=== PATIENT | male | born 1945 | race Caucasian/White ===

== ENCOUNTER 2021-10-26 18:34 | Emergency (ER) | payer OTHER, MEDICARE ==
[~2021-10-26] VITALS: Ht 180.3 cm; Wt 97.5 kg
[2021-10-26] MEDS ORDERED: ULTRAM50 MG PO (21:04)
== END 2021-10-26 21:36 | disposition home or self-care (01) ==
LOC: ED 18:34
DX: S39.012A Strain of muscle, fascia and tendon of lower back, initial encounter (principal); S09.90XA Unspecified injury of head, initial encounter; T14.8XXA Other injury of unspecified body region, initial encounter; Z88.8 Allergy status to other drugs, medicaments and biological substances; W18.09XA Striking against other object with subsequent fall, initial encounter
CPT/HCPCS: 70450; 72125; 72131; 73110; 99284-25; A9270

== ENCOUNTER → 2023-01-30 | Emergency (ER) | payer MEDICARE ==
[~2023-01-30] VITALS: Ht 180.3 cm; Wt 105.0 kg
[~2023-01-30] MED LIST: AMLODIPINE BESY10 MG PO; CYCLOBENZAPRINE10 MG PO; DIAZEPAM5 MG PO; DULOXETINE HCL30 MG PO; ELIQUIS5 MG PO; FARXIGA10 MG PO; FLOVENT DISKUS50 MCG INH; HUMALOG100 UNIT/2 SUB-Q; LEVOTHYROXINE112 MCG PO; LOSARTAN POTASS50 MG PO; METFORMIN HCL500 MG PO; METOPROLOL SUC100 MG PO; OMEPRAZOLE20 MG PO; PRAVASTATIN SOD40 MG PO; TAMSULOSIN HCL0.4 MG PO; TORSEMIDE10 MG PO; TOUJEO SOL300 UNIT/1 SUB-Q; TRAZODONE HCL50 MG PO; ULTRAM50 MG PO; VENTOLIN HFA18 GM INH
--- OUTSIDE RECORDS SUMMARY | ~2023-01-30 | XMS | Continuity of Care Document ---
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 | Role | Phone | + [...] - | | | | | | [place] | | | + + + + [...] - | | | | | | [place] | | | + + + + + + | (no date) | MEPERIDINE | [facility] | (no reaction) | (no severity) [...] + | (no date) | ATORVASTATIN | [facility] | (no reaction) | (no severity) | | | | [facility] | | | + + + + + + | (no date) | LISINOPRIL | [facility] | (no reaction) | (no severity) | | | | [facility] | | | + + + + + + | (no date) | ROSUVASTATIN | [facility] | (no reaction) | (no severity) [...] + | 2013-03-26 00:00 | Influenza | [facility] | + + + + | 2014-03-08 00:00 | Influenza | [facility] | + + + + | 2015-04-07 00:00 | Influenza | [facility] | + + + + | 2016-03-16 00:00 | Influenza | [facility] | + + + + [...] + | 2016-06-11 00:00 | Pneumococcal | [facility] | + + + + Medications + + + + | date | description | facility | + + + + | 2021-07-07 00:00 | Susan Sherwood 100 | [facility] | | | units/mL | | + + + + | 2021-05-08 00:00 | Eliquis 5 mg | [facility] | + + + + | 2021-07-07 00:00 | Flomax 0.4 mg | [facility] | + + + + | 2021-07-07 00:00 | Patti Delgado 300 | [facility] | | | units/mL | | + + + + | 2021-07-07 00:00 | fluticasone nasal 50 | [facility] | | | mcg/inh | | + + + + | 2021-07-07 00:00 | furosemide 20 mg | [facility] | + + + + | 2021-07-07 00:00 | amoxicillin 500 mg | [facility] | + + + + | 2021-07-07 00:00 | DULoxetine 30 mg | [facility] | + + + + | 2015-06-08 00:00 | Valium 5 mg | [facility] | + + + + | 2021-07-07 00:00 | trazodone 50 mg | [facility] | + + + + | 2020-12-06 00:00 | Farxiga 10 mg | [facility] | + + + + | 2021-07-07 00:00 | levothyroxine 112 mcg | [facility] | | | (0.112 mg) | | + + + + | 2021-07-07 00:00 | Metoprolol Succinate ER | [facility] | | | 100 mg | | + + + + | 2021-07-07 00:00 | acetaminophen-hydrocodone | [facility] | | | 325 mg-5 mg | | + + + + | 2021-07-07 00:00 | aspirin 81 mg | [facility] | + + + + | 2021-07-07 00:00 | omeprazole 20 mg | [facility] | + + + + | 2015-06-08 00:00 | diazepam 5 MG Oral Tablet | [facility] | | | [Valium] | | + + + + | 2017-01-08 00:00 | Levothyroxine Sodium 50 | [facility] | | | MCG OR TABS | | + + + + | 2017-04-09 00:00 | Levothyroxine Sodium 75 | [facility] | | | MCG OR TABS | | + + + + | 2017-09-03 00:00 | Levothyroxine Sodium 100 | [facility] | | | MCG OR TABS | | + + + + | 2018-02-18 00:00 | Levothyroxine Sodium 100 | [facility] | | | MCG OR TABS | | + + + + | 2021-05-08 00:00 | apixaban 5 MG Oral Tablet | [place] [facility] | | | [Eliquis] | | + + + + | 2016-12-04 00:00 | Kionex 15 GM/60ML OR SUSP | [facility] | | | | | + + + + | 2020-12-06 00:00 | dapagliflozin 10 MG Oral | [facility] | | | Tablet [Farxiga] | | + + + + | 2019-02-26 00:00 | 1.5 ML insulin glargine | [facility] | | | 300 UNT/ML Pen Injector | | | | [Toujeo] | | + + + + | 2021-07-07 00:00 | 1.5 ML insulin glargine | [facility] | | | 300 UNT/ML Pen Injector | | | | [Toujeo] | | + + + + | 2017-01-22 00:00 | 3 ML insulin lispro 100 | [facility] | | | UNT/ML Pen Injector | | | | [Humalog] | | + + + + | 2018-02-04 00:00 | 3 ML insulin lispro 100 | [facility] | | | UNT/ML Pen Injector | | | | [Humalog] | | + + + + | 2018-08-12 00:00 | 3 ML insulin lispro 100 | [facility] | | | UNT/ML Pen Injector | | | | [Humalog] | | + + + + | 2019-02-26 00:00 | 3 ML insulin lispro 100 | [facility] | | | UNT/ML Pen Injector | | | | [Humalog] | | + + + + | 2021-07-07 00:00 | 3 ML insulin lispro 100 | [facility] | | | UNT/ML Pen Injector | | | | [Humalog] | | + + + + | 2018-02-07 00:00 | 3 ML insulin aspart, human | [facility] | | | 100 UNT/ML Pen Injector | | | | [NovoLog] | | + + + + | 2021-07-07 00:00 | fluticasone propionate | [facility] | | | 0.05 MG/ACTUAT Metered Dose | | | | Nasal [place] | | + + + + | 2017-01-22 00:00 | HumaLOG KwikPen 100 | [facility] | | | UNIT/ML SC SOPN | | + + + + | 2018-02-04 00:00 | HumaLOG KwikPen 100 | [facility] | | | UNIT/ML SC SOPN | | + + + + | 2018-08-12 00:00 | HumaLOG KwikPen 100 | [facility] | | | UNIT/ML SC SOPN | | + + + + | 2019-02-26 00:00 | HumaLOG KwikPen 100UNIT/ML | [facility] | | | Subcutaneous Solution | | | | Pen-injector | | + + + + | 2018-02-07 00:00 | NovoLOG FlexPen 100 | [facility] | | | UNIT/ML SC SOPN | | + + + + | 2019-02-26 00:00 | Lantus SoloStar 100UNIT/ML | [facility] | | | Subcutaneous Solution | | | | Pen-injector | | + + + + | 2019-02-26 00:00 | Toujeo SoloStar 300UNIT/ML | [facility] | | | Subcutaneous Solution | | | | Pen-injector | | + + + + | 2016-10-29 00:00 | amlodipine 5 MG Oral | [facility] | | | Tablet | | + + + + | 2017-04-10 00:00 | amlodipine 5 MG Oral | [facility] | | | Tablet | | + + + + | 2017-09-30 00:00 | amlodipine 5 MG Oral | [facility] | | | Tablet | | + + + + | 2018-10-09 00:00 | amlodipine 5 MG Oral | [facility] | | | Tablet | | + + + + | 2021-03-21 00:00 | amlodipine 5 MG Oral | [facility] | | | Tablet | | + + + + | 2019-02-26 00:00 | diazepam 10 MG Oral Tablet | [facility] | | | | | + + + + | 2021-07-07 00:00 | omeprazole 20 MG Delayed | [place] [facility] | | | Release Oral Capsule | | + + + + | 2021-07-07 00:00 | ondansetron 4 MG Oral | [place] [facility] | | | Tablet | | + + + + | 2018-02-18 00:00 | FreeStyle Dao Sensor | [facility] | | | System MISC | | + + + + | 2018-07-08 00:00 | FreeStyle Dao Sensor | [facility] | | | System MISC | | + + + + | 2018-02-20 00:00 | FreeStyle Dao [place] | [facility] | | | [place] | | + + + + | 2018-07-08 00:00 | FreeStyle Dao [place] | [facility] | | | [place] | | + + + + | 2019-02-26 00:00 | traZODone HCl 100MG Oral | [facility] | | | Tablet | | + + + + | 2019-02-26 00:00 | Warfarin Sodium 7.5MG Oral | [facility] | | | Tablet | | + + + + | 2019-02-26 00:00 | amLODIPine Besylate 2.5MG | [facility] | | | Oral Tablet | | + + + + | 2016-10-29 00:00 | amLODIPine Besylate 5 MG | [facility] | | | OR TABS | | + + + + | 2017-04-10 00:00 | amLODIPine Besylate 5 MG | [facility] | | | OR TABS | | + + + + | 2017-09-30 00:00 | amLODIPine Besylate 5 MG | [facility] | | | OR TABS | | + + + + | 2018-10-09 00:00 | amLODIPine Besylate 5 MG | [facility] | | | OR TABS | | + + + + | 2017-05-21 00:00 | Levothyroxine Sodium 88 | [facility] | | | MCG OR TABS | | + + + + | 2019-02-26 00:00 | Pravastatin Sodium 10MG | [facility] | | | Oral Tablet | | + + + + | 2017-11-04 00:00 | Pravastatin Sodium 40 MG | [facility] | | | OR TABS | | + + + + | 2019-02-26 00:00 | amlodipine 2.5 MG Oral | [facility] | | | Tablet | | + + + + | 2021-07-07 00:00 | amoxicillin 500 MG Oral | [facility] | | | Capsule | | + + + + | 2021-07-07 00:00 | aspirin 81 MG Delayed | [facility] | | | Release Oral Tablet | | + + + + | 2021-07-07 00:00 | furosemide 20 MG Oral | [facility] | | | Tablet | | + + + + | 2017-09-03 00:00 | glucagon (rDNA) 1 MG | [facility] | | | Injection | | + + + + | 2019-04-07 00:00 | glucagon (rDNA) 1 MG | [facility] | | | Injection | | + + + + | 2019-02-26 00:00 | 24 HR isosorbide | [facility] | | | mononitrate 30 MG Extended | | | | Release Oral Tablet | | + + + + | 2019-02-26 00:00 | Losartan Potassium 100MG | [facility] | | | Oral Tablet | | + + + + | 2017-01-22 00:00 | BD Pen Needle Short U/F | [facility] | | | 31G X 8 MM MISC | | + + + + | 2019-11-05 00:00 | BD Pen Needle Short U/F | [facility] | | | 31G X 8 MM Miscellaneous | | + + + + | 2019-02-26 00:00 | Isosorbide Mononitrate ER | [facility] | | | 30MG Oral Tablet Extended | | | | Release 24 Hour | | + + + + | 2021-07-07 00:00 | ProAir HFA CFC free 90 | [facility] | | | mcg/inh | | + + + + | 2019-02-26 00:00 | duloxetine 30 MG Delayed | [facility] | | | Release Oral Capsule | | + + + + | 2021-07-07 00:00 | duloxetine 30 MG Delayed | [facility] | | | Release Oral Capsule | [...] | pregabalin 100 MG Oral | [facility] | | | Capsule [Lyrica] | | + + + + | 2019-02-26 00:00 | diazePAM 10MG Oral Tablet | [facility] | | | | | + + + + | 2018-01-07 00:00 | metFORMIN HCl ER 500 MG | [facility] | | | TB24 | | + + + + | 2018-02-18 00:00 | metFORMIN HCl ER 500 MG | [facility] | | | TB24 | | + + + + | 2018-05-26 00:00 | metFORMIN HCl ER 500 MG | [facility] | | | TB24 | | + + + + | 2021-07-07 00:00 | losartan 25 mg | [facility] | + + + + | 2021-07-07 00:00 | ondansetron 4 mg | [facility] | + + + + | 2021-07-07 00:00 | pravastatin 40 mg | [facility] | + + + + | 2021-01-09 00:00 | metFORMIN 1000 mg | [facility] | + + + + | 2021-07-07 00:00 | cyclobenzaprine 10 mg | [facility] | + + + + | 2017-09-17 00:00 | Metoprolol Succinate ER | [facility] | | | 100 MG OR TB24 | | + + + + | 2019-02-26 00:00 | Metoprolol Succinate ER | [facility] | | | 100MG Oral Tablet Extended | | | | Release 24 Hour | | + + + + | 2021-07-07 00:00 | [id number] 200 ACTUAT | [facility] | | | albuterol 0.09 MG/ACTUAT | | | | Metered Dose Inhaler | | | | [ProAir] | | + + + + | 2021-03-21 00:00 | amLODIPine 5 mg | [facility] | + + + + | 2016-12-04 00:00 | sodium polystyrene | [facility] | | | sulfonate 250 MG/ML Oral | | | | Suspension [Kionex] | | + + + + | 2019-02-26 00:00 | 3 ML insulin glargine 100 | [facility] | | | UNT/ML Pen Injector | | | | [Lantus] | | + + + + | 2019-02-26 00:00 | warfarin sodium 7.5 MG | [facility] | | | Oral Tablet | | + + + + | 2019-02-26 00:00 | trazodone hydrochloride | [facility] | | | 100 MG Oral Tablet | | + + + + | 2021-07-07 00:00 | acetaminophen 325 MG / | [facility] | | | hydrocodone bitartrate [...] 2018-05-26 00:00 | 24 HR metformin | [facility] | | | hydrochloride 500 MG | | | | Extended Release Oral | | | | Tablet | | + + + + | 2021-01-09 00:00 | metformin hydrochloride | [facility] | | | 1000 MG Oral Tablet | | + + + + | 2021-07-07 00:00 | tamsulosin hydrochloride | [facility] | | | 0.4 MG Oral Capsule | | | | [Flomax] | | + + + + | 2017-09-17 00:00 | 24 HR metoprolol succinate | [facility] | | | 100 MG Extended Release | | | | Oral Tablet | | + + + + | 2019-02-26 00:00 | 24 HR metoprolol succinate | [facility] | | | 100 MG Extended Release | | | | Oral Tablet | | + + + + | 2021-07-07 00:00 | 24 HR metoprolol succinate | [facility] | | | 100 MG Extended Release | | | | Oral Tablet | | + + + + | 2019-02-26 00:00 | DULoxetine HCl 30MG Oral | [facility] | | | Capsule Delayed Release | | | | Particles | | + + + + | 2017-09-03 00:00 | levothyroxine sodium 0.1 | [facility] | | | MG Oral Tablet | | + + + + | 2018-02-18 00:00 | levothyroxine sodium 0.1 | [facility] | | | MG Oral Tablet | | + + + + | 2019-02-26 00:00 | pravastatin sodium 10 MG | [facility] | | | Oral Tablet | | + + + + | 2017-11-04 00:00 | pravastatin sodium 40 MG | [facility] | | | Oral Tablet | | + + + + | 2021-07-07 00:00 | pravastatin sodium 40 MG | [facility] | | | Oral Tablet | | + + + + | 2017-11-12 00:00 | Lyrica 100 MG OR CAPS | [facility] | | | | | + + + + | 2017-01-08 00:00 | levothyroxine sodium 0.05 | [facility] | | | MG Oral Tablet | | + + + + | 2017-04-09 00:00 | levothyroxine sodium 0.075 | [facility] | | | MG Oral Tablet | | + + + + | 2021-07-07 00:00 | levothyroxine sodium 0.112 | [facility] | | | MG Oral Tablet | [...] | 2017-10-15 00:00 | hydrochlorothiazide 12.5 | [facility] | | | MG / losartan potassium 100 | | | | MG Oral Tablet | | + + + + | 2018-09-16 00:00 | hydrochlorothiazide 12.5 | [facility] | | | MG / losartan potassium 100 | | | | MG Oral Tablet | | + + + + | 2019-02-26 00:00 | losartan potassium 100 MG | [facility] | | | Oral Tablet | | + + + + | 2021-07-07 00:00 | losartan potassium 25 MG | [facility] | | | Oral Tablet | | + + + + | 2016-10-16 00:00 | Losartan Potassium-HCTZ | [facility] | | | 100-12.5 MG OR TABS | | + + + + | 2017-10-15 00:00 | Losartan Potassium-HCTZ | [facility] | | | 100-12.5 MG OR TABS | | + + + + | 2018-09-16 00:00 | Losartan Potassium-HCTZ | [facility] | | | 100-12.5 MG OR TABS | | + + + + | 2019-02-26 00:00 | levothyroxine Oral Tablet | [facility] | | | | | + + + + | 2019-02-26 00:00 | ASPIRIN 81mg Oral Tablet | [facility] | | | | | + + + + | 2019-02-26 00:00 | MultiVitamin Oral Tablet | [facility] | | | | | + + + + | 2019-02-26 00:00 | Omeprazole Oral Tablet | [facility] | | | | | + + + + | 2019-02-26 00:00 | Cyclobenzaprine Oral | [facility] | | | Tablet | | + + + + Problems + + + + | date | description | facility | + + + + | (no date) | Acute diastolic | [facility] - | | | (congestive) heart failure | [place] | + + + + | 2015-04-07 00:00 | Diabetic renal disease | [place] [facility] | + + + + | 2015-04-07 00:00 | Insomnia | [facility] | + + + + | 2015-04-07 00:00 | Hyperglycemia due to type | [place] [facility] | | | 2 diabetes mellitus | | + + + + | 2015-04-07 00:00 | Chronic kidney disease | [facility] | | | stage 3 | | + + + + | 2015-04-07 00:00 | Essential hypertension | [facility] | + + + + | 2015-04-07 00:00 | 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[facility] | | | 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 | | | | diabetes mellitus | | + + + + | 2015-04-07 00:00 | 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 | | + + + + | 2015-04-07 00:00 | Type 2 diabetes mellitus | [facility] [place] [facility] | | | with proliferative diabetic | | | | retinopathy with macular | | | | edema | | + + + + | 2015-04-07 00:00 | Type 2 diabetes mellitus | [facility] [place] [facility] | | | with hyperglycemia | | + + + + | 2015-04-07 00:00 | Mixed hyperlipidemia | [facility] | + + + + | 2015-04-07 00:00 | Insomnia, unspecified | [facility] | + + + + | 2015-04-07 00:00 | Essential (primary) | [facility] | | | hypertension | | + + + + | 2015-04-07 00:00 | Chronic kidney disease, | [facility] | | | stage 3 (moderate) | | + + + + | 2015-04-27 00:00 | History of pulmonary | [facility] | | | embolus | | + + + + | 2015-04-27 00:00 | History of | [facility] | | | thrombophlebitis | | + + + + | 2015-04-27 00:00 | Personal history of | [facility] | | | pulmonary embolism | | + + + + | 2015-04-27 00:00 | Personal history of | [facility] | | | thrombophlebitis | | + + + + | 2015-05-17 00:00 | Spasm | [facility] | + + + + | 2015-05-17 00:00 | 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 | | | | artery without angina | | | | pectoris | | + + + + | 2015-05-17 00:00 | Cramp and spasm | [facility] | + + + + | 2015-06-01 00:00 | Chest pain | [facility] | + + + + | 2015-06-01 00:00 | Tachycardia | [facility] | + + + + | 2015-06-01 00:00 | Tachycardia, unspecified | [facility] | + + + + | 2015-06-01 00:00 | Other chest pain | [facility] | + + + + | 2015-08-01 00:00 | Polyneuropathy due to type | [facility] | | | 2 diabetes mellitus | | + + + + | 2015-08-01 00:00 | Type 2 diabetes mellitus | [facility] | | | with diabetic | | | | polyneuropathy | | + + + + | 2015-10-04 00:00 | DM II UNCONTROLLED | [facility] | | | | | + + + + | 2015-10-04 00:00 | Atrial Fibrillation | [facility] | | | | | + + + + | 2015-10-04 00:00 | Coronary Artery Disease | [facility] | | | | | + + + + | 2015-10-04 00:00 | HTN BENIGN | [facility] | | | | | + + + + | 2015-10-04 00:00 | Diabetes mellitus type 2 | [facility] | | | (disorder) | | + + + + | 2015-10-04 00:00 | Atrial fibrillation | [facility] | | | (disorder) | | + + + + | 2015-10-04 00:00 | Right and left (qualifier | [facility] | | | value) | | + + + + | 2015-10-04 00:00 | Coronary arteriosclerosis | [facility] | | | (disorder) | | + + + + | 2015-10-04 00:00 | Carpal tunnel syndrome | [facility] | | | (disorder) | | + + + + | 2015-10-04 00:00 | Essential hypertension | [facility] | | | (disorder) | | + + + + | 2015-10-04 00:00 | Diabetes Mellitus Type 2 | [facility] | | | | | + + + + | 2015-10-04 00:00 | Carpal Tunnel Syndrome | [facility] | | | Bilateral | | + + + + | 2015-10-04 00:00 | Essential Hypertension | [facility] 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 | | | (disorder) | | + + + + | 2017-01-08 00:00 | HYPOTHYROIDISM | [facility] | | | | | + + + + | 2017-01-08 00:00 | Primary Hypothyroidism | [facility] | | | | | + + + + | 2017-02-06 00:00 | Obstructive sleep apnea | [facility] | | | syndrome | | + + + + | 2017-02-06 00:00 | Obstructive sleep apnea | [facility] | | | (adult) (pediatric) | | + + + + | 2017-09-24 00:00 | Cramp in lower leg | [facility] | | | associated with rest | | + + + + | 2017-09-24 00:00 | Sleep related leg cramps | [facility] | + + + + | 2017-12-18 00:00 | Diabetic renal disease | [facility] | + + + + | 2017-12-18 00:00 | Meralgia paresthetica | [facility] | + + + + | 2017-12-18 00:00 | Type 2 diabetes mellitus | [facility] | | | with other diabetic kidney | | | | complication | | + + + + | 2017-12-18 00:00 | Meralgia paresthetica, | [facility] | | | bilateral lower [...] 00:00 | Diabetes Mellitus Type 1 | [facility] | | | | | + + + + | 2018-07-08 00:00 | Diabetes mellitus type 1 | [facility] | | | (disorder) | | + + + + | 2018-10-21 00:00 | Hypothyroidism | [facility] | + + + + | 2018-10-21 00:00 | Other specified | [facility] | | | hypothyroidism | | + + + + | 2019-01-13 00:00 | History of polyp of colon | [facility] | + + + + | 2019-01-13 00:00 | Personal history of | [facility] | | | colonic polyps | | + + + + | 2019-07-16 00:00 | Diabetic renal disease | [facility] | + + + + | 2019-07-16 00:00 | 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 | | | | diabetes mellitus | | + + + + | 2019-07-16 00:00 | Type 2 diabetes mellitus | [facility] | | | with diabetic chronic | | | | kidney disease | | + + + + | 2019-07-16 00:00 | Type 2 diabetes mellitus | [facility] | | | with mild nonproliferative | | | | diabetic retinopathy with | | | | macular edema, bilateral | | + + + + | 2019-07-16 08:44:05 | Other specified | [facility] - | | | hypothyroidism | [facility] | + + + + | 2019-07-16 08:44:05 | 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 chronic | [facility] | | | kidney disease | | + + + + | 2019-07-16 08:44:05 | Type 2 diabetes mellitus | [facility] - | | | with mild nonproliferative | [place] | | | diabetic retinopathy with | | | | macular edema, bilateral | | + + + + | 2019-07-16 08:44:05 | Type 2 diabetes mellitus | [facility] - | | | with hyperglycemia | [place] | + + + + | 2019-07-16 08:44:05 | Essential (primary) | [facility] - | | | hypertension | [place] | + + + + | 2019-07-20 09:05:58 | Radial styloid | [facility] - | | | tenosynovitis (de quervain) | [place] | | | | | + + + + | 2019-07-27 09:16:16 | Encounter for other | [facility] - | | | specified special | [place] | | | examinations | | + + + + | 2019-08-10 08:44:42 | Other pulmonary embolism | [facility] - | | | without acute cor pulmonale | [place] | | | | | + + + + | 2019-08-10 08:44:42 | Unspecified atrial | [facility] - | | | fibrillation | [place] | + + + + | 2019-08-10 08:44:42 | Acute embolism and | [facility] [facility] - | | | thrombosis of unspecified | [place] | | | vein | | + + + + | 2019-08-10 08:44:42 | Encounter for therapeutic | [facility] - | | | drug level monitoring | [place] | + + + + | 2019-08-10 08:44:42 | [facility] (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 of | [facility] - | | | 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 | [place] | + + + + | 2019-08-15 09:06 | Wrist Pain | [facility] - | | | | [place] | + + + + | 2019-08-15 11:12:57 | Wrist Pain | [facility] - | | | | [place] | + + + + | 2019-08-15 11:12:57 | Hyperkalemia | [facility] - | | | | [place] | + + + + | 2019-08-15 11:12:57 | Cellulitis of right upper | [facility] - | | | limb | [place] | + + + + | 2019-08-15 11:12:57 | Acute kidney failure, | [facility] - | | | unspecified | [place] | + + + + | 2019-08-24 08:28:31 | Other pulmonary embolism | [facility] - | | | without acute cor pulmonale | [place] | | | | | + + + + | 2019-08-24 08:28:31 | Unspecified atrial | [facility] - | | | fibrillation | [place] | + + + + | 2019-08-24 08:28:31 | Acute embolism and | [facility] - | | | thrombosis of unspecified | [place] | | | vein | | + + + + | 2019-08-24 08:28:31 | Encounter for therapeutic | [facility] - | | | drug level monitoring | [place] | + + + + | 2019-08-24 08:28:31 | [facility] (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 of | [facility] - | | | 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 | [place] | + + + + | 2019-09-21 08:12:15 | Other pulmonary embolism | [facility] - | | | without acute cor pulmonale | [place] | | | | | + + + + | 2019-09-21 08:12:15 | Unspecified atrial | [facility] - | | | fibrillation | [place] | + + + + | 2019-09-21 08:12:15 | Acute embolism and | [facility] - | | | thrombosis of unspecified | [place] | | | vein | | + + + + | 2019-09-21 08:12:15 | Encounter for therapeutic | [facility] - | | | drug level monitoring | [place] | + + + + | 2019-09-21 08:12:15 | 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 | [place] | + + + + | 2019-11-09 08:18:40 | Other pulmonary embolism | [facility] - | | | without acute cor pulmonale | [place] | | | | | + + + + | 2019-11-09 08:18:40 | Unspecified atrial | [facility] - | | | fibrillation | [place] | + + + + | 2019-11-09 08:18:40 | Acute embolism and | [facility] - | | | thrombosis of unspecified | [place] | | | vein | | + + + + | 2019-11-09 08:18:40 | Encounter for therapeutic | [facility] - | | | drug level monitoring | [place] | + + + + | 2019-11-09 08:18:40 | 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 | [place] | + + + + | 2019-12-11 00:00 | Diastolic heart failure | [facility] | + + + + | 2019-12-11 00:00 | Unspecified diastolic | [facility] | | | (congestive) heart failure | | + + + + | 2019-12-11 14:25:01 | Type 2 diabetes mellitus | [facility] - | | | with hyperglycemia | [place] | + + + + | 2019-12-11 14:25:01 | Essential (primary) | [facility] - | | | hypertension | [place] | + + + + | 2019-12-11 14:25:01 | Unspecified diastolic | [facility] - | | | (congestive) heart failure | [place] | + + + + | 2019-12-11 14:25:01 | Chronic kidney disease, | [facility] - | | | stage 3 (moderate) | [place] | + + + + | 2019-12-12 00:00 | Acute diastolic heart | [facility] | | | failure | | + + + + | 2019-12-12 00:00 | Acute diastolic | [facility] | | | (congestive) heart failure | | + + + + | 2019-12-21 07:35:52 | Other proteinuria | [facility] - | | | | [place] | + + + + | 2019-12-21 07:41:32 | Other pulmonary embolism | [facility] - | | | without acute cor pulmonale | [place] | | | | | + + + + | 2019-12-21 07:41:32 | Unspecified atrial | [facility] - | | | fibrillation | [place] | + + + + | 2019-12-21 07:41:32 | Acute embolism and | [facility] - | | | thrombosis of unspecified | [place] | | | vein | | + + + + | 2019-12-21 07:41:32 | Encounter for therapeutic | [facility] - | | | drug level monitoring | [place] | + + + + | 2019-12-21 07:41:32 | [facility] (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 of | [facility] - | | | 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 | [place] | + + + + | 2019-12-22 10:05:25 | Acute diastolic | [facility] - | | | (congestive) heart failure | [place] | + + + + | 2020-02-01 10:56:27 | Chronic kidney disease, | [facility] - | | | stage 3 (moderate) | [place] | + + + + | 2020-03-29 08:49:05 | Other pulmonary embolism | [facility] - | | | without acute cor pulmonale | [place] | | | | | + + + + | 2020-03-29 08:49:05 | Paroxysmal atrial | [facility] - | | | fibrillation | [place] | + + + + | 2020-03-29 08:49:05 | Acute embolism and | [facility] - | | | thrombosis of unspecified | [place] | | | deep veins of right lower | | | | extremity | | + + + + | 2020-03-29 08:49:05 | Encounter for therapeutic | [facility] - | | | drug level monitoring | [place] | + + + + | 2020-03-29 08:49:05 | 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[facility] - | | | 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 | [place] | + + + + | 2020-04-04 00:00 | Long-term current use of | [facility] [place] [facility] | | | insulin | | + + + + | 2020-04-04 00:00 | 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[facility] | | | 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 | | + + + + | 2020-04-04 14:07:44 | 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 | [place] | + + + + | 2020-04-04 14:07:44 | 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 | [place] | | | polyneuropathy | | + + + + | 2020-04-04 14:07:44 | Mixed hyperlipidemia | [facility] - | | | | [place] | + + + + | 2020-04-07 09:22:04 | Isolated proteinuria | [facility] - | | | | [place] | + + + + | 2020-04-07 09:22:04 | Other proteinuria | [facility] - | | | | [place] | + + + + | 2020-04-07 11:05:25 | Other proteinuria | [facility] - | | | | [place] | + + + + | 2020-05-10 09:12:55 | Other pulmonary embolism | [facility] - | | | without acute cor pulmonale | [place] | | | | | + + + + | 2020-05-10 09:12:55 | Paroxysmal atrial | [facility] - | | | fibrillation | [place] | + + + + | 2020-05-10 09:12:55 | Acute embolism and | [facility] - | | | thrombosis of unspecified | [place] | | | deep veins of right lower | | | | extremity | | + + + + | 2020-05-10 09:12:55 | Encounter for therapeutic | [facility] - | | | drug level monitoring | [place] | + + + + | 2020-05-10 09:12:55 | 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 | [place] | + + + + | 2020-05-24 09:03:04 | Other pulmonary embolism | [facility] - | | | without acute cor pulmonale | [place] | | | | | + + + + | 2020-05-24 09:03:04 | Paroxysmal atrial | [facility] - | | | fibrillation | [place] | + + + + | 2020-05-24 09:03:04 | Acute embolism and | [facility] - | | | thrombosis of unspecified | [place] | | | deep veins of right lower | | | | extremity | | + + + + | 2020-05-24 09:03:04 | Encounter for therapeutic | [facility] - | | | drug level monitoring | [place] | + + + + | 2020-05-24 09:03:04 | [facility] (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 of | [facility] - | | | 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 | [place] | + + + + | 2020-06-07 10:22:25 | Other pulmonary embolism | [facility] - | | | without acute cor pulmonale | [place] | | | | | + + + + | 2020-06-07 10:22:25 | Paroxysmal atrial | [facility] - | | | fibrillation | [place] | + + + + | 2020-06-07 10:22:25 | Acute embolism and | [facility] - | | | thrombosis of unspecified | [place] | | | deep veins of right lower | | | | extremity | | + + + + | 2020-06-07 10:22:25 | Encounter for therapeutic | [facility] - | | | drug level monitoring | [place] | + + + + | 2020-06-07 10:22:25 | [facility] (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 of | [facility] - | | | 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 | [place] | + + + + | 2020-06-28 10:23:54 | Other pulmonary embolism | [facility] - | | | without acute cor pulmonale | [place] | | | | | + + + + | 2020-06-28 10:23:54 | Paroxysmal atrial | [facility] - | | | fibrillation | [place] | + + + + | 2020-06-28 10:23:54 | Acute embolism and | [facility] - | | | thrombosis of unspecified | [place] | | | deep veins of right lower | | | | extremity | | + + + + | 2020-06-28 10:23:54 | Encounter for therapeutic | [facility] - | | | drug level monitoring | [place] | + + + + | 2020-06-28 10:23:54 | 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 | [place] | + + + + | 2020-08-02 09:52:07 | Other pulmonary embolism | [facility] - | | | without acute cor pulmonale | [place] | | | | | + + + + | 2020-08-02 09:52:07 | Paroxysmal atrial | [facility] - | | | fibrillation | [place] | + + + + | 2020-08-02 09:52:07 | Acute embolism and | [facility] - | | | thrombosis of unspecified | [place] | | | deep veins of right lower | | | | extremity | | + + + + | 2020-08-02 09:52:07 | Encounter for therapeutic | [facility] - | | | drug level monitoring | [place] | + + + + | 2020-08-02 09:52:07 | [facility] (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 of | [facility] - | | | 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 | [place] | + + + + | 2020-08-11 11:33:25 | 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 | [place] | + + + + | 2020-08-11 11:33:25 | 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 | [place] | | | polyneuropathy | | + + + + | 2020-08-11 11:33:25 | Type 2 diabetes mellitus | [facility] - | | | with hyperglycemia | [place] | + + + + | 2020-08-15 00:00 | Sciatica | [facility] | + + + + | 2020-08-15 00:00 | Lumbago with sciatica, | [facility] | | | right side | | + + + + | 2020-09-13 09:49:40 | Other pulmonary embolism | [facility] - | | | without acute cor pulmonale | [place] | | | | | + + + + | 2020-09-13 09:49:40 | Paroxysmal atrial | [facility] - | | | fibrillation | [place] | + + + + | 2020-09-13 09:49:40 | Acute embolism and | [facility] - | | | thrombosis of unspecified | [place] | | | deep veins of right lower | | | | extremity | | + + + + | 2020-09-13 09:49:40 | Encounter for therapeutic | [facility] - | | | drug level monitoring | [place] | + + + + | 2020-09-13 09:49:40 | [facility] (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 of | [facility] - | | | 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 | [place] | + + + + | 2020-09-15 13:26:36 | Other specified | [facility] - | | | hypothyroidism | [place] | + + + + | 2020-09-15 13:26:36 | Type 2 diabetes mellitus | [facility] - | | | with other diabetic kidney | [place] | | | complication | | + + + + | 2020-09-30 07:55:06 | Other pulmonary embolism | [facility] - | | | without acute cor pulmonale | [place] | | | | | + + + + | 2020-09-30 07:55:06 | Paroxysmal atrial | [facility] - | | | fibrillation | [place] | + + + + | 2020-09-30 07:55:06 | Acute embolism and | [facility] - | | | thrombosis of unspecified | [place] | | | vein | | + + + + | 2020-10-01 10:11:38 | Encounter for screening | [facility] - | | | for other viral diseases | [place] | + + + + | 2020-10-03 14:16:53 | 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 | [place] | + + + + | 2020-10-11 14:05:31 | Other pulmonary embolism | [facility] - | | | without acute cor pulmonale | [place] | | | | | + + + + | 2020-10-11 14:05:31 | Unspecified atrial | [facility] - | | | fibrillation | [place] | + + + + | 2020-10-11 14:05:31 | Acute embolism and | [facility] - | | | thrombosis of unspecified | [place] | | | deep veins of unspecified | | | | distal lower extremity | | + + + + | 2020-10-11 14:05:31 | Encounter for therapeutic | [facility] - | | | drug level monitoring | [place] | + + + + | 2020-10-11 14:05:31 | [facility] (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 of | [facility] - | | | 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 | [place] | + + + + | 2020-11-08 08:53:51 | Other pulmonary embolism | [facility] - | | | without acute cor pulmonale | [place] | | | | | + + + + | 2020-11-08 08:53:51 | Unspecified atrial | [facility] - | | | fibrillation | [place] | + + + + | 2020-11-08 08:53:51 | Acute embolism and | [facility] - | | | thrombosis of unspecified | [place] | | | deep veins of unspecified | | | | proximal lower extremity | | + + + + | 2020-11-08 08:53:51 | Encounter for therapeutic | [facility] - | | | drug level monitoring | [place] | + + + + | 2020-11-08 08:53:51 | 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 | [place] | + + + + | 2020-11-30 11:40:54 | Type 2 diabetes mellitus | [facility] - | | | with diabetic chronic | [place] | | | kidney disease | | + + + + | 2020-11-30 11:40:54 | Mixed hyperlipidemia | [facility] - | | | | [place] | + + + + | 2020-12-12 08:43:18 | Other pulmonary embolism | [facility] - | | | without acute cor pulmonale | [place] | | | | | + + + + | 2020-12-12 08:43:18 | Paroxysmal atrial | [facility] - | | | fibrillation | [place] | + + + + | 2020-12-12 08:43:18 | Acute embolism and | [facility] - | | | thrombosis of unspecified | [place] | | | deep veins of right lower | | | | extremity | | + + + + | 2020-12-12 08:43:18 | Encounter for therapeutic | [facility] - | | | drug level monitoring | [place] | + + + + | 2020-12-12 08:43:18 | 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 | [place] | + + + + | 2021-01-09 08:49:42 | Other pulmonary embolism | [facility] - | | | without acute cor pulmonale | [place] | | | | | + + + + | 2021-01-09 08:49:42 | Paroxysmal atrial | [facility] - | | | fibrillation | [place] | + + + + | 2021-01-09 08:49:42 | Acute embolism and | [facility] - | | | thrombosis of unspecified | [place] | | | deep veins of right lower | | | | extremity | | + + + + | 2021-01-09 08:49:42 | Encounter for therapeutic | [facility] - | | | drug level monitoring | [place] | + + + + | 2021-01-09 08:49:42 | 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 | [place] | + + + + | 2021-01-26 09:11:42 | FYI | [facility] | | | | Care | + + + + | 2021-02-20 09:15:49 | Other pulmonary embolism | [facility] - | | | without acute cor pulmonale | [place] | | | | | + + + + | 2021-02-20 09:15:49 | Paroxysmal atrial | [facility] - | | | fibrillation | [place] | + + + + | 2021-02-20 09:15:49 | Acute embolism and | [facility] - | | | thrombosis of unspecified | [place] | | | deep veins of right lower | | | | extremity | | + + + + | 2021-02-20 09:15:49 | Encounter for therapeutic | [facility] - | | | drug level monitoring | [place] | + + + + | 2021-02-20 09:15:49 | [facility] (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 of | [facility] - | | | 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 | [place] | + + + + | 2021-03-20 09:01:08 | Other pulmonary embolism | [facility] - | | | without acute cor pulmonale | [place] | | | | | + + + + | 2021-03-20 09:01:08 | Paroxysmal atrial | [facility] - | | | fibrillation | [place] | + + + + | 2021-03-20 09:01:08 | Acute embolism and | [facility] - | | | thrombosis of unspecified | [place] | | | deep veins of right lower | | | | extremity | | + + + + | 2021-03-20 09:01:08 | Encounter for therapeutic | [facility] - | | | drug level monitoring | [place] | + + + + | 2021-03-20 09:01:08 | [facility] (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 of | [facility] - | | | 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 | [place] | + + + + | 2021-05-01 09:14:56 | Other pulmonary embolism | [facility] - | | | without acute cor pulmonale | [place] | | | | | + + + + | 2021-05-01 09:14:56 | Paroxysmal atrial | [facility] - | | | fibrillation | [place] | + + + + | 2021-05-01 09:14:56 | Acute embolism and | [facility] - | | | thrombosis of unspecified | [place] | | | deep veins of right lower | | | | extremity | | + + + + | 2021-05-01 09:14:56 | Encounter for therapeutic | [facility] - | | | drug level monitoring | [place] | + + + + | 2021-05-01 09:14:56 | 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 | [place] | + + + + | 2021-05-02 10:02:34 | Type 2 diabetes mellitus | [facility] | | | with diabetic chronic | Care | | | kidney disease | | + + + + | 2021-05-02 10:02:34 | Hypertensive chronic kidney | [facility] | | | disease with stage 1 | Care | | | through stage 4 chronic | | | | kidney disease, or | | | | unspecified chronic kidney | | | | disease | | + + + + | 2021-05-02 10:02:34 | Chronic kidney disease, | [facility] | | | stage 3 unspecified | Care | + + + + | 2021-05-02 10:02:34 | Chronic kidney disease, | [facility] | | | stage 3b | Care | + + + + | 2021-05-02 10:02:34 | 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 | Care | + + + + | 2021-05-02 10:25:30 | Type 2 diabetes mellitus | [facility] | | | with diabetic chronic | Care | | | kidney disease | | + + + + | 2021-05-02 10:25:30 | Hypertensive chronic kidney | [facility] | | | disease with stage 1 | Care | | | through stage 4 chronic | | | | kidney disease, or | | | | unspecified chronic kidney | | | | disease | | + + + + | 2021-05-02 10:25:30 | Chronic kidney disease, | [facility] | | | stage 3 unspecified | Care | + + + + | 2021-05-02 10:25:30 | Chronic kidney disease, | [facility] | | | stage 3b | Care | + + + + | 2021-05-02 10:25:30 | 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 | Care | + + + + | 2021-05-02 10:42:35 | Type 2 diabetes mellitus | [facility] | | | with diabetic chronic | Care | | | kidney disease | | + + + + | 2021-05-02 10:42:35 | Hypertensive chronic kidney | [facility] | | | disease with stage 1 | Care | | | through stage 4 chronic | | | | kidney disease, or | | | | unspecified chronic kidney | | | | disease | | + + + + | 2021-05-02 10:42:35 | Chronic kidney disease, | [facility] | | | stage 3 unspecified | Care | + + + + | 2021-05-02 10:42:35 | Chronic kidney disease, | [facility] | | | stage 3b | Care | + + + + | 2021-05-02 10:42:35 | 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 | | | | + + + + + + + + + | Result panel 2 | + + + + +-------+--------+ + + | CREATININE | 2019-07-16 | [facility] | 1.3 | mg/dl | (missing) | | (MG/DL) IN | :44:12 | | | | | | SER/PLAS | | | | | | + + +-------+--------+ + + | CREATININE | 2019-07-16 | [facility] | 1.3 | mg/dl | (missing) | | (MG/DL) IN | :44:12 | | | | | | SER/PLAS | | | | | | + + +-------+--------+ + + | CHLORIDE | 2019-07-16 | [facility] | 103 | mmol/l | (missing) | | (MMOL/L) IN | :44:12 | | | | | | SER/PLAS | | | | | | + + +-------+--------+ + + | CHLORIDE | 2019-07-16 | [facility] | 103 | mmol/l | (missing) | | (MMOL/L) IN | :44:12 | | | | | | SER/PLAS [...] | [facility] | 154 | mg/dl | | | [facility] BLD | 08:44:12 | | | | | | GLUCOSE | | | | | | + + +-------+--------+ + + Social History + + + + | date | description | facility | + + + + | 2020-08-25 00:00 | [facility] | | | | + + + + | 2021-07-07 00:00 | Unknown if ever smoked | [facility] | + + + + [...]
--- OUTSIDE RECORDS SUMMARY | ~2023-01-30 | XMS | Continuity of Care Document ---
Demographics + + + | Address | [address] | | | [place] [address] | + + + | Preferred Language | Unknown | + + + | Marital Status | | + + + | Mandaeism Affiliation | Unknown | + + + | Race | White | + + + | Ethnic Group | Not or | + + + Author + + + | Author | [facility] | + + + | Organization | [facility] | + + + | Address | [address] | | | [place] [address] | + + + | Phone | | + + + Care Team Providers + + + + | Care Computer Discovery Teacher Name | Role | Phone | + [...] - | | | | | | [facility] | | | + + + + [...] - | | | | | | [facility] | | | + + + + + + | (no date) | MEPERIDINE | [facility] | (no reaction) | (no severity) [...] + | (no date) | ATORVASTATIN | [facility] | (no reaction) | (no severity) | | | | [facility] | | | + + + + + + | (no date) | LISINOPRIL | [facility] | (no reaction) | (no severity) | | | | [facility] | | | + + + + + + | (no date) | ROSUVASTATIN | [facility] | (no reaction) | (no severity) [...] + | 2013-03-26 00:00 | Influenza | [facility] | + + + + | 2014-03-08 00:00 | Influenza | [facility] | + + + + | 2015-04-07 00:00 | Influenza | [facility] | + + + + | 2016-03-16 00:00 | Influenza | [facility] | + + + + [...] 2021-07-07 00:00 | Susan Sherwood 100 | [facility] | | | units/mL | | + + + + | 2021-05-08 00:00 | Eliquis 5 mg | [facility] | + + + + | 2021-07-07 00:00 | Flomax 0.4 mg | [facility] | + + + + | 2021-07-07 00:00 | Patti Delgado 300 | [facility] | | | units/mL | | + + + + | 2021-07-07 00:00 | fluticasone nasal 50 | [facility] | | | mcg/inh | | + + + + | 2021-07-07 00:00 | furosemide 20 mg | [facility] | + + + + | 2021-07-07 00:00 | amoxicillin 500 mg | [facility] | + + + + | 2021-07-07 00:00 | DULoxetine 30 mg | [facility] | + + + + | 2015-06-08 00:00 | Valium 5 mg | [facility] | + + + + | 2021-07-07 00:00 | trazodone 50 mg | [facility] | + + + + | 2020-12-06 00:00 | Farxiga 10 mg | [facility] | + + + + | 2021-07-07 00:00 | levothyroxine 112 mcg | [facility] | | | (0.112 mg) | | + + + + | 2021-07-07 00:00 | Metoprolol Succinate ER | [facility] | | | 100 mg | | + + + + | 2021-07-07 00:00 | acetaminophen-hydrocodone | [facility] | | | 325 mg-5 mg | | + + + + | 2021-07-07 00:00 | aspirin 81 mg | [facility] | + + + + | 2021-07-07 00:00 | omeprazole 20 mg | [facility] | + + + + | 2015-06-08 00:00 | diazepam 5 MG Oral Tablet | [facility] | | | [Valium] | | + + + + | 2017-01-08 00:00 | Levothyroxine Sodium 50 | [facility] | | | MCG OR TABS | | + + + + | 2017-04-09 00:00 | Levothyroxine Sodium 75 | [facility] | | | MCG OR TABS | | + + + + | 2017-09-03 00:00 | Levothyroxine Sodium 100 | [facility] | | | MCG OR TABS | | + + + + | 2018-02-18 00:00 | Levothyroxine Sodium 100 | [facility] | | | MCG OR TABS | | + + + + | 2021-05-08 00:00 | apixaban 5 MG Oral Tablet | [facility] | | | [Eliquis] | | + + + + | 2016-12-04 00:00 | Kionex 15 GM/60ML OR SUSP | [facility] | | | | | + + + + | 2020-12-06 00:00 | dapagliflozin 10 MG Oral | [facility] | | | Tablet [Farxiga] | | + + + + | 2019-02-26 00:00 | 1.5 ML insulin glargine | [facility] | | | 300 UNT/ML Pen Injector | | | | [Toujeo] | | + + + + | 2021-07-07 00:00 | 1.5 ML insulin glargine | [facility] | | | 300 UNT/ML Pen Injector | | | | [Toujeo] | | + + + + | 2017-01-22 00:00 | 3 ML insulin lispro 100 | [facility] | | | UNT/ML Pen Injector | | | | [Humalog] | | + + + + | 2018-02-04 00:00 | 3 ML insulin lispro 100 | [facility] | | | UNT/ML Pen Injector | | | | [Humalog] | | + + + + | 2018-08-12 00:00 | 3 ML insulin lispro 100 | [facility] | | | UNT/ML Pen Injector | | | | [Humalog] | | + + + + | 2019-02-26 00:00 | 3 ML insulin lispro 100 | [facility] | | | UNT/ML Pen Injector | | | | [Humalog] | | + + + + | 2021-07-07 00:00 | 3 ML insulin lispro 100 | [facility] | | | UNT/ML Pen Injector | | | | [Humalog] | | + + + + | 2018-02-07 00:00 | 3 ML insulin aspart, human | [facility] | | | 100 UNT/ML Pen Injector | | | | [NovoLog] | | + + + + | 2021-07-07 00:00 | fluticasone propionate | [facility] | | | 0.05 MG/ACTUAT Metered Dose | | | | Nasal Theodore | | + + + + | 2017-01-22 00:00 | HumaLOG KwikPen 100 | [facility] | | | UNIT/ML SC SOPN | | + + + + | 2018-02-04 00:00 | HumaLOG KwikPen 100 | [facility] | | | UNIT/ML SC SOPN | | + + + + | 2018-08-12 00:00 | HumaLOG KwikPen 100 | [facility] | | | UNIT/ML SC SOPN | | + + + + | 2019-02-26 00:00 | HumaLOG KwikPen 100UNIT/ML | [facility] | | | Subcutaneous Solution | | | | Pen-injector | | + + + + | 2018-02-07 00:00 | NovoLOG FlexPen 100 | [facility] | | | UNIT/ML SC SOPN | | + + + + | 2019-02-26 00:00 | Lantus SoloStar 100UNIT/ML | [facility] | | | Subcutaneous Solution | | | | Pen-injector | | + + + + | 2019-02-26 00:00 | Toujeo SoloStar 300UNIT/ML | [facility] | | | Subcutaneous Solution | | | | Pen-injector | | + + + + | 2016-10-29 00:00 | amlodipine 5 MG Oral | [facility] | | | Tablet | | + + + + | 2017-04-10 00:00 | amlodipine 5 MG Oral | [facility] | | | Tablet | | + + + + | 2017-09-30 00:00 | amlodipine 5 MG Oral | [facility] | | | Tablet | | + + + + | 2018-10-09 00:00 | amlodipine 5 MG Oral | [facility] | | | Tablet | | + + + + | 2021-03-21 00:00 | amlodipine 5 MG Oral | [facility] | | | Tablet | | + + + + | 2019-02-26 00:00 | diazepam 10 MG Oral Tablet | [facility] | | | | | + + + + | 2021-07-07 00:00 | omeprazole 20 MG Delayed | [facility] | | | Release Oral Capsule | | + + + + | 2021-07-07 00:00 | ondansetron 4 MG Oral | [facility] | | | Tablet | | + + + + | 2018-02-18 00:00 | FreeStyle Dao Sensor | [facility] | | | System MISC | | + + + + | 2018-07-08 00:00 | FreeStyle Dao Sensor | [facility] | | | System MISC | | + + + + | 2018-02-20 00:00 | FreeStyle Dao Stewart | [facility] | | | [place] | | + + + + | 2018-07-08 00:00 | FreeStyle Dao Stewart | [facility] | | | [place] | | + + + + | 2019-02-26 00:00 | traZODone HCl 100MG Oral | [facility] | | | Tablet | | + + + + | 2019-02-26 00:00 | Warfarin Sodium 7.5MG Oral | [facility] | | | Tablet | | + + + + | 2019-02-26 00:00 | amLODIPine Besylate 2.5MG | [facility] | | | Oral Tablet | | + + + + | 2016-10-29 00:00 | amLODIPine Besylate 5 MG | [facility] | | | OR TABS [...] 2017-05-21 00:00 | Levothyroxine Sodium 88 | [facility] | | | MCG OR TABS | | + + + + | 2019-02-26 00:00 | Pravastatin Sodium 10MG | [facility] | | | Oral Tablet | | + + + + | 2017-11-04 00:00 | Pravastatin Sodium 40 MG | [facility] | | | OR TABS | | + + + + | 2019-02-26 00:00 | amlodipine 2.5 MG Oral | [facility] | | | Tablet | | + + + + | 2021-07-07 00:00 | amoxicillin 500 MG Oral | [facility] | | | Capsule | | + + + + | 2021-07-07 00:00 | aspirin 81 MG Delayed | [facility] | | | Release Oral Tablet | | + + + + | 2021-07-07 00:00 | furosemide 20 MG Oral | [facility] | | | Tablet | [...] | ProAir HFA CFC free 90 | [facility] | | | mcg/inh | | + + + + | 2019-02-26 00:00 | duloxetine 30 MG Delayed | [facility] | | | Release Oral Capsule | | + + + + | 2021-07-07 00:00 | duloxetine 30 MG Delayed | [facility] | | | Release Oral [...] | metFORMIN HCl ER 500 MG | [facility] | | | TB24 | | + + + + | 2018-05-26 00:00 | metFORMIN HCl ER 500 MG | [facility] | | | TB24 | | + + + + | 2021-07-07 00:00 | losartan 25 mg | [facility] | + + + + | 2021-07-07 00:00 | ondansetron 4 mg | [facility] | + + + + | 2021-07-07 00:00 | pravastatin 40 mg | [facility] | + + + + | 2021-01-09 00:00 | metFORMIN 1000 mg | [facility] | + + + + | 2021-07-07 00:00 | cyclobenzaprine 10 mg | [facility] | + + + + | 2017-09-17 00:00 | Metoprolol Succinate ER | [facility] | | | 100 MG OR TB24 | | + + + + | 2019-02-26 00:00 | Metoprolol Succinate ER | [facility] | | | 100MG Oral Tablet Extended | | | | Release 24 Hour | | + + + + | 2021-07-07 00:00 | [id number] 200 ACTUAT | [facility] | | | albuterol 0.09 MG/ACTUAT | | | | Metered Dose Inhaler | | | | [ProAir] | | + + + + | 2021-03-21 00:00 | amLODIPine 5 mg | [facility] | + + + + | 2016-12-04 00:00 | sodium polystyrene | [facility] | | | sulfonate 250 MG/ML Oral | | | | Suspension [Kionex] | | + + + + | 2019-02-26 00:00 | 3 ML insulin glargine 100 | [facility] | | | UNT/ML Pen Injector | | | | [Lantus] | | + + + + | 2019-02-26 00:00 | warfarin sodium 7.5 MG | [facility] | | | Oral Tablet | | + + + + | 2019-02-26 00:00 | trazodone hydrochloride | [facility] | | | 100 MG Oral Tablet | | + + + + | 2021-07-07 00:00 | acetaminophen 325 MG / | [facility] | | | hydrocodone bitartrate [...] | 2021-01-09 00:00 | metformin hydrochloride | [facility] | | | 1000 MG Oral Tablet | | + + + + | 2021-07-07 00:00 | tamsulosin hydrochloride | [facility] | | | 0.4 MG Oral Capsule | | | | [Flomax] | | + + + + | 2017-09-17 00:00 | 24 HR metoprolol succinate | [facility] | | | 100 MG Extended Release | | | | Oral Tablet | | + + + + | 2019-02-26 00:00 | 24 HR metoprolol succinate | [facility] | | | 100 MG Extended Release | | | | Oral Tablet | | + + + + | 2021-07-07 00:00 | 24 HR metoprolol succinate | [facility] | | | 100 MG Extended Release | | | | Oral Tablet | | + + + + | 2019-02-26 00:00 | DULoxetine HCl 30MG Oral | [facility] | | | Capsule Delayed Release | | | | Particles | | + + + + | 2017-09-03 00:00 | levothyroxine sodium 0.1 | [facility] | | | MG Oral Tablet | | + + + + | 2018-02-18 00:00 | levothyroxine sodium 0.1 | [facility] | | | MG Oral Tablet | | + + + + | 2019-02-26 00:00 | pravastatin sodium 10 MG | [facility] | | | Oral Tablet | | + + + + | 2017-11-04 00:00 | pravastatin sodium 40 MG | [facility] | | | Oral Tablet | | + + + + | 2021-07-07 00:00 | pravastatin sodium 40 MG | [facility] | | | Oral Tablet | | + + + + | 2017-11-12 00:00 | Lyrica 100 MG OR CAPS | [facility] | | | | | + + + + | 2017-01-08 00:00 | levothyroxine sodium 0.05 | [facility] | | | MG Oral Tablet | | + + + + | 2017-04-09 00:00 | levothyroxine sodium 0.075 | [facility] | | | MG Oral Tablet | | + + + + | 2021-07-07 00:00 | levothyroxine sodium 0.112 | [facility] | | | MG Oral [...] | 2017-10-15 00:00 | hydrochlorothiazide 12.5 | [facility] | | | MG / losartan potassium 100 | | | | MG Oral Tablet | | + + + + | 2018-09-16 00:00 | hydrochlorothiazide 12.5 | [facility] | | | MG / losartan potassium 100 | | | | MG Oral Tablet | | + + + + | 2019-02-26 00:00 | losartan potassium 100 MG | [facility] | | | Oral Tablet | | + + + + | 2021-07-07 00:00 | losartan potassium 25 MG | [facility] | | | Oral Tablet [...] 00:00 | ASPIRIN 81mg Oral Tablet | [facility] | | | | | + + + + | 2019-02-26 00:00 | MultiVitamin Oral Tablet | [facility] | | | | | + + + + | 2019-02-26 00:00 | [facility]ep[facility]ole Oral Tablet | [facility] | | | | | + + + + | 2019-02-26 00:00 | Cyclobenzaprine Oral | [facility] | | | Tablet | | + + + + Problems + + + + | date | description | facility | + + + + | (no date) | Acute diastolic | [facility] - | | | (congestive) heart failure | [place] | + + + + | 2015-04-07 00:00 | Diabetic renal disease | [facility] | + + + + | 2015-04-07 00:00 | Insomnia | [facility] | + + + + | 2015-04-07 00:00 | Hyperglycemia due to type | [facility] | | | 2 diabetes mellitus | | + + + + | 2015-04-07 00:00 | Chronic kidney disease | [facility] | | | stage 3 | | + + + + | 2015-04-07 00:00 | Essential hypertension | 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 | | | with proliferative diabetic | | | | retinopathy with macular | | | | edema | | + + + + | 2015-04-07 00:00 | Type 2 diabetes mellitus | [facility] | | | with hyperglycemia | | + + + + | 2015-04-07 00:00 | Mixed hyperlipidemia | [facility] | + + + + | 2015-04-07 00:00 | Insomnia, unspecified | [facility] | + + + + | 2015-04-07 00:00 | Essential (primary) | [facility] | | | hypertension | | + + + + | 2015-04-07 00:00 | Chronic kidney disease, | [facility] | | | stage 3 (moderate) | | + + + + | 2015-04-27 00:00 | History of pulmonary | [facility] | | | embolus | | + + + + | 2015-04-27 00:00 | History of | [facility] | | | thrombophlebitis | | + + + + | 2015-04-27 00:00 | Personal history of | [facility] | | | pulmonary embolism | | + + + + | 2015-04-27 00:00 | Personal history of | [facility] | | | thrombophlebitis | | + + + + | 2015-05-17 00:00 | Spasm | [facility] | + + + + | 2015-05-17 00:00 | 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 | | | | artery without angina | | | | pectoris | | + + + + | 2015-05-17 00:00 | Cramp and spasm | [facility] | + + + + | 2015-06-01 00:00 | Chest pain | [facility] | + + + + | 2015-06-01 00:00 | Tachycardia | [facility] | + + + + | 2015-06-01 00:00 | Tachycardia, unspecified | [facility] | + + + + | 2015-06-01 00:00 | Other chest pain | [facility] | + + + + | 2015-08-01 00:00 | Polyneuropathy due to type | [facility] | | | 2 diabetes mellitus | | + + + + | 2015-08-01 00:00 | Type 2 diabetes mellitus | [facility] | | | with diabetic [...] 00:00 | Diabetes mellitus type 2 | [facility] | | | (disorder) | | + + + + | 2015-10-04 00:00 | Atrial fibrillation | [facility] | | | (disorder) | | + + + + | 2015-10-04 00:00 | Right and left (qualifier | [facility] | | | value) | | + + + + | 2015-10-04 00:00 | Coronary arteriosclerosis | [facility] | | | (disorder) | | + + + + | 2015-10-04 00:00 | Carpal tunnel syndrome | [facility] | | | (disorder) | | + + + + | 2015-10-04 00:00 | Essential hypertension | [facility] | | | (disorder) | | + + + + | 2015-10-04 00:00 | Diabetes Mellitus Type 2 | [facility] | | | | | + + + + | 2015-10-04 00:00 | Carpal Tunnel Syndrome | [facility] | | | Bilateral | | + + + + | 2015-10-04 00:00 | Essential Hypertension | [facility] | | | | | + + + + | 2016-03-20 00:00 | Hypothyroidism | [facility] | + + + + | 2016-03-20 00:00 | Hypothyroidism, | [facility] | | | unspecified | | + + + + | 2016-06-11 00:00 | Long-term current use of | [facility] | | | anticoagulant | [...] + + + | 2016-06-11 00:00 | 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[facility] | | | 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 | | + + + + | 2016-10-17 00:00 | Pityriasis rosea | [facility] | + + + + | 2016-10-26 00:00 | Eruption of skin | [facility] | + + + + | 2016-10-26 00:00 | Rash and other nonspecific | [facility] | | | skin eruption | | + + + + | 2016-12-04 00:00 | Hyperkalemia | [facility] | + + + + | 2016-12-12 00:00 | Chronic atrial | [facility] | | | fibrillation | | + + + + | 2017-01-08 00:00 | Acquired hypothyroidism | [facility] | | | (disorder) | | + + + + | 2017-01-08 00:00 | HYPOTHYROIDISM | [facility] | | | | | + + + + | 2017-01-08 00:00 | Primary Hypothy[facility] | | | | | + + + + | 2017-02-06 00:00 | Obstructive sleep apnea | [facility] | | | syndrome | | + + + + | 2017-02-06 00:00 | Obstructive sleep apnea | [facility] | | | (adult) (pediatric) | | + + + + | 2017-09-24 00:00 | Cramp in lower leg | [facility] | | | associated with rest | | + + + + | 2017-09-24 00:00 | Sleep related leg cramps | [facility] | + + + + | 2017-12-18 00:00 | Diabetic renal disease | [facility] | + + + + | 2017-12-18 00:00 | Meralgia paresthetica | [facility] | + + + + | 2017-12-18 00:00 | Type 2 diabetes mellitus | [facility] | | | with other diabetic kidney | | | | complication | | + + + + | 2017-12-18 00:00 | Meralgia paresthetica, | [facility] | | | bilateral lower [...] + | 2018-10-21 00:00 | Hypothyroidism | [facility] | + + + + | 2018-10-21 00:00 | Other specified | [facility] | | | hypothyroidism | | + + + + | 2019-01-13 00:00 | History of polyp of colon | [facility] | + + + + | 2019-01-13 00:00 | Personal history of | [facility] | | | colonic polyps | | + + + + | 2019-07-16 00:00 | Diabetic renal disease | 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 | | | | diabetes mellitus | | + + + + | 2019-07-16 00:00 | Type 2 diabetes mellitus | [facility] | | | with diabetic chronic | | | | kidney disease | | + + + + | 2019-07-16 00:00 | Type 2 diabetes mellitus | [facility] | | | with mild nonproliferative | | | | diabetic retinopathy with | | | | macular edema, bilateral | | + + + + | 2019-07-16 08:44:05 | Other specified | [facility] - | | | hypothyroidism | [facility] | + + + + | 2019-07-16 08:44:05 | Type 2 diabetes mellitus | [facility] - | | | with diabetic chronic | [facility] | | | kidney disease | | + + + + | 2019-07-16 08:44:05 | Type 2 diabetes mellitus | [facility] - | | | with mild nonproliferative | [facility] | | | diabetic retinopathy with | | | | macular edema, bilateral | | + + + + | 2019-07-16 08:44:05 | Type 2 diabetes mellitus | [facility] - | | | with hyperglycemia | [facility] | + + + + | 2019-07-16 08:44:05 | Essential (primary) | [facility] - | | | hypertension | [facility] | + + + + | 2019-07-20 09:05:58 | Radial styloid | [facility] - | | | tenosynovitis (de quervain) | [facility] | | | | | + + + + | 2019-07-27 09:16:16 | Encounter for other | [facility] - | | | specified special | [facility] | | | examinations | | + + + + | 2019-08-10 08:44:42 | Other pulmonary embolism | [facility] - | | | without acute cor pulmonale | [facility] | | | | | + + + + | 2019-08-10 08:44:42 | Unspecified atrial | [facility] - | | | fibrillation | [facility] | + + + + | 2019-08-10 08:44:42 | Acute embolism and | [facility] - | | | thrombosis of unspecified | [facility] | | | vein | | + + + + | 2019-08-10 08:44:42 | Encounter for therapeutic | [facility] - | | | drug level monitoring | [facility] | + + + + | 2019-08-10 08:44:42 | prison (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 of | [employer] [facility] - | | | 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 | [facility] | + + + + | 2019-08-15 09:06 | Wrist Pain | [employer] [facility] - | | | | [facility] | + + + + | 2019-08-15 11:12:57 | Wrist Pain | [employer] [facility] - | | | | [facility] | + + + + | 2019-08-15 11:12:57 | Hyperkalemia | [facility] - | | | | [facility] | + + + + | 2019-08-15 11:12:57 | Cellulitis of right upper | [facility] - | | | limb | [facility] | + + + + | 2019-08-15 11:12:57 | Acute kidney failure, | [facility] - | | | unspecified | [facility] | + + + + | 2019-08-24 08:28:31 | Other pulmonary embolism | [facility] - | | | without acute cor pulmonale | [facility] | | | | | + + + + | 2019-08-24 08:28:31 | Unspecified atrial | [facility] - | | | fibrillation | [facility] | + + + + | 2019-08-24 08:28:31 | Acute embolism and | [facility] - | | | thrombosis of unspecified | [facility] | | | vein | | + + + + | 2019-08-24 08:28:31 | Encounter for therapeutic | [facility] - | | | drug level monitoring | [facility] | + + + + | 2019-08-24 08:28:31 | prison (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 of | [facility] - | | | 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 | [facility] | + + + + | 2019-09-21 08:12:15 | Other pulmonary embolism | [facility] - | | | without acute cor pulmonale | [facility] | | | | | + + + + | 2019-09-21 08:12:15 | Unspecified atrial | [facility] - | | | fibrillation | [facility] | + + + + | 2019-09-21 08:12:15 | Acute embolism and | [facility] - | | | thrombosis of unspecified | [facility] | | | vein | | + + + + | 2019-09-21 08:12:15 | Encounter for therapeutic | [facility] - | | | drug level monitoring | [facility] | + + + + | 2019-09-21 08:12:15 | 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 | [facility] | + + + + | 2019-11-09 08:18:40 | Other pulmonary embolism | [facility] - | | | without acute cor pulmonale | [facility] | | | | | + + + + | 2019-11-09 08:18:40 | Unspecified atrial | [facility] - | | | fibrillation | [facility] | + + + + | 2019-11-09 08:18:40 | Acute embolism and | [facility] - | | | thrombosis of unspecified | [facility] | | | vein | | + + + + | 2019-11-09 08:18:40 | Encounter for therapeutic | [facility] - | | | drug level monitoring | [facility] | + + + + | 2019-11-09 08:18:40 | 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[facility] - | | | 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 | [facility] | + + + + | 2019-12-11 00:00 | Diastolic heart failure | [facility] | + + + + | 2019-12-11 00:00 | Unspecified diastolic | [facility] | | | (congestive) heart failure | | + + + + | 2019-12-11 14:25:01 | Type 2 diabetes mellitus | [facility] [facility] | with [facility]cemia | [facility] | + + + + | 2019-12-11 14:25:01 | Essential (primary) | [facility] - | | | hypertension | [facility] | + + + + | 2019-12-11 14:25:01 | Unspecified diastolic | [facility] - | | | (congestive) heart failure | [facility] | + + + + | 2019-12-11 14:25:01 | Chronic kidney disease, | [facility] - | | | stage 3 (moderate) | [facility] | + + + + | 2019-12-12 00:00 | Acute diastolic heart | [facility] | | | failure | | + + + + | 2019-12-12 00:00 | Acute diastolic | [facility] | | | (congestive) heart failure | | + + + + | 2019-12-21 07:35:52 | Other proteinuria | [facility] - | | | | [place] | + + + + | 2019-12-21 07:41:32 | Other pulmonary embolism | [facility] - | | | without acute cor pulmonale | [facility] | | | | | + + + + | 2019-12-21 07:41:32 | Unspecified atrial | [facility] - | | | fibrillation | [place] | + + + + | 2019-12-21 07:41:32 | Acute embolism and | [facility] - | | | thrombosis of unspecified | [facility] | | | vein | | + + + + | 2019-12-21 07:41:32 | Encounter for therapeutic | [facility] - | | | drug level monitoring | [place] | + + + + | 2019-12-21 07:41:32 | prison (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 of | [facility] - | | | 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 | [place] | + + + + | 2019-12-22 10:05:25 | Acute diastolic | [facility] - | | | (congestive) heart failure | [place] | + + + + | 2020-02-01 10:56:27 | Chronic kidney disease, | [facility] - | | | stage 3 (moderate) | [facility] | + + + + | 2020-03-29 08:49:05 | Other pulmonary embolism | [facility] - | | | without acute cor pulmonale | [facility] | | | | | + + + + | 2020-03-29 08:49:05 | Paroxysmal atrial | [facility] - | | | fibrillation | [facility] | + + + + | 2020-03-29 08:49:05 | Acute embolism and | [facility] - | | | thrombosis of unspecified | [facility] | | | deep veins of right lower | | | | extremity | | + + + + | 2020-03-29 08:49:05 | Encounter for therapeutic | [facility] - | | | drug level monitoring | [facility] | + + + + | 2020-03-29 08:49:05 | 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[facility] - | | | 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 | [facility] | + + + + | 2020-04-04 00:00 | Long-term current use of | [facility] | | | insulin | | + + + + | 2020-04-04 00:00 | 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[facility] | | | insulin | | + + + + | 2020-04-04 14:07:44 | 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 | [facility] | + + + + | 2020-04-04 14:07:44 | Type 2 diabetes mellitus | [facility] - | | | with diabetic | [facility] | | | polyneuropathy | | + + + + | 2020-04-04 14:07:44 | Mixed hyperlipidemia | [employer] - | | | | [facility] | + + + + | 2020-04-07 09:22:04 | Isolated proteinuria | [employer] - | | | | [facility] | + + + + | 2020-04-07 09:22:04 | Other proteinuria | [employer] - | | | | [facility] | + + + + | 2020-04-07 11:05:25 | Other proteinuria | [employer] - | | | | [facility] | + + + + | 2020-05-10 09:12:55 | Other pulmonary embolism | [facility] - | | | without acute cor pulmonale | [facility] | | | | | + + + + | 2020-05-10 09:12:55 | Paroxysmal atrial | [facility] - | | | fibrillation | [facility] | + + + + | 2020-05-10 09:12:55 | Acute embolism and | [facility] - | | | thrombosis of unspecified | [facility] | | | deep veins of right lower | | | | extremity | | + + + + | 2020-05-10 09:12:55 | Encounter for therapeutic | [facility] - | | | drug level monitoring | [place] | + + + + | 2020-05-10 09:12:55 | 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[facility] - | | | 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 | [facility] | + + + + | 2020-05-24 09:03:04 | Other pulmonary embolism | [facility] - | | | without acute cor pulmonale | [place] | | | | | + + + + | 2020-05-24 09:03:04 | Paroxysmal atrial | [facility] - | | | fibrillation | [facility] | + + + + | 2020-05-24 09:03:04 | Acute embolism and | [facility] - | | | thrombosis of unspecified | [place] | | | deep veins of right lower | | | | extremity | | + + + + | 2020-05-24 09:03:04 | Encounter for therapeutic | [facility] - | | | drug level monitoring | [place] | + + + + | 2020-05-24 09:03:04 | prison (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 of | [facility] - | | | 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 | [place] | + + + + | 2020-06-07 10:22:25 | Other pulmonary embolism | [facility] - | | | without acute cor pulmonale | [facility] | | | | | + + + + | 2020-06-07 10:22:25 | Paroxysmal atrial | [facility] - | | | fibrillation | [place] | + + + + | 2020-06-07 10:22:25 | Acute embolism and | [facility] - | | | thrombosis of unspecified | [facility] | | | deep veins of right lower | | | | extremity | | + + + + | 2020-06-07 10:22:25 | Encounter for therapeutic | [facility] - | | | drug level monitoring | [facility] | + + + + | 2020-06-07 10:22:25 | prison (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 of | [employer] - | | | 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 | [place] | + + + + | 2020-06-28 10:23:54 | Other pulmonary embolism | [facility] - | | | without acute cor pulmonale | [facility] | | | | | + + + + | 2020-06-28 10:23:54 | Paroxysmal atrial | [employer] - | | | fibrillation | [facility] | + + + + | 2020-06-28 10:23:54 | Acute embolism and | [facility] - | | | thrombosis of unspecified | [facility] | | | deep veins of right lower | | | | extremity | | + + + + | 2020-06-28 10:23:54 | Encounter for therapeutic | [facility] - | | | drug level monitoring | [facility] | + + + + | 2020-06-28 10:23:54 | 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 | [place] | + + + + | 2020-08-02 09:52:07 | Other pulmonary embolism | [facility] - | | | without acute cor pulmonale | [facility] | | | | | + + + + | 2020-08-02 09:52:07 | Paroxysmal atrial | [facility] - | | | fibrillation | [place] | + + + + | 2020-08-02 09:52:07 | Acute embolism and | [facility] - | | | thrombosis of unspecified | [facility] | | | deep veins of right lower | | | | extremity | | + + + + | 2020-08-02 09:52:07 | Encounter for therapeutic | [facility] - | | | drug level monitoring | [place] | + + + + | 2020-08-02 09:52:07 | prison (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 of | [facility] - | | | 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 | [place] | + + + + | 2020-08-11 11:33:25 | 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 | [facility] | + + + + | 2020-08-11 11:33:25 | Type 2 diabetes mellitus | [facility] - | | | with diabetic | [facility] | | | polyneuropathy | | + + + + | 2020-08-11 11:33:25 | Type 2 diabetes mellitus | [facility] - | | | with hyperglycemia | [facility] | + + + + | 2020-08-15 00:00 | Sciatica | [facility] | + + + + | 2020-08-15 00:00 | Lumbago with sciatica, | [facility] | | | right side | | + + + + | 2020-09-13 09:49:40 | Other pulmonary embolism | [facility] - | | | without acute cor pulmonale | [facility] | | | | | + + + + | 2020-09-13 09:49:40 | Paroxysmal atrial | [facility] - | | | fibrillation | [facility] | + + + + | 2020-09-13 09:49:40 | Acute embolism and | [facility] - | | | thrombosis of unspecified | [facility] | | | deep veins of right lower | | | | extremity | | + + + + | 2020-09-13 09:49:40 | Encounter for therapeutic | [facility] - | | | drug level monitoring | [place] | + + + + | 2020-09-13 09:49:40 | prison (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 of | [facility] - | | | 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 | [facility] | + + + + | 2020-09-15 13:26:36 | Other specified | [facility] - | | | hypothyroidism | [facility] | + + + + | 2020-09-15 13:26:36 | Type 2 diabetes mellitus | [facility] - | | | with other diabetic kidney | [facility] | | | complication | | + + + + | 2020-09-30 07:55:06 | Other pulmonary embolism | [facility] - | | | without acute cor pulmonale | [facility] | | | | | + + + + | 2020-09-30 07:55:06 | Paroxysmal atrial | [facility] - | | | fibrillation | [place] | + + + + | 2020-09-30 07:55:06 | Acute embolism and | [facility] - | | | thrombosis of unspecified | [facility] | | | vein | | + + + + | 2020-10-01 10:11:38 | Encounter for screening | [facility] - | | | for other viral diseases | [facility] | + + + + | 2020-10-03 14:16:53 | 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 | [place] | + + + + | 2020-10-11 14:05:31 | Other pulmonary embolism | [facility] - | | | without acute cor pulmonale | [facility] | | | | | + + + + | 2020-10-11 14:05:31 | Unspecified atrial | [facility] - | | | fibrillation | [facility] | + + + + | 2020-10-11 14:05:31 | Acute embolism and | [facility] - | | | thrombosis of unspecified | [facility] | | | deep veins of unspecified | | | | distal lower extremity | | + + + + | 2020-10-11 14:05:31 | Encounter for therapeutic | [facility] - | | | drug level monitoring | [facility] | + + + + | 2020-10-11 14:05:31 | prison (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 of | [facility] - | | | 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 | [facility] | + + + + | 2020-11-08 08:53:51 | Other pulmonary embolism | [facility] - | | | without acute cor pulmonale | [facility] | | | | | + + + + | 2020-11-08 08:53:51 | Unspecified atrial | [facility] - | | | fibrillation | [facility] | + + + + | 2020-11-08 08:53:51 | Acute embolism and | [facility] - | | | thrombosis of unspecified | [place] | | | deep veins of unspecified | | | | proximal lower extremity | | + + + + | 2020-11-08 08:53:51 | Encounter for therapeutic | [facility] - | | | drug level monitoring | [place] | + + + + | 2020-11-08 08:53:51 | 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[facility] - | | | 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 | [place] | + + + + | 2020-11-30 11:40:54 | Type 2 diabetes mellitus | [facility] - | | | with diabetic chronic | [facility] | | | kidney disease | | + + + + | 2020-11-30 11:40:54 | Mixed hyperlipidemia | [facility] - | | | | [facility] | + + + + | 2020-12-12 08:43:18 | Other pulmonary embolism | [facility] - | | | without acute cor pulmonale | [facility] | | | | | + + + + | 2020-12-12 08:43:18 | Paroxysmal atrial | [facility] - | | | fibrillation | [facility] | + + + + | 2020-12-12 08:43:18 | Acute embolism and | [facility] - | | | thrombosis of unspecified | [facility] | | | deep veins of right lower | | | | extremity | | + + + + | 2020-12-12 08:43:18 | Encounter for therapeutic | [facility] - | | | drug level monitoring | [facility] | + + + + | 2020-12-12 08:43:18 | 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[facility] - | | | 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 | [facility] | + + + + | 2021-01-09 08:49:42 | Other pulmonary embolism | [facility] - | | | without acute cor pulmonale | [facility] | | | | | + + + + | 2021-01-09 08:49:42 | Paroxysmal atrial | [facility] - | | | fibrillation | [facility] | + + + + | 2021-01-09 08:49:42 | Acute embolism and | [facility] - | | | thrombosis of unspecified | [facility] | | | deep veins of right lower | | | | extremity | | + + + + | 2021-01-09 08:49:42 | Encounter for therapeutic | [facility] - | | | drug level monitoring | [place] | + + + + | 2021-01-09 08:49:42 | 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[facility] - | | | 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 | [place] | + + + + | 2021-01-26 09:11:42 | FYI | [facility] | | | | Care | + + + + | 2021-02-20 09:15:49 | Other pulmonary embolism | [facility] - | | | without acute cor pulmonale | [place] | | | | | + + + + | 2021-02-20 09:15:49 | Paroxysmal atrial | [facility] - | | | fibrillation | [place] | + + + + | 2021-02-20 09:15:49 | Acute embolism and | [facility] - | | | thrombosis of unspecified | [facility] | | | deep veins of right lower | | | | extremity | | + + + + | 2021-02-20 09:15:49 | Encounter for therapeutic | [facility] - | | | drug level monitoring | [facility] | + + + + | 2021-02-20 09:15:49 | prison (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 of | [facility] - | | | 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 | [place] | + + + + | 2021-03-20 09:01:08 | Other pulmonary embolism | [facility] - | | | without acute cor pulmonale | [facility] | | | | | + + + + | 2021-03-20 09:01:08 | Paroxysmal atrial | [facility] - | | | fibrillation | [place] | + + + + | 2021-03-20 09:01:08 | Acute embolism and | [facility] - | | | thrombosis of unspecified | [facility] | | | deep veins of right lower | | | | extremity | | + + + + | 2021-03-20 09:01:08 | Encounter for therapeutic | [facility] - | | | drug level monitoring | [facility] | + + + + | 2021-03-20 09:01:08 | prison (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 of | [facility] - | | | 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 | [facility] | + + + + | 2021-05-01 09:14:56 | Other pulmonary embolism | [facility] - | | | without acute cor pulmonale | [facility] | | | | | + + + + | 2021-05-01 09:14:56 | Paroxysmal atrial | [facility] - | | | fibrillation | [facility] | + + + + | 2021-05-01 09:14:56 | Acute embolism and | [facility] - | | | thrombosis of unspecified | [facility] | | | deep veins of right lower | | | | extremity | | + + + + | 2021-05-01 09:14:56 | Encounter for therapeutic | [facility] - | | | drug level monitoring | [facility] | + + + + | 2021-05-01 09:14:56 | 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[facility] - | | | 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 | [place] | + + + + | 2021-05-02 10:02:34 | Type 2 diabetes mellitus | [facility] | | | with diabetic chronic | Care | | | kidney disease | | + + + + | 2021-05-02 10:02:34 | Hypertensive chronic kidney | [facility] | | | disease with stage 1 | [facility] | | | through stage 4 chronic | | | | kidney disease, or | | | | unspecified chronic kidney | | | | disease | | + + + + | 2021-05-02 10:02:34 | Chronic kidney disease, | [facility] | | | stage 3 unspecified | [facility] | + + + + | 2021-05-02 10:02:34 | Chronic kidney disease, | [facility] | | | stage 3b | Care | + + + + | 2021-05-02 10:02:34 | 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[facility] | | | 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 | [facility] | + + + + | 2021-05-02 10:25:30 | Type 2 diabetes mellitus | [facility] | | | with diabetic chronic | Care | | | kidney disease | | + + + + | 2021-05-02 10:25:30 | Hypertensive chronic kidney | [facility] | | | disease with stage 1 | Care | | | through stage 4 chronic | | | | kidney disease, or | | | | unspecified chronic kidney | | | | disease | | + + + + | 2021-05-02 10:25:30 | Chronic kidney disease, | [facility] | | | stage 3 unspecified | [facility] | + + + + | 2021-05-02 10:25:30 | Chronic kidney disease, | [facility] | | | stage 3b | Care | + + + + | 2021-05-02 10:25:30 | 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[facility] | | | 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 | Care | + + + + | 2021-05-02 10:42:35 | Type 2 diabetes mellitus | [facility] | | | with diabetic chronic | Care | | | kidney disease | | + + + + | 2021-05-02 10:42:35 | Hypertensive chronic kidney | [facility] | | | disease with stage 1 | Care | | | through stage 4 chronic | | | | kidney disease, or | | | | unspecified chronic kidney | | | | disease | | + + + + | 2021-05-02 10:42:35 | Chronic kidney disease, | [facility] | | | stage 3 unspecified | Care | + + + + | 2021-05-02 10:42:35 | Chronic kidney disease, | [facility] | | | stage 3b | Care | + + + + | 2021-05-02 10:42:35 | 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[facility] | | | insulin | Care | + + + + | 2021-05-15 02:02:54 | Chronic kidney disease, | [facility] | | | stage 3b | Care | + + + + | 2021-05-16 18:03:48 | Hypertensive chronic kidney | [facility] | | | disease with stage 1 | Care | | | through stage 4 chronic | | | | kidney disease, or | | | | unspecified chronic kidney | | | | disease | | + + + + | 2021-05-16 18:03:48 | Chronic kidney disease, | [facility] | | | stage 3 [...] 00:00 | Unknown if ever smoked | [facility] | + + + + [...]
[2023-01-30 08:59] LABS: BASOPHILS 1.2 % (0-2); EOSINOPHILS 5.1 % (0-6); HEMOGLOBIN 12.1 g/dL (12.0-18.0); LYMPHOCYTES 24.6 % (24-44); MCH 26.7 (27-36); MCHC 31.8 g/dl (30-36); MCV 83.8 fl (81-99); NEUTROPHILS 57.1 % (39-80); PLATELET COUNT 167 K/uL (140-440); RBC 4.54 M/ul (4.3-5.7); RDW 20.5 (10.5-15.0)
[2023-01-30 09:09] LABS: INR 1.12 (0.80-1.30); PROTIME 13.9 Sec (11.2-14.2)
[2023-01-30 09:13] LABS: ALBUMIN 3.4 g/dL (3.4-5.0); ALBUMIN/GLOBULIN RATIO 0.87 (1.1-2.4); ANION GAP 18.5 (7-21); BILIRUBIN, TOTAL 0.4 ng/dL (0.2-1.0); BUN/CREATININE RATIO 17.14 (6.0-28.6); CALCIUM 9.5 mg/dL (8.5-10.1); CREATININE, SERUM 2.45 mg/dL (0.70-1.30); POTASSIUM 3.5 mmol/L (3.5-5.1); PROTEIN, TOTAL 7.3 g/dL (6.4-8.2)
[2023-01-30 09:27] LABS: SMEAR REVIEW BLOOD SEE COMMENTS
--- NOTE | 2023-01-30 17:04 | EKG ---
[facility] [address] [facility] [place], [place] [address] Signed Sinus tachycardia Right bundle branch block Abnormal ECG No previous ECGs available Confirmed by ANISH GARVEY MD ([id number] on 01/30/2023 5:04:25 PM Electronically Signed By: ANISH GARVEY 01/30/23 1704 PATIENT NAME: ESTHER PENNY SARIAH Electrocardiogram DATE OF : 47 PHYSICIAN: ANISH GARVEY REPORT #: [id number] REPORT IS CONFIDENTIAL AND NOT TO BE RELEASED WITHOUT AUTHORIZATION
[2023-01-30 17:43] VITALS: BP 123/53
== END ==
LOC: ED 08:42
PROVIDERS: Emergency Medicine
DX: S72.342A Displaced spiral fracture of shaft of left femur, initial encounter for closed fracture (principal); W18.39XA Other fall on same level, initial encounter; I12.9 Hypertensive chronic kidney disease with stage 1 through stage 4 chronic kidney disease, or unspecified chronic kidney disease; E11.22 Type 2 diabetes mellitus with diabetic chronic kidney disease; N18.30 Chronic kidney disease, stage 3 unspecified; E11.40 Type 2 diabetes mellitus with diabetic neuropathy, unspecified; Z79.4 Long term (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 of insulin; Z79.84 Long term (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 of oral hypoglycemic drugs; Z79.01 Long term (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 of 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; Z79.899 Other long term (current) drug therapy; Z88.5 Allergy status to narcotic agent; Z96.653 Presence of artificial knee joint, bilateral
CPT/HCPCS: 36415; 71045; 73552; 80053; 85025; 85060; 85610; 93005; 93010; 94640; C9803; J1170; J2405; J3490; U0002

== ENCOUNTER 2023-02-11 11:40 | Emergency (ER) | payer MEDICARE ==
[~2023-02-11] VITALS: Ht 180.3 cm; Wt 105.0 kg
[2023-02-11 12:07] LABS: EOSINOPHILS 2.8 % (0-6); HEMOGLOBIN 10.7 g/dL (12.0-18.0); LYMPHOCYTES 9.5 % (24-44); MCH 26.8 (27-36); MCHC 31.5 g/dl (30-36); MCV 85.1 fl (81-99); MONOCYTES 7.1 % (0-12); NEUTROPHILS 79.6 % (39-80); PLATELET COUNT 246 K/uL (140-440); RDW 21.4 (10.5-15.0)
[2023-02-11 12:15] LABS: ALBUMIN/GLOBULIN RATIO 0.75 (1.1-2.4); ANION GAP 19.6 (7-21); BILIRUBIN, TOTAL 0.4 ng/dL (0.2-1.0); BUN/CREATININE RATIO 17.46 (6.0-28.6); CALCIUM 9.5 mg/dL (8.5-10.1); CREATININE, SERUM 2.29 mg/dL (0.70-1.30); POTASSIUM 4.6 mmol/L (3.5-5.1)
--- OUTSIDE RECORDS SUMMARY | 2023-02-11 12:25 | XMS | Continuity of Care Document ---
Demographics + + + | Address | [address] [address] | | | [place] [address] | + + + | Preferred Language | Unknown | + + + | Marital Status | | + + + | Latter Day Affiliation | Unknown | + + + | Race | White | + + + | Ethnic Group | Not or | + + + Author + + + | Author | [facility] | + + + | Organization | [facility] | + + + | Address | [address] | | | [place] [address] | + + + | Phone | | + + + Care Team Providers + + + + | Care Merchandise Marker Name | Role | Phone | + + + + Unavailable | Unavailable | + + + + Unavailable | Unavailable | + + + + Unavailable | Unavailable | + + + + Allergies and Intolerances + + + + + + | date | description | facility | reaction | severity | + + + + + + | (no date) | Zestril | [facility] | (no reaction) | (no severity) | | | | [facility] | | | + + + + + + | (no date) | Demerol | [facility] | (no reaction) | (no severity) | | | | [facility] | | | + + + + + + | (no date) | Lisinopril 10 | [facility] | (no reaction) | (no severity) | | | MG Oral Tablet | [facility] | | | + + + + + + | (no date) | lisinopril | [facility] | (no reaction) | (no severity) | | | | [facility] | | | | | | Medicine | | | + + + + + + | (no date) | [facility]IPRIL [facility] | (no reaction) | (no severity) | | | | [facility] | | | | | [place] | | | + + + + + + | (no date) | RAMIPRIL | [facility] | (no reaction) | (no severity) | | | | [facility] - | | | | | | [place] | | | + + + + + + | (no date) | MEPERIDINE | [facility] | (no reaction) | (no severity) | | | | [facility] | | | | | | [place] | | | + + + + + + | (no date) | MEPERIDINE | [facility] | (no reaction) | (no severity) | | | | [facility] | | | | | | [place] | | | + + + + + + | (no date) | MEPERIDINE | [facility] | (no reaction) | (no severity) | | | | [facility] | | | + + + + + + | (no date) | Demerol 50 MG | [facility] | (no reaction) | (no severity) | | | Oral Tablet | [facility] | | | + + + + + + | (no date) | ATORVASTATIN | [facility] | (no reaction) | (no severity) | | | | [facility] | | | | | | [place] | | | + + + + + + | (no date) | ATORVASTATIN | [facility] | (no reaction) | (no severity) | | | | [facility] | | | | | | [place] | | | + + + + + + | (no date) | ATORVASTATIN | [facility] | (no reaction) | (no severity) | | | | [facility] | | | + + + + + + | (no date) | LISINOPRIL | [facility] | (no reaction) | (no severity) | | | | [facility] | | | + + + + + + | (no date) | ROSUVASTATIN | [facility] | (no reaction) | (no severity) | | | | [facility] | | | + + + + + + | (no date) | meperidine | [facility] | (no reaction) | (no severity) | + + + + + + Encounters No information. Functional Status No information. Immunizations + + + + | date | description | facility | + + + + | 2017-10-31 00:00 | Tdap | [facility] | + + + + | 2015-04-07 00:00 | prevnar 13 | [facility] | + + + + | 2013-03-26 00:00 | Influenza | [facility] | + + + + | 2014-03-08 00:00 | Influenza | [facility] | + + + + | 2015-04-07 00:00 | Influenza | [facility] | + + + + | 2016-03-16 00:00 | Influenza | [facility] | + + + + | 2017-04-08 00:00 | Influenza | [facility] | + + + + | 2018-03-20 00:00 | Influenza | [facility] | + + + + | 2019-04-13 00:00 | Influenza | [facility] | + + + + | 2020-04-04 00:00 | Influenza | [facility] | + + + + | 2021-03-21 00:00 | Influenza | [facility] | + + + + | 2016-06-11 00:00 | Pneumococcal | [facility] | + + + + Medications + + + + | date | description | facility | + + + + | 2021-07-07 00:00 | Susan Sherwood 100 | [facility] | | | units/mL | | + + + + | 2021-05-08 00:00 | Eliquis 5 mg | [facility] | + + + + | 2021-07-07 00:00 | Flomax 0.4 mg | [facility] | + + + + | 2021-07-07 00:00 | Patti Delgado 300 | [facility] | | | units/mL | | + + + + | 2021-07-07 00:00 | fluticasone nasal 50 | [facility] | | | mcg/inh | | + + + + | 2021-07-07 00:00 | furosemide 20 mg | [facility] | + + + + | 2021-07-07 00:00 | amoxicillin 500 mg | [facility] | + + + + | 2021-07-07 00:00 | DULoxetine 30 mg | [facility] | + + + + | 2015-06-08 00:00 | Valium 5 mg | [facility] | + + + + | 2021-07-07 00:00 | trazodone 50 mg | [facility] | + + + + | 2020-12-06 00:00 | Farxiga 10 mg | [facility] | + + + + | 2021-07-07 00:00 | levothyroxine 112 mcg | [facility] | | | (0.112 mg) | | + + + + | 2021-07-07 00:00 | Metoprolol Succinate ER | [facility] | | | 100 mg | | + + + + | 2021-07-07 00:00 | acetaminophen-hydrocodone | [facility] | | | 325 mg-5 mg | | + + + + | 2021-07-07 00:00 | aspirin 81 mg | [facility] | + + + + | 2021-07-07 00:00 | omeprazole 20 mg | [facility] | + + + + | 2015-06-08 00:00 | diazepam 5 MG Oral Tablet | [facility] | | | [Valium] | | + + + + | 2017-01-08 00:00 | Levothyroxine Sodium 50 | [facility] | | | MCG OR TABS | | + + + + | 2017-04-09 00:00 | Levothyroxine Sodium 75 | [facility] | | | MCG OR TABS | | + + + + | 2017-09-03 00:00 | [facility]ine Sodium 100 | [facility] | | | MCG OR TABS | | + + + + | 2018-02-18 00:00 | Levothyroxine Sodium 100 | [facility] | | | MCG OR TABS | | + + + + | 2021-05-08 00:00 | apixaban 5 MG Oral Tablet | [facility] | | | [Eliquis] | | + + + + | 2016-12-04 00:00 | Kionex 15 GM/60ML OR SUSP | [facility] | | | | | + + + + | 2020-12-06 00:00 | dapagliflozin 10 MG Oral | [facility] | | | Tablet [Farxiga] | | + + + + | 2019-02-26 00:00 | 1.5 ML insulin glargine | [facility] | | | 300 UNT/ML Pen Injector | | | | [Toujeo] | | + + + + | 2021-07-07 00:00 | 1.5 ML insulin glargine | [facility] | | | 300 UNT/ML Pen Injector | | | | [Toujeo] | | + + + + | 2017-01-22 00:00 | 3 ML insulin lispro 100 | [facility] | | | UNT/ML Pen Injector | | | | [Humalog] | | + + + + | 2018-02-04 00:00 | 3 ML insulin lispro 100 | [facility] | | | UNT/ML Pen Injector | | | | [Humalog] | | + + + + | 2018-08-12 00:00 | 3 ML insulin lispro 100 | [facility] | | | UNT/ML Pen Injector | | | | [Humalog] | | + + + + | 2019-02-26 00:00 | 3 ML insulin lispro 100 | [facility] | | | UNT/ML Pen Injector | | | | [Humalog] | | + + + + | 2021-07-07 00:00 | 3 ML insulin lispro 100 | [facility] | | | UNT/ML Pen Injector | | | | [Humalog] | | + + + + | 2018-02-07 00:00 | 3 ML insulin aspart, human | [facility] | | | 100 UNT/ML Pen Injector | | | | [NovoLog] | | + + + + | 2021-07-07 00:00 | fluticasone propionate | [facility] | | | 0.05 MG/ACTUAT Metered Dose | | | | Nasal [place] | | + + + + | 2017-01-22 00:00 | HumaLOG KwikPen 100 | [facility] | | | UNIT/ML SC SOPN | | + + + + | 2018-02-04 00:00 | HumaLOG KwikPen 100 | [facility] | | | UNIT/ML SC SOPN | | + + + + | 2018-08-12 00:00 | HumaLOG KwikPen 100 | [facility] | | | UNIT/ML SC SOPN | | + + + + | 2019-02-26 00:00 | HumaLOG KwikPen 100UNIT/ML | [facility] | | | Subcutaneous Solution | | | | Pen-injector | | + + + + | 2018-02-07 00:00 | NovoLOG FlexPen 100 | [facility] | | | UNIT/ML SC SOPN | | + + + + | 2019-02-26 00:00 | Alley Olsonar 100UNIT/ML | [facility] | | | Subcutaneous Solution | | | | Pen-injector | | + + + + | 2019-02-26 00:00 | Patti Delgado 300UNIT/ML | [facility] | | | Subcutaneous Solution | | | | Pen-injector | | + + + + | 2016-10-29 00:00 | amlodipine 5 MG Oral | [facility] | | | Tablet | | + + + + | 2017-04-10 00:00 | amlodipine 5 MG Oral | [facility] | | | Tablet | | + + + + | 2017-09-30 00:00 | amlodipine 5 MG Oral | [facility] | | | Tablet | | + + + + | 2018-10-09 00:00 | amlodipine 5 MG Oral | [facility] | | | Tablet | | + + + + | 2021-03-21 00:00 | amlodipine 5 MG Oral | [facility] | | | Tablet | | + + + + | 2019-02-26 00:00 | diazepam 10 MG Oral Tablet | [facility] | | | | | + + + + | 2021-07-07 00:00 | omeprazole 20 MG Delayed | [facility] | | | Release Oral Capsule | | + + + + | 2021-07-07 00:00 | ondansetron 4 MG Oral | [facility] | | | Tablet | | + + + + | 2018-02-18 00:00 | FreeStyle Dao Sensor | [facility] | | | System MISC | | + + + + | 2018-07-08 00:00 | FreeStyle Dao Sensor | [facility] | | | System MISC | | + + + + | 2018-02-20 00:00 | FreeStyle Dao [place] | [facility] | | | [place] | | + + + + | 2018-07-08 00:00 | FreeStyle Dao [place] | [facility] | | | [place] | | + + + + | 2019-02-26 00:00 | traZODone HCl 100MG Oral | [facility] | | | Tablet | | + + + + | 2019-02-26 00:00 | Warfarin Sodium 7.5MG Oral | [facility] | | | Tablet | | + + + + | 2019-02-26 00:00 | amLODIPine Besylate 2.5MG | [facility] | | | Oral Tablet | | + + + + | 2016-10-29 00:00 | amLODIPine Besylate 5 MG | [facility] | | | OR TABS | | + + + + | 2017-04-10 00:00 | amLODIPine Besylate 5 MG | [facility] | | | OR TABS | | + + + + | 2017-09-30 00:00 | amLODIPine Besylate 5 MG | [facility] | | | OR TABS | | + + + + | 2018-10-09 00:00 | amLODIPine Besylate 5 MG | [facility] | | | OR TABS | | + + + + | 2017-05-21 00:00 | Levothyroxine Sodium 88 | [facility] | | | MCG OR TABS | | + + + + | 2019-02-26 00:00 | Pravastatin Sodium 10MG | [facility] | | | Oral Tablet | | + + + + | 2017-11-04 00:00 | Pravastatin Sodium 40 MG | [facility] | | | OR TABS | | + + + + | 2019-02-26 00:00 | amlodipine 2.5 MG Oral | [facility] | | | Tablet | | + + + + | 2021-07-07 00:00 | amoxicillin 500 MG Oral | [facility] | | | Capsule | | + + + + | 2021-07-07 00:00 | aspirin 81 MG Delayed | [facility] | | | Release Oral Tablet | | + + + + | 2021-07-07 00:00 | furosemide 20 MG Oral | [facility] | | | Tablet | | + + + + | 2017-09-03 00:00 | glucagon (rDNA) 1 MG | [facility] | | | Injection | | + + + + | 2019-04-07 00:00 | glucagon (rDNA) 1 MG | [facility] | | | Injection | | + + + + | 2019-02-26 00:00 | 24 HR isosorbide | [facility] | | | mononitrate 30 MG Extended | | | | Release Oral Tablet | | + + + + | 2019-02-26 00:00 | Losartan Potassium 100MG | [facility] | | | Oral Tablet | | + + + + | 2017-01-22 00:00 | BD Pen Needle Short U/F | [facility] | | | 31G X 8 MM MISC | | + + + + | 2019-11-05 00:00 | BD Pen Needle Short U/F | [facility] | | | 31G X 8 MM Miscellaneous | | + + + + | 2019-02-26 00:00 | Isosorbide Mononitrate ER | [facility] | | | 30MG Oral Tablet Extended | | | | Release 24 Hour | | + + + + | 2021-07-07 00:00 | ProAir HFA CFC free 90 | [facility] | | | mcg/inh | | + + + + | 2019-02-26 00:00 | duloxetine 30 MG Delayed | [facility] | | | Release Oral Capsule | | + + + + | 2021-07-07 00:00 | duloxetine 30 MG Delayed | [facility] | | | Release Oral Capsule | | + + + + | 2017-09-03 00:00 | Glucagon Emergency 1 MG IJ | [facility] | | | KIT | | + + + + | 2019-04-07 00:00 | Glucagon Emergency 1 MG IJ | [facility] | | | KIT | | + + + + | 2017-11-12 00:00 | pregabalin 100 MG Oral | [facility] | | | Capsule [Lyrica] | | + + + + | 2019-02-26 00:00 | diazePAM 10MG Oral Tablet | [facility] | | | | | + + + + | 2018-01-07 00:00 | metFORMIN HCl ER 500 MG | [facility] | | | TB24 | | + + + + | 2018-02-18 00:00 | metFORMIN HCl ER 500 MG | [facility] | | | TB24 | | + + + + | 2018-05-26 00:00 | metFORMIN HCl ER 500 MG | [facility] | | | TB24 | | + + + + | 2021-07-07 00:00 | losartan 25 mg | [facility] | + + + + | 2021-07-07 00:00 | ondansetron 4 mg | [facility] | + + + + | 2021-07-07 00:00 | pravastatin 40 mg | [facility] | + + + + | 2021-01-09 00:00 | metFORMIN 1000 mg | [facility] | + + + + | 2021-07-07 00:00 | cyclobenzaprine 10 mg | [facility] | + + + + | 2017-09-17 00:00 | Metoprolol Succinate ER | [facility] | | | 100 MG OR TB24 | | + + + + | 2019-02-26 00:00 | Metoprolol Succinate ER | [facility] | | | 100MG Oral Tablet Extended | | | | Release 24 Hour | | + + + + | 2021-07-07 00:00 | [id number] 200 ACTUAT | [facility] | | | albuterol 0.09 MG/ACTUAT | | | | Metered Dose Inhaler | | | | [ProAir] | | + + + + | 2021-03-21 00:00 | amLODIPine 5 mg | [facility] | + + + + | 2016-12-04 00:00 | sodium polystyrene | [facility] | | | sulfonate 250 MG/ML Oral | | | | Suspension [Kionex] | | + + + + | 2019-02-26 00:00 | 3 ML insulin glargine 100 | [facility] | | | UNT/ML Pen Injector | | | | [Lantus] | | + + + + | 2019-02-26 00:00 | warfarin sodium 7.5 MG | [facility] | | | Oral Tablet | | + + + + | 2019-02-26 00:00 | trazodone hydrochloride | [facility] | | | 100 MG Oral Tablet | | + + + + | 2021-07-07 00:00 | acetaminophen 325 MG / | [facility] | | | hydrocodone bitartrate 5 MG | | | | Oral Tablet | | + + + + | 2018-01-07 00:00 | 24 HR metformin | [facility] | | | hydrochloride 500 MG | | | | Extended Release Oral | | | | Tablet | | + + + + | 2018-02-18 00:00 | 24 HR metformin | [facility] | | | hydrochloride 500 MG | | | | Extended Release Oral | | | | Tablet | | + + + + | 2018-05-26 00:00 | 24 HR metformin | [facility] | | | hydrochloride 500 MG | | | | Extended Release Oral | | | | Tablet | | + + + + | 2021-01-09 00:00 | metformin hydrochloride | [facility] | | | 1000 MG Oral Tablet | | + + + + | 2021-07-07 00:00 | tamsulosin hydrochloride | [facility] | | | 0.4 MG Oral Capsule | | | | [Flomax] | | + + + + | 2017-09-17 00:00 | 24 HR metoprolol succinate | [facility] | | | 100 MG Extended Release | | | | Oral Tablet | | + + + + | 2019-02-26 00:00 | 24 HR metoprolol succinate | [facility] | | | 100 MG Extended Release | | | | Oral Tablet | | + + + + | 2021-07-07 00:00 | 24 HR metoprolol succinate | [facility] | | | 100 MG Extended Release | | | | Oral Tablet | | + + + + | 2019-02-26 00:00 | DULoxetine HCl 30MG Oral | [facility] | | | Capsule Delayed Release | | | | Particles | | + + + + | 2017-09-03 00:00 | levothyroxine sodium 0.1 | [facility] | | | MG Oral Tablet | | + + + + | 2018-02-18 00:00 | levothyroxine sodium 0.1 | [facility] | | | MG Oral Tablet | | + + + + | 2019-02-26 00:00 | pravastatin sodium 10 MG | [facility] | | | Oral Tablet | | + + + + | 2017-11-04 00:00 | pravastatin sodium 40 MG | [email or web address] | | | Oral Tablet | | + + + + | 2021-07-07 00:00 | pravastatin sodium 40 MG | [facility] | | | Oral Tablet | | + + + + | 2017-11-12 00:00 | Lyrica 100 MG OR CAPS | [facility] | | | | | + + + + | 2017-01-08 00:00 | levothyroxine sodium 0.05 | [facility] | | | MG Oral Tablet | | + + + + | 2017-04-09 00:00 | levothyroxine sodium 0.075 | [facility] | | | MG Oral Tablet | | + + + + | 2021-07-07 00:00 | levothyroxine sodium 0.112 | [facility] | | | MG Oral Tablet | | + + + + | 2017-05-21 00:00 | levothyroxine sodium 0.088 | [facility] | | | MG Oral Tablet | | + + + + | 2016-10-16 00:00 | hydrochlorothiazide 12.5 | [facility] | | | MG / losartan potassium 100 | | | | MG Oral Tablet | | + + + + | 2017-10-15 00:00 | hydrochlorothiazide 12.5 | [facility] | | | MG / losartan potassium 100 | | | | MG Oral Tablet | | + + + + | 2018-09-16 00:00 | hydrochlorothiazide 12.5 | [facility] | | | MG / losartan potassium 100 | | | | MG Oral Tablet | | + + + + | 2019-02-26 00:00 | losartan potassium 100 MG | [facility] | | | Oral Tablet | | + + + + | 2021-07-07 00:00 | losartan potassium 25 MG | [facility] | | | Oral Tablet | | + + + + | 2016-10-16 00:00 | Losartan Potassium-HCTZ | [facility] | | | 100-12.5 MG OR TABS | | + + + + | 2017-10-15 00:00 | Losartan Potassium-HCTZ | [facility] | | | 100-12.5 MG OR TABS | | + + + + | 2018-09-16 00:00 | Losartan Potassium-HCTZ | [facility] | | | 100-12.5 MG OR TABS | | + + + + | 2019-02-26 00:00 | levothyroxine Oral Tablet | [facility] | | | | | + + + + | 2019-02-26 00:00 | ASPIRIN 81mg Oral Tablet | [facility] | | | | | + + + + | 2019-02-26 00:00 | MultiVitamin Oral Tablet | [facility] | | | | | + + + + | 2019-02-26 00:00 | Omeprazole Oral Tablet | [facility] | | | | | + + + + | 2019-02-26 00:00 | Cyclobenzaprine Oral | [facility] | | | Tablet | | + + + + Problems + + + + | date | description | facility | + + + + | (no date) | Acute diastolic | [facility] | | | (congestive) heart failure | [place] | + + + + | 2015-04-07 00:00 | Diabetic renal disease | [facility] | + + + + | 2015-04-07 00:00 | Insomnia | [facility] | + + + + | 2015-04-07 00:00 | Hyperglycemia due to type | [facility] | | | 2 diabetes mellitus | | + + + + | 2015-04-07 00:00 | Chronic kidney disease | [facility] | | | stage 3 | | + + + + | 2015-04-07 00:00 | Essential hypertension | [facility] | + + + + | 2015-04-07 00:00 | 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[facility] | | | 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 | | | | diabetes mellitus | | + + + + | 2015-04-07 00:00 | 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 | | + + + + | 2015-04-07 00:00 | 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 | | | | retinopathy with macular | | | | edema | | + + + + | 2015-04-07 00:00 | Type 2 diabetes mellitus | [facility] | | | with hyperglycemia | | + + + + | 2015-04-07 00:00 | Mixed hyperlipidemia | [facility] | + + + + | 2015-04-07 00:00 | Insomnia, unspecified | [facility] | + + + + | 2015-04-07 00:00 | Essential (primary) | [facility] | | | hypertension | | + + + + | 2015-04-07 00:00 | Chronic kidney disease, | [facility] | | | stage 3 (moderate) | | + + + + | 2015-04-27 00:00 | History of pulmonary | [facility] | | | embolus | | + + + + | 2015-04-27 00:00 | History of | [facility] | | | thrombophlebitis | | + + + + | 2015-04-27 00:00 | Personal history of | [facility] | | | pulmonary embolism | | + + + + | 2015-04-27 00:00 | Personal history of | [facility] | | | thrombophlebitis | | + + + + | 2015-05-17 00:00 | Spasm | [facility] | + + + + | 2015-05-17 00:00 | 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 | | | | artery without angina | | | | pectoris | | + + + + | 2015-05-17 00:00 | Cramp and spasm | [facility] | + + + + | 2015-06-01 00:00 | Chest pain | [facility] | + + + + | 2015-06-01 00:00 | Tachycardia | [facility] | + + + + | 2015-06-01 00:00 | Tachycardia, unspecified | [facility] | + + + + | 2015-06-01 00:00 | Other chest pain | [facility] | + + + + | 2015-08-01 00:00 | Polyneuropathy due to type | [facility] | | | 2 diabetes mellitus | | + + + + | 2015-08-01 00:00 | Type 2 diabetes mellitus | [facility] | | | with diabetic | | | | polyneuropathy | | + + + + | 2015-10-04 00:00 | DM II UNCONTROLLED | [facility] | | | | | + + + + | 2015-10-04 00:00 | At[facility] Fibrillation | [facility] | | | | | + + + + | 2015-10-04 00:00 | Coronary Artery Disease | [facility] | | | | | + + + + | 2015-10-04 00:00 | HTN BENIGN | [facility] | | | | | + + + + | 2015-10-04 00:00 | Diabetes mellitus type 2 | [facility] | | | (disorder) | | + + + + | 2015-10-04 00:00 | Atrial fibrillation | [facility] | | | (disorder) | | + + + + | 2015-10-04 00:00 | Right and left (qualifier | [facility] | | | value) | | + + + + | 2015-10-04 00:00 | Coronary arteriosclerosis | [facility] | | | (disorder) | | + + + + | 2015-10-04 00:00 | Carpal tunnel syndrome | [facility] | | | (disorder) | | + + + + | 2015-10-04 00:00 | Essential hypertension | [facility] | | | (disorder) | | + + + + | 2015-10-04 00:00 | Diabetes Mellitus Type 2 [facility] | | | | | + + + + | 2015-10-04 00:00 | Carpal Tunnel Syndrome | [facility] | | | Bilateral | | + + + + | 2015-10-04 00:00 | Essential Hypertension | [facility] | | | | | + + + + | 2016-03-20 00:00 | Hypothyroidism | [facility] | + + + + | 2016-03-20 00:00 | Hypothyroidism, | [facility] | | | unspecified | | + + + + | 2016-06-11 00:00 | Long-term current use of | [facility] | | | anticoagulant | | + + + + | 2016-06-11 00:00 | 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[facility] | | | 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 | | | | diabetes mellitus | | + + + + | 2016-06-11 00:00 | Type 2 diabetes mellitus | [facility] | | | with proliferative diabetic | | | | retinopathy with macular | | | | edema, bilateral | | + + + + | 2016-06-11 00:00 | [facility] (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 of | [facility] | | | 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 | | + + + + | 2016-10-17 00:00 | Pityriasis rosea | [facility] | + + + + | 2016-10-26 00:00 | Eruption of skin | [facility] | + + + + | 2016-10-26 00:00 | Rash and other nonspecific | [facility] | | | skin eruption | | + + + + | 2016-12-04 00:00 | Hyperkalemia | [facility] | + + + + | 2016-12-12 00:00 | Chronic atrial | [facility] | | | fibrillation | | + + + + | 2017-01-08 00:00 | Acquired hypothyroidism | [facility] | | | (disorder) | | + + + + | 2017-01-08 00:00 | HYPOTHYROIDISM | [facility] POMPA | | | | | + + + + | 2017-01-08 00:00 | [facility] Hypothy[facility] | [facility] | | | | | + + + + | 2017-02-06 00:00 | Obstructive sleep apnea | [facility] | | | syndrome | | + + + + | 2017-02-06 00:00 | Obstructive sleep apnea | [facility] | | | (adult) (pediatric) | | + + + + | 2017-09-24 00:00 | Cramp in lower leg | [facility] | | | associated with rest | | + + + + | 2017-09-24 00:00 | Sleep related leg cramps | [facility] | + + + + | 2017-12-18 00:00 | Diabetic renal disease | [facility] | + + + + | 2017-12-18 00:00 | Meralgia paresthetica | [facility] | + + + + | 2017-12-18 00:00 | Type 2 diabetes mellitus | [facility] | | | with other diabetic kidney | | | | complication | | + + + + | 2017-12-18 00:00 | Meralgia paresthetica, | [facility] | | | bilateral lower limbs | | + + + + | 2017-12-19 00:00 | Lumbosacral spondylosis | [facility] | | | without myelopathy | | + + + + | 2017-12-19 00:00 | Other spondylosis, | [facility] | | | lumbosacral region | | + + + + | 2018-07-08 00:00 | Diabetes Mellitus Type 1 | [facility] | | | | | + + + + | 2018-07-08 00:00 | Diabetes mellitus type 1 | [facility] 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 | | | | diabetes mellitus | | + + + + | 2019-07-16 00:00 | Type 2 diabetes mellitus | [facility] | | | with diabetic chronic | | | | kidney disease | | + + + + | 2019-07-16 00:00 | Type 2 diabetes mellitus | [facility] | | | with mild nonproliferative | | | | diabetic retinopathy with | | | | macular edema, bilateral | | + + + + | 2019-07-16 08:44:05 | Other specified | [facility] - | | | hypothyroidism | [place] | + + + + | 2019-07-16 08:44:05 | Type 2 diabetes mellitus | [facility] - | | | with diabetic chronic | [place] | | | kidney disease | | + + + + | 2019-07-16 08:44:05 | Type 2 diabetes mellitus | [facility] - | | | with mild nonproliferative | [place] | | | diabetic retinopathy with | | | | macular edema, bilateral | | + + + + | 2019-07-16 08:44:05 | Type 2 diabetes mellitus | [facility] - | | | with hyperglycemia | [place] | + + + + | 2019-07-16 08:44:05 | Essential (primary) | [facility] - | | | hypertension | [place] | + + + + | 2019-07-20 09:05:58 | Radial styloid | [facility] - | | | tenosynovitis (de quervain) | [place] | | | | | + + + + | 2019-07-27 09:16:16 | Encounter for other | [facility] - | | | specified special | [place] | | | examinations | | + + + + | 2019-08-10 08:44:42 | Other pulmonary embolism | [facility] - | | | without acute cor pulmonale | [place] | | | | | + + + + | 2019-08-10 08:44:42 | Unspecified atrial | [facility] - | | | fibrillation | [place] | + + + + | 2019-08-10 08:44:42 | Acute embolism and | [facility] - | | | thrombosis of unspecified | [place] | | | vein | | + + + + | 2019-08-10 08:44:42 | Encounter for therapeutic | [facility] - | | | drug level monitoring | [place] | + + + + | 2019-08-10 08:44:42 | 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 | [place] | + + + + | 2019-08-15 09:06 | Wrist Pain | [facility] - | | | | [place] | + + + + | 2019-08-15 11:12:57 | Wrist Pain | [facility] - | | | | [place] | + + + + | 2019-08-15 11:12:57 | Hyperkalemia | [facility] - | | | | [place] | + + + + | 2019-08-15 11:12:57 | Cellulitis of right upper | [facility] - | | | limb | [place] | + + + + | 2019-08-15 11:12:57 | Acute kidney failure, | [facility] - | | | unspecified | [place] | + + + + | 2019-08-24 08:28:31 | Other pulmonary embolism | [facility] - | | | without acute cor pulmonale | [place] | | | | | + + + + | 2019-08-24 08:28:31 | Unspecified atrial | [facility] - | | | fibrillation | [place] | + + + + | 2019-08-24 08:28:31 | Acute embolism and | [facility] - | | | thrombosis of unspecified | [place] | | | vein | | + + + + | 2019-08-24 08:28:31 | Encounter for therapeutic | [facility] - | | | drug level monitoring | [place] | + + + + | 2019-08-24 08:28: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 | [place] | + + + + | 2019-09-21 08:12:15 | Other pulmonary embolism | [facility] - | | | without acute cor pulmonale | [place] | | | | | + + + + | 2019-09-21 08:12:15 | Unspecified atrial | [facility] - | | | fibrillation | [place] | + + + + | 2019-09-21 08:12:15 | Acute embolism and | [facility] - | | | thrombosis of unspecified | [place] | | | vein | | + + + + | 2019-09-21 08:12:15 | Encounter for therapeutic | [facility] - | | | drug level monitoring | [place] | + + + + | 2019-09-21 08:12:15 | [facility] (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 of | [facility] - | | | 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 | [place] | + + + + | 2019-11-09 08:18:40 | Other pulmonary embolism | [facility] - | | | without acute cor pulmonale | [place] | | | | | + + + + | 2019-11-09 08:18:40 | Unspecified atrial | [facility] - | | | fibrillation | [place] | + + + + | 2019-11-09 08:18:40 | Acute embolism and | [facility] - | | | thrombosis of unspecified | [place] | | | vein | | + + + + | 2019-11-09 08:18:40 | Encounter for therapeutic | [facility] - | | | drug level monitoring | [place] | + + + + | 2019-11-09 08:18:40 | 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 | [place] | + + + + | 2019-12-11 00:00 | Diastolic heart failure | [facility] | + + + + | 2019-12-11 00:00 | Unspecified diastolic | [facility] | | | (congestive) heart failure | | + + + + | 2019-12-11 14:25:01 | Type 2 diabetes mellitus | [facility] - | | | with hyperglycemia | [place] | + + + + | 2019-12-11 14:25:01 | Essential (primary) | [facility] - | | | hypertension | [place] | + + + + | 2019-12-11 14:25:01 | Unspecified diastolic | [facility] - | | | (congestive) heart failure | [place] | + + + + | 2019-12-11 14:25:01 | Chronic kidney disease, | [facility] - | | | stage 3 (moderate) | [place] | + + + + | 2019-12-12 00:00 | Acute diastolic heart | [facility] | | | failure | | + + + + | 2019-12-12 00:00 | Acute diastolic | [facility] | | | (congestive) heart failure | | + + + + | 2019-12-21 07:35:52 | Other proteinuria | [facility] - | | | | [place] | + + + + | 2019-12-21 07:41:32 | Other pulmonary embolism | [facility] - | | | without acute cor pulmonale | [place] | | | | | + + + + | 2019-12-21 07:41:32 | Unspecified atrial | [facility] - | | | fibrillation | [place] | + + + + | 2019-12-21 07:41:32 | Acute embolism and | [facility] - | | | thrombosis of unspecified | [place] | | | vein | | + + + + | 2019-12-21 07:41:32 | Encounter for therapeutic | [facility] - | | | drug level monitoring | [place] | + + + + | 2019-12-21 07:41:32 | 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 | [place] | + + + + | 2019-12-22 10:05:25 | Acute diastolic | [facility] - | | | (congestive) heart failure | [place] | + + + + | 2020-02-01 10:56:27 | Chronic kidney disease, | [facility] - | | | stage 3 (moderate) | [place] | + + + + | 2020-03-29 08:49:05 | Other pulmonary embolism | [facility] - | | | without acute cor pulmonale | [place] | | | | | + + + + | 2020-03-29 08:49:05 | Paroxysmal atrial | [facility] - | | | fibrillation | [place] | + + + + | 2020-03-29 08:49:05 | Acute embolism and | [facility] - | | | thrombosis of unspecified | [place] | | | deep veins of right lower | | | | extremity | | + + + + | 2020-03-29 08:49:05 | Encounter for therapeutic | [facility] - | | | drug level monitoring | [place] | + + + + | 2020-03-29 08:49:05 | 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 | [place] | + + + + | 2020-04-04 00:00 | Long-term current use of | [facility] | | | insulin | | + + + + | 2020-04-04 00:00 | [facility] (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 of | [facility] | | | insulin | | + + + + | 2020-04-04 14:07:44 | 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 | [place] | + + + + | 2020-04-04 14:07:44 | Type 2 diabetes mellitus | [facility] - | | | with diabetic | [place] | | | polyneuropathy | | + + + + | 2020-04-04 14:07:44 | Mixed hyperlipidemia | [facility] - | | | | [place] | + + + + | 2020-04-07 09:22:04 | Isolated proteinuria | [facility] - | | | | [place] | + + + + | 2020-04-07 09:22:04 | Other proteinuria | [facility] - | | | | [place] | + + + + | 2020-04-07 11:05:25 | Other proteinuria | [facility] - | | | | [place] | + + + + | 2020-05-10 09:12:55 | Other pulmonary embolism | [facility] - | | | without acute cor pulmonale | [place] | | | | | + + + + | 2020-05-10 09:12:55 | Paroxysmal atrial | [facility] - | | | fibrillation | [place] | + + + + | 2020-05-10 09:12:55 | Acute embolism and | [facility] - | | | thrombosis of unspecified | [place] | | | deep veins of right lower | | | | extremity | | + + + + | 2020-05-10 09:12:55 | Encounter for therapeutic | [facility] - | | | drug level monitoring | [place] | + + + + | 2020-05-10 09:12:55 | 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 | [place] | + + + + | 2020-05-24 09:03:04 | Other pulmonary embolism | [facility] - | | | without acute cor pulmonale | [place] | | | | | + + + + | 2020-05-24 09:03:04 | Paroxysmal atrial | [facility] - | | | fibrillation | [place] | + + + + | 2020-05-24 09:03:04 | Acute embolism and | [facility] - | | | thrombosis of unspecified | [place] | | | deep veins of right lower | | | | extremity | | + + + + | 2020-05-24 09:03:04 | Encounter for therapeutic | [facility] - | | | drug level monitoring | [place] | + + + + | 2020-05-24 09:03:04 | [facility] (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 of | [employer] - | | | 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 | [place] | + + + + | 2020-06-07 10:22:25 | Other pulmonary embolism | [facility] - | | | without acute cor pulmonale | [place] | | | | | + + + + | 2020-06-07 10:22:25 | Paroxysmal atrial | [employer] - | | | fibrillation | [place] | + + + + | 2020-06-07 10:22:25 | Acute embolism and | [facility] - | | | thrombosis of unspecified | [facility] | | | deep veins of right lower | | | | extremity | | + + + + | 2020-06-07 10:22:25 | Encounter for therapeutic | [facility] - | | | drug level monitoring | [place] | + + + + | 2020-06-07 10:22:25 | 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 | [place] | + + + + | 2020-06-28 10:23:54 | Other pulmonary embolism | [facility] - | | | without acute cor pulmonale | [place] | | | | | + + + + | 2020-06-28 10:23:54 | Paroxysmal atrial | [facility] - | | | fibrillation | [place] | + + + + | 2020-06-28 10:23:54 | Acute embolism and | [facility] - | | | thrombosis of unspecified | [place] | | | deep veins of right lower | | | | extremity | | + + + + | 2020-06-28 10:23:54 | Encounter for therapeutic | [facility] - | | | drug level monitoring | [place] | + + + + | 2020-06-28 10:23:54 | [facility] (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 of | [facility] - | | | 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 | [place] | + + + + | 2020-08-02 09:52:07 | Other pulmonary embolism | [facility] - | | | without acute cor pulmonale | [place] | | | | | + + + + | 2020-08-02 09:52:07 | Paroxysmal atrial | [facility] - | | | fibrillation | [place] | + + + + | 2020-08-02 09:52:07 | Acute embolism and | [facility] - | | | thrombosis of unspecified | [place] | | | deep veins of right lower | | | | extremity | | + + + + | 2020-08-02 09:52:07 | Encounter for therapeutic | [facility] - | | | drug level monitoring | [place] | + + + + | 2020-08-02 09:52:07 | [facility] (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 of | [facility] - | | | 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 | [place] | + + + + | 2020-08-11 11:33:25 | 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 | [place] | + + + + | 2020-08-11 11:33:25 | Type 2 diabetes mellitus | [facility] - | | | with diabetic | [place] | | | polyneuropathy | | + + + + | 2020-08-11 11:33:25 | Type 2 diabetes mellitus | [facility] - | | | with hyperglycemia | [place] | + + + + | 2020-08-15 00:00 | Sciatica | [facility] | + + + + | 2020-08-15 00:00 | Lumbago with sciatica, | [facility] | | | right side | | + + + + | 2020-09-13 09:49:40 | Other pulmonary embolism | [facility] - | | | without acute cor pulmonale | [place] | | | | | + + + + | 2020-09-13 09:49:40 | Paroxysmal atrial | [facility] - | | | fibrillation | [place] | + + + + | 2020-09-13 09:49:40 | Acute embolism and | [facility] - | | | thrombosis of unspecified | [place] | | | deep veins of right lower | | | | extremity | | + + + + | 2020-09-13 09:49:40 | Encounter for therapeutic | [facility] - | | | drug level monitoring | [place] | + + + + | 2020-09-13 09:49:40 | [facility] (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 of | [facility] - | | | 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 | [place] | + + + + | 2020-09-15 13:26:36 | Other specified | [facility] - | | | hypothyroidism | [place] | + + + + | 2020-09-15 13:26:36 | Type 2 diabetes mellitus | [facility] - | | | with other diabetic kidney | [place] | | | complication | | + + + + | 2020-09-30 07:55:06 | Other pulmonary embolism | [facility] - | | | without acute cor pulmonale | [place] | | | | | + + + + | 2020-09-30 07:55:06 | Paroxysmal atrial | [facility] - | | | fibrillation | [place] | + + + + | 2020-09-30 07:55:06 | Acute embolism and | [facility] - | | | thrombosis of unspecified | [place] | | | vein | | + + + + | 2020-10-01 10:11:38 | Encounter for screening | [facility] - | | | for other viral diseases | [place] | + + + + | 2020-10-03 14:16:53 | [facility] (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 of | [facility] - | | | 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 | [place] | + + + + | 2020-10-11 14:05:31 | Other pulmonary embolism | [facility] - | | | without acute cor pulmonale | [place] | | | | | + + + + | 2020-10-11 14:05:31 | Unspecified atrial | [facility] - | | | fibrillation | [place] | + + + + | 2020-10-11 14:05:31 | Acute embolism and | [facility] - | | | thrombosis of unspecified | [place] | | | deep veins of unspecified | | | | distal lower extremity | | + + + + | 2020-10-11 14:05:31 | Encounter for therapeutic | [facility] - | | | drug level monitoring | [place] | + + + + | 2020-10-11 14:05:31 | [facility] (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 of | [facility] - | | | 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 | [place] | + + + + | 2020-11-08 08:53:51 | Other pulmonary embolism | [facility] - | | | without acute cor pulmonale | [place] | | | | | + + + + | 2020-11-08 08:53:51 | Unspecified atrial | [facility] - | | | fibrillation | [place] | + + + + | 2020-11-08 08:53:51 | Acute embolism and | [facility] - | | | thrombosis of unspecified | [place] | | | deep veins of unspecified | | | | proximal lower extremity | | + + + + | 2020-11-08 08:53:51 | Encounter for therapeutic | [facility] - | | | drug level monitoring | [place] | + + + + | 2020-11-08 08:53:51 | 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 | [place] | + + + + | 2020-11-30 11:40:54 | Type 2 diabetes mellitus | [facility] - | | | with diabetic chronic | [place] | | | kidney disease | | + + + + | 2020-11-30 11:40:54 | Mixed hyperlipidemia | [facility] - | | | | [place] | + + + + | 2020-12-12 08:43:18 | Other pulmonary embolism | [facility] - | | | without acute cor pulmonale | [place] | | | | | + + + + | 2020-12-12 08:43:18 | Paroxysmal atrial | [facility] - | | | fibrillation | [place] | + + + + | 2020-12-12 08:43:18 | Acute embolism and | [facility] - | | | thrombosis of unspecified | [place] | | | deep veins of right lower | | | | extremity | | + + + + | 2020-12-12 08:43:18 | Encounter for therapeutic | [facility] - | | | drug level monitoring | [place] | + + + + | 2020-12-12 08:43:18 | 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 | [place] | + + + + | 2021-01-09 08:49:42 | Other pulmonary embolism | [facility] - | | | without acute cor pulmonale | [place] | | | | | + + + + | 2021-01-09 08:49:42 | Paroxysmal atrial | [facility] - | | | fibrillation | [place] | + + + + | 2021-01-09 08:49:42 | Acute embolism and | [facility] - | | | thrombosis of unspecified | [place] | | | deep veins of right lower | | | | extremity | | + + + + | 2021-01-09 08:49:42 | Encounter for therapeutic | [facility] - | | | drug level monitoring | [place] | + + + + | 2021-01-09 08:49:42 | [facility] (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 of | [facility] - | | | 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 | [place] | + + + + | 2021-01-26 09:11:42 | FYI | [facility] | | | | Care | + + + + | 2021-02-20 09:15:49 | Other pulmonary embolism | [facility] - | | | without acute cor pulmonale | [place] | | | | | + + + + | 2021-02-20 09:15:49 | Paroxysmal atrial | [facility] - | | | fibrillation | [place] | + + + + | 2021-02-20 09:15:49 | Acute embolism and | [facility] - | | | thrombosis of unspecified | [place] | | | deep veins of right lower | | | | extremity | | + + + + | 2021-02-20 09:15:49 | Encounter for therapeutic | [facility] - | | | drug level monitoring | [place] | + + + + | 2021-02-20 09:15:49 | [facility] (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 of | [facility] - | | | 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 | [place] | + + + + | 2021-03-20 09:01:08 | Other pulmonary embolism | [facility] - | | | without acute cor pulmonale | [place] | | | | | + + + + | 2021-03-20 09:01:08 | Paroxysmal atrial | [facility] - | | | fibrillation | [place] | + + + + | 2021-03-20 09:01:08 | Acute embolism and | [facility] - | | | thrombosis of unspecified | [place] | | | deep veins of right lower | | | | extremity | | + + + + | 2021-03-20 09:01:08 | Encounter for therapeutic | [facility] - | | | drug level monitoring | [place] | + + + + | 2021-03-20 09:01:08 | 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 | [place] | + + + + | 2021-05-01 09:14:56 | Other pulmonary embolism | [facility] - | | | without acute cor pulmonale | [place] | | | | | + + + + | 2021-05-01 09:14:56 | Paroxysmal atrial | [facility] - | | | fibrillation | [place] | + + + + | 2021-05-01 09:14:56 | Acute embolism and | [facility] - | | | thrombosis of unspecified | [facility] | | | deep veins of right lower | | | | extremity | | + + + + | 2021-05-01 09:14:56 | Encounter for therapeutic | [facility] - | | | drug level monitoring | [place] | + + + + | 2021-05-01 09:14:56 | 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 | [place] | + + + + | 2021-05-02 10:02:34 | Type 2 diabetes mellitus | [facility] | | | with diabetic chronic | Care | | | kidney disease | | + + + + | 2021-05-02 10:02:34 | Hypertensive chronic kidney | [facility] | | | disease with stage 1 | Care | | | through stage 4 chronic | | | | kidney disease, or | | | | unspecified chronic kidney | | | | disease | | + + + + | 2021-05-02 10:02:34 | Chronic kidney disease, | [facility] | | | stage 3 unspecified | Care | + + + + | 2021-05-02 10:02:34 | Chronic kidney disease, | [facility] | | | stage 3b | Care | + + + + | 2021-05-02 10:02:34 | 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 | Care | + + + + | 2021-05-02 10:25:30 | Type 2 diabetes mellitus | [facility] | | | with diabetic chronic | Care | | | kidney disease | | + + + + | 2021-05-02 10:25:30 | Hypertensive chronic kidney | [facility] | | | disease with stage 1 | Care | | | through stage 4 chronic | | | | kidney disease, or | | | | unspecified chronic kidney | | | | disease | | + + + + | 2021-05-02 10:25:30 | Chronic kidney disease, | [facility] | | | stage 3 unspecified | Care | + + + + | 2021-05-02 10:25:30 | Chronic kidney disease, | [facility] | | | stage 3b | Care | + + + + | 2021-05-02 10:25:30 | 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 | Care | + + + + | 2021-05-02 10:42:35 | Type 2 diabetes mellitus | [facility] | | | with diabetic chronic | Care | | | kidney disease | | + + + + | 2021-05-02 10:42:35 | Hypertensive chronic kidney | [facility] | | | disease with stage 1 | Care | | | through stage 4 chronic | | | | kidney disease, or | | | | unspecified chronic kidney | | | | disease | | + + + + | 2021-05-02 10:42:35 | Chronic kidney disease, | [facility] | | | stage 3 unspecified | Care | + + + + | 2021-05-02 10:42:35 | Chronic kidney disease, | [facility] | | | stage 3b | Care | + + + + | 2021-05-02 10:42:35 | [facility] (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 of | [facility] | | | insulin | Care | + + + + | 2021-05-15 02:02:54 | Chronic kidney disease, | [facility] Total | | | stage 3b | Care | + + + + | 2021-05-16 18:03:48 | Hypertensive chronic kidney | [facility] Total | | | disease with stage 1 | Care | | | through stage 4 chronic | | | | kidney disease, or | | | | unspecified chronic kidney | | | | disease | | + + + + | 2021-05-16 18:03:48 | Chronic kidney disease, | [facility] Total | | | stage 3 unspecified | Care | + + + + | 2021-10-26 18:34 | Unspecified injury of | [facility] | | | head, initial encounter | [facility] | + + + + | 2021-10-26 18:34 | Strain of muscle, fascia | [facility] | | | and tendon of lower back, | [facility] | | | initial encounter | | + + + + | 2021-10-26 18:34 | Other injury of | [facility] | | | unspecified body region, | [facility] | | | initial encounter | | + + + + | 2021-10-26 18:34 | Striking against other | [facility] | | | object with subsequent | [facility] | | | fall, initial encounter | | + + + + | 2021-10-26 18:34 | Allergy status to other | [facility] | | | drugs, medicaments and | [facility] | | | biological substances | | + + + + | 2023-01-30 08:43 | TYPE 2 DIABETES MELLITUS W | [facility] | | | DIABETIC CHRONIC KIDNEY | | + + + + | 2023-01-30 08:43 | TYPE 2 DIABETES MELLITUS | [facility] | | | WITH DIABETIC NEUROPATHY, | | + + + + | 2023-01-30 08:43 | HYPERTENSIVE CHRONIC | [facility] | | | KIDNEY DISEASE W STG | | | | 1-4/UNSP | | + + + + | 2023-01-30 08:43 | DISPLACED SPIRAL FRACTURE | [facility] | | | OF SHAFT OF LEFT FEMUR, | | | | INIT | | + + + + | 2023-01-30 08:43 | OTHER FALL ON SAME LEVEL, | [facility] | | | INITIAL ENCOUNTER | | + + + + | 2023-01-30 08:43 | SENIOR CARE (CURRENT) USE OF | [facility] | | | ANTICOAGULANTS | | + + + + | 2023-01-30 08:43 | 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 Results/Labs +--------+--------+ +---------+--------+---------+ | test | date | facility | value | unit | notes | +--------+--------+ +---------+--------+---------+ + + | Result panel 1 | + + + + + + + + + | No Results | (no date) | [facility] | No Results | (missing) | (missing) | | | | MED[facility] | | | | | | | [facility] | | | | + + + + + + + + + | Result panel 2 | + + + + +-------+--------+ + + | CREATININE | 2019-07-16 | [facility] | 1.3 | mg/dl | (missing) | | (MG/DL) IN | 08:44:12 | | | | | | SER/PLAS | | | | | | + + +-------+--------+ + + | CREATININE | 2019-07-16 | [facility] | 1.3 | mg/dl | (missing) | | (MG/DL) IN | 08:44:12 | | | | | | SER/PLAS | | | | | | + + +-------+--------+ + + | CHLORIDE | 2019-07-16 | [facility] | 103 | mmol/l | (missing) | | (MMOL/L) IN | 08:44:12 | | | | | | SER/PLAS | | | | | | + + +-------+--------+ + + | CHLORIDE | 2019-07-16 | [facility] | 103 | mmol/l | (missing) | | (MMOL/L) IN | 08:44:12 | | | | | | SER/PLAS | | | | | | + + +-------+--------+ + + | ANION GAP | 2019-07-16 | [facility] | 13.0 | mmol/l | (missing) | | IN SER/PLAS | 08:44:12 | | | | | + + +-------+--------+ + + | ANION GAP | 2019-07-16 | [facility] | 13.0 | mmol/l | (missing) | | IN SER/PLAS | 08:44:12 | | | | | + + +-------+--------+ + + | SODIUM | 2019-07-16 | [facility] | 140 | mmol/l | (missing) | | (MMOL/L) IN | 08:44:12 | | | | | | SER/PLAS | | | | | | + + +-------+--------+ + + | SODIUM | 2019-07-16 | [facility] | 140 | mmol/l | (missing) | | (MMOL/L) IN | 08:44:12 | | | | | | SER/PLAS | | | | | | + + +-------+--------+ + + | ESTIMATED | 2019-07-16 | [facility] | 154 | mg/dl | (missing) | | AVERAGE BLD | 08:44:12 | | | | | | GLUCOSE | | | | | | + + +-------+--------+ + + | ESTIMATED | 2019-07-16 | [facility] | 154 | mg/dl | (missing) | | AVERAGE BLD | 08:44:12 | | | | | | GLUCOSE | | | | | | + + +-------+--------+ + + | TSH | 2019-07-16 | [facility] | 2.08 | mciu/ml | (missing) | | (THYROTROPIN | 08:44:12 | | | | | | ) (MIU/L) IN | | | | | | | SER/PLAS | | | | | | + + +-------+--------+ + + | TSH | 2019-07-16 | [facility] | 2.08 | mciu/ml | (missing) | | (THYROTROPIN | 08:44:12 | | | | | | ) (MIU/L) IN | | | | | | | SER/PLAS | | | | | | + + +-------+--------+ + + | BLOOD UREA | 2019-07-16 | [facility] | 22 | mg/dl | (missing) | | NITROGEN | 08:44:12 | | | | | | (BUN) | | | | | | | (MG/DL) IN | | | | | | | SER/PLAS | | | | | | + + +-------+--------+ + + | BLOOD UREA | 2019-07-16 | [facility] | 22 | mg/dl | (missing) | | NITROGEN | 08:44:12 | | | | | | (BUN) | | | | | | | (MG/DL) IN | | | | | | | SER/PLAS | | | | | | + + +-------+--------+ + + | CARBON | 2019-07-16 | [facility] | 24 | mmol/l | (missing) | | DIOXIDE | 08:44:12 | | | | | | (CO2), TOTAL | | | | | | | (MMOL/L) IN | | | | | | | SER/PLAS | | | | | | + + +-------+--------+ + + | CARBON | 2019-07-16 | [facility] | 24 | mmol/l | (missing) | | DIOXIDE | 08:44:12 | | | | | | (CO2), TOTAL | | | | | | | (MMOL/L) IN | | | | | | | SER/PLAS | | | | | | + + +-------+--------+ + + | POTASSIUM | 2019-07-16 | [facility] | 4.9 | mmol/l | (missing) | | (MMOL/L) IN | 08:44:12 | | | | | | SER/PLAS | | | | | | + + +-------+--------+ + + | POTASSIUM | 2019-07-16 | [facility] | 4.9 | mmol/l | (missing) | | (MMOL/L) IN | 08:44:12 | | | | | | SER/PLAS | | | | | | + + +-------+--------+ + + | EGFR | 2019-07-16 | [facility] | 54 | | (missing) | | (GLOMERULAR | 08:44:12 | | | ml/min/1.73m | | | FILTRATION | | | | ? | | | RATE) | | | | | | | ML/MIN/1.73 | | | | | | | SQ M. | | | | | | + + +-------+--------+ + + | EGFR | 2019-07-16 | [facility] | 54 | | (missing) | | (GLOMERULAR | 08:44:12 | | | ml/min/1.73m | | | FILTRATION | | | | ? | | | RATE) | | | | | | | ML/MIN/1.73 | | | | | | | SQ M. | | | | | | + + +-------+--------+ + + | HEMOGLOBIN | 2019-07-16 | [facility] | 7.0 | % | (missing) | | A1C/HEMOGLOB | 08:44:12 | | | | | | IN TOTAL IN | | | | | | | BLOOD | | | | | | + + +-------+--------+ + + | HEMOGLOBIN | 2019-07-16 | [facility] | 7.0 | % | (missing) | | A1C/HEMOGLOB | 08:44:12 | | | | | | IN TOTAL IN | | | | | | | BLOOD | | | | | | + + +-------+--------+ + + | CALCIUM | 2019-07-16 | [facility] | 9.3 | mg/dl | (missing) | | (MG/DL) IN | 08:44:12 | | | | | | SER/PLAS | | | | | | + + +-------+--------+ + + | CALCIUM | 2019-07-16 | [facility] | 9.3 | mg/dl | (missing) | | (MG/DL) IN | 08:44:12 | | | | | | SER/PLAS | | | | | | + + +-------+--------+ + + | GLUCOSE, | 2019-07-16 | [facility] | 96 | mg/dl | (missing) | | RANDOM | 08:44:12 | | | | | | (MG/DL) IN | | | | | | | SER/PLAS | | | | | | + + +-------+--------+ + + | GLUCOSE, | 2019-07-16 | [facility] | 96 | mg/dl | (missing) | | RANDOM | 08:44:12 | | | | | | (MG/DL) IN | | | | | | | SER/PLAS | | | | | | + + +-------+--------+ + + + + | Result panel 3 | + + + + +-------+--------+ + + | INR | 2019-07-27 | [facility] | 1.1 | (missing) | (missing) | | | 09:18:50 | | | | | + + +-------+--------+ + + | INR | 2019-07-27 | [facility] | 1.1 | (missing) | (missing) | | | 09:18:50 | | | | | + + +-------+--------+ + + | PLATELET | 2019-07-27 | [facility] | 10.7 | fl | (missing) | | MEAN VOLUME | 09:18:50 | | | | | | (FL) IN | | | | | | | BLOOD BY | | | | | | | AUTOMATED | | | | | | | COUNT | | | | | | + + +-------+--------+ + + | PLATELET | 2019-07-27 | [facility] | 10.7 | fl | (missing) | | MEAN VOLUME | 09:18:50 | | | | | | (FL) IN | | | | | | | BLOOD BY | | | | | | | AUTOMATED | | | | | | | COUNT | | | | | | + + +-------+--------+ + + | HEMOGLOBIN | 2019-07-27 | [facility] | 13.1 | g/dl | (missing) | | (G/DL) IN | 09:18:50 | | | | | | BLOOD | | | | | | + + +-------+--------+ + + | HEMOGLOBIN | 2019-07-27 | [facility] | 13.1 | g/dl | (missing) | | (G/DL) IN | 09:18:50 | | | | | | BLOOD | | | | | | + + +-------+--------+ + + | ERYTHROCYTE | 2019-07-27 | [facility] | 13.6 | % | (missing) | | | 09:18:50 | | | | | | DISTRIBUTION | | | | | | | WIDTH | | | | | | | (RATIO) BY | | | | | | | AUTOMATED | | | | | | | COUNT | | | | | | + + +-------+--------+ + + | ERYTHROCYTE | 2019-07-27 | [facility] | 13.6 | % | (missing) | | | 09:18:50 | | | | | | DISTRIBUTION | | | | | | | WIDTH | | | | | | | (RATIO) BY | | | | | | | AUTOMATED | | | | | | | COUNT | | | | | | + + +-------+--------+ + + | PT | 2019-07-27 | [facility] | 13.8 | seconds | (missing) | | (PROTHROMBIN | :18:50 | | | | | | TIME) | | | | | | + + +-------+--------+ + + | PT | 2019-07-27 | [facility] | 13.8 | seconds | (missing) | | (PROTHROMBIN | :18:50 | | | | | | TIME) | | | | | | + + +-------+--------+ + + | PLATELETS | 2019-07-27 | [facility] | 195 | k/mcl | (missing) | | (10*3/UL) IN | :18:50 | | | | | | BLOOD | | | | | | | AUTOMATED | | | | | | | COUNT | | | | | | + + +-------+--------+ + + | PLATELETS | 2019-07-27 | [facility] | 195 | k/mcl | (missing) | | (10*3/UL) IN | 09:18:50 | | | | | | BLOOD | | | | | | | AUTOMATED | | | | | | | COUNT | | | | | | + + +-------+--------+ + + | ERYTHROCYTE | 2019-07-27 | [facility] | 29.8 | pg | (missing) | | MEAN | 09:18:50 | | | | | | CORPUSCULAR | | | | | | | HEMOGLOBIN | | | | | | | (PG) BY | | | | | | | AUTOMATED | | | | | | | COUNT | | | | | | + + +-------+--------+ + + | ERYTHROCYTE | 2019-07-27 | [facility] | 29.8 | pg | (missing) | | MEAN | 09:18:50 | | | | | | CORPUSCULAR | | | | | | | HEMOGLOBIN | | | | | | | (PG) BY | | | | | | | AUTOMATED | | | | | | | COUNT | | | | | | + + +-------+--------+ + + | ERYTHROCYTE | 2019-07-27 | [facility] | 32.7 | g/dl | (missing) | | MEAN | 09:18:50 | | | | | | CORPUSCULAR | | | | | | | HEMOGLOBIN | | | | | | | CONCENTRATIO | | | | | | | N (G/DL) BY | | | | | | | AUTOMATED | | | | | | + + +-------+--------+ + + | ERYTHROCYTE | 2019-07-27 | [facility] | 32.7 | g/dl | (missing) | | MEAN | 09:18:50 | | | | | | CORPUSCULAR | | | | | | | HEMOGLOBIN | | | | | | | CONCENTRATIO | | | | | | | N (G/DL) BY | | | | | | | AUTOMATED | | | | | | + + +-------+--------+ + + | | 2019-07-27 | [facility] | 4.40 | m/mcl | (missing) | | ERYTHROCYTES | 09:18:50 | | | | | | (10*6/UL) | | | | | | | IN BLOOD BY | | | | | | | AUTOMATED | | | | | | | COUNT | | | | | | + + +-------+--------+ + + | | 2019-07-27 | [facility] | 4.40 | m/mcl | (missing) | | ERYTHROCYTES | 09:18:50 | | | | | | (10*6/UL) | | | | | | | IN BLOOD BY | | | | | | | AUTOMATED | | | | | | | COUNT | | | | | | + + +-------+--------+ + + | HEMATOCRIT | 2019-07-27 | [facility] | 40.1 | % | (missing) | | (%) IN BLOOD | 09:18:50 | | | | | | BY | | | | | | | AUTOMATED | | | | | | | COUNT | | | | | | + + +-------+--------+ + + | HEMATOCRIT | 2019-07-27 | [facility] | 40.1 | % | (missing) | | (%) IN BLOOD | 09:18:50 | | | | | | BY | | | | | | | AUTOMATED | | | | | | | COUNT | | | | | | + + +-------+--------+ + + | | 2019-07-27 | [facility] | 6.6 | k/mcl | (missing) | | LEUKOCYTES(1 | :18:50 | | | | | | 0*3/UL) IN | | | | | | | BLOOD BY | | | | | | | AUTOMATED | | | | | | | COUNT | | | | | | + + +-------+--------+ + + | | 2019-07-27 | [facility] | 6.6 | k/mcl | (missing) | | LEUKOCYTES(1 | :18:50 | | | | | | 0*3/UL) IN | | | | | | | BLOOD BY | | | | | | | AUTOMATED | | | | | | | COUNT | | | | | | + + +-------+--------+ + + | ERYTHROCYTE | 2019-07-27 | [facility] | 91.1 | fl | (missing) | | MEAN | 09:18:50 | | | | | | CORPUSCULAR | | | | | | | VOLUME (FL) | | | | | | | BY AUTOMATED | | | | | | | COUNT | | | | | | + + +-------+--------+ + + | ERYTHROCYTE | 2019-07-27 | [facility] | 91.1 | fl | (missing) | | MEAN | 09:18:50 | | | | | | CORPUSCULAR | | | | | | | VOLUME (FL) | | | | | | | BY AUTOMATED | | | | | | | COUNT | | | | | | + + +-------+--------+ + + + + | Result panel 4 | + + + + +-------+ + + + | | 2019-08-15 | [facility] | (missing) | (missing) | (missing) | | (unavailable | 09:20 | | | | | | ) | | | | | | + + +-------+ + + + | | 2019-08-15 | [facility] | 1. No acute | (missing) | (missing) | | (unavailable | 09:20 | | | | | | ) | | | radiographic | | | | | | | abnormality | | | | | | | of the | | | | | | | right wrist. | | | | | | | | | | + + +-------+ + + + | | 2019-08-15 | [facility] | ALIGNMENT: | (missing) | (missing) | | (unavailable | 09:20 | | Alignment is | | | | ) | | | anatomic. | | | + + +-------+ + + + | | 2019-08-15 | [facility] | BONES: The | (missing) | (missing) | | (unavailable | 09:20 | | osseous | | | | ) | | | structures | | | | | | | are intact | | | | | | | without an | | | | | | | acute | | | | | | | displaced | | | | | | | fracture or | | | | | | | destructive | | | | | | | process. | | | + + +-------+ + + + | | 2019-08-15 | [facility] | COMPARISON: | (missing) | (missing) | | (unavailable | 09:20 | | Right hand | | | | ) | | | radiograph | | | | | | | October 04, | | | | | | | 2015. | | | + + +-------+ + + + | | 2019-08-15 | [facility] | Electronical | (missing) | (missing) | | (unavailable | 09:20 | | ly signed | | | | ) | | | by: Carlos | | | | | | | MD Adriana | | | | | | | on 08/15/2019 | | | | | | | 9:46 AM at | | | | | | | workstation | | | | | | | [phone] | | | + + +-------+ + + + | | 2019-08-15 | [facility] | FINDINGS: | (missing) | (missing) | | (unavailable | 09:20 | | | | | | ) | | | | | | + + +-------+ + + + | | 2019-08-15 | [facility] | | (missing) | (missing) | | (unavailable | 09:20 | | INDICATIONS: | | | | ) | | | pain | | | + + +-------+ + + + | | 2019-08-15 | [facility] | JOINTS: The | (missing) | (missing) | | (unavailable | 09:20 | | joints are | | | | ) | | | intact | | | | | | | without | | | | | | | significant | | | | | | | degeneration | | | | | | | . No | | | | | | | periarticula | | | | | | | r erosions | | | | | | | are seen. | | | + + +-------+ + + + | | 2019-08-15 | [facility] | PROCEDURE: | (missing) | (missing) | | (unavailable | 09:20 | | RIGHT WRIST | | | | ) | | | - THREE | | | | | | | VIEWS | | | + + +-------+ + + + | | 2019-08-15 | [facility] | | (missing) | (missing) | | (unavailable | 09:20 | | Procedure(s) | | | | ) | | | : * No | | | | | | | procedures | | | | | | | listed * | | | + + +-------+ + + + | | 2019-08-15 | [facility] | SOFT | (missing) | (missing) | | (unavailable | 09:20 | | TISSUES: | | | | ) | | | Atherosclero | | | | | | | tic | | | | | | | ossification | | | | | | | s are | | | | | | | present. | | | + + +-------+ + + + + + | Result panel 5 | + + + + +-------+--------+---------+ + | NRBC/100 | 2019-08-15 | [facility] | 0.0 | % | (missing) | | WBCS BY | 11:24:28 | | | | | | AUTOMATED | | | | | | | COUNT | | | | | | + + +-------+--------+---------+ + | NRBC/100 | 2019-08-15 | [facility] | 0.0 | % | (missing) | | WBCS BY | :28 | | | | | | AUTOMATED | | | | | | | COUNT | | | | | | + + +-------+--------+---------+ + | | 2019-08-15 | [facility] | 0.0 | k/mcl | (missing) | | NRBC(10*3/UL | :28 | | | | | | ) IN BLOOD | | | | | | | BY AUTOMATED | | | | | | | COUNT | | | | | | + + +-------+--------+---------+ + | | 2019-08-15 | [facility] | 0.0 | k/mcl | (missing) | | NRBC(10*3/UL | 24:28 | | | | | | ) IN BLOOD | | | | | | | BY AUTOMATED | | | | | | | COUNT | | | | | | + + +-------+--------+---------+ + | IMMATURE | 2019-08-15 | [facility] | 0.04 | k/mcl | (missing) | | GRANULOCYTE | 24:28 | | | | | | (ABS) | | | | | | + + +-------+--------+---------+ + | IMMATURE | 2019-08-15 | [facility] | 0.04 | k/mcl | (missing) | | GRANULOCYTE | 11:24:28 | | | | | | (ABS) | | | | | | + + +-------+--------+---------+ + | BASOPHILS | 2019-08-15 | [facility] | 0.1 | k/mcl | (missing) | | (10*3/UL) IN | 11:24:28 | | | | | | BLOOD BY | | | | | | | AUTOMATED | | | | | | | COUNT | | | | | | + + +-------+--------+---------+ + | EOSINOPHILS | 2019-08-15 | [facility] | 0.1 | k/mcl | (missing) | | (10*3/UL) | 11:24:28 | | | | | | IN BLOOD BY | | | | | | | AUTOMATED | | | | | | | COUNT | | | | | | + + +-------+--------+---------+ + | BASOPHILS | 2019-08-15 | [facility] | 0.1 | k/mcl | (missing) | | (10*3/UL) IN | 11:24:28 | | | | | | BLOOD BY | | | | | | | AUTOMATED | | | | | | | COUNT | | | | | | + + +-------+--------+---------+ + | EOSINOPHILS | 2019-08-15 | [facility] | 0.1 | k/mcl | (missing) | | (10*3/UL) | 11:24:28 | | | | | | IN BLOOD BY | | | | | | | AUTOMATED | | | | | | | COUNT | | | | | | + + +-------+--------+---------+ + | IMMATURE | 2019-08-15 | [facility] | 0.3 | % | (missing) | | GRANULOCYTE | 11:24:28 | | | | | | % (AUTO) | | | | | | + + +-------+--------+---------+ + | IMMATURE | 2019-08-15 | [facility] | 0.3 | % | (missing) | | GRANULOCYTE | 11:24:28 | | | | | | % (AUTO) | | | | | | + + +-------+--------+---------+ + | | 2019-08-15 | [facility] | 0.4 | % | (missing) | | BASOPHILS/10 | :28 | | | | | | 0 LEUKOCYTES | | | | | | | IN BLOOD BY | | | | | | | AUTOMATED | | | | | | | COUNT | | | | | | + + +-------+--------+---------+ + | | 2019-08-15 | [facility] | 0.4 | % | (missing) | | BASOPHILS/10 | : | | | | | | 0 LEUKOCYTES | | | | | | | IN BLOOD BY | | | | | | | AUTOMATED | | | | | | | COUNT | | | | | | + + +-------+--------+---------+ + | | 2019-08-15 | [facility] | 0.6 | % | (missing) | | EOSINOPHILS/ | : | | | | | | 100 | | | | | | | LEUKOCYTES | | | | | | | IN BLOOD BY | | | | | | | AUTOMATED | | | | | | | COUNT | | | | | | + + +-------+--------+---------+ + | | 2019-08-15 | [facility] | 0.6 | % | (missing) | | EOSINOPHILS/ | :28 | | | | | | 100 | | | | | | | LEUKOCYTES | | | | | | | IN BLOOD BY | | | | | | | AUTOMATED | | | | | | | COUNT | | | | | | + + +-------+--------+---------+ + | MONOCYTES | 2019-08-15 | [facility] | 1.1 | k/mcl | (missing) | | (10*3/UL) IN | 11:24:28 | | | | | | BLOOD BY | | | | | | | AUTOMATED | | | | | | | COUNT | | | | | | + + +-------+--------+---------+ + | MONOCYTES | 2019-08-15 | [facility] | 1.1 | k/mcl | (missing) | | (10*3/UL) IN | 11:24:28 | | | | | | BLOOD BY | | | | | | | AUTOMATED | | | | | | | COUNT | | | | | | + + +-------+--------+---------+ + | LYMPHOCYTES | 2019-08-15 | [facility] | 1.2 | k/mcl | (missing) | | (10*3/UL) | 11:24:28 | | | | | | IN BLOOD BY | | | | | | | AUTOMATED | | | | | | | COUNT | | | | | | + + +-------+--------+---------+ + | LYMPHOCYTES | 2019-08-15 | [facility] | 1.2 | k/mcl | (missing) | | (10*3/UL) | | | | | | | IN BLOOD BY | | | | | | | AUTOMATED | | | | | | | COUNT | | | | | | + + +-------+--------+---------+ + | PLATELET | 2019-08-15 | [facility] | 11.1 | fl | (missing) | | MEAN VOLUME | | | | | | | (FL) IN | | | | | | | BLOOD BY | | | | | | | AUTOMATED | | | | | | | COUNT | | | | | | + + +-------+--------+---------+ + | PLATELET | 2019-08-15 | [facility] | 11.1 | fl | (missing) | | MEAN VOLUME | | | | | | | (FL) IN | | | | | | | BLOOD BY | | | | | | | AUTOMATED | | | | | | | COUNT | | | | | | + + +-------+--------+---------+ + | | 2019-08-15 | [facility] | 12.2 | k/mcl | (missing) | | LEUKOCYTES(1 | | | | | | | 0*3/UL) IN | | | | | | | BLOOD BY | | | | | | | AUTOMATED | | | | | | | COUNT | | | | | | + + +-------+--------+---------+ + | | 2019-08-15 | [facility] | 12.2 | k/mcl | (missing) | | LEUKOCYTES(1 | | | | | | | 0*3/UL) IN | | | | | | | BLOOD BY | | | | | | | AUTOMATED | | | | | | | COUNT | | | | | | + + +-------+--------+---------+ + | HEMOGLOBIN | 2019-08-15 | [facility] | 13.0 | g/dl | (missing) | | (G/DL) IN | | | | | | | BLOOD | | | | | | + + +-------+--------+---------+ + | HEMOGLOBIN | 2019-08-15 | [facility] | 13.0 | g/dl | (missing) | | (G/DL) IN | | | | | | | BLOOD | | | | | | + + +-------+--------+---------+ + | ERYTHROCYTE | 2019-08-15 | [facility] | 13.6 | % | (missing) | | | | | | | | | DISTRIBUTION | | | | | | | WIDTH | | | | | | | (RATIO) BY | | | | | | | AUTOMATED | | | | | | | COUNT | | | | | | + + +-------+--------+---------+ + | ERYTHROCYTE | 2019-08-15 | [facility] | 13.6 | % | (missing) | | | : | | | | | | DISTRIBUTION | | | | | | | WIDTH | | | | | | | (RATIO) BY | | | | | | | AUTOMATED | | | | | | | COUNT | | | | | | + + +-------+--------+---------+ + | PLATELETS | 2019-08-15 | [facility] | 206 | k/mcl | (missing) | | (10*3/UL) IN | :28 | | | | | | BLOOD | | | | | | | AUTOMATED | | | | | | | COUNT | | | | | | + + +-------+--------+---------+ + | PLATELETS | 2019-08-15 | [facility] | 206 | k/mcl | (missing) | | (10*3/UL) IN | :28 | | | | | | BLOOD | | | | | | | AUTOMATED | | | | | | | COUNT | | | | | | + + +-------+--------+---------+ + | ERYTHROCYTE | 2019-08-15 | [facility] | 29.7 | pg | (missing) | | MEAN | 11:24:28 | | | | | | CORPUSCULAR | | | | | | | HEMOGLOBIN | | | | | | | (PG) BY | | | | | | | AUTOMATED | | | | | | | COUNT | | | | | | + + +-------+--------+---------+ + | ERYTHROCYTE | 2019-08-15 | [facility] | 29.7 | pg | (missing) | | MEAN | 11:24:28 | | | | | | CORPUSCULAR | | | | | | | HEMOGLOBIN | | | | | | | (PG) BY | | | | | | | AUTOMATED | | | | | | | COUNT | | | | | | + + +-------+--------+---------+ + | ERYTHROCYTE | 2019-08-15 | [facility] | 33.2 | g/dl | (missing) | | MEAN | 11:24:28 | | | | | | CORPUSCULAR | | | | | | | HEMOGLOBIN | | | | | | | CONCENTRATIO | | | | | | | N (G/DL) BY | | | | | | | AUTOMATED | | | | | | + + +-------+--------+---------+ + | ERYTHROCYTE | 2019-08-15 | [facility] | 33.2 | g/dl | (missing) | | MEAN | | | | | | | CORPUSCULAR | | | | | | | HEMOGLOBIN | | | | | | | CONCENTRATIO | | | | | | | N (G/DL) BY | | | | | | | AUTOMATED | | | | | | + + +-------+--------+---------+ + | HEMATOCRIT | 2019-08-15 | [facility] | 39.1 | % | (missing) | | (%) IN BLOOD | | | | | | | BY | | | | | | | AUTOMATED | | | | | | | COUNT | | | | | | + + +-------+--------+---------+ + | HEMATOCRIT | 2019-08-15 | [facility] | 39.1 | % | (missing) | | (%) IN BLOOD | | | | | | | BY | | | | | | | AUTOMATED | | | | | | | COUNT | | | | | | + + +-------+--------+---------+ + | | 2019-08-15 | [facility] | 4.37 | m/mcl | (missing) | | ERYTHROCYTES | | | | | | | (10*6/UL) | | | | | | | IN BLOOD BY | | | | | | | AUTOMATED | | | | | | | COUNT | | | | | | + + +-------+--------+---------+ + | | 2019-08-15 | [facility] | 4.37 | m/mcl | (missing) | | ERYTHROCYTES | 11:24:28 | | | | | | (10*6/UL) | | | | | | | IN BLOOD BY | | | | | | | AUTOMATED | | | | | | | COUNT | | | | | | + + +-------+--------+---------+ + | | 2019-08-15 | [facility] | 80.1 | % | (missing) | | NEUTROPHILS/ | 11:24:28 | | | | | | 100 | | | | | | | LEUKOCYTES | | | | | | | IN BLOOD BY | | | | | | | AUTOMATED | | | | | | | COUNT | | | | | | + + +-------+--------+---------+ + | | 2019-08-15 | [facility] | 80.1 | % | (missing) | | NEUTROPHILS/ | 11:24:28 | | | | | | 100 | | | | | | | LEUKOCYTES | | | | | | | IN BLOOD BY | | | | | | | AUTOMATED | | | | | | | COUNT | | | | | | + + +-------+--------+---------+ + | ERYTHROCYTE | 2019-08-15 | [facility] | 89.5 | fl | (missing) | | MEAN | 11:24:28 | | | | | | CORPUSCULAR | | | | | | | VOLUME (FL) | | | | | | | BY AUTOMATED | | | | | | | COUNT | | | | | | + + +-------+--------+---------+ + | ERYTHROCYTE | 2019-08-15 | [facility] | 89.5 | fl | (missing) | | MEAN | 11:24:28 | | | | | | CORPUSCULAR | | | | | | | VOLUME (FL) | | | | | | | BY AUTOMATED | | | | | | | COUNT | | | | | | + + +-------+--------+---------+ + | | 2019-08-15 | [facility] | 9.1 | % | (missing) | | MONOCYTES/10 | 11:24:28 | | | | | | 0 LEUKOCYTES | | | | | | | IN BLOOD BY | | | | | | | AUTOMATED | | | | | | | COUNT | | | | | | + + +-------+--------+---------+ + | | 2019-08-15 | [facility] | 9.1 | % | (missing) | | MONOCYTES/10 | 11:24:28 | | | | | | 0 LEUKOCYTES | | | | | | | IN BLOOD BY | | | | | | | AUTOMATED | | | | | | | COUNT | | | | | | + + +-------+--------+---------+ + | | 2019-08-15 | [facility] | 9.5 | % | (missing) | | LYMPHOCYTES/ | 11:24:28 | | | | | | 100 | | | | | | | LEUKOCYTES | | | | | | | IN BLOOD BY | | | | | | | AUTOMATED | | | | | | | COUNT | | | | | | + + +-------+--------+---------+ + | | 2019-08-15 | [facility] | 9.5 | % | (missing) | | LYMPHOCYTES/ | 11:24:28 | | | | | | 100 | | | | | | | LEUKOCYTES | | | | | | | IN BLOOD BY | | | | | | | AUTOMATED | | | | | | | COUNT | | | | | | + + +-------+--------+---------+ + | NEUTROPHILS | 2019-08-15 | [facility] | 9.8 | k/mcl | (missing) | | (10*3/UL) | 11:24:28 | | | | | | IN BLOOD BY | | | | | | | AUTOMATED | | | | | | | COUNT | | | | | | + + +-------+--------+---------+ + | NEUTROPHILS | 2019-08-15 | [facility] | 9.8 | k/mcl | (missing) | | (10*3/UL) | :28 | | | | | | IN BLOOD BY | | | | | | | AUTOMATED | | | | | | | COUNT | | | | | | + + +-------+--------+---------+ + + + | Result panel 6 | + + + + +-------+--------+ + + | CREATININE | 2019-08-15 | [facility] | 1.5 | mg/dl | (missing) | | (MG/DL) IN | :29 | | | | | | SER/PLAS | | | | | | + + +-------+--------+ + + | CREATININE | 2019-08-15 | [facility] | 1.5 | mg/dl | (missing) | | (MG/DL) IN | :29 | | | | | | SER/PLAS | | | | | | + + +-------+--------+ + + | CHLORIDE | 2019-08-15 | [facility] | 100 | mmol/l | (missing) | | (MMOL/L) IN | :24:29 | | | | | | SER/PLAS | | | | | | + + +-------+--------+ + + | CHLORIDE | 2019-08-15 | [facility] | 100 | mmol/l | (missing) | | (MMOL/L) IN | :24:29 | | | | | | SER/PLAS | | | | | | + + +-------+--------+ + + | SODIUM | 2019-08-15 | [facility] | 137 | mmol/l | (missing) | | (MMOL/L) IN | :24:29 | | | | | | SER/PLAS | | | | | | + + +-------+--------+ + + | SODIUM | 2019-08-15 | [facility] | 137 | mmol/l | (missing) | | (MMOL/L) IN | :24:29 | | | | | | SER/PLAS | | | | | | + + +-------+--------+ + + | ANION GAP | 2019-08-15 | [facility] | 14.0 | mmol/l | (missing) | | IN SER/PLAS | :29 | | | | | + + +-------+--------+ + + | ANION GAP | 2019-08-15 | [facility] | 14.0 | mmol/l | (missing) | | IN SER/PLAS | :29 | | | | | + + +-------+--------+ + + | GLUCOSE, | 2019-08-15 | [facility] | 174 | mg/dl | (missing) | | RANDOM | :29 | | | | | | (MG/DL) IN | | | | | | | SER/PLAS | | | | | | + + +-------+--------+ + + | GLUCOSE, | 2019-08-15 | [facility] | 174 | mg/dl | (missing) | | RANDOM | :24:29 | | | | | | (MG/DL) IN | | | | | | | SER/PLAS | | | | | | + + +-------+--------+ + + | CARBON | 2019-08-15 | [facility] | 23 | mmol/l | (missing) | | DIOXIDE | 11:24:29 | | | | | | (CO2), TOTAL | | | | | | | (MMOL/L) IN | | | | | | | SER/PLAS | | | | | | + + +-------+--------+ + + | CARBON | 2019-08-15 | [facility] | 23 | mmol/l | (missing) | | DIOXIDE | 11:24:29 | | | | | | (CO2), TOTAL | | | | | | | (MMOL/L) IN | | | | | | | SER/PLAS | | | | | | + + +-------+--------+ + + | BLOOD UREA | 2019-08-15 | [facility] | 29 | mg/dl | (missing) | | NITROGEN | 11:24:29 | | | | | | (BUN) | | | | | | | (MG/DL) IN | | | | | | | SER/PLAS | | | | | | + + +-------+--------+ + + | BLOOD UREA | 2019-08-15 | [facility] | 29 | mg/dl | (missing) | | NITROGEN | 11:24:29 | | | | | | (BUN) | | | | | | | (MG/DL) IN | | | | | | | SER/PLAS | | | | | | + + +-------+--------+ + + | EGFR | 2019-08-15 | [facility] | 46 | | (missing) | | (GLOMERULAR | 11::29 | | | ml/min/1.73m | | | FILTRATION | | | | ? | | | RATE) | | | | | | | ML/MIN/1.73 | | | | | | | SQ M. | | | | | | + + +-------+--------+ + + | EGFR | 2019-08-15 | [facility] | 46 | | (missing) | | (GLOMERULAR | 11:24:29 | | | ml/min/1.73m | | | FILTRATION | | | | ? | | | RATE) | | | | | | | ML/MIN/1.73 | | | | | | | SQ M. | | | | | | + + +-------+--------+ + + | POTASSIUM | 2019-08-15 | [facility] | 5.2 | mmol/l | (missing) | | (MMOL/L) IN | 11:24:29 | | | | | | SER/PLAS | | | | | | + + +-------+--------+ + + | POTASSIUM | 2019-08-15 | [facility] | 5.2 | mmol/l | (missing) | | (MMOL/L) IN | :29 | | | | | | SER/PLAS | | | | | | + + +-------+--------+ + + | | 2019-08-15 | [facility] | 50 | mm/hr | (missing) | | SEDIMENTATIO | ::29 | | | | | | N RATE, | | | | | | | ERYTHROCYTE | | | | | | + + +-------+--------+ + + | URIC ACID | 2019-08-15 | [facility] | 7.3 | mg/dl | (missing) | | (MG/DL) IN | 24:29 | | | | | | SER/PLAS | | | | | | + + +-------+--------+ + + | URIC ACID | 2019-08-15 | [facility] | 7.3 | mg/dl | (missing) | | (MG/DL) IN | 24:29 | | | | | | SER/PLAS | | | | | | + + +-------+--------+ + + | C REACTIVE | 2019-08-15 | [facility] | 7.52 | mg/dl | (missing) | | PROTEIN | 11:24:29 | | | | | | (MG/DL) IN | | | | | | | SER/PLAS | | | | | | + + +-------+--------+ + + | C REACTIVE | 2019-08-15 | [facility] | 7.52 | mg/dl | (missing) | | PROTEIN | 11:24:29 | | | | | | (MG/DL) IN | | | | | | | SER/PLAS | | | | | | + + +-------+--------+ + + | CALCIUM | 2019-08-15 | [facility] | 9.3 | mg/dl | (missing) | | (MG/DL) IN | 11:24:29 | | | | | | SER/PLAS | | | | | | + + +-------+--------+ + + | CALCIUM | 2019-08-15 | [facility] | 9.3 | mg/dl | (missing) | | (MG/DL) IN | 11:24:29 | | | | | | SER/PLAS | | | | | | + + +-------+--------+ + + + + | Result panel 7 | + + + + +-------+-------+---------+ + | POCT | 2019-08-15 | [facility] | 125 | mg/dl | (missing) | | GLUCOMETER | 13:22:08 | | | | | + + +-------+-------+---------+ + | POCT | 2019-08-15 | [facility] | 125 | mg/dl | (missing) | | GLUCOMETER | 13:22:08 | | | | | + + +-------+-------+---------+ + + + | Result panel 8 | + + + + +-------+--------+ + + | CREATININE | 2019-08-15 | [facility] | 1.4 | mg/dl | (missing) | | (MG/DL) IN | 13:55:02 | | | | | | SER/PLAS | | | | | | + + +-------+--------+ + + | CREATININE | 2019-08-15 | [facility] | 1.4 | mg/dl | (missing) | | (MG/DL) IN | 13:55:02 | | | | | | SER/PLAS | | | | | | + + +-------+--------+ + + | CHLORIDE | 2019-08-15 | [facility] | 101 | mmol/l | (missing) | | (MMOL/L) IN | 13:55:02 | | | | | | SER/PLAS | | | | | | + + +-------+--------+ + + | CHLORIDE | 2019-08-15 | [facility] | 101 | mmol/l | (missing) | | (MMOL/L) IN | 13:55:02 | | | | | | SER/PLAS | | | | | | + + +-------+--------+ + + | ANION GAP | 2019-08-15 | [facility] | 11.0 | mmol/l | (missing) | | IN SER/PLAS | 13:55:02 | | | | | + + +-------+--------+ + + | ANION GAP | 2019-08-15 | [facility] | 11.0 | mmol/l | (missing) | | IN SER/PLAS | 13:55:02 | | | | | + + +-------+--------+ + + | GLUCOSE, | 2019-08-15 | [facility] | 129 | mg/dl | (missing) | | RANDOM | 13:55:02 | | | | | | (MG/DL) IN | | | | | | | SER/PLAS | | | | | | + + +-------+--------+ + + | GLUCOSE, | 2019-08-15 | [facility] | 129 | mg/dl | (missing) | | RANDOM | 13:55:02 | | | | | | (MG/DL) IN | | | | | | | SER/PLAS | | | | | | + + +-------+--------+ + + | SODIUM | 2019-08-15 | [facility] | 136 | mmol/l | (missing) | | (MMOL/L) IN | 13:55:02 | | | | | | SER/PLAS | | | | | | + + +-------+--------+ + + | SODIUM | 2019-08-15 | [facility] | 136 | mmol/l | (missing) | | (MMOL/L) IN | 13:55:02 | | | | | | SER/PLAS | | | | | | + + +-------+--------+ + + | CARBON | 2019-08-15 | [facility] | 24 | mmol/l | (missing) | | DIOXIDE | 13:55:02 | | | | | | (CO2), TOTAL | | | | | | | (MMOL/L) IN | | | | | | | SER/PLAS | | | | | | + + +-------+--------+ + + | CARBON | 2019-08-15 | [facility] | 24 | mmol/l | (missing) | | DIOXIDE | 13:55:02 | | | | | | (CO2), TOTAL | | | | | | | (MMOL/L) IN | | | | | | | SER/PLAS | | | | | | + + +-------+--------+ + + | BLOOD UREA | 2019-08-15 | [facility] | 29 | mg/dl | (missing) | | NITROGEN | 13:55:02 | | | | | | (BUN) | | | | | | | (MG/DL) IN | | | | | | | SER/PLAS | | | | | | + + +-------+--------+ + + | BLOOD UREA | 2019-08-15 | [facility] | 29 | mg/dl | (missing) | | NITROGEN | 13:55:02 | | | | | | (BUN) | | | | | | | (MG/DL) IN | | | | | | | SER/PLAS | | | | | | + + +-------+--------+ + + | POTASSIUM | 2019-08-15 | [facility] | 4.9 | mmol/l | (missing) | | (MMOL/L) IN | 13:55:02 | | | | | | SER/PLAS | | | | | | + + +-------+--------+ + + | POTASSIUM | 2019-08-15 | [facility] | 4.9 | mmol/l | (missing) | | (MMOL/L) IN | 13:55:02 | | | | | | SER/PLAS | | | | | | + + +-------+--------+ + + | EGFR | 2019-08-15 | [facility] | 49 | | (missing) | | (GLOMERULAR | 13:55:02 | | | ml/min/1.73m | | | FILTRATION | | | | ? | | | RATE) | | | | | | | ML/MIN/1.73 | | | | | | | SQ M. | | | | | | + + +-------+--------+ + + | EGFR | 2019-08-15 | [facility] | 49 | | (missing) | | (GLOMERULAR | 13:55:02 | | | ml/min/1.73m | | | FILTRATION | | | | ? | | | RATE) | | | | | | | ML/MIN/1.73 | | | | | | | SQ M. | | | | | | + + +-------+--------+ + + | CALCIUM | 2019-08-15 | [facility] | 8.6 | mg/dl | (missing) | | (MG/DL) IN | 13:55:02 | | | | | | SER/PLAS | | | | | | + + +-------+--------+ + + | CALCIUM | 2019-08-15 | [facility] | 8.6 | mg/dl | (missing) | | (MG/DL) IN | 13:55:02 | | | | | | SER/PLAS | | | | | | + + +-------+--------+ + + + + | Result panel 9 | + + + + +-------+---------+ + + | BILIRUBIN | 2019-12-11 | [facility] | < | mg/dl | (missing) | | TOTAL | 14:25:10 | | | | | | (MG/DL) IN | | | | | | | SER/PLAS | | | | | | + + +-------+---------+ + + | BILIRUBIN | 2019-12-11 | [facility] | < | mg/dl | (missing) | | TOTAL | 14:25:10 | | | | | | (MG/DL) IN | | | | | | | SER/PLAS | | | | | | + + +-------+---------+ + + | NRBC/100 | 2019-12-11 | [facility] | 0.0 | % | (missing) | | WBCS BY | 14:25:10 | | | | | | AUTOMATED | | | | | | | COUNT | | | | | | + + +-------+---------+ + + | NRBC/100 | 2019-12-11 | [facility] | 0.0 | % | (missing) | | WBCS BY | 14:25:10 | | | | | | AUTOMATED | | | | | | | COUNT | | | | | | + + +-------+---------+ + + | BASOPHILS | 2019-12-11 | [facility] | 0.0 | k/mcl | (missing) | | (10*3/UL) IN | 14:25:10 | | | | | | BLOOD BY | | | | | | | AUTOMATED | | | | | | | COUNT | | | | | | + + +-------+---------+ + + | | 2019-12-11 | [facility] | 0.0 | k/mcl | (missing) | | NRBC(10*3/UL | 14:25:10 | | | | | | ) IN BLOOD | | | | | | | BY AUTOMATED | | | | | | | COUNT | | | | | | + + +-------+---------+ + + | BASOPHILS | 2019-12-11 | [facility] | 0.0 | k/mcl | (missing) | | (10*3/UL) IN | 14:25:10 | | | | | | BLOOD BY | | | | | | | AUTOMATED | | | | | | | COUNT | | | | | | + + +-------+---------+ + + | | 2019-12-11 | [facility] | 0.0 | k/mcl | (missing) | | NRBC(10*3/UL | 14:25:10 | | | | | | ) IN BLOOD | | | | | | | BY AUTOMATED | | | | | | | COUNT | | | | | | + + +-------+---------+ + + | IMMATURE | 2019-12-11 | [facility] | 0.02 | k/mcl | (missing) | | GRANULOCYTE | 14:25:10 | | | | | | (ABS) | | | | | | + + +-------+---------+ + + | IMMATURE | 2019-12-11 | [facility] | 0.02 | k/mcl | (missing) | | GRANULOCYTE | 14:25:10 | | | | | | (ABS) | | | | | | + + +-------+---------+ + + | EOSINOPHILS | 2019-12-11 | [facility] | 0.1 | k/mcl | (missing) | | (10*3/UL) | 14:25:10 | | | | | | IN BLOOD BY | | | | | | | AUTOMATED | | | | | | | COUNT | | | | | | + + +-------+---------+ + + | EOSINOPHILS | 2019-12-11 | [facility] | 0.1 | k/mcl | (missing) | | (10*3/UL) | 14:25:10 | | | | | | IN BLOOD BY | | | | | | | AUTOMATED | | | | | | | COUNT | | | | | | + + +-------+---------+ + + | IMMATURE | 2019-12-11 | [facility] | 0.2 | % | (missing) | | GRANULOCYTE | 14:25:10 | | | | | | % (AUTO) | | | | | | + + +-------+---------+ + + | IMMATURE | 2019-12-11 | [facility] | 0.2 | % | (missing) | | GRANULOCYTE | 14:25:10 | | | | | | % (AUTO) | | | | | | + + +-------+---------+ + + | | 2019-12-11 | [facility] | 0.5 | % | (missing) | | BASOPHILS/10 | 14:25:10 | | | | | | 0 LEUKOCYTES | | | | | | | IN BLOOD BY | | | | | | | AUTOMATED | | | | | | | COUNT | | | | | | + + +-------+---------+ + + | | 2019-12-11 | [facility] | 0.5 | % | (missing) | | BASOPHILS/10 | 14:25:10 | | | | | | 0 LEUKOCYTES | | | | | | | IN BLOOD BY | | | | | | | AUTOMATED | | | | | | | COUNT | | | | | | + + +-------+---------+ + + | MONOCYTES | 2019-12-11 | [facility] | 0.7 | k/mcl | (missing) | | (10*3/UL) IN | 14:25:10 | | | | | | BLOOD BY | | | | | | | AUTOMATED | | | | | | | COUNT | | | | | | + + +-------+---------+ + + | MONOCYTES | 2019-12-11 | [facility] | 0.7 | k/mcl | (missing) | | (10*3/UL) IN | 14:25:10 | | | | | | BLOOD BY | | | | | | | AUTOMATED | | | | | | | COUNT | | | | | | + + +-------+---------+ + + | CREATININE | 2019-12-11 | [facility] | 1.4 | mg/dl | (missing) | | (MG/DL) IN | 14:25:10 | | | | | | SER/PLAS | | | | | | + + +-------+---------+ + + | CREATININE | 2019-12-11 | [facility] | 1.4 | mg/dl | (missing) | | (MG/DL) IN | 14:25:10 | | | | | | SER/PLAS | | | | | | + + +-------+---------+ + + | | 2019-12-11 | [facility] | 1.44 | :1 | (missing) | | ALBUMIN/GLOB | 14:25:10 | | | | | | ULIN (A/G | | | | | | | RATIO) IN | | | | | | | SER/PLAS | | | | | | + + +-------+---------+ + + | | 2019-12-11 | [facility] | 1.44 | :1 | (missing) | | ALBUMIN/GLOB | 14:25:10 | | | | | | ULIN (A/G | | | | | | | RATIO) IN | | | | | | | SER/PLAS | | | | | | + + +-------+---------+ + + | | 2019-12-11 | [facility] | 1.5 | % | (missing) | | EOSINOPHILS/ | 14:25:10 | | | | | | 100 | | | | | | | LEUKOCYTES | | | | | | | IN BLOOD BY | | | | | | | AUTOMATED | | | | | | | COUNT | | | | | | + + +-------+---------+ + + | | 2019-12-11 | [facility] | 1.5 | % | (missing) | | EOSINOPHILS/ | 14:25:10 | | | | | | 100 | | | | | | | LEUKOCYTES | | | | | | | IN BLOOD BY | | | | | | | AUTOMATED | | | | | | | COUNT | | | | | | + + +-------+---------+ + + | CHLORIDE | 2019-12-11 | [facility] | 104 | mmol/l | (missing) | | (MMOL/L) IN | 14:25:10 | | | | | | SER/PLAS | | | | | | + + +-------+---------+ + + | CHLORIDE | 2019-12-11 | [facility] | 104 | mmol/l | (missing) | | (MMOL/L) IN | 14:25:10 | | | | | | SER/PLAS | | | | | | + + +-------+---------+ + + | PLATELET | 2019-12-11 | [facility] | 11.6 | fl | (missing) | | MEAN VOLUME | 14:25:10 | | | | | | (FL) IN | | | | | | | BLOOD BY | | | | | | | AUTOMATED | | | | | | | COUNT | | | | | | + + +-------+---------+ + + | PLATELET | 2019-12-11 | [facility] | 11.6 | fl | (missing) | | MEAN VOLUME | 14:25:10 | | | | | | (FL) IN | | | | | | | BLOOD BY | | | | | | | AUTOMATED | | | | | | | COUNT | | | | | | + + +-------+---------+ + + | ANION GAP | 2019-12-11 | [facility] | 12.0 | mmol/l | (missing) | | IN SER/PLAS | 14:25:10 | | | | | + + +-------+---------+ + + | ANION GAP | 2019-12-11 | [facility] | 12.0 | mmol/l | (missing) | | IN SER/PLAS | 14:25:10 | | | | | + + +-------+---------+ + + | HEMOGLOBIN | 2019-12-11 | [facility] | 12.9 | g/dl | (missing) | | (G/DL) IN | 14:25:10 | | | | | | BLOOD | | | | | | + + +-------+---------+ + + | HEMOGLOBIN | 2019-12-11 | [facility] | 12.9 | g/dl | (missing) | | (G/DL) IN | 14:25:10 | | | | | | BLOOD | | | | | | + + +-------+---------+ + + | CREATININE | 2019-12-11 | [facility] | 127.0 | mg/dl | (missing) | | (MG/DL) IN | 14:25:10 | | | | | | URINE | | | | | | + + +-------+---------+ + + | CREATININE | 2019-12-11 | [facility] | 127.0 | mg/dl | (missing) | | (MG/DL) IN | 14:25:10 | | | | | | URINE | | | | | | + + +-------+---------+ + + | GLUCOSE, | 2019-12-11 | [facility] | 134 | mg/dl | (missing) | | RANDOM | 14:25:10 | | | | | | (MG/DL) IN | | | | | | | SER/PLAS | | | | | | + + +-------+---------+ + + | GLUCOSE, | 2019-12-11 | [facility] | 134 | mg/dl | (missing) | | RANDOM | 14:25:10 | | | | | | (MG/DL) IN | | | | | | | SER/PLAS | | | | | | + + +-------+---------+ + + | ERYTHROCYTE | 2019-12-11 | [facility] | 14.6 | % | (missing) | | | 14:25:10 | | | | | | DISTRIBUTION | | | | | | | WIDTH | | | | | | | (RATIO) BY | | | | | | | AUTOMATED | | | | | | | COUNT | | | | | | + + +-------+---------+ + + | ERYTHROCYTE | 2019-12-11 | [facility] | 14.6 | % | (missing) | | | 14:25:10 | | | | | | DISTRIBUTION | | | | | | | WIDTH | | | | | | | (RATIO) BY | | | | | | | AUTOMATED | | | | | | | COUNT | | | | | | + + +-------+---------+ + + | SODIUM | 2019-12-11 | [facility] | 140 | mmol/l | (missing) | | (MMOL/L) IN | 14:25:10 | | | | | | SER/PLAS | | | | | | + + +-------+---------+ + + | SODIUM | 2019-12-11 | [facility] | 140 | mmol/l | (missing) | | (MMOL/L) IN | 14:25:10 | | | | | | SER/PLAS | | | | | | + + +-------+---------+ + + | ESTIMATED | 2019-12-11 | [facility] | 146 | mg/dl | (missing) | | AVERAGE BLD | 14:25:10 | | | | | | GLUCOSE | | | | | | + + +-------+---------+ + + | ESTIMATED | 2019-12-11 | [facility] | 146 | mg/dl | (missing) | | AVERAGE BLD | 14:25:10 | | | | | | GLUCOSE | | | | | | + + +-------+---------+ + + | LYMPHOCYTES | 2019-12-11 | [facility] | 2.0 | k/mcl | (missing) | | (10*3/UL) | 14:25:10 | | | | | | IN BLOOD BY | | | | | | | AUTOMATED | | | | | | | COUNT | | | | | | + + +-------+---------+ + + | LYMPHOCYTES | 2019-12-11 | [facility] | 2.0 | k/mcl | (missing) | | (10*3/UL) | 14:25:10 | | | | | | IN BLOOD BY | | | | | | | AUTOMATED | | | | | | | COUNT | | | | | | + + +-------+---------+ + + | GLOBULIN | 2019-12-11 | [facility] | 2.7 | g/dl | (missing) | | (G/DL) IN | 14:25:10 | | | | | | SER/PLAS | | | | | | + + +-------+---------+ + + | GLOBULIN | 2019-12-11 | [facility] | 2.7 | g/dl | (missing) | | (G/DL) IN | 14:25:10 | | | | | | SER/PLAS | | | | | | + + +-------+---------+ + + | PLATELETS | 2019-12-11 | [facility] | 217 | k/mcl | (missing) | | (10*3/UL) IN | 14:25:10 | | | | | | BLOOD | | | | | | | AUTOMATED | | | | | | | COUNT | | | | | | + + +-------+---------+ + + | PLATELETS | 2019-12-11 | [facility] | 217 | k/mcl | (missing) | | (10*3/UL) IN | 14:25:10 | | | | | | BLOOD | | | | | | | AUTOMATED | | | | | | | COUNT | | | | | | + + +-------+---------+ + + | BLOOD UREA | 2019-12-11 | [facility] | 22 | mg/dl | (missing) | | NITROGEN | 14:25:10 | | | | | | (BUN) | | | | | | | (MG/DL) IN | | | | | | | SER/PLAS | | | | | | + + +-------+---------+ + + | BLOOD UREA | 2019-12-11 | [facility] | 22 | mg/dl | (missing) | | NITROGEN | 14:25:10 | | | | | | (BUN) | | | | | | | (MG/DL) IN | | | | | | | SER/PLAS | | | | | | + + +-------+---------+ + + | | 2019-12-11 | [facility] | 22.6 | % | (missing) | | LYMPHOCYTES/ | 14:25:10 | | | | | | 100 | | | | | | | LEUKOCYTES | | | | | | | IN BLOOD BY | | | | | | | AUTOMATED | | | | | | | COUNT | | | | | | + + +-------+---------+ + + | | 2019-12-11 | [facility] | 22.6 | % | (missing) | | LYMPHOCYTES/ | 14:25:10 | | | | | | 100 | | | | | | | LEUKOCYTES | | | | | | | IN BLOOD BY | | | | | | | AUTOMATED | | | | | | | COUNT | | | | | | + + +-------+---------+ + + | ALANINE | 2019-12-11 | [facility] | 23 | u/l | (missing) | | AMINOTRANSFE | 14:25:10 | | | | | | RASE (SGPT) | | | | | | | (U/L) IN | | | | | | | SER/PLAS | | | | | | + + +-------+---------+ + + | ALANINE | 2019-12-11 | [facility] | 23 | u/l | (missing) | | AMINOTRANSFE | 14:25:10 | | | | | | RASE (SGPT) | | | | | | | (U/L) IN | | | | | | | SER/PLAS | | | | | | + + +-------+---------+ + + | CARBON | 2019-12-11 | [facility] | 24 | mmol/l | (missing) | | DIOXIDE | 14:25:10 | | | | | | (CO2), TOTAL | | | | | | | (MMOL/L) IN | | | | | | | SER/PLAS | | | | | | + + +-------+---------+ + + | CARBON | 2019-12-11 | [facility] | 24 | mmol/l | (missing) | | DIOXIDE | 14:25:10 | | | | | | (CO2), TOTAL | | | | | | | (MMOL/L) IN | | | | | | | SER/PLAS | | | | | | + + +-------+---------+ + + | ASPARTATE | 2019-12-11 | [facility] | 27 | u/l | (missing) | | AMINOTRANSFE | 14:25:10 | | | | | | RASE (SGOT) | | | | | | | (U/L) IN | | | | | | | SER/PLAS | | | | | | + + +-------+---------+ + + | ASPARTATE | 2019-12-11 | [facility] | 27 | u/l | (missing) | | AMINOTRANSFE | 14:25:10 | | | | | | RASE (SGOT) | | | | | | | (U/L) IN | | | | | | | SER/PLAS | | | | | | + + +-------+---------+ + + | ERYTHROCYTE | 2019-12-11 | [facility] | 29.9 | pg | (missing) | | MEAN | 14:25:10 | | | | | | CORPUSCULAR | | | | | | | HEMOGLOBIN | | | | | | | (PG) BY | | | | | | | AUTOMATED | | | | | | | COUNT | | | | | | + + +-------+---------+ + + | ERYTHROCYTE | 2019-12-11 | [facility] | 29.9 | pg | (missing) | | MEAN | 14:25:10 | | | | | | CORPUSCULAR | | | | | | | HEMOGLOBIN | | | | | | | (PG) BY | | | | | | | AUTOMATED | | | | | | | COUNT | | | | | | + + +-------+---------+ + + | ALBUMIN | 2019-12-11 | [facility] | 3.9 | g/dl | (missing) | | (G/DL) IN | 14:25:10 | | | | | | SER/PLAS | | | | | | + + +-------+---------+ + + | ALBUMIN | 2019-12-11 | [facility] | 3.9 | g/dl | (missing) | | (G/DL) IN | 14:25:10 | | | | | | SER/PLAS | | | | | | + + +-------+---------+ + + | ERYTHROCYTE | 2019-12-11 | [facility] | 33.4 | g/dl | (missing) | | MEAN | 14:25:10 | | | | | | CORPUSCULAR | | | | | | | HEMOGLOBIN | | | | | | | CONCENTRATIO | | | | | | | N (G/DL) BY | | | | | | | AUTOMATED | | | | | | + + +-------+---------+ + + | ERYTHROCYTE | 2019-12-11 | [facility] | 33.4 | g/dl | (missing) | | MEAN | 14:25:10 | | | | | | CORPUSCULAR | | | | | | | HEMOGLOBIN | | | | | | | CONCENTRATIO | | | | | | | N (G/DL) BY | | | | | | | AUTOMATED | | | | | | + + +-------+---------+ + + | | 2019-12-11 | [facility] | 372.2 | mg/gm | (missing) | | MICROALBUMIN | 14:25:10 | | | | | | /CREATININE | | | | | | | RATIO (MG/G) | | | | | | | IN URINE | | | | | | + + +-------+---------+ + + | | 2019-12-11 | [facility] | 372.2 | mg/gm | (missing) | | MICROALBUMIN | 14:25:10 | | | | | | /CREATININE | | | | | | | RATIO (MG/G) | | | | | | | IN URINE | | | | | | + + +-------+---------+ + + | HEMATOCRIT | 2019-12-11 | [facility] | 38.6 | % | (missing) | | (%) IN BLOOD | 14:25:10 | | | | | | BY | | | | | | | AUTOMATED | | | | | | | COUNT | | | | | | + + +-------+---------+ + + | HEMATOCRIT | 2019-12-11 | [facility] | 38.6 | % | (missing) | | (%) IN BLOOD | 14:25:10 | | | | | | BY | | | | | | | AUTOMATED | | | | | | | COUNT | | | | | | + + +-------+---------+ + + | | 2019-12-11 | [facility] | 4.31 | m/mcl | (missing) | | ERYTHROCYTES | 14:25:10 | | | | | | (10*6/UL) | | | | | | | IN BLOOD BY | | | | | | | AUTOMATED | | | | | | | COUNT | | | | | | + + +-------+---------+ + + | | 2019-12-11 | [facility] | 4.31 | m/mcl | (missing) | | ERYTHROCYTES | 14:25:10 | | | | | | (10*6/UL) | | | | | | | IN BLOOD BY | | | | | | | AUTOMATED | | | | | | | COUNT | | | | | | + + +-------+---------+ + + | POTASSIUM | 2019-12-11 | [facility] | 4.8 | mmol/l | (missing) | | (MMOL/L) IN | 14:25:10 | | | | | | SER/PLAS | | | | | | + + +-------+---------+ + + | POTASSIUM | 2019-12-11 | [facility] | 4.8 | mmol/l | (missing) | | (MMOL/L) IN | 14:25:10 | | | | | | SER/PLAS | | | | | | + + +-------+---------+ + + | ALKALINE | 2019-12-11 | [facility] | 40 | u/l | (missing) | | PHOSPHATASE | 14:25:10 | | | | | | (U/L) IN | | | | | | | SER/PLAS | | | | | | + + +-------+---------+ + + | ALKALINE | 2019-12-11 | [facility] | 40 | u/l | (missing) | | PHOSPHATASE | 14:25:10 | | | | | | (U/L) IN | | | | | | | SER/PLAS | | | | | | + + +-------+---------+ + + | | 2019-12-11 | [facility] | 472.7 | mg/l | (missing) | | MICROALBUMIN | 14:25:10 | | | | | | (MG/L) IN | | | | | | | URINE | | | | | | + + +-------+---------+ + + | | 2019-12-11 | [facility] | 472.7 | mg/l | (missing) | | MICROALBUMIN | 14:25:10 | | | | | | (MG/L) IN | | | | | | | URINE | | | | | | + + +-------+---------+ + + | EGFR | 2019-12-11 | [facility] | 49 | | (missing) | | (GLOMERULAR | 14:25:10 | | | ml/min/1.73m | | | FILTRATION | | | | ? | | | RATE) | | | | | | | ML/MIN/1.73 | | | | | | | SQ M. | | | | | | + + +-------+---------+ + + | EGFR | 2019-12-11 | [facility] | 49 | | (missing) | | (GLOMERULAR | 14:25:10 | | | ml/min/1.73m | | | FILTRATION | | | | ? | | | RATE) | | | | | | | ML/MIN/1.73 | | | | | | | SQ M. | | | | | | + + +-------+---------+ + + | NEUTROPHILS | 2019-12-11 | [facility] | 5.8 | k/mcl | (missing) | | (10*3/UL) | 14:25:10 | | | | | | IN BLOOD BY | | | | | | | AUTOMATED | | | | | | | COUNT | | | | | | + + +-------+---------+ + + | NEUTROPHILS | 2019-12-11 | [facility] | 5.8 | k/mcl | (missing) | | (10*3/UL) | 14:25:10 | | | | | | IN BLOOD BY | | | | | | | AUTOMATED | | | | | | | COUNT | | | | | | + + +-------+---------+ + + | PROTEIN | 2019-12-11 | [facility] | 6.6 | g/dl | (missing) | | (G/DL) IN | 14:25:10 | | | | | | SER/PLAS | | | | | | + + +-------+---------+ + + | PROTEIN | 2019-12-11 | [facility] | 6.6 | g/dl | (missing) | | (G/DL) IN | 14:25:10 | | | | | | SER/PLAS | | | | | | + + +-------+---------+ + + | HEMOGLOBIN | 2019-12-11 | [facility] | 6.7 | % | (missing) | | A1C/HEMOGLOB | 14:25:10 | | | | | | IN TOTAL IN | | | | | | | BLOOD | | | | | | + + +-------+---------+ + + | HEMOGLOBIN | 2019-12-11 | [facility] | 6.7 | % | (missing) | | A1C/HEMOGLOB | 14:25:10 | | | | | | IN TOTAL IN | | | | | | | BLOOD | | | | | | + + +-------+---------+ + + | | 2019-12-11 | [facility] | 67.0 | % | (missing) | | NEUTROPHILS/ | 14:25:10 | | | | | | 100 | | | | | | | LEUKOCYTES | | | | | | | IN BLOOD BY | | | | | | | AUTOMATED | | | | | | | COUNT | | | | | | + + +-------+---------+ + + | | 2019-12-11 | [facility] | 67.0 | % | (missing) | | NEUTROPHILS/ | ::10 | | | | | | 100 | | | | | | | LEUKOCYTES | | | | | | | IN BLOOD BY | | | | | | | AUTOMATED | | | | | | | COUNT | | | | | | + + +-------+---------+ + + | BNP (SCHS) | 2019-12-11 | [facility] | 771.8 | pg/ml | (missing) | | NATRIURETIC | 14:25:10 | | | | | | PEPTIDE B | | | | | | | (PG/ML) IN | | | | | | | SER/PLAS | | | | | | + + +-------+---------+ + + | BNP (SCHS) | 2019-12-11 | [facility] | 771.8 | pg/ml | (missing) | | NATRIURETIC | :25:10 | | | | | | PEPTIDE B | | | | | | | (PG/ML) IN | | | | | | | SER/PLAS | | | | | | + + +-------+---------+ + + | | 2019-12-11 | [facility] | 8.2 | % | (missing) | | MONOCYTES/10 | :25:10 | | | | | | 0 LEUKOCYTES | | | | | | | IN BLOOD BY | | | | | | | AUTOMATED | | | | | | | COUNT | | | | | | + + +-------+---------+ + + | | 2019-12-11 | [facility] | 8.2 | % | (missing) | | MONOCYTES/10 | 14:25:10 | | | | | | 0 LEUKOCYTES | | | | | | | IN BLOOD BY | | | | | | | AUTOMATED | | | | | | | COUNT | | | | | | + + +-------+---------+ + + | | 2019-12-11 | [facility] | 8.6 | k/mcl | (missing) | | LEUKOCYTES(1 | 14:25:10 | | | | | | 0*3/UL) IN | | | | | | | BLOOD BY | | | | | | | AUTOMATED | | | | | | | COUNT | | | | | | + + +-------+---------+ + + | | 2019-12-11 | [facility] | 8.6 | k/mcl | (missing) | | LEUKOCYTES(1 | 14:25:10 | | | | | | 0*3/UL) IN | | | | | | | BLOOD BY | | | | | | | AUTOMATED | | | | | | | COUNT | | | | | | + + +-------+---------+ + + | ERYTHROCYTE | 2019-12-11 | [facility] | 89.6 | fl | (missing) | | MEAN | 14:25:10 | | | | | | CORPUSCULAR | | | | | | | VOLUME (FL) | | | | | | | BY AUTOMATED | | | | | | | COUNT | | | | | | + + +-------+---------+ + + | ERYTHROCYTE | 2019-12-11 | [facility] | 89.6 | fl | (missing) | | MEAN | 14:25:10 | | | | | | CORPUSCULAR | | | | | | | VOLUME (FL) | | | | | | | BY AUTOMATED | | | | | | | COUNT | | | | | | + + +-------+---------+ + + | CALCIUM | 2019-12-11 | [facility] | 9.4 | mg/dl | (missing) | | (MG/DL) IN | 14:25:10 | | | | | | SER/PLAS | | | | | | + + +-------+---------+ + + | CALCIUM | 2019-12-11 | [facility] | 9.4 | mg/dl | (missing) | | (MG/DL) IN | 14:25:10 | | | | | | SER/PLAS | | | | | | + + +-------+---------+ + + + + | Result panel 10 | + + + + +-------+---------+ + + | | 2019-12-21 | [facility] | 0.9 | g/24hrs | (missing) | | (unavailable | 07:36 | | | | | | ) | | | | | | + + +-------+---------+ + + | | 2019-12-21 | [facility] | 0.9 | g/24hrs | (missing) | | (unavailable | 07:36 | | | | | | ) | | | | | | + + +-------+---------+ + + | URINE | 2019-12-21 | [facility] | 2325 | ml | (missing) | | VOLUME | 07:36 | | | | | + + +-------+---------+ + + | COLLECTION | 2019-12-21 | [facility] | 24 | hr | (missing) | | DURATION | 07:36 | | | | | + + +-------+---------+ + + | PROTEIN | 2019-12-21 | [facility] | 39.0 | mg/dl | (missing) | | (MG/DL) IN | 07:36 | | | | | | URINE | | | | | | + + +-------+---------+ + + | PROTEIN | 2019-12-21 | [facility] | 39.0 | mg/dl | (missing) | | (MG/DL) IN | 07:36 | | | | | | URINE | | | | | | + + +-------+---------+ + + | | 2019-12-21 | [facility] | 906.8 | mg/24hrs | (missing) | | (unavailable | 07:36 | | | | | | ) | | | | | | + + +-------+---------+ + + | | 2019-12-21 | [facility] | 906.8 | mg/24hrs | (missing) | | (unavailable | 07:36 | | | | | | ) | | | | | | + + +-------+---------+ + + + + | Result panel 11 | + + + + +-------+--------+ + + | CREATININE | 2020-02-01 | [facility] | 1.7 | mg/dl | (missing) | | (MG/DL) IN | 10:57:15 | | | | | | SER/PLAS | | | | | | + + +-------+--------+ + + | CREATININE | 2020-02-01 | [facility] | 1.7 | mg/dl | (missing) | | (MG/DL) IN | 10:57:15 | | | | | | SER/PLAS | | | | | | + + +-------+--------+ + + | ANION GAP | 2020-02-01 | [facility] | 11.0 | mmol/l | (missing) | | IN SER/PLAS | 10:57:15 | | | | | + + +-------+--------+ + + | ANION GAP | 2020-02-01 | [facility] | 11.0 | mmol/l | (missing) | | IN SER/PLAS | 10:57:15 | | | | | + + +-------+--------+ + + | SODIUM | 2020-02-01 | [facility] | 136 | mmol/l | (missing) | | (MMOL/L) IN | 10:57:15 | | | | | | SER/PLAS | | | | | | + + +-------+--------+ + + | SODIUM | 2020-02-01 | [facility] | 136 | mmol/l | (missing) | | (MMOL/L) IN | 10:57:15 | | | | | | SER/PLAS | | | | | | + + +-------+--------+ + + | GLUCOSE, | 2020-02-01 | [facility] | 209 | mg/dl | (missing) | | RANDOM | 10:57:15 | | | | | | (MG/DL) IN | | | | | | | SER/PLAS | | | | | | + + +-------+--------+ + + | GLUCOSE, | 2020-02-01 | [facility] | 209 | mg/dl | (missing) | | RANDOM | 10:57:15 | | | | | | (MG/DL) IN | | | | | | | SER/PLAS | | | | | | + + +-------+--------+ + + | CARBON | 2020-02-01 | [facility] | 26 | mmol/l | (missing) | | DIOXIDE | 10:57:15 | | | | | | (CO2), TOTAL | | | | | | | (MMOL/L) IN | | | | | | | SER/PLAS | | | | | | + + +-------+--------+ + + | CARBON | 2020-02-01 | [facility] | 26 | mmol/l | (missing) | | DIOXIDE | 10:57:15 | | | | | | (CO2), TOTAL | | | | | | | (MMOL/L) IN | | | | | | | SER/PLAS | | | | | | + + +-------+--------+ + + | PTH | 2020-02-01 | [facility] | 27.5 | pg/ml | (missing) | | (PARATHYRIN | 10:57:15 | | | | | | INTACT) | | | | | | | (PG/ML) IN | | | | | | | SER/PLAS | | | | | | + + +-------+--------+ + + | PTH | 2020-02-01 | [facility] | 27.5 | pg/ml | (missing) | | (PARATHYRIN | 10:57:15 | | | | | | INTACT) | | | | | | | (PG/ML) IN | | | | | | | SER/PLAS | | | | | | + + +-------+--------+ + + | PHOSPHORUS | 2020-02-01 | [facility] | 3.4 | mg/dl | (missing) | | (MG/DL) IN | 10:57:15 | | | | | | SER/PLAS | | | | | | + + +-------+--------+ + + | PHOSPHORUS | 2020-02-01 | [facility] | 3.4 | mg/dl | (missing) | | (MG/DL) IN | 10:57:15 | | | | | | SER/PLAS | | | | | | + + +-------+--------+ + + | ALBUMIN | 2020-02-01 | [facility] | 3.9 | g/dl | (missing) | | (G/DL) IN | 10:57:15 | | | | | | SER/PLAS | | | | | | + + +-------+--------+ + + | ALBUMIN | 2020-02-01 | [facility] | 3.9 | g/dl | (missing) | | (G/DL) IN | 10:57:15 | | | | | | SER/PLAS | | | | | | + + +-------+--------+ + + | BLOOD UREA | 2020-02-01 | [facility] | 36 | mg/dl | (missing) | | NITROGEN | 10:57:15 | | | | | | (BUN) | | | | | | | (MG/DL) IN | | | | | | | SER/PLAS | | | | | | + + +-------+--------+ + + | BLOOD UREA | 2020-02-01 | [facility] | 36 | mg/dl | (missing) | | NITROGEN | 10:57:15 | | | | | | (BUN) | | | | | | | (MG/DL) IN | | | | | | | SER/PLAS | | | | | | + + +-------+--------+ + + | EGFR | 2020-02-01 | [facility] | 39 | | (missing) | | (GLOMERULAR | 10:57:15 | | | ml/min/1.73m | | | FILTRATION | | | | ? | | | RATE) | | | | | | | ML/MIN/1.73 | | | | | | | SQ M. | | | | | | + + +-------+--------+ + + | EGFR | 2020-02-01 | [facility] | 39 | | (missing) | | (GLOMERULAR | 10:57:15 | | | ml/min/1.73m | | | FILTRATION | | | | ? | | | RATE) | | | | | | | ML/MIN/1.73 | | | | | | | SQ M. | | | | | | + + +-------+--------+ + + | POTASSIUM | 2020-02-01 | [facility] | 5.1 | mmol/l | (missing) | | (MMOL/L) IN | 10:57:15 | | | | | | SER/PLAS | | | | | | + + +-------+--------+ + + | POTASSIUM | 2020-02-01 | [facility] | 5.1 | mmol/l | (missing) | | (MMOL/L) IN | 10:57:15 | | | | | | SER/PLAS | | | | | | + + +-------+--------+ + + | CALCIUM | 2020-02-01 | [facility] | 9.3 | mg/dl | (missing) | | (MG/DL) IN | 10:57:15 | | | | | | SER/PLAS | | | | | | + + +-------+--------+ + + | CALCIUM | 2020-02-01 | [facility] | 9.3 | mg/dl | (missing) | | (MG/DL) IN | 10:57:15 | | | | | | SER/PLAS | | | | | | + + +-------+--------+ + + | CHLORIDE | 2020-02-01 | [facility] | 99 | mmol/l | (missing) | | (MMOL/L) IN | 10:57:15 | | | | | | SER/PLAS | | | | | | + + +-------+--------+ + + | CHLORIDE | 2020-02-01 | [facility] | 99 | mmol/l | (missing) | | (MMOL/L) IN | 10:57:15 | | | | | | SER/PLAS | | | | | | + + +-------+--------+ + + + + | Result panel 12 | + + + + +-------+--------+ + + | BILIRUBIN | 2020-04-04 | [facility] | 0.2 | mg/dl | (missing) | | TOTAL | 14:07:52 | | | | | | (MG/DL) IN | | | | | | | SER/PLAS | | | | | | + + +-------+--------+ + + | BILIRUBIN | 2020-04-04 | [facility] | 0.2 | mg/dl | (missing) | | TOTAL | 14:07:52 | | | | | | (MG/DL) IN | | | | | | | SER/PLAS | | | | | | + + +-------+--------+ + + | LDL/HDL | 2020-04-04 | [facility] | 1.38 | :1 | (missing) | | RATIO IN | 14:07:52 | | | | | | SER/PLAS | | | | | | + + +-------+--------+ + + | | 2020-04-04 | [facility] | 1.38 | :1 | (missing) | | ALBUMIN/GLOB | 14:07:52 | | | | | | ULIN (A/G | | | | | | | RATIO) IN | | | | | | | SER/PLAS | | | | | | + + +-------+--------+ + + | | 2020-04-04 | [facility] | 1.38 | :1 | (missing) | | ALBUMIN/GLOB | 14:07:52 | | | | | | ULIN (A/G | | | | | | | RATIO) IN | | | | | | | SER/PLAS | | | | | | + + +-------+--------+ + + | LDL/HDL | 2020-04-04 | [facility] | 1.38 | :1 | (missing) | | RATIO IN | 14:07:52 | | | | | | SER/PLAS | | | | | | + + +-------+--------+ + + | CREATININE | 2020-04-04 | [facility] | 1.5 | mg/dl | (missing) | | (MG/DL) IN | 14:07:52 | | | | | | SER/PLAS | | | | | | + + +-------+--------+ + + | CREATININE | 2020-04-04 | [facility] | 1.5 | mg/dl | (missing) | | (MG/DL) IN | 14:07:52 | | | | | | SER/PLAS | | | | | | + + +-------+--------+ + + | ANION GAP | 2020-04-04 | [facility] | 10.0 | mmol/l | (missing) | | IN SER/PLAS | 14:07:52 | | | | | + + +-------+--------+ + + | ANION GAP | 2020-04-04 | [facility] | 10.0 | mmol/l | (missing) | | IN SER/PLAS | 14:07:52 | | | | | + + +-------+--------+ + + | CHLORIDE | 2020-04-04 | [facility] | 105 | mmol/l | (missing) | | (MMOL/L) IN | 14:07:52 | | | | | | SER/PLAS | | | | | | + + +-------+--------+ + + | CHLORIDE | 2020-04-04 | [facility] | 105 | mmol/l | (missing) | | (MMOL/L) IN | 14:07:52 | | | | | | SER/PLAS | | | | | | + + +-------+--------+ + + | SODIUM | 2020-04-04 | [facility] | 142 | mmol/l | (missing) | | (MMOL/L) IN | 14:07:52 | | | | | | SER/PLAS | | | | | | + + +-------+--------+ + + | SODIUM | 2020-04-04 | [facility] | 142 | mmol/l | (missing) | | (MMOL/L) IN | 14:07:52 | | | | | | SER/PLAS | | | | | | + + +-------+--------+ + + | CHOLESTEROL | 2020-04-04 | [facility] | 148 | mg/dl | (missing) | | (MG/DL) IN | 14:07:52 | | | | | | SER/PLAS | | | | | | + + +-------+--------+ + + | CHOLESTEROL | 2020-04-04 | [facility] | 148 | mg/dl | (missing) | | (MG/DL) IN | 14:07:52 | | | | | | SER/PLAS | | | | | | + + +-------+--------+ + + | ESTIMATED | 2020-04-04 | [facility] | 186 | mg/dl | (missing) | | AVERAGE BLD | 14:07:52 | | | | | | GLUCOSE | | | | | | + + +-------+--------+ + + | ESTIMATED | 2020-04-04 | [facility] | 186 | mg/dl | (missing) | | AVERAGE BLD | 14:07:52 | | | | | | GLUCOSE | | | | | | + + +-------+--------+ + + | GLOBULIN | 2020-04-04 | [facility] | 2.9 | g/dl | (missing) | | (G/DL) IN | 14:07:52 | | | | | | SER/PLAS | | | | | | + + +-------+--------+ + + | GLOBULIN | 2020-04-04 | [facility] | 2.9 | g/dl | (missing) | | (G/DL) IN | 14::52 | | | | | | SER/PLAS | | | | | | + + +-------+--------+ + + | ALANINE | 2020-04-04 | [facility] | 20 | u/l | (missing) | | AMINOTRANSFE | 14::52 | | | | | | RASE (SGPT) | | | | | | | (U/L) IN | | | | | | | SER/PLAS | | | | | | + + +-------+--------+ + + | ALANINE | 2020-04-04 | [facility] | 20 | u/l | (missing) | | AMINOTRANSFE | 14:07:52 | | | | | | RASE (SGPT) | | | | | | | (U/L) IN | | | | | | | SER/PLAS | | | | | | + + +-------+--------+ + + | | 2020-04-04 | [facility] | 205 | mg/dl | (missing) | | TRIGLYCERIDE | 14:07:52 | | | | | | (MG/DL) IN | | | | | | | SER/PLAS | | | | | | + + +-------+--------+ + + | | 2020-04-04 | [facility] | 205 | mg/dl | (missing) | | TRIGLYCERIDE | 14:07:52 | | | | | | (MG/DL) IN | | | | | | | SER/PLAS | | | | | | + + +-------+--------+ + + | ASPARTATE | 2020-04-04 | [facility] | 24 | u/l | (missing) | | AMINOTRANSFE | 14:07:52 | | | | | | RASE (SGOT) | | | | | | | (U/L) IN | | | | | | | SER/PLAS | | | | | | + + +-------+--------+ + + | ASPARTATE | 2020-04-04 | [facility] | 24 | u/l | (missing) | | AMINOTRANSFE | 14:07:52 | | | | | | RASE (SGOT) | | | | | | | (U/L) IN | | | | | | | SER/PLAS | | | | | | + + +-------+--------+ + + | BLOOD UREA | 2020-04-04 | [facility] | 25 | mg/dl | (missing) | | NITROGEN | 14::52 | | | | | | (BUN) | | | | | | | (MG/DL) IN | | | | | | | SER/PLAS | | | | | | + + +-------+--------+ + + | BLOOD UREA | 2020-04-04 | [facility] | 25 | mg/dl | (missing) | | NITROGEN | 14::52 | | | | | | (BUN) | | | | | | | (MG/DL) IN | | | | | | | SER/PLAS | | | | | | + + +-------+--------+ + + | CARBON | 2020-04-04 | [facility] | 27 | mmol/l | (missing) | | DIOXIDE | 14:07:52 | | | | | | (CO2), TOTAL | | | | | | | (MMOL/L) IN | | | | | | | SER/PLAS | | | | | | + + +-------+--------+ + + | CARBON | 2020-04-04 | [facility] | 27 | mmol/l | (missing) | | DIOXIDE | 14:07:52 | | | | | | (CO2), TOTAL | | | | | | | (MMOL/L) IN | | | | | | | SER/PLAS | | | | | | + + +-------+--------+ + + | | 2020-04-04 | [facility] | 3.29 | :1 | (missing) | | CHOLESTEROL/ | 14:07:52 | | | | | | HDL RATIO IN | | | | | | | SER | | | | | | + + +-------+--------+ + + | | 2020-04-04 | [facility] | 3.29 | :1 | (missing) | | CHOLESTEROL/ | 14:07:52 | | | | | | HDL RATIO IN | | | | | | | SER | | | | | | + + +-------+--------+ + + | ALBUMIN | 2020-04-04 | [facility] | 4.0 | g/dl | (missing) | | (G/DL) IN | 14:07:52 | | | | | | SER/PLAS | | | | | | + + +-------+--------+ + + | ALBUMIN | 2020-04-04 | [facility] | 4.0 | g/dl | (missing) | | (G/DL) IN | 14:07:52 | | | | | | SER/PLAS | | | | | | + + +-------+--------+ + + | POTASSIUM | 2020-04-04 | [facility] | 4.5 | mmol/l | (missing) | | (MMOL/L) IN | 14:07:52 | | | | | | SER/PLAS | | | | | | + + +-------+--------+ + + | POTASSIUM | 2020-04-04 | [facility] | 4.5 | mmol/l | (missing) | | (MMOL/L) IN | 14:07:52 | | | | | | SER/PLAS | | | | | | + + +-------+--------+ + + | CHOLESTEROL | 2020-04-04 | [facility] | 45 | mg/dl | (missing) | | IN HDL | 14:07:52 | | | | | | (MG/DL) IN | | | | | | | SER/PLAS | | | | | | + + +-------+--------+ + + | CHOLESTEROL | 2020-04-04 | [facility] | 45 | mg/dl | (missing) | | IN HDL | 14:07:52 | | | | | | (MG/DL) IN | | | | | | | SER/PLAS | | | | | | + + +-------+--------+ + + | EGFR | 2020-04-04 | [facility] | 45 | | (missing) | | (GLOMERULAR | 14:07:52 | | | ml/min/1.73m | | | FILTRATION | | | | ? | | | RATE) | | | | | | | ML/MIN/1.73 | | | | | | | SQ M. | | | | | | + + +-------+--------+ + + | EGFR | 2020-04-04 | [facility] | 45 | | (missing) | | (GLOMERULAR | 14:07:52 | | | ml/min/1.73m | | | FILTRATION | | | | ? | | | RATE) | | | | | | | ML/MIN/1.73 | | | | | | | SQ M. | | | | | | + + +-------+--------+ + + | ALKALINE | 2020-04-04 | [facility] | 48 | u/l | (missing) | | PHOSPHATASE | 14:07:52 | | | | | | (U/L) IN | | | | | | | SER/PLAS | | | | | | + + +-------+--------+ + + | ALKALINE | 2020-04-04 | [facility] | 48 | u/l | (missing) | | PHOSPHATASE | 14:07:52 | | | | | | (U/L) IN | | | | | | | SER/PLAS | | | | | | + + +-------+--------+ + + | PROTEIN | 2020-04-04 | [facility] | 6.9 | g/dl | (missing) | | (G/DL) IN | 14:07:52 | | | | | | SER/PLAS | | | | | | + + +-------+--------+ + + | PROTEIN | 2020-04-04 | [facility] | 6.9 | g/dl | (missing) | | (G/DL) IN | 14:07:52 | | | | | | SER/PLAS | | | | | | + + +-------+--------+ + + | CHOLESTEROL | 2020-04-04 | [facility] | 62 | mg/dl | (missing) | | IN LDL | 14:07:52 | | | | | | (MG/DL) IN | | | | | | | SER/PLAS BY | | | | | | | CALC | | | | | | + + +-------+--------+ + + | CHOLESTEROL | 2020-04-04 | [facility] | 62 | mg/dl | (missing) | | IN LDL | 14:07:52 | | | | | | (MG/DL) IN | | | | | | | SER/PLAS BY | | | | | | | CALC | | | | | | + + +-------+--------+ + + | GLUCOSE, | 2020-04-04 | [facility] | 69 | mg/dl | (missing) | | RANDOM | 14:07:52 | | | | | | (MG/DL) IN | | | | | | | SER/PLAS | | | | | | + + +-------+--------+ + + | GLUCOSE, | 2020-04-04 | [facility] | 69 | mg/dl | (missing) | | RANDOM | 14:07:52 | | | | | | (MG/DL) IN | | | | | | | SER/PLAS | | | | | | + + +-------+--------+ + + | HEMOGLOBIN | 2020-04-04 | [facility] | 8.1 | % | (missing) | | A1C/HEMOGLOB | 14::52 | | | | | | IN TOTAL IN | | | | | | | BLOOD | | | | | | + + +-------+--------+ + + | HEMOGLOBIN | 2020-04-04 | [facility] | 8.1 | % | (missing) | | A1C/HEMOGLOB | 14:07:52 | | | | | | IN TOTAL IN | | | | | | | BLOOD | | | | | | + + +-------+--------+ + + | CALCIUM | 2020-04-04 | [facility] | 9.8 | mg/dl | (missing) | | (MG/DL) IN | 14:07:52 | | | | | | SER/PLAS | | | | | | + + +-------+--------+ + + | CALCIUM | 2020-04-04 | [facility] | 9.8 | mg/dl | (missing) | | (MG/DL) IN | 14:07:52 | | | | | | SER/PLAS | | | | | | + + +-------+--------+ + + + + | Result panel 13 | + + + + +-------+--------+ + + | CREATININE | 2020-04-07 | [facility] | 1.5 | mg/dl | (missing) | | (MG/DL) IN | | | | | | | SER/PLAS - | | | | | | | SYNCED VALUE | | | | | | | | | | | | | + + +-------+--------+ + + | CREATININE | 2020-04-07 | [facility] | 1.5 | mg/dl | (missing) | | (MG/DL) IN | | | | | | | SER/PLAS - | | | | | | | SYNCED VALUE | | | | | | | | | | | | | + + +-------+--------+ + + | CREATININE | 2020-04-07 | [facility] | 1.7 | g/24hrs | (missing) | | (MG/24HR) IN | | | | | | | 24 HOUR | | | | | | | URINE | | | | | | + + +-------+--------+ + + | CREATININE | 2020-04-07 | [facility] | 1.7 | g/24hrs | (missing) | | (MG/24HR) IN | | | | | | | 24 HOUR | | | | | | | URINE | | | | | | + + +-------+--------+ + + | URINE | 2020-04-07 | [facility] | 2150 | ml | (missing) | | VOLUME | | | | | | + + +-------+--------+ + + | COLLECTION | 2020-04-07 | [facility] | 24 | hr | (missing) | | DURATION | | | | | | + + +-------+--------+ + + | CREATININE | 2020-04-07 | [facility] | 62 | | (missing) | | CLEARANCE | | | | ml/min/1.73m | | | | | | | ? | | + + +-------+--------+ + + | CREATININE | 2020-04-07 | [facility] | 81.0 | mg/dl | (missing) | | (MG/DL) IN | | | | | | | URINE | | | | | | + + +-------+--------+ + + | CREATININE | 2020-04-07 | [facility] | 81.0 | mg/dl | (missing) | | (MG/DL) IN | | | | | | | URINE | | | | | | + + +-------+--------+ + + + + | Result panel 14 | + + + + +-------+-------+---------+ + | CREATININE | 2020-04-07 | [facility] | 1.5 | mg/dl | (missing) | | (MG/DL) IN | :58 | | | | | | SER/PLAS | | | | | | + + +-------+-------+---------+ + | CREATININE | 2020-04-07 | [facility] | 1.5 | mg/dl | (missing) | | (MG/DL) IN | :58 | | | | | | SER/PLAS | | | | | | + + +-------+-------+---------+ + + + | Result panel 15 | + + + + +-------+---------+ + + | NRBC/100 | 2020-08-11 | [facility] | 0.0 | % | (missing) | | WBCS BY | 11:33:33 | | | | | | AUTOMATED | | | | | | | COUNT | | | | | | + + +-------+---------+ + + | NRBC/100 | 2020-08-11 | [facility] | 0.0 | % | (missing) | | WBCS BY | 11:33:33 | | | | | | AUTOMATED | | | | | | | COUNT | | | | | | + + +-------+---------+ + + | BASOPHILS | 2020-08-11 | [facility] | 0.0 | k/mcl | (missing) | | (10*3/UL) IN | 11:33:33 | | | | | | BLOOD BY | | | | | | | AUTOMATED | | | | | | | COUNT | | | | | | + + +-------+---------+ + + | | 2020-08-11 | [facility] | 0.0 | k/mcl | (missing) | | NRBC(10*3/UL | 11:33:33 | | | | | | ) IN BLOOD | | | | | | | BY AUTOMATED | | | | | | | COUNT | | | | | | + + +-------+---------+ + + | BASOPHILS | 2020-08-11 | [facility] | 0.0 | k/mcl | (missing) | | (10*3/UL) IN | 11:33:33 | | | | | | BLOOD BY | | | | | | | AUTOMATED | | | | | | | COUNT | | | | | | + + +-------+---------+ + + | | 2020-08-11 | [facility] | 0.0 | k/mcl | (missing) | | NRBC(10*3/UL | 11:33:33 | | | | | | ) IN BLOOD | | | | | | | BY AUTOMATED | | | | | | | COUNT | | | | | | + + +-------+---------+ + + | IMMATURE | 2020-08-11 | [facility] | 0.01 | k/mcl | (missing) | | GRANULOCYTE | 11:33:33 | | | | | | (ABS) | | | | | | + + +-------+---------+ + + | IMMATURE | 2020-08-11 | [facility] | 0.01 | k/mcl | (missing) | | GRANULOCYTE | 11:33:33 | | | | | | (ABS) | | | | | | + + +-------+---------+ + + | EOSINOPHILS | 2020-08-11 | [facility] | 0.1 | k/mcl | (missing) | | (10*3/UL) | 11:33:33 | | | | | | IN BLOOD BY | | | | | | | AUTOMATED | | | | | | | COUNT | | | | | | + + +-------+---------+ + + | EOSINOPHILS | 2020-08-11 | [facility] | 0.1 | k/mcl | (missing) | | (10*3/UL) | 11:33:33 | | | | | | IN BLOOD BY | | | | | | | AUTOMATED | | | | | | | COUNT | | | | | | + + +-------+---------+ + + | IMMATURE | 2020-08-11 | [facility] | 0.2 | % | (missing) | | GRANULOCYTE | 11:33:33 | | | | | | % (AUTO) | | | | | | + + +-------+---------+ + + | IMMATURE | 2020-08-11 | [facility] | 0.2 | % | (missing) | | GRANULOCYTE | 11:33:33 | | | | | | % (AUTO) | | | | | | + + +-------+---------+ + + | BILIRUBIN | 2020-08-11 | [facility] | 0.3 | mg/dl | (missing) | | TOTAL | 11:33:33 | | | | | | (MG/DL) IN | | | | | | | SER/PLAS | | | | | | + + +-------+---------+ + + | BILIRUBIN | 2020-08-11 | [facility] | 0.3 | mg/dl | (missing) | | TOTAL | :33:33 | | | | | | (MG/DL) IN | | | | | | | SER/PLAS | | | | | | + + +-------+---------+ + + | MONOCYTES | 2020-08-11 | [facility] | 0.6 | k/mcl | (missing) | | (10*3/UL) IN | :33 | | | | | | BLOOD BY | | | | | | | AUTOMATED | | | | | | | COUNT | | | | | | + + +-------+---------+ + + | MONOCYTES | 2020-08-11 | [facility] | 0.6 | k/mcl | (missing) | | (10*3/UL) IN | 11:33:33 | | | | | | BLOOD BY | | | | | | | AUTOMATED | | | | | | | COUNT | | | | | | + + +-------+---------+ + + | | 2020-08-11 | [facility] | 0.7 | % | (missing) | | BASOPHILS/10 | 11:33:33 | | | | | | 0 LEUKOCYTES | | | | | | | IN BLOOD BY | | | | | | | AUTOMATED | | | | | | | COUNT | | | | | | + + +-------+---------+ + + | | 2020-08-11 | [facility] | 0.7 | % | (missing) | | BASOPHILS/10 | 11:33:33 | | | | | | 0 LEUKOCYTES | | | | | | | IN BLOOD BY | | | | | | | AUTOMATED | | | | | | | COUNT | | | | | | + + +-------+---------+ + + | LDL/HDL | 2020-08-11 | [facility] | 1.20 | :1 | (missing) | | RATIO IN | 11:33:33 | | | | | | SER/PLAS | | | | | | + + +-------+---------+ + + | LDL/HDL | 2020-08-11 | [facility] | 1.20 | :1 | (missing) | | RATIO IN | 11:33:33 | | | | | | SER/PLAS | | | | | | + + +-------+---------+ + + | | 2020-08-11 | [facility] | 1.34 | :1 | (missing) | | ALBUMIN/GLOB | 11:33:33 | | | | | | ULIN (A/G | | | | | | | RATIO) IN | | | | | | | SER/PLAS | | | | | | + + +-------+---------+ + + | | 2020-08-11 | [facility] | 1.34 | :1 | (missing) | | ALBUMIN/GLOB | 11:33:33 | | | | | | ULIN (A/G | | | | | | | RATIO) IN | | | | | | | SER/PLAS | | | | | | + + +-------+---------+ + + | LYMPHOCYTES | 2020-08-11 | [facility] | 1.4 | k/mcl | (missing) | | (10*3/UL) | 11:33:33 | | | | | | IN BLOOD BY | | | | | | | AUTOMATED | | | | | | | COUNT | | | | | | + + +-------+---------+ + + | LYMPHOCYTES | 2020-08-11 | [facility] | 1.4 | k/mcl | (missing) | | (10*3/UL) | 11:33:33 | | | | | | IN BLOOD BY | | | | | | | AUTOMATED | | | | | | | COUNT | | | | | | + + +-------+---------+ + + | CREATININE | 2020-08-11 | [facility] | 1.5 | mg/dl | (missing) | | (MG/DL) IN | 11:33:33 | | | | | | SER/PLAS | | | | | | + + +-------+---------+ + + | CREATININE | 2020-08-11 | [facility] | 1.5 | mg/dl | (missing) | | (MG/DL) IN | 11:33:33 | | | | | | SER/PLAS | | | | | | + + +-------+---------+ + + | ANION GAP | 2020-08-11 | [facility] | 10.0 | mmol/l | (missing) | | IN SER/PLAS | 11:33:33 | | | | | + + +-------+---------+ + + | ANION GAP | 2020-08-11 | [facility] | 10.0 | mmol/l | (missing) | | IN SER/PLAS | 11:33:33 | | | | | + + +-------+---------+ + + | | 2020-08-11 | [facility] | 10.1 | % | (missing) | | MONOCYTES/10 | 11:33:33 | | | | | | 0 LEUKOCYTES | | | | | | | IN BLOOD BY | | | | | | | AUTOMATED | | | | | | | COUNT | | | | | | + + +-------+---------+ + + | | 2020-08-11 | [facility] | 10.1 | % | (missing) | | MONOCYTES/10 | 11:33:33 | | | | | | 0 LEUKOCYTES | | | | | | | IN BLOOD BY | | | | | | | AUTOMATED | | | | | | | COUNT | | | | | | + + +-------+---------+ + + | CHLORIDE | 2020-08-11 | [facility] | 102 | mmol/l | (missing) | | (MMOL/L) IN | 11:33:33 | | | | | | SER/PLAS | | | | | | + + +-------+---------+ + + | CHLORIDE | 2020-08-11 | [facility] | 102 | mmol/l | (missing) | | (MMOL/L) IN | 11:33:33 | | | | | | SER/PLAS | | | | | | + + +-------+---------+ + + | PLATELET | 2020-08-11 | [facility] | 11.9 | fl | (missing) | | MEAN VOLUME | 11:33:33 | | | | | | (FL) IN | | | | | | | BLOOD BY | | | | | | | AUTOMATED | | | | | | | COUNT | | | | | | + + +-------+---------+ + + | PLATELET | 2020-08-11 | [facility] | 11.9 | fl | (missing) | | MEAN VOLUME | 11:33:33 | | | | | | (FL) IN | | | | | | | BLOOD BY | | | | | | | AUTOMATED | | | | | | | COUNT | | | | | | + + +-------+---------+ + + | HEMOGLOBIN | 2020-08-11 | [facility] | 12.9 | g/dl | (missing) | | (G/DL) IN | 11:33:33 | | | | | | BLOOD | | | | | | + + +-------+---------+ + + | HEMOGLOBIN | 2020-08-11 | [facility] | 12.9 | g/dl | (missing) | | (G/DL) IN | 11:33:33 | | | | | | BLOOD | | | | | | + + +-------+---------+ + + | CHOLESTEROL | 2020-08-11 | [facility] | 135 | mg/dl | (missing) | | (MG/DL) IN | 11:33:33 | | | | | | SER/PLAS | | | | | | + + +-------+---------+ + + | CHOLESTEROL | 2020-08-11 | [facility] | 135 | mg/dl | (missing) | | (MG/DL) IN | 11:33:33 | | | | | | SER/PLAS | | | | | | + + +-------+---------+ + + | SODIUM | 2020-08-11 | [facility] | 138 | mmol/l | (missing) | | (MMOL/L) IN | 11:33:33 | | | | | | SER/PLAS | | | | | | + + +-------+---------+ + + | SODIUM | 2020-08-11 | [facility] | 138 | mmol/l | (missing) | | (MMOL/L) IN | 11:33:33 | | | | | | SER/PLAS | | | | | | + + +-------+---------+ + + | ERYTHROCYTE | 2020-08-11 | [facility] | 15.0 | % | (missing) | | | 11:33:33 | | | | | | DISTRIBUTION | | | | | | | WIDTH | | | | | | | (RATIO) BY | | | | | | | AUTOMATED | | | | | | | COUNT | | | | | | + + +-------+---------+ + + | ERYTHROCYTE | 2020-08-11 | [facility] | 15.0 | % | (missing) | | | 11:33:33 | | | | | | DISTRIBUTION | | | | | | | WIDTH | | | | | | | (RATIO) BY | | | | | | | AUTOMATED | | | | | | | COUNT | | | | | | + + +-------+---------+ + + | ESTIMATED | 2020-08-11 | [facility] | 166 | mg/dl | (missing) | | AVERAGE BLD | 11:33:33 | | | | | | GLUCOSE | | | | | | + + +-------+---------+ + + | ESTIMATED | 2020-08-11 | [facility] | 166 | mg/dl | (missing) | | AVERAGE BLD | 11:33:33 | | | | | | GLUCOSE | | | | | | + + +-------+---------+ + + | | 2020-08-11 | [facility] | 178 | mg/dl | (missing) | | TRIGLYCERIDE | 11:33:33 | | | | | | (MG/DL) IN | | | | | | | SER/PLAS | | | | | | + + +-------+---------+ + + | | 2020-08-11 | [facility] | 178 | mg/dl | (missing) | | TRIGLYCERIDE | 11:33:33 | | | | | | (MG/DL) IN | | | | | | | SER/PLAS | | | | | | + + +-------+---------+ + + | | 2020-08-11 | [facility] | 2.1 | % | (missing) | | EOSINOPHILS/ | 11:33:33 | | | | | | 100 | | | | | | | LEUKOCYTES | | | | | | | IN BLOOD BY | | | | | | | AUTOMATED | | | | | | | COUNT | | | | | | + + +-------+---------+ + + | | 2020-08-11 | [facility] | 2.1 | % | (missing) | | EOSINOPHILS/ | 11:33:33 | | | | | | 100 | | | | | | | LEUKOCYTES | | | | | | | IN BLOOD BY | | | | | | | AUTOMATED | | | | | | | COUNT | | | | | | + + +-------+---------+ + + | GLOBULIN | 2020-08-11 | [facility] | 2.9 | g/dl | (missing) | | (G/DL) IN | 33:33 | | | | | | SER/PLAS | | | | | | + + +-------+---------+ + + | GLOBULIN | 2020-08-11 | [facility] | 2.9 | g/dl | (missing) | | (G/DL) IN | 1133:33 | | | | | | SER/PLAS | | | | | | + + +-------+---------+ + + | PLATELETS | 2020-08-11 | [facility] | 205 | k/mcl | (missing) | | (10*3/UL) IN | 11:33:33 | | | | | | BLOOD | | | | | | | AUTOMATED | | | | | | | COUNT | | | | | | + + +-------+---------+ + + | PLATELETS | 2020-08-11 | [facility] | 205 | k/mcl | (missing) | | (10*3/UL) IN | 11:33:33 | | | | | | BLOOD | | | | | | | AUTOMATED | | | | | | | COUNT | | | | | | + + +-------+---------+ + + | GLUCOSE, | 2020-08-11 | [facility] | 211 | mg/dl | (missing) | | RANDOM | 11:33:33 | | | | | | (MG/DL) IN | | | | | | | SER/PLAS | | | | | | + + +-------+---------+ + + | GLUCOSE, | 2020-08-11 | [facility] | 211 | mg/dl | (missing) | | RANDOM | 11:33:33 | | | | | | (MG/DL) IN | | | | | | | SER/PLAS | | | | | | + + +-------+---------+ + + | | 2020-08-11 | [facility] | 211.0 | mg/gm | (missing) | | MICROALBUMIN | 11:33:33 | | | | | | /CREATININE | | | | | | | RATIO (MG/G) | | | | | | | IN URINE | | | | | | + + +-------+---------+ + + | | 2020-08-11 | [facility] | 211.0 | mg/gm | (missing) | | MICROALBUMIN | 11:33:33 | | | | | | /CREATININE | | | | | | | RATIO (MG/G) | | | | | | | IN URINE | | | | | | + + +-------+---------+ + + | | 2020-08-11 | [facility] | 22.0 | % | (missing) | | LYMPHOCYTES/ | 11:33:33 | | | | | | 100 | | | | | | | LEUKOCYTES | | | | | | | IN BLOOD BY | | | | | | | AUTOMATED | | | | | | | COUNT | | | | | | + + +-------+---------+ + + | | 2020-08-11 | [facility] | 22.0 | % | (missing) | | LYMPHOCYTES/ | :33:33 | | | | | | 100 | | | | | | | LEUKOCYTES | | | | | | | IN BLOOD BY | | | | | | | AUTOMATED | | | | | | | COUNT | | | | | | + + +-------+---------+ + + | ALANINE | 2020-08-11 | [facility] | 25 | u/l | (missing) | | AMINOTRANSFE | 11:33:33 | | | | | | RASE (SGPT) | | | | | | | (U/L) IN | | | | | | | SER/PLAS | | | | | | + + +-------+---------+ + + | ALANINE | 2020-08-11 | [facility] | 25 | u/l | (missing) | | AMINOTRANSFE | 11:33:33 | | | | | | RASE (SGPT) | | | | | | | (U/L) IN | | | | | | | SER/PLAS | | | | | | + + +-------+---------+ + + | CARBON | 2020-08-11 | [facility] | 26 | mmol/l | (missing) | | DIOXIDE | 11:33:33 | | | | | | (CO2), TOTAL | | | | | | | (MMOL/L) IN | | | | | | | SER/PLAS | | | | | | + + +-------+---------+ + + | CARBON | 2020-08-11 | [facility] | 26 | mmol/l | (missing) | | DIOXIDE | 11:33:33 | | | | | | (CO2), TOTAL | | | | | | | (MMOL/L) IN | | | | | | | SER/PLAS | | | | | | + + +-------+---------+ + + | BLOOD UREA | 2020-08-11 | [facility] | 28 | mg/dl | (missing) | | NITROGEN | 11:33:33 | | | | | | (BUN) | | | | | | | (MG/DL) IN | | | | | | | SER/PLAS | | | | | | + + +-------+---------+ + + | BLOOD UREA | 2020-08-11 | [facility] | 28 | mg/dl | (missing) | | NITROGEN | 11:33:33 | | | | | | (BUN) | | | | | | | (MG/DL) IN | | | | | | | SER/PLAS | | | | | | + + +-------+---------+ + + | | 2020-08-11 | [facility] | 3.00 | :1 | (missing) | | CHOLESTEROL/ | 11:33:33 | | | | | | HDL RATIO IN | | | | | | | SER | | | | | | + + +-------+---------+ + + | | 2020-08-11 | [facility] | 3.00 | :1 | (missing) | | CHOLESTEROL/ | 11:33:33 | | | | | | HDL RATIO IN | | | | | | | SER | | | | | | + + +-------+---------+ + + | ALBUMIN | 2020-08-11 | [facility] | 3.9 | g/dl | (missing) | | (G/DL) IN | 11:33:33 | | | | | | SER/PLAS | | | | | | + + +-------+---------+ + + | ALBUMIN | 2020-08-11 | [facility] | 3.9 | g/dl | (missing) | | (G/DL) IN | 11:33:33 | | | | | | SER/PLAS | | | | | | + + +-------+---------+ + + | ERYTHROCYTE | 2020-08-11 | [facility] | 30.1 | pg | (missing) | | MEAN | 11:33:33 | | | | | | CORPUSCULAR | | | | | | | HEMOGLOBIN | | | | | | | (PG) BY | | | | | | | AUTOMATED | | | | | | | COUNT | | | | | | + + +-------+---------+ + + | ERYTHROCYTE | 2020-08-11 | [facility] | 30.1 | pg | (missing) | | MEAN | 11:33:33 | | | | | | CORPUSCULAR | | | | | | | HEMOGLOBIN | | | | | | | (PG) BY | | | | | | | AUTOMATED | | | | | | | COUNT | | | | | | + + +-------+---------+ + + | ASPARTATE | 2020-08-11 | [facility] | 32 | u/l | (missing) | | AMINOTRANSFE | 11:33:33 | | | | | | RASE (SGOT) | | | | | | | (U/L) IN | | | | | | | SER/PLAS | | | | | | + + +-------+---------+ + + | ASPARTATE | 2020-08-11 | [facility] | 32 | u/l | (missing) | | AMINOTRANSFE | 11:33:33 | | | | | | RASE (SGOT) | | | | | | | (U/L) IN | | | | | | | SER/PLAS | | | | | | + + +-------+---------+ + + | ERYTHROCYTE | 2020-08-11 | [facility] | 32.3 | g/dl | (missing) | | MEAN | 11:33:33 | | | | | | CORPUSCULAR | | | | | | | HEMOGLOBIN | | | | | | | CONCENTRATIO | | | | | | | N (G/DL) BY | | | | | | | AUTOMATED | | | | | | + + +-------+---------+ + + | ERYTHROCYTE | 2020-08-11 | [facility] | 32.3 | g/dl | (missing) | | MEAN | 11:33:33 | | | | | | CORPUSCULAR | | | | | | | HEMOGLOBIN | | | | | | | CONCENTRATIO | | | | | | | N (G/DL) BY | | | | | | | AUTOMATED | | | | | | + + +-------+---------+ + + | CREATININE | 2020-08-11 | [facility] | 36.5 | mg/dl | (missing) | | (MG/DL) IN | 11:33:33 | | | | | | URINE | | | | | | + + +-------+---------+ + + | CREATININE | 2020-08-11 | [facility] | 36.5 | mg/dl | (missing) | | (MG/DL) IN | 11:33:33 | | | | | | URINE | | | | | | + + +-------+---------+ + + | NEUTROPHILS | 2020-08-11 | [facility] | 4.0 | k/mcl | (missing) | | (10*3/UL) | 11:33:33 | | | | | | IN BLOOD BY | | | | | | | AUTOMATED | | | | | | | COUNT | | | | | | + + +-------+---------+ + + | NEUTROPHILS | 2020-08-11 | [facility] | 4.0 | k/mcl | (missing) | | (10*3/UL) | 11:33:33 | | | | | | IN BLOOD BY | | | | | | | AUTOMATED | | | | | | | COUNT | | | | | | + + +-------+---------+ + + | | 2020-08-11 | [facility] | 4.28 | m/mcl | (missing) | | ERYTHROCYTES | 11:33:33 | | | | | | (10*6/UL) | | | | | | | IN BLOOD BY | | | | | | | AUTOMATED | | | | | | | COUNT | | | | | | + + +-------+---------+ + + | | 2020-08-11 | [facility] | 4.28 | m/mcl | (missing) | | ERYTHROCYTES | 11:33:33 | | | | | | (10*6/UL) | | | | | | | IN BLOOD BY | | | | | | | AUTOMATED | | | | | | | COUNT | | | | | | + + +-------+---------+ + + | HEMATOCRIT | 2020-08-11 | [facility] | 40.0 | % | (missing) | | (%) IN BLOOD | 11:33:33 | | | | | | BY | | | | | | | AUTOMATED | | | | | | | COUNT | | | | | | + + +-------+---------+ + + | HEMATOCRIT | 2020-08-11 | [facility] | 40.0 | % | (missing) | | (%) IN BLOOD | 11:33:33 | | | | | | BY | | | | | | | AUTOMATED | | | | | | | COUNT | | | | | | + + +-------+---------+ + + | CHOLESTEROL | 2020-08-11 | [facility] | 45 | mg/dl | (missing) | | IN HDL | 11:33:33 | | | | | | (MG/DL) IN | | | | | | | SER/PLAS | | | | | | + + +-------+---------+ + + | CHOLESTEROL | 2020-08-11 | [facility] | 45 | mg/dl | (missing) | | IN HDL | 11:33:33 | | | | | | (MG/DL) IN | | | | | | | SER/PLAS | | | | | | + + +-------+---------+ + + | EGFR | 2020-08-11 | [facility] | 45 | | (missing) | | (GLOMERULAR | 11:33:33 | | | ml/min/1.73m | | | FILTRATION | | | | ? | | | RATE) | | | | | | | ML/MIN/1.73 | | | | | | | SQ M. | | | | | | + + +-------+---------+ + + | EGFR | 2020-08-11 | [facility] | 45 | | (missing) | | (GLOMERULAR | 11:33:33 | | | ml/min/1.73m | | | FILTRATION | | | | ? | | | RATE) | | | | | | | ML/MIN/1.73 | | | | | | | SQ M. | | | | | | + + +-------+---------+ + + | ALKALINE | 2020-08-11 | [facility] | 48 | u/l | (missing) | | PHOSPHATASE | 11:33:33 | | | | | | (U/L) IN | | | | | | | SER/PLAS | | | | | | + + +-------+---------+ + + | ALKALINE | 2020-08-11 | [facility] | 48 | u/l | (missing) | | PHOSPHATASE | 11:33:33 | | | | | | (U/L) IN | | | | | | | SER/PLAS | | | | | | + + +-------+---------+ + + | POTASSIUM | 2020-08-11 | [facility] | 5.2 | mmol/l | (missing) | | (MMOL/L) IN | 11:33:33 | | | | | | SER/PLAS | | | | | | + + +-------+---------+ + + | POTASSIUM | 2020-08-11 | [facility] | 5.2 | mmol/l | (missing) | | (MMOL/L) IN | 11:33:33 | | | | | | SER/PLAS | | | | | | + + +-------+---------+ + + | CHOLESTEROL | 2020-08-11 | [facility] | 54 | mg/dl | (missing) | | IN LDL | 11:33:33 | | | | | | (MG/DL) IN | | | | | | | SER/PLAS BY | | | | | | | CALC | | | | | | + + +-------+---------+ + + | CHOLESTEROL | 2020-08-11 | [facility] | 54 | mg/dl | (missing) | | IN LDL | 11:33:33 | | | | | | (MG/DL) IN | | | | | | | SER/PLAS BY | | | | | | | CALC | | | | | | + + +-------+---------+ + + | | 2020-08-11 | [facility] | 6.1 | k/mcl | (missing) | | LEUKOCYTES(1 | 11:33:33 | | | | | | 0*3/UL) IN | | | | | | | BLOOD BY | | | | | | | AUTOMATED | | | | | | | COUNT | | | | | | + + +-------+---------+ + + | | 2020-08-11 | [facility] | 6.1 | k/mcl | (missing) | | LEUKOCYTES(1 | 11:33:33 | | | | | | 0*3/UL) IN | | | | | | | BLOOD BY | | | | | | | AUTOMATED | | | | | | | COUNT | | | | | | + + +-------+---------+ + + | PROTEIN | 2020-08-11 | [facility] | 6.8 | g/dl | (missing) | | (G/DL) IN | 11:33:33 | | | | | | SER/PLAS | | | | | | + + +-------+---------+ + + | PROTEIN | 2020-08-11 | [facility] | 6.8 | g/dl | (missing) | | (G/DL) IN | 11:33:33 | | | | | | SER/PLAS | | | | | | + + +-------+---------+ + + | | 2020-08-11 | [facility] | 64.9 | % | (missing) | | NEUTROPHILS/ | 11:33:33 | | | | | | 100 | | | | | | | LEUKOCYTES | | | | | | | IN BLOOD BY | | | | | | | AUTOMATED | | | | | | | COUNT | | | | | | + + +-------+---------+ + + | | 2020-08-11 | [facility] | 64.9 | % | (missing) | | NEUTROPHILS/ | 11:33:33 | | | | | | 100 | | | | | | | LEUKOCYTES | | | | | | | IN BLOOD BY | | | | | | | AUTOMATED | | | | | | | COUNT | | | | | | + + +-------+---------+ + + | HEMOGLOBIN | 2020-08-11 | [facility] | 7.4 | % | (missing) | | A1C/HEMOGLOB | 11:33:33 | | | | | | IN TOTAL IN | | | | | | | BLOOD | | | | | | + + +-------+---------+ + + | HEMOGLOBIN | 2020-08-11 | [facility] | 7.4 | % | (missing) | | A1C/HEMOGLOB | 11:33:33 | | | | | | IN TOTAL IN | | | | | | | BLOOD | | | | | | + + +-------+---------+ + + | | 2020-08-11 | [facility] | 77.0 | mg/l | (missing) | | MICROALBUMIN | ::33 | | | | | | (MG/L) IN | | | | | | | URINE | | | | | | + + +-------+---------+ + + | | 2020-08-11 | [facility] | 77.0 | mg/l | (missing) | | MICROALBUMIN | 11:33:33 | | | | | | (MG/L) IN | | | | | | | URINE | | | | | | + + +-------+---------+ + + | CALCIUM | 2020-08-11 | [facility] | 9.0 | mg/dl | (missing) | | (MG/DL) IN | 11:33:33 | | | | | | SER/PLAS | | | | | | + + +-------+---------+ + + | CALCIUM | 2020-08-11 | [facility] | 9.0 | mg/dl | (missing) | | (MG/DL) IN | 11:33:33 | | | | | | SER/PLAS | | | | | | + + +-------+---------+ + + | ERYTHROCYTE | 2020-08-11 | [facility] | 93.5 | fl | (missing) | | MEAN | 11:33:33 | | | | | | CORPUSCULAR | | | | | | | VOLUME (FL) | | | | | | | BY AUTOMATED | | | | | | | COUNT | | | | | | + + +-------+---------+ + + | ERYTHROCYTE | 2020-08-11 | [facility] | 93.5 | fl | (missing) | | MEAN | 11:33:33 | | | | | | CORPUSCULAR | | | | | | | VOLUME (FL) | | | | | | | BY AUTOMATED | | | | | | | COUNT | | | | | | + + +-------+---------+ + + + + | Result panel 16 | + + + + +-------+--------+ + + | BILIRUBIN | 2020-09-15 | [facility] | 0.2 | mg/dl | (missing) | | TOTAL | 13:26:44 | | | | | | (MG/DL) IN | | | | | | | SER/PLAS | | | | | | + + +-------+--------+ + + | BILIRUBIN | 2020-09-15 | [facility] | 0.2 | mg/dl | (missing) | | TOTAL | 13::44 | | | | | | (MG/DL) IN | | | | | | | SER/PLAS | | | | | | + + +-------+--------+ + + | T4 FREE | 2020-09-15 | [facility] | 1.27 | ng/dl | (missing) | | (THYROXINE | ::44 | | | | | | FREE) | | | | | | | (NG/DL) IN | | | | | | | SER/PLAS | | | | | | + + +-------+--------+ + + | T4 FREE | 2020-09-15 | [facility] | 1.27 | ng/dl | (missing) | | (THYROXINE | ::44 | | | | | | FREE) | | | | | | | (NG/DL) IN | | | | | | | SER/PLAS | | | | | | + + +-------+--------+ + + | | 2020-09-15 | [facility] | 1.48 | :1 | (missing) | | ALBUMIN/GLOB | ::44 | | | | | | ULIN (A/G | | | | | | | RATIO) IN | | | | | | | SER/PLAS | | | | | | + + +-------+--------+ + + | | 2020-09-15 | [facility] | 1.48 | :1 | (missing) | | ALBUMIN/GLOB | :44 | | | | | | ULIN (A/G | | | | | | | RATIO) IN | | | | | | | SER/PLAS | | | | | | + + +-------+--------+ + + | CREATININE | 2020-09-15 | [facility] | 1.8 | mg/dl | (missing) | | (MG/DL) IN | ::44 | | | | | | SER/PLAS | | | | | | + + +-------+--------+ + + | CREATININE | 2020-09-15 | [facility] | 1.8 | mg/dl | (missing) | | (MG/DL) IN | ::44 | | | | | | SER/PLAS | | | | | | + + +-------+--------+ + + | ANION GAP | 2020-09-15 | [facility] | 10.0 | mmol/l | (missing) | | IN SER/PLAS | 13:26:44 | | | | | + + +-------+--------+ + + | ANION GAP | 2020-09-15 | [facility] | 10.0 | mmol/l | (missing) | | IN SER/PLAS | 13:26:44 | | | | | + + +-------+--------+ + + | GLUCOSE, | 2020-09-15 | [facility] | 102 | mg/dl | (missing) | | RANDOM | 13:26:44 | | | | | | (MG/DL) IN | | | | | | | SER/PLAS | | | | | | + + +-------+--------+ + + | GLUCOSE, | 2020-09-15 | [facility] | 102 | mg/dl | (missing) | | RANDOM | 13:26:44 | | | | | | (MG/DL) IN | | | | | | | SER/PLAS | | | | | | + + +-------+--------+ + + | CHLORIDE | 2020-09-15 | [facility] | 105 | mmol/l | (missing) | | (MMOL/L) IN | 13:26:44 | | | | | | SER/PLAS | | | | | | + + +-------+--------+ + + | CHLORIDE | 2020-09-15 | [facility] | 105 | mmol/l | (missing) | | (MMOL/L) IN | 13:26:44 | | | | | | SER/PLAS | | | | | | + + +-------+--------+ + + | SODIUM | 2020-09-15 | [facility] | 143 | mmol/l | (missing) | | (MMOL/L) IN | 13:26:44 | | | | | | SER/PLAS | | | | | | + + +-------+--------+ + + | SODIUM | 2020-09-15 | [facility] | 143 | mmol/l | (missing) | | (MMOL/L) IN | 13::44 | | | | | | SER/PLAS | | | | | | + + +-------+--------+ + + | TSH | 2020-09-15 | [facility] | 2.20 | mciu/ml | (missing) | | (THYROTROPIN | ::44 | | | | | | ) (MIU/L) IN | | | | | | | SER/PLAS | | | | | | + + +-------+--------+ + + | TSH | 2020-09-15 | [facility] | 2.20 | mciu/ml | (missing) | | (THYROTROPIN | ::44 | | | | | | ) (MIU/L) IN | | | | | | | SER/PLAS | | | | | | + + +-------+--------+ + + | GLOBULIN | 2020-09-15 | [facility] | 2.7 | g/dl | (missing) | | (G/DL) IN | ::44 | | | | | | SER/PLAS | | | | | | + + +-------+--------+ + + | GLOBULIN | 2020-09-15 | [facility] | 2.7 | g/dl | (missing) | | (G/DL) IN | 13:26:44 | | | | | | SER/PLAS | | | | | | + + +-------+--------+ + + | ALANINE | 2020-09-15 | [facility] | 23 | u/l | (missing) | | AMINOTRANSFE | 13:26:44 | | | | | | RASE (SGPT) | | | | | | | (U/L) IN | | | | | | | SER/PLAS | | | | | | + + +-------+--------+ + + | ALANINE | 2020-09-15 | [facility] | 23 | u/l | (missing) | | AMINOTRANSFE | 13:26:44 | | | | | | RASE (SGPT) | | | | | | | (U/L) IN | | | | | | | SER/PLAS | | | | | | + + +-------+--------+ + + | ASPARTATE | 2020-09-15 | [facility] | 26 | u/l | (missing) | | AMINOTRANSFE | 13:26:44 | | | | | | RASE (SGOT) | | | | | | | (U/L) IN | | | | | | | SER/PLAS | | | | | | + + +-------+--------+ + + | ASPARTATE | 2020-09-15 | [facility] | 26 | u/l | (missing) | | AMINOTRANSFE | 13:26:44 | | | | | | RASE (SGOT) | | | | | | | (U/L) IN | | | | | | | SER/PLAS | | | | | | + + +-------+--------+ + + | CARBON | 2020-09-15 | [facility] | 28 | mmol/l | (missing) | | DIOXIDE | 13:26:44 | | | | | | (CO2), TOTAL | | | | | | | (MMOL/L) IN | | | | | | | SER/PLAS | | | | | | + + +-------+--------+ + + | CARBON | 2020-09-15 | [facility] | 28 | mmol/l | (missing) | | DIOXIDE | 13:26:44 | | | | | | (CO2), TOTAL | | | | | | | (MMOL/L) IN | | | | | | | SER/PLAS | | | | | | + + +-------+--------+ + + | BLOOD UREA | 2020-09-15 | [facility] | 29 | mg/dl | (missing) | | NITROGEN | 13:26:44 | | | | | | (BUN) | | | | | | | (MG/DL) IN | | | | | | | SER/PLAS | | | | | | + + +-------+--------+ + + | BLOOD UREA | 2020-09-15 | [facility] | 29 | mg/dl | (missing) | | NITROGEN | 13:26:44 | | | | | | (BUN) | | | | | | | (MG/DL) IN | | | | | | | SER/PLAS | | | | | | + + +-------+--------+ + + | EGFR | 2020-09-15 | [facility] | 36 | | (missing) | | (GLOMERULAR | 13:26:44 | | | ml/min/1.73m | | | FILTRATION | | | | ? | | | RATE) | | | | | | | ML/MIN/1.73 | | | | | | | SQ M. | | | | | | + + +-------+--------+ + + | EGFR | 2020-09-15 | [facility] | 36 | | (missing) | | (GLOMERULAR | 13::44 | | | ml/min/1.73m | | | FILTRATION | | | | ? | | | RATE) | | | | | | | ML/MIN/1.73 | | | | | | | SQ M. | | | | | | + + +-------+--------+ + + | ALBUMIN | 2020-09-15 | [facility] | 4.0 | g/dl | (missing) | | (G/DL) IN | :26:44 | | | | | | SER/PLAS | | | | | | + + +-------+--------+ + + | ALBUMIN | 2020-09-15 | [facility] | 4.0 | g/dl | (missing) | | (G/DL) IN | :26:44 | | | | | | SER/PLAS | | | | | | + + +-------+--------+ + + | POTASSIUM | 2020-09-15 | [facility] | 4.6 | mmol/l | (missing) | | (MMOL/L) IN | :26:44 | | | | | | SER/PLAS | | | | | | + + +-------+--------+ + + | POTASSIUM | 2020-09-15 | [facility] | 4.6 | mmol/l | (missing) | | (MMOL/L) IN | 13:26:44 | | | | | | SER/PLAS | | | | | | + + +-------+--------+ + + | ALKALINE | 2020-09-15 | [facility] | 45 | u/l | (missing) | | PHOSPHATASE | 13:26:44 | | | | | | (U/L) IN | | | | | | | SER/PLAS | | | | | | + + +-------+--------+ + + | ALKALINE | 2020-09-15 | [facility] | 45 | u/l | (missing) | | PHOSPHATASE | 13:26:44 | | | | | | (U/L) IN | | | | | | | SER/PLAS | | | | | | + + +-------+--------+ + + | PROTEIN | 2020-09-15 | [facility] | 6.7 | g/dl | (missing) | | (G/DL) IN | 13:26:44 | | | | | | SER/PLAS | | | | | | + + +-------+--------+ + + | PROTEIN | 2020-09-15 | [facility] | 6.7 | g/dl | (missing) | | (G/DL) IN | 13:26:44 | | | | | | SER/PLAS | | | | | | + + +-------+--------+ + + | CALCIUM | 2020-09-15 | [facility] | 9.9 | mg/dl | (missing) | | (MG/DL) IN | 13:26:44 | | | | | | SER/PLAS | | | | | | + + +-------+--------+ + + | CALCIUM | 2020-09-15 | [facility] | 9.9 | mg/dl | (missing) | | (MG/DL) IN | 13:26:44 | | | | | | SER/PLAS | | | | | | + + +-------+--------+ + + + + | Result panel 17 | + + + + +-------+--------+ + + | INR | 2020-09-30 | [facility] | 2.1 | (missing) | (missing) | | | 07:55:15 | | | | | + + +-------+--------+ + + | INR | 2020-09-30 | [facility] | 2.1 | (missing) | (missing) | | | 07:55:15 | | | | | + + +-------+--------+ + + | PT | 2020-09-30 | [facility] | 23.4 | seconds | (missing) | | (PROTHROMBIN | 07:55:15 | | | | | | TIME) | | | | | | + + +-------+--------+ + + | PT | 2020-09-30 | [facility] | 23.4 | seconds | (missing) | | (PROTHROMBIN | 07:55:15 | | | | | | TIME) | | | | | | + + +-------+--------+ + + + + | Result panel 18 | + + + + +-------+ + + + | SARS-COV-2 | 2020-10-01 | [facility] | Negative | (missing) | (missing) | | (COVID19) | 10:11:46 | | | | | | HOLOGIC | | | | | | | MOLECULAR | | | | | | + + +-------+ + + + | SARS-COV-2 | 2020-10-01 | [facility] | Negative | (missing) | (missing) | | (COVID19) | 10:11:46 | | | | | | HOLOGIC | | | | | | | MOLECULAR | | | | | | + + +-------+ + + + + + | Result panel 19 | + + + + +-------+--------+ + + | INR | 2020-10-03 | [facility] | 1.1 | (missing) | (missing) | | | 14:17:05 | | | | | + + +-------+--------+ + + | INR | 2020-10-03 | [facility] | 1.1 | (missing) | (missing) | | | 14:17:05 | | | | | + + +-------+--------+ + + | PT | 2020-10-03 | [facility] | 13.7 | seconds | (missing) | | (PROTHROMBIN | 14:17:05 | | | | | | TIME) | | | | | | + + +-------+--------+ + + | PT | 2020-10-03 | [facility] | 13.7 | seconds | (missing) | | (PROTHROMBIN | 14:17:05 | | | | | | TIME) | | | | | | + + +-------+--------+ + + + + | Result panel 20 | + + + + +-------+---------+ + + | NRBC/100 | 2020-11-30 | [facility] | 0.0 | % | (missing) | | WBCS BY | 11:41:12 | | | | | | AUTOMATED | | | | | | | COUNT | | | | | | + + +-------+---------+ + + | NRBC/100 | 2020-11-30 | [facility] | 0.0 | % | (missing) | | WBCS BY | 11:41:12 | | | | | | AUTOMATED | | | | | | | COUNT | | | | | | + + +-------+---------+ + + | BASOPHILS | 2020-11-30 | [facility] | 0.0 | k/mcl | (missing) | | (10*3/UL) IN | 11:41:12 | | | | | | BLOOD BY | | | | | | | AUTOMATED | | | | | | | COUNT | | | | | | + + +-------+---------+ + + | | 2020-11-30 | [facility] | 0.0 | k/mcl | (missing) | | NRBC(10*3/UL | 11:41:12 | | | | | | ) IN BLOOD | | | | | | | BY AUTOMATED | | | | | | | COUNT | | | | | | + + +-------+---------+ + + | BASOPHILS | 2020-11-30 | [facility] | 0.0 | k/mcl | (missing) | | (10*3/UL) IN | 11:41:12 | | | | | | BLOOD BY | | | | | | | AUTOMATED | | | | | | | COUNT | | | | | | + + +-------+---------+ + + | | 2020-11-30 | [facility] | 0.0 | k/mcl | (missing) | | NRBC(10*3/UL | 11:41:12 | | | | | | ) IN BLOOD | | | | | | | BY AUTOMATED | | | | | | | COUNT | | | | | | + + +-------+---------+ + + | IMMATURE | 2020-11-30 | [facility] | 0.02 | k/mcl | (missing) | | GRANULOCYTE | 11:41:12 | | | | | | (ABS) | | | | | | + + +-------+---------+ + + | IMMATURE | 2020-11-30 | [facility] | 0.02 | k/mcl | (missing) | | GRANULOCYTE | 11:41:12 | | | | | | (ABS) | | | | | | + + +-------+---------+ + + | EOSINOPHILS | 2020-11-30 | [facility] | 0.2 | k/mcl | (missing) | | (10*3/UL) | 11:41:12 | | | | | | IN BLOOD BY | | | | | | | AUTOMATED | | | | | | | COUNT | | | | | | + + +-------+---------+ + + | EOSINOPHILS | 2020-11-30 | [facility] | 0.2 | k/mcl | (missing) | | (10*3/UL) | 11:41:12 | | | | | | IN BLOOD BY | | | | | | | AUTOMATED | | | | | | | COUNT | | | | | | + + +-------+---------+ + + | IMMATURE | 2020-11-30 | [facility] | 0.3 | % | (missing) | | GRANULOCYTE | 11:41:12 | | | | | | % (AUTO) | | | | | | + + +-------+---------+ + + | IMMATURE | 2020-11-30 | [facility] | 0.3 | % | (missing) | | GRANULOCYTE | 11:41:12 | | | | | | % (AUTO) | | | | | | + + +-------+---------+ + + | BILIRUBIN | 2020-11-30 | [facility] | 0.3 | mg/dl | (missing) | | TOTAL | 11:41:12 | | | | | | (MG/DL) IN | | | | | | | SER/PLAS | | | | | | + + +-------+---------+ + + | BILIRUBIN | 2020-11-30 | [facility] | 0.3 | mg/dl | (missing) | | TOTAL | 11:41:12 | | | | | | (MG/DL) IN | | | | | | | SER/PLAS | | | | | | + + +-------+---------+ + + | MONOCYTES | 2020-11-30 | [facility] | 0.6 | k/mcl | (missing) | | (10*3/UL) IN | 11:41:12 | | | | | | BLOOD BY | | | | | | | AUTOMATED | | | | | | | COUNT | | | | | | + + +-------+---------+ + + | MONOCYTES | 2020-11-30 | [facility] | 0.6 | k/mcl | (missing) | | (10*3/UL) IN | 11:41:12 | | | | | | BLOOD BY | | | | | | | AUTOMATED | | | | | | | COUNT | | | | | | + + +-------+---------+ + + | | 2020-11-30 | [facility] | 0.7 | % | (missing) | | BASOPHILS/10 | 11:41:12 | | | | | | 0 LEUKOCYTES | | | | | | | IN BLOOD BY | | | | | | | AUTOMATED | | | | | | | COUNT | | | | | | + + +-------+---------+ + + | | 2020-11-30 | [facility] | 0.7 | % | (missing) | | BASOPHILS/10 | 11:41:12 | | | | | | 0 LEUKOCYTES | | | | | | | IN BLOOD BY | | | | | | | AUTOMATED | | | | | | | COUNT | | | | | | + + +-------+---------+ + + | | 2020-11-30 | [facility] | 1.32 | :1 | (missing) | | ALBUMIN/GLOB | 11:41:12 | | | | | | ULIN (A/G | | | | | | | RATIO) IN | | | | | | | SER/PLAS | | | | | | + + +-------+---------+ + + | | 2020-11-30 | [facility] | 1.32 | :1 | (missing) | | ALBUMIN/GLOB | 11:41:12 | | | | | | ULIN (A/G | | | | | | | RATIO) IN | | | | | | | SER/PLAS | | | | | | + + +-------+---------+ + + | LYMPHOCYTES | 2020-11-30 | [facility] | 1.5 | k/mcl | (missing) | | (10*3/UL) | 11:41:12 | | | | | | IN BLOOD BY | | | | | | | AUTOMATED | | | | | | | COUNT | | | | | | + + +-------+---------+ + + | LYMPHOCYTES | 2020-11-30 | [facility] | 1.5 | k/mcl | (missing) | | (10*3/UL) | 11:41:12 | | | | | | IN BLOOD BY | | | | | | | AUTOMATED | | | | | | | COUNT | | | | | | + + +-------+---------+ + + | CREATININE | 2020-11-30 | [facility] | 1.6 | mg/dl | (missing) | | (MG/DL) IN | 11:41:12 | | | | | | SER/PLAS | | | | | | + + +-------+---------+ + + | CREATININE | 2020-11-30 | [facility] | 1.6 | mg/dl | (missing) | | (MG/DL) IN | 11:41:12 | | | | | | SER/PLAS | | | | | | + + +-------+---------+ + + | | 2020-11-30 | [facility] | 10.4 | % | (missing) | | MONOCYTES/10 | 11:41:12 | | | | | | 0 LEUKOCYTES | | | | | | | IN BLOOD BY | | | | | | | AUTOMATED | | | | | | | COUNT | | | | | | + + +-------+---------+ + + | | 2020-11-30 | [facility] | 10.4 | % | (missing) | | MONOCYTES/10 | 11:41:12 | | | | | | 0 LEUKOCYTES | | | | | | | IN BLOOD BY | | | | | | | AUTOMATED | | | | | | | COUNT | | | | | | + + +-------+---------+ + + | CHLORIDE | 2020-11-30 | [facility] | 104 | mmol/l | (missing) | | (MMOL/L) IN | 11:41:12 | | | | | | SER/PLAS | | | | | | + + +-------+---------+ + + | CHLORIDE | 2020-11-30 | [facility] | 104 | mmol/l | (missing) | | (MMOL/L) IN | 11:41:12 | | | | | | SER/PLAS | | | | | | + + +-------+---------+ + + | GLUCOSE, | 2020-11-30 | [facility] | 113 | mg/dl | (missing) | | RANDOM | 11:41:12 | | | | | | (MG/DL) IN | | | | | | | SER/PLAS | | | | | | + + +-------+---------+ + + | GLUCOSE, | 2020-11-30 | [facility] | 113 | mg/dl | (missing) | | RANDOM | 11:41:12 | | | | | | (MG/DL) IN | | | | | | | SER/PLAS | | | | | | + + +-------+---------+ + + | PLATELET | 2020-11-30 | [facility] | 12.0 | fl | (missing) | | MEAN VOLUME | 11:41:12 | | | | | | (FL) IN | | | | | | | BLOOD BY | | | | | | | AUTOMATED | | | | | | | COUNT | | | | | | + + +-------+---------+ + + | PLATELET | 2020-11-30 | [facility] | 12.0 | fl | (missing) | | MEAN VOLUME | :12 | | | | | | (FL) IN | | | | | | | BLOOD BY | | | | | | | AUTOMATED | | | | | | | COUNT | | | | | | + + +-------+---------+ + + | HEMOGLOBIN | 2020-11-30 | [facility] | 12.7 | g/dl | (missing) | | (G/DL) IN | 11:41:12 | | | | | | BLOOD | | | | | | + + +-------+---------+ + + | HEMOGLOBIN | 2020-11-30 | [facility] | 12.7 | g/dl | (missing) | | (G/DL) IN | 11:41:12 | | | | | | BLOOD | | | | | | + + +-------+---------+ + + | SODIUM | 2020-11-30 | [facility] | 139 | mmol/l | (missing) | | (MMOL/L) IN | 11:41:12 | | | | | | SER/PLAS | | | | | | + + +-------+---------+ + + | SODIUM | 2020-11-30 | [facility] | 139 | mmol/l | (missing) | | (MMOL/L) IN | 11:41:12 | | | | | | SER/PLAS | | | | | | + + +-------+---------+ + + | ERYTHROCYTE | 2020-11-30 | [facility] | 15.7 | % | (missing) | | | 11:41:12 | | | | | | DISTRIBUTION | | | | | | | WIDTH | | | | | | | (RATIO) BY | | | | | | | AUTOMATED | | | | | | | COUNT | | | | | | + + +-------+---------+ + + | ERYTHROCYTE | 2020-11-30 | [facility] | 15.7 | % | (missing) | | | 11:41:12 | | | | | | DISTRIBUTION | | | | | | | WIDTH | | | | | | | (RATIO) BY | | | | | | | AUTOMATED | | | | | | | COUNT | | | | | | + + +-------+---------+ + + | ESTIMATED | 2020-11-30 | [facility] | 171 | mg/dl | (missing) | | AVERAGE BLD | 11:41:12 | | | | | | GLUCOSE | | | | | | + + +-------+---------+ + + | ESTIMATED | 2020-11-30 | [facility] | 171 | mg/dl | (missing) | | AVERAGE BLD | 11:41:12 | | | | | | GLUCOSE | | | | | | + + +-------+---------+ + + | PLATELETS | 2020-11-30 | [facility] | 187 | k/mcl | (missing) | | (10*3/UL) IN | 11:41:12 | | | | | | BLOOD | | | | | | | AUTOMATED | | | | | | | COUNT | | | | | | + + +-------+---------+ + + | PLATELETS | 2020-11-30 | [facility] | 187 | k/mcl | (missing) | | (10*3/UL) IN | 11:41:12 | | | | | | BLOOD | | | | | | | AUTOMATED | | | | | | | COUNT | | | | | | + + +-------+---------+ + + | | 2020-11-30 | [facility] | 2.5 | % | (missing) | | EOSINOPHILS/ | 11:41:12 | | | | | | 100 | | | | | | | LEUKOCYTES | | | | | | | IN BLOOD BY | | | | | | | AUTOMATED | | | | | | | COUNT | | | | | | + + +-------+---------+ + + | | 2020-11-30 | [facility] | 2.5 | % | (missing) | | EOSINOPHILS/ | 11:41:12 | | | | | | 100 | | | | | | | LEUKOCYTES | | | | | | | IN BLOOD BY | | | | | | | AUTOMATED | | | | | | | COUNT | | | | | | + + +-------+---------+ + + | | 2020-11-30 | [facility] | 222.7 | mg/gm | (missing) | | MICROALBUMIN | 11:41:12 | | | | | | /CREATININE | | | | | | | RATIO (MG/G) | | | | | | | IN URINE | | | | | | + + +-------+---------+ + + | | 2020-11-30 | [facility] | 222.7 | mg/gm | (missing) | | MICROALBUMIN | 11:41:12 | | | | | | /CREATININE | | | | | | | RATIO (MG/G) | | | | | | | IN URINE | | | | | | + + +-------+---------+ + + | | 2020-11-30 | [facility] | 24.5 | % | (missing) | | LYMPHOCYTES/ | 11:41:12 | | | | | | 100 | | | | | | | LEUKOCYTES | | | | | | | IN BLOOD BY | | | | | | | AUTOMATED | | | | | | | COUNT | | | | | | + + +-------+---------+ + + | | 2020-11-30 | [facility] | 24.5 | % | (missing) | | LYMPHOCYTES/ | 11:41:12 | | | | | | 100 | | | | | | | LEUKOCYTES | | | | | | | IN BLOOD BY | | | | | | | AUTOMATED | | | | | | | COUNT | | | | | | + + +-------+---------+ + + | CREATININE | 2020-11-30 | [facility] | 25.6 | mg/dl | (missing) | | (MG/DL) IN | 11:41:12 | | | | | | URINE | | | | | | + + +-------+---------+ + + | CREATININE | 2020-11-30 | [facility] | 25.6 | mg/dl | (missing) | | (MG/DL) IN | 11:41:12 | | | | | | URINE | | | | | | + + +-------+---------+ + + | CARBON | 2020-11-30 | [facility] | 27 | mmol/l | (missing) | | DIOXIDE | 11:41:12 | | | | | | (CO2), TOTAL | | | | | | | (MMOL/L) IN | | | | | | | SER/PLAS | | | | | | + + +-------+---------+ + + | CARBON | 2020-11-30 | [facility] | 27 | mmol/l | (missing) | | DIOXIDE | 11:41:12 | | | | | | (CO2), TOTAL | | | | | | | (MMOL/L) IN | | | | | | | SER/PLAS | | | | | | + + +-------+---------+ + + | ALANINE | 2020-11-30 | [facility] | 27 | u/l | (missing) | | AMINOTRANSFE | 11:41:12 | | | | | | RASE (SGPT) | | | | | | | (U/L) IN | | | | | | | SER/PLAS | | | | | | + + +-------+---------+ + + | ALANINE | 2020-11-30 | [facility] | 27 | u/l | (missing) | | AMINOTRANSFE | 11:41:12 | | | | | | RASE (SGPT) | | | | | | | (U/L) IN | | | | | | | SER/PLAS | | | | | | + + +-------+---------+ + + | BLOOD UREA | 2020-11-30 | [facility] | 28 | mg/dl | (missing) | | NITROGEN | 11:41:12 | | | | | | (BUN) | | | | | | | (MG/DL) IN | | | | | | | SER/PLAS | | | | | | + + +-------+---------+ + + | BLOOD UREA | 2020-11-30 | [facility] | 28 | mg/dl | (missing) | | NITROGEN | 11:41:12 | | | | | | (BUN) | | | | | | | (MG/DL) IN | | | | | | | SER/PLAS | | | | | | + + +-------+---------+ + + | ASPARTATE | 2020-11-30 | [facility] | 28 | u/l | (missing) | | AMINOTRANSFE | 11:41:12 | | | | | | RASE (SGOT) | | | | | | | (U/L) IN | | | | | | | SER/PLAS | | | | | | + + +-------+---------+ + + | ASPARTATE | 2020-11-30 | [facility] | 28 | u/l | (missing) | | AMINOTRANSFE | 11:41:12 | | | | | | RASE (SGOT) | | | | | | | (U/L) IN | | | | | | | SER/PLAS | | | | | | + + +-------+---------+ + + | ERYTHROCYTE | 2020-11-30 | [facility] | 29.4 | pg | (missing) | | MEAN | 11:41:12 | | | | | | CORPUSCULAR | | | | | | | HEMOGLOBIN | | | | | | | (PG) BY | | | | | | | AUTOMATED | | | | | | | COUNT | | | | | | + + +-------+---------+ + + | ERYTHROCYTE | 2020-11-30 | [facility] | 29.4 | pg | (missing) | | MEAN | 11:41:12 | | | | | | CORPUSCULAR | | | | | | | HEMOGLOBIN | | | | | | | (PG) BY | | | | | | | AUTOMATED | | | | | | | COUNT | | | | | | + + +-------+---------+ + + | GLOBULIN | 2020-11-30 | [facility] | 3.1 | g/dl | (missing) | | (G/DL) IN | 11:41:12 | | | | | | SER/PLAS | | | | | | + + +-------+---------+ + + | GLOBULIN | 2020-11-30 | [facility] | 3.1 | g/dl | (missing) | | (G/DL) IN | 11:41:12 | | | | | | SER/PLAS | | | | | | + + +-------+---------+ + + | NEUTROPHILS | 2020-11-30 | [facility] | 3.7 | k/mcl | (missing) | | (10*3/UL) | 11:41:12 | | | | | | IN BLOOD BY | | | | | | | AUTOMATED | | | | | | | COUNT | | | | | | + + +-------+---------+ + + | NEUTROPHILS | 2020-11-30 | [facility] | 3.7 | k/mcl | (missing) | | (10*3/UL) | 11:41:12 | | | | | | IN BLOOD BY | | | | | | | AUTOMATED | | | | | | | COUNT | | | | | | + + +-------+---------+ + + | ERYTHROCYTE | 2020-11-30 | [facility] | 32.1 | g/dl | (missing) | | MEAN | 11:41:12 | | | | | | CORPUSCULAR | | | | | | | HEMOGLOBIN | | | | | | | CONCENTRATIO | | | | | | | N (G/DL) BY | | | | | | | AUTOMATED | | | | | | + + +-------+---------+ + + | ERYTHROCYTE | 2020-11-30 | [facility] | 32.1 | g/dl | (missing) | | MEAN | 11:41:12 | | | | | | CORPUSCULAR | | | | | | | HEMOGLOBIN | | | | | | | CONCENTRATIO | | | | | | | N (G/DL) BY | | | | | | | AUTOMATED | | | | | | + + +-------+---------+ + + | HEMATOCRIT | 2020-11-30 | [facility] | 39.6 | % | (missing) | | (%) IN BLOOD | 11:41:12 | | | | | | BY | | | | | | | AUTOMATED | | | | | | | COUNT | | | | | | + + +-------+---------+ + + | HEMATOCRIT | 2020-11-30 | [facility] | 39.6 | % | (missing) | | (%) IN BLOOD | 11:41:12 | | | | | | BY | | | | | | | AUTOMATED | | | | | | | COUNT | | | | | | + + +-------+---------+ + + | ALBUMIN | 2020-11-30 | [facility] | 4.1 | g/dl | (missing) | | (G/DL) IN | 11:41:12 | | | | | | SER/PLAS | | | | | | + + +-------+---------+ + + | ALBUMIN | 2020-11-30 | [facility] | 4.1 | g/dl | (missing) | | (G/DL) IN | 11:41:12 | | | | | | SER/PLAS | | | | | | + + +-------+---------+ + + | | 2020-11-30 | [facility] | 4.32 | m/mcl | (missing) | | ERYTHROCYTES | 11:41:12 | | | | | | (10*6/UL) | | | | | | | IN BLOOD BY | | | | | | | AUTOMATED | | | | | | | COUNT | | | | | | + + +-------+---------+ + + | | 2020-11-30 | [facility] | 4.32 | m/mcl | (missing) | | ERYTHROCYTES | 11:41:12 | | | | | | (10*6/UL) | | | | | | | IN BLOOD BY | | | | | | | AUTOMATED | | | | | | | COUNT | | | | | | + + +-------+---------+ + + | EGFR | 2020-11-30 | [facility] | 42 | | (missing) | | (GLOMERULAR | 11:41:12 | | | ml/min/1.73m | | | FILTRATION | | | | ? | | | RATE) | | | | | | | ML/MIN/1.73 | | | | | | | SQ M. | | | | | | + + +-------+---------+ + + | EGFR | 2020-11-30 | [facility] | 42 | | (missing) | | (GLOMERULAR | 11:41:12 | | | ml/min/1.73m | | | FILTRATION | | | | ? | | | RATE) | | | | | | | ML/MIN/1.73 | | | | | | | SQ M. | | | | | | + + +-------+---------+ + + | ALKALINE | 2020-11-30 | [facility] | 47 | u/l | (missing) | | PHOSPHATASE | 11:41:12 | | | | | | (U/L) IN | | | | | | | SER/PLAS | | | | | | + + +-------+---------+ + + | ALKALINE | 2020-11-30 | [facility] | 47 | u/l | (missing) | | PHOSPHATASE | 11:41:12 | | | | | | (U/L) IN | | | | | | | SER/PLAS | | | | | | + + +-------+---------+ + + | POTASSIUM | 2020-11-30 | [facility] | 5.2 | mmol/l | (missing) | | (MMOL/L) IN | 11:41:12 | | | | | | SER/PLAS | | | | | | + + +-------+---------+ + + | POTASSIUM | 2020-11-30 | [facility] | 5.2 | mmol/l | (missing) | | (MMOL/L) IN | 11:41:12 | | | | | | SER/PLAS | | | | | | + + +-------+---------+ + + | | 2020-11-30 | [facility] | 57.0 | mg/l | (missing) | | MICROALBUMIN | 11:41:12 | | | | | | (MG/L) IN | | | | | | | URINE | | | | | | + + +-------+---------+ + + | | 2020-11-30 | [facility] | 57.0 | mg/l | (missing) | | MICROALBUMIN | 11:41:12 | | | | | | (MG/L) IN | | | | | | | URINE | | | | | | + + +-------+---------+ + + | | 2020-11-30 | [facility] | 6.0 | k/mcl | (missing) | | LEUKOCYTES(1 | 11:41:12 | | | | | | 0*3/UL) IN | | | | | | | BLOOD BY | | | | | | | AUTOMATED | | | | | | | COUNT | | | | | | + + +-------+---------+ + + | | 2020-11-30 | [facility] | 6.0 | k/mcl | (missing) | | LEUKOCYTES(1 | 11:41:12 | | | | | | 0*3/UL) IN | | | | | | | BLOOD BY | | | | | | | AUTOMATED | | | | | | | COUNT | | | | | | + + +-------+---------+ + + | | 2020-11-30 | [facility] | 61.6 | % | (missing) | | NEUTROPHILS/ | 11:41:12 | | | | | | 100 | | | | | | | LEUKOCYTES | | | | | | | IN BLOOD BY | | | | | | | AUTOMATED | | | | | | | COUNT | | | | | | + + +-------+---------+ + + | | 2020-11-30 | [facility] | 61.6 | % | (missing) | | NEUTROPHILS/ | 11:41:12 | | | | | | 100 | | | | | | | LEUKOCYTES | | | | | | | IN BLOOD BY | | | | | | | AUTOMATED | | | | | | | COUNT | | | | | | + + +-------+---------+ + + | PROTEIN | 2020-11-30 | [facility] | 7.2 | g/dl | (missing) | | (G/DL) IN | 11:41:12 | | | | | | SER/PLAS | | | | | | + + +-------+---------+ + + | PROTEIN | 2020-11-30 | [facility] | 7.2 | g/dl | (missing) | | (G/DL) IN | 11:41:12 | | | | | | SER/PLAS | | | | | | + + +-------+---------+ + + | HEMOGLOBIN | 2020-11-30 | [facility] | 7.6 | % | (missing) | | A1C/HEMOGLOB | 11:41:12 | | | | | | IN TOTAL IN | | | | | | | BLOOD | | | | | | + + +-------+---------+ + + | HEMOGLOBIN | 2020-11-30 | [facility] | 7.6 | % | (missing) | | A1C/HEMOGLOB | 11:41:12 | | | | | | IN TOTAL IN | | | | | | | BLOOD | | | | | | + + +-------+---------+ + + | CALCIUM | 2020-11-30 | [facility] | 9.6 | mg/dl | (missing) | | (MG/DL) IN | 11:41:12 | | | | | | SER/PLAS | | | | | | + + +-------+---------+ + + | CALCIUM | 2020-11-30 | [facility] | 9.6 | mg/dl | (missing) | | (MG/DL) IN | 11:41:12 | | | | | | SER/PLAS | | | | | | + + +-------+---------+ + + | ERYTHROCYTE | 2020-11-30 | [facility] | 91.7 | fl | (missing) | | MEAN | 11:41:12 | | | | | | CORPUSCULAR | | | | | | | VOLUME (FL) | | | | | | | BY AUTOMATED | | | | | | | COUNT | | | | | | + + +-------+---------+ + + | ERYTHROCYTE | 2020-11-30 | [facility] | 91.7 | fl | (missing) | | MEAN | 11:41:12 | | | | | | CORPUSCULAR | | | | | | | VOLUME (FL) | | | | | | | BY AUTOMATED | | | | | | | COUNT | | | | | | + + +-------+---------+ + + Social History + + + + | date | description | facility | + + + + | 2020-08-25 00:00 | [facility] | | | | | + + + + | 2021-07-07 00:00 | Unknown if ever smoked | [facility] | + + + + Vital Signs + + + +---------+ | date | measurement | value | units | + + + +---------+ | 2020-08-25 00:00 | BMI | 30.7 | kg/m2 | + + + +---------+ | 2020-08-25 00:00 | BP_diastolic | 84 | mmHg | + + + +---------+ | 2020-08-25 00:00 | BP_systolic | 144 | mmHg | + + + +---------+ | 2020-08-25 00:00 | BSA | 2.20 | m2 | + + + +---------+ | 2020-08-25 00:00 | height_metric | 180.34 | cm | + + + +---------+ | 2020-08-25 00:00 | height_standard | 71 | in | + + + +---------+ | 2020-08-25 00:00 | weight_metric | 99.79 | kg | + + + +---------+ | 2020-08-25 00:00 | weight_standard | 220 | lb | + + + +---------+"
[2023-02-11 12:37] LABS: BILIRUBIN, URINE NEGATIVE (negative); BLOOD/HGB, URINE NEGATIVE (Negative); KETONE, URINE NEGATIVE (Negative); LEUK ESTERASE, URINE NEGATIVE (negative); NITRITE, URINE NEGATIVE (negative)
[2023-02-11 12:46] LABS: RED BLOOD CELLS, URINE 0-1 /hpf (0-5); WHITE BLOOD CELLS, URINE 0-1 /HPF (0-5)
[2023-02-11 12:47] LABS: BACTERIA, URINE NONE SEEN /hpf (negative); CASTS, URINE HYALINE 1+ \\lpf; COLLECTION TYPE, URINE CLEAN CATCH; CRYSTALS, URINE NONE SEEN (0-1+); EPITHELIAL CELLS, URINE SQUAMOUS 1+ /lpf (0-1+); REFLEX CULTURE, URINE No (No)
--- OUTSIDE RECORDS SUMMARY | 2023-02-11 13:54 | XMS ---
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 [place] has no Care Guidelines for this patient. Jose Antonio VISIT COUNT (12 MO.) 2 [facility] TOTAL 3 NOTE: Visits indicate total known visits. ED/UCC VISIT TRACKING (12 MO.) 02/11/2023 11:41 [facility] [place] TYPE: Emergency COMPLAINT: - BP PROBLEM 01/30/2023 12:15 [facility] TYPE: Emergency DIAGNOSES: - Displaced spiral fracture of shaft of left femur, initial encounter for closed fracture - Type 2 diabetes mellitus with hypoglycemia without coma - Leg Injury (Major) 01/30/2023 08:43 [facility] TYPE: Emergency COMPLAINT: - FALL DIAGNOSES: - Allergy status to narcotic agent - Chronic kidney disease, stage 3 unspecified - Contact with and (suspected) exposure to COVID-19 - Displaced spiral fracture of shaft of left femur, initial encounter for closed fracture - Hypertensive chronic kidney disease with stage 1 through stage 4 chronic kidney disease, or unspecified chronic kidney disease - keno terminal operator (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 of 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 - care home (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 of insulin - keno terminal operator (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 of oral hypoglycemic drugs - Other fall on same level, initial encounter - Other long term care social worker (current) drug therapy - Presence of artificial knee joint, bilateral - Type 2 diabetes mellitus with diabetic chronic kidney disease - Type 2 diabetes mellitus with diabetic neuropathy, unspecified INPATIENT VISIT TRACKING (12 MO.) [facility]23 [facility] DIAGNOSES: - Chronic kidney disease, stage 3b - Displaced spiral fracture of shaft of left femur, initial encounter for closed fracture - Dizziness and giddiness - Encounter for screening, unspecified - Fall on same level, unspecified, initial encounter - care home (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 of 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 - keno terminal operator (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 of insulin - Other forms of dyspnea - Other specified cough - Paroxysmal atrial fibrillation - Periprosthetic fracture around internal prosthetic left knee joint, initial encounter - Periprosthetic fracture around internal prosthetic left knee joint, subsequent encounter - Periprosthetic fracture around internal prosthetic right knee joint, initial encounter - Slow transit constipation - Type 2 diabetes mellitus with diabetic nephropathy - Type 2 diabetes mellitus with hypoglycemia without coma - Type 2 diabetes mellitus with other diabetic neurological complication [id number]
[2023-02-11 14:37] VITALS: BP 139/61
== END 2023-02-11 14:40 | disposition home or self-care (01) ==
LOC: ED 11:40
PROVIDERS: Emergency Medicine
DX: I95.1 Orthostatic hypotension (principal); E11.22 Type 2 diabetes mellitus with diabetic chronic kidney disease; I12.9 Hypertensive chronic kidney disease with stage 1 through stage 4 chronic kidney disease, or unspecified chronic kidney disease; N18.30 Chronic kidney disease, stage 3 unspecified; Z88.8 Allergy status to other drugs, medicaments and biological substances; Z79.890 Hormone replacement therapy; Z79.01 Long term (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 of 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; Z79.899 Other long term (current) drug therapy; Z79.4 Long term (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 of insulin
CPT/HCPCS: 36415; 80053; 81001; 85025; 85060

== ENCOUNTER 2023-02-20 13:19 | Inpatient (IN) | payer MEDICARE ==
[~2023-02-20] VITALS: Ht 180.3 cm; Wt 94.5 kg
--- OUTSIDE RECORDS SUMMARY | ~2023-02-20 | XMS | Continuity of Care Document ---
Demographics + + + | Address | [address] | | | [place] [address] | + + + | Preferred Language | Unknown | + + + | Marital Status | | + + + | Faith Affiliation | Unknown | + + + | Race | White | + + + | Ethnic Group | Not or | + + + Author + + + | Author | [facility] | + + + | Organization | [facility] | + + + | Address | [address] | | | [place] [address] | + + + | Phone | | + + + Care Team Providers + + + + | Care News Reporter Name | Role | Phone | + [...] | (no severity) | | | | Reina LAM | | | + + + + + + | (no date) | Demerol | [facility] | (no reaction) | (no severity) | | | | [facility] | | | + + + + + + | (no date) | Lisinopril 10 | [facility] | (no reaction) | (no severity) | | | MG Oral Tablet | [facility] | | | + + + + + + | (no date) | lisinopril | [facility] | (no reaction) | (no severity) | | | | Internal | | | | | | Medicine | | | + + + + + + | (no date) | RAMIPRIL | [facility] | (no reaction) | (no severity) | | | | [facility] | | | | [place] | | | + + + + + + | (no date) | RAMIPRIL | [facility] | (no reaction) | (no severity) | | | | [facility] | | | + + + + + + | (no date) | Meperidine | [facility] | (no reaction) | (no severity) | | | | Tone | | | | | | Hospital | | | + + + + [...] + | (no date) | MEPERIDINE | [facility] | (no reaction) | (no severity) | | | | [facility] | | | + + + + + + | (no date) | Demerol 50 MG | [facility] | (no reaction) | (no severity) | | | Oral Tablet | [facility] | | | + + + + [...] + | (no date) | ATORVASTATIN | [facility] | (no reaction) | (no severity) | | | | [facility] | | | + + + + + + | (no date) | LISINOPRIL | [facility] | (no reaction) | (no severity) | | | | [facility] | | | + + + + + + | (no date) | Meperidine | [facility] | (no reaction) | (no severity) | | | | Tone | | | | | | Hospital | | | + + + + + + | (no date) | ROSUVASTATIN | [facility] | (no reaction) | (no severity) | | | | [facility] | | | + + + + + + | (no date) | Meperidine | [facility] | (no reaction) | (no severity) | | | | Tone | | | | | | Hospital | | | + + + + + + | (no date) | meperidine | [facility] | (no reaction) | (no severity) | + + + + + + Encounters No information. Functional Status No information. Immunizations + + + + | date | description | facility | + + + + | 2017-10-31 00:00 | Tdap | [facility] | + + + + | 2015-04-07 00:00 | prevnar 13 | [facility] | + + + + | 2013-03-26 00:00 | Influenza | [facility] | + + + + | 2014-03-08 00:00 | Influenza | [facility] | + + + + | 2015-04-07 00:00 | Influenza | [facility] | + + + + [...] + | 2020-04-04 00:00 | Influenza | [facility] | + + + + | 2021-03-21 00:00 | Influenza | [facility] | + + + + | 2016-06-11 00:00 | Pneumococcal | [facility] | + + + + Medications + + + + | date | description | facility | + + + + | 2021-07-07 00:00 | Susan EsparzaPen 100 | [facility] | | | units/mL | | + + + + | 2021-05-08 00:00 | Eliquis 5 mg | [facility] | + + + + | 2021-07-07 00:00 | Flomax 0.4 mg | [facility] | + + + + | 2021-07-07 00:00 | Patti Delgado 300 | [facility] | | | units/mL | | + + + + | 2021-07-07 00:00 | fluticasone nasal 50 | [facility] | | | mcg/inh | | + + + + | 2021-07-07 00:00 | furosemide 20 mg | [facility] | + + + + | 2021-07-07 00:00 | amoxicillin 500 mg | [facility] | + + + + | 2021-07-07 00:00 | DULoxetine 30 mg | [facility] | + + + + | 2015-06-08 00:00 | Valium 5 mg | [facility] | + + + + 2021-07-07 00:00 | trazodone 50 mg | [facility] | + + + + | 2020-12-06 00:00 | Farxiga 10 mg | [facility] | + + + + | 2021-07-07 00:00 | levothyroxine 112 mcg | [facility] | | | (0.112 mg) | | + + + + | 2021-07-07 00:00 | Metoprolol Succinate ER | [facility] | | | 100 mg | | + + + + | 2021-07-07 00:00 | acetaminophen-hydrocodone | [facility] | | | 325 mg-5 mg | | + + + + | 2021-07-07 00:00 | aspirin 81 mg | [facility] | + + + + | 2021-07-07 00:00 | omeprazole 20 mg | [facility] | + + + + | 2015-06-08 00:00 | diazepam 5 MG Oral Tablet | [facility] | | | [Valium] | | + + + + | 2017-01-08 00:00 | Levothyroxine Sodium 50 | [facility] | | | MCG OR TABS | | + + + + | 2017-04-09 00:00 | Levothyroxine Sodium 75 | [facility] | | | MCG OR TABS | | + + + + | 2017-09-03 00:00 | Levothyroxine Sodium 100 | [facility] | | | MCG OR TABS | | + + + + | 2018-02-18 00:00 | Levothyroxine Sodium 100 | [facility] | | | MCG OR TABS | | + + + + | 2023-02-11 00:00 | APIXABAN | [facility] | + + + + | 2021-05-08 00:00 | apixaban 5 MG Oral Tablet | [facility] | | | [Eliquis] | | + + + + | 2016-12-04 00:00 | Kionex 15 GM/60ML OR SUSP | [facility] | | | | | + + + + | 2023-02-11 00:00 | DAPAGLIFLOZIN PROPANEDIOL | [facility] | + + + + | 2020-12-06 00:00 | dapagliflozin 10 MG Oral | [facility] | | | Tablet [Farxiga] | | + + + + | 2019-02-26 00:00 | 1.5 ML insulin glargine | [facility] | | | 300 UNT/ML Pen Injector | | | | [Toujeo] | | + + + + | 2021-07-07 00:00 | 1.5 ML insulin glargine | [facility] | | | 300 UNT/ML Pen Injector | | | | [Toujeo] | | + + + + | 2023-02-11 00:00 | INSULIN | [facility] | | | HUM. SUMEETRECURSULALOG | | + + + + | 2017-01-22 00:00 | 3 ML insulin lispro 100 | [facility] | | | UNT/ML Pen Injector | | | | [Humalog] | | + + + + | 2018-02-04 00:00 | 3 ML insulin lispro 100 | [facility] | | | UNT/ML Pen Injector | | | | [Humalog] | | + + + + | 2018-08-12 00:00 | 3 ML insulin lispro 100 | [facility] | | | UNT/ML Pen Injector | | | | [Humalog] | | + + + + | 2019-02-26 00:00 | 3 ML insulin lispro 100 | [facility] | | | UNT/ML Pen Injector | | | | [Humalog] | | + + + + | 2021-07-07 00:00 | 3 ML insulin lispro 100 | [facility] | | | UNT/ML Pen Injector | | | | [Humalog] | | + + + + | 2023-02-11 00:00 | INSULIN LISPRO | [facility] | + + + + | 2018-02-07 00:00 | 3 ML insulin aspart, human | [facility] | | | 100 UNT/ML Pen Injector | | | | [NovoLog] | | + + + + | 2021-07-07 00:00 | fluticasone propionate | [facility] | | | 0.05 MG/ACTUAT Metered Dose | | | | Nasal [place] | | + + + + | 2017-01-22 00:00 | HumaLOG KwikPen 100 | [facility] | | | UNIT/ML SC SOPN | | + + + + | 2018-02-04 00:00 | HumaLOG KwikPen 100 | [facility] | | | UNIT/ML SC SOPN | | + + + + | 2018-08-12 00:00 | HumaLOG KwikPen 100 | [facility] | | | UNIT/ML SC SOPN | | + + + + | 2019-02-26 00:00 | Susan EsparzaPen 100UNIT/ML | [facility] | | | Subcutaneous Solution | | | | Pen-injector | | + + + + | 2018-02-07 00:00 | NovoLOG FlexPen 100 | [facility] | | | UNIT/ML SC SOPN | | + + + + | 2019-02-26 00:00 | Alley PalaciosoStar 100UNIT/ML | [facility] | | | Subcutaneous Solution | | | | Pen-injector | | + + + + | 2019-02-26 00:00 | Patti PalaciosoStar 300UNIT/ML | [facility] | | | Subcutaneous Solution | | | | Pen-injector | | + + + + | 2016-10-29 00:00 | amlodipine 5 MG Oral | [facility] | | | Tablet | | + + + + | 2017-04-10 00:00 | amlodipine 5 MG Oral | [facility] | | | Tablet | | + + + + | 2017-09-30 00:00 | amlodipine 5 MG Oral | [facility] | | | Tablet | | + + + + | 2018-10-09 00:00 | amlodipine 5 MG Oral | [facility] | | | Tablet | | + + + + | 2021-03-21 00:00 | amlodipine 5 MG Oral | [facility] | | | Tablet | | + + + + | 2019-02-26 00:00 | diazepam 10 MG Oral Tablet | [facility] | | | | | + + + + | 2023-02-11 00:00 | DIAZEPAM | [facility] | + + + + | 2023-02-11 00:00 | OMEPRAZOLE | [facility] | + + + + | 2021-07-07 00:00 | omeprazole 20 MG Delayed | [facility] | | | Release Oral Capsule | | + + + + | 2021-07-07 00:00 | ondansetron 4 MG Oral | [facility] | | | Tablet | | + + + + | 2023-02-11 00:00 | TORSEMIDE | [facility] | + + + + | 2018-02-18 00:00 | FreeStyle Dao Sensor | [facility] | | | System MISC | | + + + + | 2018-07-08 00:00 | FreeStyle Dao Sensor | [facility] | | | System MISC | | + + + + | 2018-02-20 00:00 | FreeStyle Dao Potosi | [facility] | | | [place] | | + + + + | 2018-07-08 00:00 | Nicolas Dao Potosi | [facility] | | | [place] | | + + + + | 2019-02-26 00:00 | traZODone HCl 100MG Oral | [facility] | | | Tablet | | + + + + | 2019-02-26 00:00 | Warfarin Sodium 7.5MG Oral | [facility] | | | Tablet | | + + + + | 2019-02-26 00:00 | amLODIPine Besylate 2.5MG | [facility] | | | Oral Tablet | | + + + + | 2016-10-29 00:00 | amLODIPine Besylate 5 MG | [facility] | | | OR TABS | | + + + + | 2017-04-10 00:00 | amLODIPine Besylate 5 MG | [facility] | | | OR TABS | | + + + + | 2017-09-30 00:00 | amLODIPine Besylate 5 MG | [facility] | | | OR TABS | | + + + + | 2018-10-09 00:00 | amLODIPine Besylate 5 MG | [facility] | | | OR TABS | | + + + + | 2017-05-21 00:00 | Levothyroxine Sodium 88 | [facility] | | | MCG OR TABS | | + + + + | 2019-02-26 00:00 | Pravastatin Sodium 10MG | [facility] | | | Oral Tablet | | + + + + | 2017-11-04 00:00 | Pravastatin Sodium 40 MG | [facility] | | | OR TABS | | + + + + | 2023-02-11 00:00 | AMLODIPINE BESYLATE | [facility] | + + + + | 2019-02-26 00:00 | amlodipine 2.5 MG Oral | [facility] | | | Tablet | | + + + + | 2021-07-07 00:00 | amoxicillin 500 MG Oral | [facility] | | | Capsule | | + + + + | 2021-07-07 00:00 | aspirin 81 MG Delayed | [facility] | | | Release Oral Tablet | | + + + + | 2021-07-07 00:00 | furosemide 20 MG Oral | [facility] | | | Tablet | | + + + + | 2017-09-03 00:00 | glucagon (rDNA) 1 MG | [facility] | | | Injection | | + + + + | 2019-04-07 00:00 | glucagon (rDNA) 1 MG | [facility] | | | Injection | | + + + + | 2019-02-26 00:00 | 24 HR isosorbide | [facility] | | | mononitrate 30 MG Extended | | | | Release Oral Tablet | | + + + + | 2019-02-26 00:00 | Losartan Potassium 100MG | [facility] | | | Oral Tablet | | + + + + | 2017-01-22 00:00 | BD Pen Needle Short U/F | [facility] | | | 31G X 8 MM MISC | | + + + + | 2019-11-05 00:00 | BD Pen Needle Short U/F | [facility] | | | 31G X 8 MM Miscellaneous | | + + + + | 2019-02-26 00:00 | Isosorbide Mononitrate ER | [facility] | | | 30MG Oral Tablet Extended | | | | Release 24 Hour | | + + + + | 2021-07-07 00:00 | Jordan SCHAFFER CF free 90 | [facility] | | | mcg/inh | | + + + + | 2023-02-11 00:00 | DULOXETINE HCL | [facility] | + + + + | 2019-02-26 00:00 | duloxetine 30 MG Delayed | [facility] | | | Release Oral Capsule | | + + + + | 2021-07-07 00:00 | duloxetine 30 MG Delayed | [facility] | | | Release Oral Capsule | | + + + + | 2017-09-03 00:00 | Glucagon Emergency 1 MG IJ | [facility] | | | KIT | | + + + + | 2019-04-07 00:00 | Glucagon Emergency 1 MG IJ | [facility] | | | KIT | | + + + + | 2017-11-12 00:00 | pregabalin 100 MG Oral | [facility] | | | Capsule [Lyrica] | | + + + + | 2019-02-26 00:00 | diazePAM 10MG Oral Tablet | [facility] | | | | | + + + + | 2018-01-07 00:00 | metFORMIN HCl ER 500 MG | [facility] | | | TB24 | | + + + + | 2018-02-18 00:00 | metFORMIN HCl ER 500 MG | [facility] | | | TB24 | | + + + + | 2018-05-26 00:00 | metFORMIN HCl ER 500 MG | [facility] | | | TB24 | | + + + + | 2021-07-07 00:00 | losartan 25 mg | [facility] | + + + + | 2021-07-07 00:00 | ondansetron 4 mg | [facility] | + + + + | 2021-07-07 00:00 | pravastatin 40 mg | [facility] | + + + + | 2021-01-09 00:00 | metFORMIN 1000 mg | [facility] | + + + + | 2021-07-07 00:00 | cyclobenzaprine 10 mg | [facility] | + + + + | 2017-09-17 00:00 | Metoprolol Succinate ER | [facility] | | | 100 MG OR TB24 | | + + + + | 2019-02-26 00:00 | Metoprolol Succinate ER | [facility] | | | 100MG Oral Tablet Extended | | | | Release 24 Hour | | + + + + | 2021-07-07 00:00 | [id number] 200 ACTUAT | [facility] | | | albuterol 0.09 MG/ACTUAT | | | | Metered Dose Inhaler | | | | [ProAir] | | + + + + | 2021-03-21 00:00 | amLODIPine 5 mg | [facility] | + + + + | 2016-12-04 00:00 | sodium polystyrene | [facility] | | | sulfonate 250 MG/ML Oral | | | | Suspension [Kionex] | | + + + + | 2023-02-11 00:00 | CYCLOBENZAPRINE HCL | [facility] | + + + + | 2021-10-26 00:00 | TRAMADOL HCL | [facility] | + + + + | 2019-02-26 00:00 | 3 ML insulin glargine 100 | [facility] | | | UNT/ML Pen Injector | | | | [Lantus] | | + + + + | 2019-02-26 00:00 | warfarin sodium 7.5 MG | [facility] | | | Oral Tablet | | + + + + | 2019-02-26 00:00 | trazodone hydrochloride | [facility] | | | 100 MG Oral Tablet | | + + + + | 2023-02-11 00:00 | TRAZODONE HCL | [facility] | + + + + | 2021-07-07 00:00 | acetaminophen 325 MG / | [facility] | | | hydrocodone bitartrate 5 MG | | | | Oral Tablet | | + + + + | 2023-02-11 00:00 | ALBUTEROL SULFATE | [facility] | + + + + | 2018-01-07 00:00 | 24 HR metformin | [facility] | | | hydrochloride 500 MG | | | | Extended Release Oral | | | | Tablet | | + + + + | 2018-02-18 00:00 | 24 HR metformin | [facility] | | | hydrochloride 500 MG | | | | Extended Release Oral | | | | Tablet | | + + + + | 2018-05-26 00:00 | 24 HR metformin | [facility] | | | hydrochloride 500 MG | | | | Extended Release Oral | | | | Tablet | | + + + + | 2021-01-09 00:00 | metformin hydrochloride | [facility] | | | 1000 MG Oral Tablet | | + + + + | 2023-02-11 00:00 | METFORMIN HCL | [facility] | + + + + | 2023-02-11 00:00 | TAMSULOSIN HCL | [facility] | + + + + | 2021-07-07 00:00 | tamsulosin hydrochloride | [facility] | | | 0.4 MG Oral Capsule | | | | [Flomax] | | + + + + | 2017-09-17 00:00 | 24 HR metoprolol succinate | [facility] | | | 100 MG Extended Release | | | | Oral Tablet | | + + + + | 2019-02-26 00:00 | 24 HR metoprolol succinate | [facility] | | | 100 MG Extended Release | | | | Oral Tablet | | + + + + | 2021-07-07 00:00 | 24 HR metoprolol succinate | [facility] | | | 100 MG Extended Release | | | | Oral Tablet | | + + + + | 2023-02-11 00:00 | METOPROLOL SUCCINATE | [facility] | + + + + | 2019-02-26 00:00 | DULoxetine HCl 30MG Oral | [facility] | | | Capsule Delayed Release | | | | Particles | | + + + + | 2017-09-03 00:00 | levothyroxine sodium 0.1 | [facility] | | | MG Oral Tablet | | + + + + | 2018-02-18 00:00 | levothyroxine sodium 0.1 | [facility] | | | MG Oral Tablet | | + + + + | 2023-02-11 00:00 | FLUTICASONE PROPIONATE | [facility] | + + + + | 2019-02-26 00:00 | pravastatin sodium 10 MG | [facility] | | | Oral Tablet | | + + + + | 2023-02-11 00:00 | PRAVASTATIN SODIUM | [facility] | + + + + | 2017-11-04 00:00 | pravastatin sodium 40 MG | [facility] | | | Oral Tablet | | + + + + | 2021-07-07 00:00 | pravastatin sodium 40 MG | [facility] | | | Oral Tablet | | + + + + | 2017-11-12 00:00 | Lyrica 100 MG OR CAPS | [facility] | | | | | + + + + | 2017-01-08 00:00 | levothyroxine sodium 0.05 | [facility] | | | MG Oral Tablet | | + + + + | 2017-04-09 00:00 | levothyroxine sodium 0.075 | [facility] | | | MG Oral Tablet | | + + + + | 2023-02-11 00:00 | LEVOTHYROXINE SODIUM | [facility] | + + + + | 2021-07-07 00:00 | levothyroxine sodium 0.112 | [facility] | | | MG Oral Tablet | | + + + + | 2017-05-21 00:00 | levothyroxine sodium 0.088 | [facility] | | | MG Oral Tablet | | + + + + | 2016-10-16 00:00 | hydrochlorothiazide 12.5 | [facility] | | | MG / losartan potassium 100 | | | | MG Oral Tablet | | + + + + | 2017-10-15 00:00 | hydrochlorothiazide 12.5 | [facility] | | | MG / losartan potassium 100 | | | | MG Oral Tablet | | + + + + | 2018-09-16 00:00 | hydrochlorothiazide 12.5 | [facility] | | | MG / losartan potassium 100 | | | | MG Oral Tablet | | + + + + | 2019-02-26 00:00 | losartan potassium 100 MG | [facility] | | | Oral Tablet | | + + + + | 2021-07-07 00:00 | losartan potassium 25 MG | [facility] | | | Oral Tablet | | + + + + | 2023-02-11 00:00 | LOSARTAN POTASSIUM | [facility] | + + + + | 2016-10-16 00:00 | Losartan Potassium-HCTZ | [facility] | | | 100-12.5 MG OR TABS | | + + + + | 2017-10-15 00:00 | Losartan Potassium-HCTZ | [facility] | | | 100-12.5 MG OR TABS | | + + + + | 2018-09-16 00:00 | Losartan Potassium-HCTZ | [facility] | | | 100-12.5 MG OR TABS | | + + + + | 2019-02-26 00:00 | levothyroxine Oral Tablet | [facility] | | | | | + + + + | 2019-02-26 00:00 | ASPIRIN 81mg Oral Tablet | [facility] | | | | | + + + + | 2019-02-26 00:00 | MultiVitamin Oral Tablet | [facility] | | | | | + + + + | 2019-02-26 00:00 | Omeprazole Oral Tablet | [facility] | | | | | + + + + | 2019-02-26 00:00 | Cyclobenzaprine Oral | [facility] | | | Tablet | | + + + + Problems + + + + | date | description | facility | + + + + | (no date) | Acute diastolic | [facility] - | | | (congestive) heart failure | [place] | + + + + | 2015-04-07 00:00 | Diabetic renal disease | [facility] | + + + + | 2015-04-07 00:00 | Insomnia | [facility] | + + + + | 2015-04-07 00:00 | Hyperglycemia due to type | [facility] | | | 2 diabetes mellitus | | + + + + | 2015-04-07 00:00 | Chronic kidney disease | [facility] | | | stage 3 | | + + + + | 2015-04-07 00:00 | Essential hypertension | [facility] | + + + + | 2015-04-07 00:00 | 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[facility] | | | 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 | | | | diabetes mellitus | | + + + + | 2015-04-07 00:00 | 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 | | + + + + | 2015-04-07 00:00 | 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 | | | | edema | | + + + + | 2015-04-07 00:00 | Type 2 diabetes mellitus | [facility] | | | with hyperglycemia | | + + + + | 2015-04-07 00:00 | Mixed hyperlipidemia | [facility] | + + + + | 2015-04-07 00:00 | Insomnia, unspecified | [facility] | + + + + | 2015-04-07 00:00 | Essential (primary) | [facility] | | | hypertension | | + + + + | 2015-04-07 00:00 | Chronic kidney disease, | [facility] | | | stage 3 (moderate) | | + + + + | 2015-04-27 00:00 | History of pulmonary | [facility] | | | embolus | | + + + + | 2015-04-27 00:00 | History of | [facility] | | | thrombophlebitis | | + + + + | 2015-04-27 00:00 | Personal history of | [facility] | | | pulmonary embolism | | + + + + | 2015-04-27 00:00 | Personal history of | [facility] | | | thrombophlebitis | | + + + + | 2015-05-17 00:00 | Spasm | [facility] | + + + + | 2015-05-17 00:00 | 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 | | | | pectoris | | + + + + | 2015-05-17 00:00 | Cramp and spasm | [facility] | + + + + | 2015-06-01 00:00 | Chest pain | [facility] | + + + + | 2015-06-01 00:00 | Tachycardia | [facility] | + + + + | 2015-06-01 00:00 | Tachycardia, unspecified | [facility] | + + + + | 2015-06-01 00:00 | Other chest pain | [facility] | + + + + | 2015-08-01 00:00 | Polyneuropathy due to type | [facility] | | | 2 diabetes mellitus | | + + + + | 2015-08-01 00:00 | Type 2 diabetes mellitus | [facility] | | | with diabetic | | | | polyneuropathy | | + + + + | 2015-10-04 00:00 | DM II UNCONTROLLED | [facility] | | | | | + + + + | 2015-10-04 00:00 | Atrial Fibrillation | [facility] | | | | | + + + + | 2015-10-04 00:00 | Coronary Artery Disease | [facility] | | | | | + + + + | 2015-10-04 00:00 | HTN BENIGN | [facility] | | | | | + + + + | 2015-10-04 00:00 | Diabetes mellitus type 2 | [facility] | | | (disorder) | | + + + + | 2015-10-04 00:00 | Atrial fibrillation | [facility] | | | (disorder) | | + + + + | 2015-10-04 00:00 | Right and left (qualifier | [facility] | | | value) | | + + + + | 2015-10-04 00:00 | Coronary arteriosclerosis | [facility] | | | (disorder) | | + + + + | 2015-10-04 00:00 | Carpal tunnel syndrome | [facility] | | | (disorder) | | + + + + | 2015-10-04 00:00 | Essential hypertension | [facility] | | | (disorder) | | + + + + | 2015-10-04 00:00 | Diabetes Mellitus Type 2 | [facility] | | | | | + + + + | 2015-10-04 00:00 | Carpal Tunnel Syndrome | [facility] | | | Bilateral | | + + + + | 2015-10-04 00:00 | Essential Hypertension | [facility] 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 | | + + + + | 2016-10-17 00:00 | Pityriasis rosea | [facility] | + + + + | 2016-10-26 00:00 | Eruption of skin | [facility] | + + + + | 2016-10-26 00:00 | Rash and other nonspecific | [facility] | | | skin eruption | | + + + + | 2016-12-04 00:00 | Hyperkalemia | [facility] | + + + + | 2016-12-12 00:00 | Chronic atrial | [facility] | | | fibrillation | | + + + + | 2017-01-08 00:00 | [facility]othy[facility] | [facility] | | | (disorder) | | + + + + | 2017-01-08 00:00 | H[facility]HYROIDISM | [facility] | | | | | + + + + | 2017-01-08 00:00 | [facility] | | | | + + + + | 2017-02-06 00:00 | Obstructive sleep apnea | [facility] | | | syndrome | | + + + + | 2017-02-06 00:00 | Obstructive sleep apnea | [facility] | | | (adult) (pediatric) | | + + + + | 2017-09-24 00:00 | Cramp in lower leg | [facility] | | | associated with rest | | + + + + | 2017-09-24 00:00 | Sleep related leg cramps | [facility] | + + + + | 2017-12-18 00:00 | Diabetic renal disease | [facility] | + + + + | 2017-12-18 00:00 | Meralgia paresthetica | [facility] | + + + + | 2017-12-18 00:00 | Type 2 diabetes mellitus | [facility] | | | with other diabetic kidney | | | | complication | | + + + + | 2017-12-18 00:00 | Meralgia paresthetica, | [facility] | | | bilateral lower limbs | | + + + + | 2017-12-19 00:00 | Lumbosacral spondylosis | [facility] | | | without myelopathy | | + + + + | 2017-12-19 00:00 | Other spondylosis, | [facility] | | | lumbosacral region | | + + + + | 2018-07-08 00:00 | Diabetes Mellitus Type 1 | [facility] | | | | | + + + + | 2018-07-08 00:00 | Diabetes mellitus type 1 | [facility] | | | (disorder) | | + + + + | 2018-10-21 00:00 | Hypothyroidism | [facility] | + + + + | 2018-10-21 00:00 | Other specified | [facility] | | | hypothyroidism | | + + + + | 2019-01-13 00:00 | History of polyp of colon | [facility] | + + + + | 2019-01-13 00:00 | Personal history of | [facility] | | | colonic polyps | | + + + + | 2019-07-16 00:00 | Diabetic renal disease | [facility] | + + + + | 2019-07-16 00:00 | 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 | | | | diabetes mellitus | | + + + + | 2019-07-16 00:00 | Type 2 diabetes mellitus | [facility] | | | with diabetic chronic | | | | kidney disease | | + + + + | 2019-07-16 00:00 | Type 2 diabetes mellitus | [facility] | | | with mild nonproliferative | | | | diabetic retinopathy with | | | | macular edema, bilateral | | + + + + | 2019-07-16 08:44:05 | Other specified | [facility] - | | | hypothyroidism | [facility] | + + + + | 2019-07-16 08:44:05 | Type 2 diabetes mellitus | [facility] - | | | with diabetic chronic | [facility] | | | kidney disease | | + + + + | 2019-07-16 08:44:05 | Type 2 diabetes mellitus | [facility] - | | | with mild nonproliferative | [facility] | | | diabetic retinopathy with | | | | macular edema, bilateral | | + + + + | 2019-07-16 08:44:05 | Type 2 diabetes mellitus | [facility] - | | | with hyperglycemia | [facility] | + + + + | 2019-07-16 08:44:05 | Essential (primary) | [facility] - | | | hypertension | [facility] | + + + + | 2019-07-20 09:05:58 | Radial styloid | [facility] - | | | tenosynovitis (de quervain) | [facility] | | | | | + + + + | 2019-07-27 09:16:16 | Encounter for other | [facility] - | | | specified special | [facility] | | | examinations | | + + + + | 2019-08-10 08:44:42 | Other pulmonary embolism | [facility] - | | | without acute cor pulmonale | [facility] | | | | | + + + + | 2019-08-10 08:44:42 | Unspecified atrial | [facility] - | | | fibrillation | [facility] | + + + + | 2019-08-10 08:44:42 | Acute embolism and | [facility] - | | | thrombosis of unspecified | [place] | | | vein | | + + + + | 2019-08-10 08:44:42 | Encounter for therapeutic | [facility] - | | | drug level monitoring | [place] | + + + + | 2019-08-10 08:44:42 | 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 | [facility] - | | | 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 | [facility] | + + + + | 2019-08-15 09:06 | Wrist Pain | [facility] - | | | | [facility] | + + + + | 2019-08-15 11:12:57 | Wrist Pain | [facility] - | | | | [facility] | + + + + | 2019-08-15 11:12:57 | Hyperkalemia | [facility] - | | | | [place] | + + + + | 2019-08-15 11:12:57 | Cellulitis of right upper | [facility] - | | | limb | [place] | + + + + | 2019-08-15 11:12:57 | Acute kidney failure, | [facility] - | | | unspecified | [place] | + + + + | 2019-08-24 08:28:31 | Other pulmonary embolism | [facility] - | | | without acute cor pulmonale | [facility] | | | | | + + + + | 2019-08-24 08:28:31 | Unspecified atrial | [facility] - | | | fibrillation | [facility] | + + + + | 2019-08-24 08:28:31 | Acute embolism and | [facility] - | | | thrombosis of unspecified | [facility] | | | vein | | + + + + | 2019-08-24 08:28:31 | Encounter for therapeutic | [facility] - | | | drug level monitoring | [place] | + + + + | 2019-08-24 08:28:31 | 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 - | | | thrombosis of unspecified | [facility] | | | vein | | + + + + | 2019-09-21 08:12:15 | Encounter for therapeutic | [facility] - | | | drug level monitoring | [place] | + + + + | 2019-09-21 08:12:15 | FCI (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 of | [facility] - | | | 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 | [facility] | + + + + | 2019-11-09 08:18:40 | Other pulmonary embolism | [facility] - | | | without acute cor pulmonale | [place] | | | | | + + + + | 2019-11-09 08:18:40 | Unspecified atrial | [facility] - | | | fibrillation | [facility] | + + + + | 2019-11-09 08:18:40 | Acute embolism and | [facility] - | | | thrombosis of unspecified | [facility] | | | vein | | + + + + | 2019-11-09 08:18:40 | Encounter for therapeutic | [facility] - | | | drug level monitoring | [place] | + + + + | 2019-11-09 08:18:40 | 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 | [facility] - | | | 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 | [place] | + + + + | 2019-12-11 00:00 | Diastolic heart failure | [facility] | + + + + | 2019-12-11 00:00 | Unspecified diastolic | [facility] | | | (congestive) heart failure | | + + + + | 2019-12-11 14:25:01 | Type 2 diabetes mellitus | [facility] - | | | with hyperglycemia | [place] | + + + + | 2019-12-11 14:25:01 | Essential (primary) | [facility] - | | | hypertension | [facility] | + + + + | 2019-12-11 14:25:01 | Unspecified diastolic | [facility] - | | | (congestive) heart failure | [place] | + + + + | 2019-12-11 14:25:01 | Chronic kidney disease, | [facility] - | | | stage 3 (moderate) | [facility] | + + + + | 2019-12-12 00:00 | Acute diastolic heart | [facility] | | | failure | | + + + + | 2019-12-12 00:00 | Acute diastolic | [facility] | | | (congestive) heart failure | | + + + + | 2019-12-21 07:35:52 | Other proteinuria | [facility] - | | | | [place] | + + + + | 2019-12-21 07:41:32 | Other pulmonary embolism | [facility] - | | | without acute cor pulmonale | [place] | | | | | + + + + | 2019-12-21 07:41:32 | Unspecified atrial | [facility] - | | | fibrillation | [facility] | + + + + | 2019-12-21 07:41:32 | Acute embolism and | [facility] - | | | thrombosis of unspecified | [place] | | | vein | | + + + + | 2019-12-21 07:41:32 | Encounter for therapeutic | [facility] - | | | drug level monitoring | [facility] | + + + + | 2019-12-21 07:41:32 | FCI (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 of | [facility] - | | | 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 | [facility] | + + + + | 2019-12-22 10:05:25 | Acute diastolic | [facility] - | | | (congestive) heart failure | [place] | + + + + | 2020-02-01 10:56:27 | Chronic kidney disease, | [facility] - | | | stage 3 (moderate) | [facility] | + + + + | 2020-03-29 08:49:05 | Other pulmonary embolism | [facility] - | | | without acute cor pulmonale | [facility] | | | | | + + + + | 2020-03-29 08:49:05 | Paroxysmal atrial | [facility] - | | | fibrillation | [facility] | + + + + | 2020-03-29 08:49:05 | Acute embolism and | [facility] - | | | thrombosis of unspecified | [place] | | | deep veins of right lower | | | | extremity | | + + + + | 2020-03-29 08:49:05 | Encounter for therapeutic | [facility] - | | | drug level monitoring | [place] | + + + + | 2020-03-29 08:49:05 | FCI (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 of | [facility] - | | | 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 | [place] | + + + + | 2020-04-04 00:00 | Long-term current use of | [facility] | | | insulin | | + + + + | 2020-04-04 00:00 | FCI (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 of | [facility] | | | insulin | | + + + + | 2020-04-04 14:07:44 | 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 | [place] | + + + + | 2020-04-04 14:07:44 | Type 2 diabetes mellitus | [facility] - | | | with diabetic | [facility] | | | polyneuropathy | | + + + + | 2020-04-04 14:07:44 | Mixed hyperlipidemia | [facility] - | | | | [place] | + + + + | 2020-04-07 09:22:04 | Isolated proteinuria | [facility] - | | | | [facility] | + + + + | 2020-04-07 09:22:04 | Other proteinuria | [facility] - | | | | [facility] | + + + + | 2020-04-07 11:05:25 | Other proteinuria | [facility] - | | | | [place] | + + + + | 2020-05-10 09:12:55 | Other pulmonary embolism | [facility] - | | | without acute cor pulmonale | [place] | | | | | + + + + | 2020-05-10 09:12:55 | Paroxysmal atrial | [facility] - | | | fibrillation | [facility] | + + + + | 2020-05-10 09:12:55 | Acute embolism and | [facility] [employer] [facility] - | | | thrombosis of unspecified | [facility] | | | deep veins of right lower | | | | extremity | | + + + + | 2020-05-10 09:12:55 | Encounter for therapeutic | [facility] - | | | drug level monitoring | [facility] | + + + + | 2020-05-10 09:12:55 | FCI (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 of | [facility] - | | | 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 | [place] | + + + + | 2020-05-24 09:03:04 | Other pulmonary embolism | [facility] - | | | without acute cor pulmonale | [facility] | | | | | + + + + | 2020-05-24 09:03:04 | Paroxysmal atrial | [facility] - | | | fibrillation | [facility] | + + + + | 2020-05-24 09:03:04 | Acute embolism and | [facility] - | | | thrombosis of unspecified | [facility] | | | deep veins of right lower | | | | extremity | | + + + + | 2020-05-24 09:03:04 | Encounter for therapeutic | [facility] - | | | drug level monitoring | [facility] | + + + + | 2020-05-24 09:03:04 | 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 | [facility] - | | | 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 | [place] | + + + + | 2020-06-07 10:22:25 | Other pulmonary embolism | [facility] - | | | without acute cor pulmonale | [place] | | | | | + + + + | 2020-06-07 10:22:25 | Paroxysmal atrial | [facility] - | | | fibrillation | [facility] | + + + + | 2020-06-07 10:22:25 | Acute embolism and | [facility] [employer] [facility] - | | | thrombosis of unspecified | [place] | | | deep veins of right lower | | | | extremity | | + + + + | 2020-06-07 10:22:25 | Encounter for therapeutic | [facility] - | | | drug level monitoring | [place] | + + + + | 2020-06-07 10:22:25 | 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 | [facility] [employer] - | | | 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 | [facility] | + + + + | 2020-06-28 10:23:54 | Other pulmonary embolism | [facility] - | | | without acute cor pulmonale | [facility] | | | | | + + + + | 2020-06-28 10:23:54 | Paroxysmal atrial | [facility] - | | | fibrillation | [facility] | + + + + | 2020-06-28 10:23:54 | Acute embolism and | [facility] - | | | thrombosis of unspecified | [place] | | | deep veins of right lower | | | | extremity | | + + + + | 2020-06-28 10:23:54 | Encounter for therapeutic | [facility] - | | | drug level monitoring | [place] | + + + + | 2020-06-28 10:23:54 | 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 | [facility] - | | | 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 | [place] | + + + + | 2020-08-02 09:52:07 | Other pulmonary embolism | [facility] - | | | without acute cor pulmonale | [facility] | | | | | + + + + | 2020-08-02 09:52:07 | Paroxysmal atrial | [facility] - | | | fibrillation | [facility] | + + + + | 2020-08-02 09:52:07 | Acute embolism and | [facility] - | | | thrombosis of unspecified | [facility] | | | deep veins of right lower | | | | extremity | | + + + + | 2020-08-02 09:52:07 | Encounter for therapeutic | [facility] - | | | drug level monitoring | [facility] | + + + + | 2020-08-02 09:52:07 | FCI (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 of | [facility] - | | | 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 | [facility] | + + + + | 2020-08-11 11:33:25 | Type 2 diabetes mellitus | [facility] [employer] [facility] - | | | with diabetic nephropathy | [facility] | + + + + | 2020-08-11 11:33:25 | Type 2 diabetes mellitus | [facility] [employer] [facility] - | | | with diabetic | [facility] | | | polyneuropathy | | + + + + | 2020-08-11 11:33:25 | Type 2 diabetes mellitus | [facility] - | | | with hyperglycemia | [place] | + + + + | 2020-08-15 00:00 | Sciatica | [facility] | + + + + | 2020-08-15 00:00 | Lumbago with sciatica, | [facility] | | | right side | | + + + + | 2020-09-13 09:49:40 | Other pulmonary embolism | [facility] - | | | without acute cor pulmonale | [place] | | | | | + + + + | 2020-09-13 09:49:40 | Paroxysmal atrial | [facility] - | | | fibrillation | [facility] | + + + + | 2020-09-13 09:49:40 | Acute embolism and | [facility] - | | | thrombosis of unspecified | [facility] | | | deep veins of right lower | | | | extremity | | + + + + | 2020-09-13 09:49:40 | Encounter for therapeutic | [facility] - | | | drug level monitoring | [facility] | + + + + | 2020-09-13 09:49:40 | FCI (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 of | [facility] [employer] [facility] - | | | 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 | [facility] | + + + + | 2020-09-15 13:26:36 | Other specified | [facility] - | | | hypothyroidism | [facility] | + + + + | 2020-09-15 13:26:36 | Type 2 diabetes mellitus | [facility] - | | | with other diabetic kidney | [place] | | | complication | | + + + + | 2020-09-30 07:55:06 | Other pulmonary embolism | [facility] - | | | without acute cor pulmonale | [place] | | | | | + + + + | 2020-09-30 07:55:06 | Paroxysmal atrial | [facility] - | | | fibrillation | [place] | + + + + | 2020-09-30 07:55:06 | Acute embolism and | [facility] - | | | thrombosis of unspecified | [place] | | | vein | | + + + + | 2020-10-01 10:11:38 | Encounter for screening | [facility] - | | | for other viral diseases | [facility] | + + + + | 2020-10-03 14:16:53 | 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 - | | | without acute cor pulmonale | [facility] | | | | | + + + + | 2020-10-11 14:05:31 | Unspecified atrial | [facility] - | | | fibrillation | [place] | + + + + | 2020-10-11 14:05:31 | Acute embolism and | 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 | [facility] - | | | 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 | [facility] | + + + + | 2020-11-08 08:53:51 | Other pulmonary embolism | [facility] - | | | without acute cor pulmonale | [place] | | | | | + + + + | 2020-11-08 08:53:51 | Unspecified atrial | [facility] - | | | fibrillation | [place] | + + + + | 2020-11-08 08:53:51 | Acute embolism and | [facility] - | | | thrombosis of unspecified | [place] | | | deep veins of unspecified | | | | proximal lower extremity | | + + + + | 2020-11-08 08:53:51 | Encounter for therapeutic | [facility] - | | | drug level monitoring | [facility] | + + + + | 2020-11-08 08:53:51 | FCI (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 of | [facility] - | | | 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 | [facility] | + + + + | 2020-11-30 11:40:54 | Type 2 diabetes mellitus | [facility] - | | | with diabetic chronic | [place] | | | kidney disease | | + + + + | 2020-11-30 11:40:54 | Mixed hyperlipidemia | [facility] - | | | | [place] | + + + + | 2020-12-12 08:43:18 | Other pulmonary embolism | [facility] - | | | without acute cor pulmonale | [facility] | | | | | + + + + | 2020-12-12 08:43:18 | Paroxysmal atrial | [facility] - | | | fibrillation | [facility] | + + + + | 2020-12-12 08:43:18 | Acute embolism and | [facility] - | | | thrombosis of unspecified | [place] | | | deep veins of right lower | | | | extremity | | + + + + | 2020-12-12 08:43:18 | Encounter for therapeutic | [facility] - | | | drug level monitoring | [place] | + + + + | 2020-12-12 08:43:18 | 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 | [facility] - | | | 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 | [facility] | + + + + | 2021-01-09 08:49:42 | Other pulmonary embolism | [facility] - | | | without acute cor pulmonale | [facility] | | | | | + + + + | 2021-01-09 08:49:42 | Paroxysmal atrial | [facility] - | | | fibrillation | [facility] | + + + + | 2021-01-09 08:49:42 | Acute embolism and | [facility] - | | | thrombosis of unspecified | [place] | | | deep veins of right lower | | | | extremity | | + + + + | 2021-01-09 08:49:42 | Encounter for therapeutic | [facility] - | | | drug level monitoring | [place] | + + + + | 2021-01-09 08:49:42 | 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 | [facility] - | | | 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 | [facility] | + + + + | 2021-01-26 09:11:42 | FYI | [facility] | | | | Care | + + + + | 2021-02-20 09:15:49 | Other pulmonary embolism | [facility] - | | | without acute cor pulmonale | [facility] | | | | | + + + + | 2021-02-20 09:15:49 | Paroxysmal atrial | [facility] - | | | fibrillation | [place] | + + + + | 2021-02-20 09:15:49 | Acute embolism and | [facility] - | | | thrombosis of unspecified | [place] | | | deep veins of right lower | | | | extremity | | + + + + | 2021-02-20 09:15:49 | Encounter for therapeutic | [facility] - | | | drug level monitoring | [place] | + + + + | 2021-02-20 09:15:49 | FCI (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 of | [facility] - | | | 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 | [place] | + + + + | 2021-03-20 09:01:08 | Other pulmonary embolism | [facility] - | | | without acute cor pulmonale | [place] | | | | | + + + + | 2021-03-20 09:01:08 | Paroxysmal atrial | [facility] - | | | fibrillation | [place] | + + + + | 2021-03-20 09:01:08 | Acute embolism and | [facility] - | | | thrombosis of unspecified | [place] | | | deep veins of right lower | | | | extremity | | + + + + | 2021-03-20 09:01:08 | Encounter for therapeutic | [facility] - | | | drug level monitoring | [place] | + + + + | 2021-03-20 09:01:08 | 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 - | | | 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 | [place] | + + + + | 2021-05-01 09:14:56 | Other pulmonary embolism | [facility] - | | | without acute cor pulmonale | [place] | | | | | + + + + | 2021-05-01 09:14:56 | Paroxysmal atrial | [facility] - | | | fibrillation | [place] | + + + + | 2021-05-01 09:14:56 | Acute embolism and | [facility] - | | | thrombosis of unspecified | [facility] | | | deep veins of right lower | | | | extremity | | + + + + | 2021-05-01 09:14:56 | Encounter for therapeutic | [facility] - | | | drug level monitoring | [place] | + + + + | 2021-05-01 09:14:56 | FCI (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 of | [facility] - | | | 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 | [place] | + + + + | 2021-05-02 10:02:34 | Type 2 diabetes mellitus | [facility] | | | with diabetic chronic | Care | | | kidney disease | | + + + + | 2021-05-02 10:02:34 | Hypertensive chronic kidney | [facility] | | | disease with stage 1 | Care | | | through stage 4 chronic | | | | kidney disease, or | | | | unspecified chronic kidney | | | | disease | | + + + + | 2021-05-02 10:02:34 | Chronic kidney disease, | [facility] | | | stage 3 unspecified | [facility] | + + + + | 2021-05-02 10:02:34 | Chronic kidney disease, | [facility] | | | stage 3b | Care | + + + + | 2021-05-02 10:02:34 | 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 | [facility] | | | insulin | Care | + + + + | 2021-05-02 10:25:30 | Type 2 diabetes mellitus | [facility] | | | with diabetic chronic | Care | | | kidney disease | | + + + + | 2021-05-02 10:25:30 | Hypertensive chronic kidney | [facility] | | | disease with stage 1 | Care | | | through stage 4 chronic | | | | kidney disease, or | | | | unspecified chronic kidney | | | | disease | | + + + + | 2021-05-02 10:25:30 | [facility] kidney disease, | [facility] | | | stage 3 unspecified | Care | + + + + | 2021-05-02 10:25:30 | Chronic kidney disease, | [facility] | | | stage 3b | Care | + + + + | 2021-05-02 10:25:30 | 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 | [facility] | | | insulin | Care | + + + + | 2021-05-02 10:42:35 | Type 2 diabetes mellitus | [facility] | | | with diabetic chronic | Care | | | kidney disease | | + + + + | 2021-05-02 10:42:35 | Hypertensive chronic kidney | [facility] | | | disease with stage 1 | Care | | | through stage 4 chronic | | | | kidney disease, or | | | | unspecified chronic kidney | | | | disease | | + + + + | 2021-05-02 10:42:35 | Chronic kidney disease, | [facility] | | | stage 3 unspecified | Care | + + + + | 2021-05-02 10:42:35 | Chronic kidney disease, | [facility] | | | stage 3b | Care | + + + + | 2021-05-02 10:42:35 | [facility] (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 of | [facility] | | | insulin | Care | + + + + | 2021-05-15 02:02:54 | Chronic kidney disease, | [facility] Total | | | stage 3b | Care | + + + + | 2021-05-16 18:03:48 | Hypertensive chronic kidney | [facility] Total | | | disease with stage 1 | Care | | | through stage 4 chronic | | | | kidney disease, or | | | | unspecified chronic kidney | | | | disease | | + + + + | 2021-05-16 18:03:48 | Chronic kidney disease, | [facility] Total | | | stage 3 unspecified | Care | + + + + | 2021-10-26 00:00 | Injury of head | [facility] | + + + + | 2021-10-26 00:00 | Strain of lumbar region | [facility] | + + + + | 2021-10-26 00:00 | Contusion | [facility] | + + + + | 2021-10-26 [...] | + + + + | 2023-01-30 00:00 | Fracture of left femur | [facility] | + + + + | 2023-01-30 [...] + + + | 2023-01-30 08:43 | SPRAY[facility] (CURRENT) USE OF | [facility] | | | ANTICOAGULANTS | | + + + + | 2023-01-30 08:43 | SENIOR CARE (CURRENT) USE OF | [facility] | | | INSULIN | | + + + + | 2023-01-30 08:43 | SPRAYER HAND (CURRENT) USE OF | [facility] | | [...] BILATERAL | | + + + + | 2023-02-11 00:00 | Orthostatic hypotension | [facility] | + + + + | 2023-02-11 11:41 | TYPE 2 DIABETES MELLITUS W | [facility] | | | DIABETIC CHRONIC KIDNEY | | + + + + | 2023-02-11 11:41 | HYPERTENSIVE CHRONIC | [facility] | | | KIDNEY DISEASE W STG | | | | 1-4/UNSP | | + + + + | 2023-02-11 11:41 | ORTHOSTATIC HYPOTENSION | [facility] | + + + + | 2023-02-11 11:41 | Dizziness and giddiness | [facility] | + + + + | 2023-02-11 11:41 | SPRAY[facility] HAND (CURRENT) USE OF | [facility] | | | ANTICOAGULANTS | | + + + + | 2023-02-11 11:41 | SENIOR CARE (CURRENT) USE OF | [facility] | | | INSULIN | | + + + + | 2023-02-11 11:41 | HORMONE REPLACEMENT | [facility] | | | THERAPY | | + + + + | 2023-02-11 11:41 | OTHER SENIOR CARE (CURRENT) | [facility] | | | DRUG THERAPY | | + + + + | 2023-02-11 11:41 | ALLERGY STATUS TO OTH | [facility] | | | DRUG/MEDS/BIOL SUBST STATUS | | | | | | + + + + | 2023-02-12 15:58 | UNSP FX SHAFT OF LEFT | [facility] | | | FEMUR, SUBS FOR CLOS FX W | | | | ROUTN HEAL | | + + + + | 2023-02-12 15:58 | UNSP FX LOWER END OF L | [facility] | | | FEMUR, SUBS FOR CLOS FX W R | | | | | | + + + + Procedures [...] | | | | | | | GROUP PTracieC. | | | | + + + [...] | (missing) | | (G/DL) IN | :18:50 | | | | [...] seconds | (missing) | | (PROTHROMBIN | 09:18:50 | | | | | | TIME) | | | | | | + + +-------+--------+ + + | PT | 2019-07-27 | [facility] | 13.8 | seconds | (missing) | | (PROTHROMBIN | 09:18:50 | | | | | | TIME) [...] k/mcl | (missing) | | LEUKOCYTES(1 | 09:18:50 | | | | | | 0*3/UL) IN | | | | | | | BLOOD BY | | | | | | | AUTOMATED | | | | | | | COUNT | | | | | | + + +-------+--------+ + + | | 2019-07-27 | [facility] | 6.6 | k/mcl | (missing) | | LEUKOCYTES(1 | 09:18:50 | | | | | | 0*3/UL) [...] | | | | | | | INVESTMENT BANKING [id number] | | | + + +-------+ + [...] k/mcl | (missing) | | GRANULOCYTE | : | | | | | | (ABS) [...] % | (missing) | | BASOPHILS/10 | 11:24:28 | | | | | | 0 LEUKOCYTES | | | | | | | IN BLOOD BY | | | | | | | AUTOMATED | | | | | | | COUNT | | | | | | + + +-------+--------+---------+ + | | 2019-08-15 | [facility] | 0.4 | % | (missing) | | BASOPHILS/10 | 11:24:28 | | | | | | 0 LEUKOCYTES | | | | | | | IN BLOOD BY | | | | | | | AUTOMATED | | | | | | | COUNT | | | | | | + + +-------+--------+---------+ + | | 2019-08-15 | [facility] | 0.6 | % | (missing) | | EOSINOPHILS/ | 11::28 | | | | | | 100 [...] % | (missing) | | EOSINOPHILS/ | 11::28 | | | | | | 100 [...] | (missing) | | MEAN VOLUME | :28 | | | | | | (FL) IN | | | | | | | BLOOD BY | | | | | | | AUTOMATED | | | | | | | COUNT | | | | | | + + +-------+--------+---------+ + | PLATELET | 2019-08-15 | [facility] | 11.1 | fl | (missing) | | MEAN VOLUME | 11:24:28 | | | | | | (FL) IN | | | | | | | BLOOD BY | | | | | | | AUTOMATED | | | | | | | COUNT | | | | | | + + +-------+--------+---------+ + | | 2019-08-15 | [facility] | 12.2 | k/mcl | (missing) | | LEUKOCYTES(1 | :28 | | | | | | 0*3/UL) IN | | | | | | | BLOOD BY | | | | | | | AUTOMATED | | | | | | | COUNT | | | | | | + + +-------+--------+---------+ + | | 2019-08-15 | [facility] | 12.2 | k/mcl | (missing) | | LEUKOCYTES(1 | :24:28 | | | | | | 0*3/UL) [...] g/dl | (missing) | | MEAN | :24:28 | | | | | | CORPUSCULAR [...] (missing) | | (%) IN BLOOD | 11:24:28 | | | | | | BY | | | | | | | AUTOMATED | | | | | | | COUNT | | | | | | + + +-------+--------+---------+ + | HEMATOCRIT | 2019-08-15 | [facility] | 39.1 | % | (missing) | | (%) IN BLOOD | ::28 | | | | | | BY | | | | | | | AUTOMATED | | | | | | | COUNT | | | | | | + + +-------+--------+---------+ + | | 2019-08-15 | [facility] | 4.37 | m/mcl | (missing) | | ERYTHROCYTES | ::28 | | | | | | (10*6/UL) [...] | (missing) | | (MG/DL) IN | ::29 | | | | | | SER/PLAS [...] | (missing) | | IN SER/PLAS | :24:29 | | | | | + + +-------+--------+ + + | GLUCOSE, | 2019-08-15 | [facility] | 174 | mg/dl | (missing) | | RANDOM | 11:24:29 | | | | | | (MG/DL) IN | | | | | | | SER/PLAS | | | | | | + + +-------+--------+ + + | GLUCOSE, | 2019-08-15 | [facility] | 174 | mg/dl | (missing) | | RANDOM | 11:24:29 | | | | | | (MG/DL) IN | | | | | | | SER/PLAS | | | | | | + + +-------+--------+ + + | CARBON | 2019-08-15 | | 23 | mmol/l | (missing) | [...] mg/dl | (missing) | | NITROGEN | :29 | | | | | | (BUN) | | | | | | | (MG/DL) IN | | | | | | | SER/PLAS | | | | | | + + +-------+--------+ + + | BLOOD UREA | 2019-08-15 | [facility] | 29 | mg/dl | (missing) | | NITROGEN | :29 | | | | | | (BUN) [...] mm/hr | (missing) | | SEDIMENTATIO | | | | | | | [...] mg/dl | (missing) | | PROTEIN | | | | | | | [...] | (missing) | | (MG/DL) IN | :57:15 | | | | | | SER/PLAS | | | | | | + + +-------+--------+ + + | ANION GAP | 2020-02-01 | [facility] | 11.0 | mmol/l | (missing) | | IN SER/PLAS | :57:15 | | | | | + + +-------+--------+ + + | ANION GAP | 2020-02-01 | [facility] | 11.0 | mmol/l | (missing) | | IN SER/PLAS | :57:15 | | | | | + + [...] | (missing) | | (MG/DL) IN | :57:15 | | | | | | SER/PLAS [...] mg/dl | (missing) | | TOTAL | 14::52 | | | | | | (MG/DL) IN | | | | | | | SER/PLAS | | | | | | + + +-------+--------+ + + | LDL/HDL | 2020-04-04 | [facility] | 1.38 | :1 | (missing) | | RATIO IN | ::52 | | | | | | SER/PLAS [...] mg/dl | (missing) | | TRIGLYCERIDE | 14::52 | | | | | | (MG/DL) [...] u/l | (missing) | | AMINOTRANSFE | ::52 | | | | | | RASE (SGOT) | | | | | | | (U/L) IN | | | | | | | SER/PLAS | | | | | | + + +-------+--------+ + + | BLOOD UREA | 2020-04-04 | [facility] | 25 | mg/dl | (missing) | | NITROGEN | 14:07:52 | | | | | | (BUN) | | | | | | | (MG/DL) IN | | | | | | | SER/PLAS | | | | | | + + +-------+--------+ + + | BLOOD UREA | 2020-04-04 | [facility] | 25 | mg/dl | (missing) | | NITROGEN | 14:07:52 | | | | | | (BUN) [...] :1 | (missing) | | CHOLESTEROL/ | 14::52 | | | | | | HDL RATIO IN | | | | | | | SER | | | | | | + + +-------+--------+ + + | | 2020-04-04 | [facility] | 3.29 | :1 | (missing) | | CHOLESTEROL/ | ::52 | | | | | | HDL RATIO IN | | | | | | | SER | | | | | | + + +-------+--------+ + + | ALBUMIN | 2020-04-04 | [facility] | 4.0 | g/dl | (missing) | | (G/DL) IN | ::52 | | | | | | SER/PLAS [...] u/l | (missing) | | PHOSPHATASE | ::52 | | | | | | (U/L) IN | | | | | | | SER/PLAS | | | | | | + + +-------+--------+ + + | PROTEIN | 2020-04-04 | [facility] | 6.9 | g/dl | (missing) | | (G/DL) IN | :52 | | | | | | SER/PLAS | | | | | | + + +-------+--------+ + + | PROTEIN | 2020-04-04 | [facility] | 6.9 | g/dl | (missing) | | (G/DL) IN | :52 | | | | | | SER/PLAS | | | | | | + + +-------+--------+ + + | CHOLESTEROL | 2020-04-04 | [facility] | 62 | mg/dl | (missing) | | IN LDL | :52 | | | | | | (MG/DL) [...] | (missing) | | (MG/DL) IN | 14::52 | | | | [...] | (missing) | | (MG/DL) IN | 11:20:58 | | | | | | SER/PLAS | | | | | | + + +-------+-------+---------+ + | CREATININE | 2020-04-07 | [facility] | 1.5 | mg/dl | (missing) | | (MG/DL) IN | 11:20:58 | | | | | | SER/PLAS | | | | | | + + +-------+-------+---------+ + + + | Result panel 15 | + + + + +-------+---------+ + + | NRBC/100 | 2020-08-11 | [facility] | 0.0 | % | (missing) | | WBCS BY | :33 | | | | | | AUTOMATED [...] | (missing) | | (10*3/UL) IN | :33:33 | | | | | | BLOOD [...] | (missing) | | MEAN VOLUME | :33 | | | | | | (FL) [...] mg/dl | (missing) | | NITROGEN | :33 | | | | | | (BUN) | | | | | | | (MG/DL) IN | | | | | | | SER/PLAS | | | | | | + + +-------+---------+ + + | | 2020-08-11 | [facility] | 3.00 | :1 | (missing) | | CHOLESTEROL/ | :33 | | | | | | HDL RATIO IN | | | | | | | SER | | | | | | + + +-------+---------+ + + | | 2020-08-11 | [facility] | 3.00 | :1 | (missing) | | CHOLESTEROL/ | :33 | | | | | | HDL RATIO IN | | | | | | | SER | | | | | | + + +-------+---------+ + + | ALBUMIN | 2020-08-11 | [facility] | 3.9 | g/dl | (missing) | | (G/DL) IN | :33:33 | | | | | | SER/PLAS [...] ng/dl | (missing) | | (THYROXINE | 13:26:44 | | | | | | FREE) | | | | | | | (NG/DL) IN | | | | | | | SER/PLAS | | | | | | + + +-------+--------+ + + | T4 FREE | 2020-09-15 | [facility] | 1.27 | ng/dl | (missing) | | (THYROXINE | 13:26:44 | | | | | | FREE) | | | | | | | (NG/DL) IN | | | | | | | SER/PLAS | | | | | | + + +-------+--------+ + + | | 2020-09-15 | [facility] | 1.48 | :1 | (missing) | | ALBUMIN/GLOB | 13:26:44 | | | | | | ULIN [...] | (missing) | | (MG/DL) IN | :44 | | | | | | SER/PLAS | | | | | | + + +-------+--------+ + + | CREATININE | 2020-09-15 | [facility] | 1.8 | mg/dl | (missing) | | (MG/DL) IN | :44 | | | | | | SER/PLAS | | | | | | + + +-------+--------+ + + | ANION GAP | 2020-09-15 | [facility] | 10.0 | mmol/l | (missing) | | IN SER/PLAS | :44 | | | | | + + [...] | (missing) | | (MMOL/L) IN | ::44 | | | | | | SER/PLAS | | | | | | + + +-------+--------+ + + | TSH | 2020-09-15 | [facility] | 2.20 | mciu/ml | (missing) | | (THYROTROPIN | 13:26:44 | | | | | | ) [...] | (missing) | | (G/DL) IN | :44 | | | | | | SER/PLAS | | | | | | + + +-------+--------+ + + | ALANINE | 2020-09-15 | [facility] | 23 | u/l | (missing) | | AMINOTRANSFE | 13::44 | | | | | | RASE [...] mg/dl | (missing) | | NITROGEN | ::44 | | | | | | (BUN) | | | | | | | (MG/DL) IN | | | | | | | SER/PLAS | | | | | | + + +-------+--------+ + + | EGFR | 2020-09-15 | [facility] | 36 | | (missing) | | (GLOMERULAR | ::44 | | | ml/min/1.73m | | | FILTRATION | | | | ? | | | RATE) | | | | | | | ML/MIN/1.73 | | | | | | | SQ M. | | | | | | + + +-------+--------+ + + | EGFR | 2020-09-15 | [facility] | 36 | | (missing) | | (GLOMERULAR | ::44 | | | ml/min/1.73m | | | [...] + + + + | Result panel 21 | + + + + + +--------+ + + | | 2023-01-30 | [facility] | 13.9 | (missing) | (missing) | | (unavailable | 08:45:07 [facility] | | | | + + + +--------+ + + + + | Result panel 22 | + + + + + +--------+ + + | | 2023-01-30 | [facility] | 1.12 | (missing) | (missing) | | (unavailable | 08:45:07 [facility] | | | | + + + +--------+ + + + + | Result panel 23 | + + + + + + + + + | | 2023-01-30 | [facility] | NEGATIVE | (missing) | (missing) | | (unavailable | 09:55:07 [facility] | | | | + + + + + + + + + | Result panel 24 | + + + + + +--------+ + + | | 2023-02-11 | [facility] | 26.8 | (missing) | (missing) | | (unavailable | 11:45:07 [facility] | | | | + + + +--------+ + + + + | Result panel 25 | + + + + + +--------+ + + | | 2023-02-11 | [facility] | 31.5 | (missing) | (missing) | | (unavailable | 11:45:07 [facility] | | | | + + + +--------+ + + + + | Result panel 26 | + + + + + +--------+ + + | | 2023-02-11 | [facility] | 21.4 | (missing) | (missing) | | (unavailable | 11:45:07 [facility] | | | | + + + +--------+ + + + + | Result panel 27 | + + + + + +-------+ + + | | 2023-02-11 | [facility] | 246 | (missing) | (missing) | | (unavailable | 11:45:07 [facility] | | | | + + + +-------+ + + + + | Result panel 28 | + + + + + +--------+ + + | | 2023-02-11 | [facility] | 79.6 | (missing) | (missing) | | (unavailable | 11:45:07 [facility] | | | | + + + +--------+ + + + + | Result panel 29 | + + + + + +-------+ + + | | 2023-02-11 | [facility] | 9.5 | (missing) | (missing) | | (unavailable | 11:45:07 [facility] | | | | + + + +-------+ + + + + | Result panel 30 | + + + + + +-------+ + + | | 2023-02-11 | [facility] | 7.1 | (missing) | (missing) | | (unavailable | 11:45:07 [facility] | | | | + + + +-------+ + + + + | Result panel 31 | + + + + + +-------+ + + | | 2023-02-11 | [facility] | 2.8 | (missing) | (missing) | | (unavailable | 11:45:07 [facility] | | | | + + + +-------+ + + + + | Result panel 32 | + + + + + +-------+ + + | | 2023-02-11 | [facility] | 1.0 | (missing) | (missing) | | (unavailable | 45:07 [facility] | | | | + + + +-------+ + + + + | Result panel 33 | + + + + + +-------+---------+ + | | 2023-02-11 | [facility] | 252 | mg/dL | (missing) | | (unavailable | 1145:07 | [facility] | | | | + + + +-------+---------+ + + + | Result panel 34 | + + + + + +--------+ + + | | 2023-02-11 | [facility] | 10.3 | (missing) | (missing) | | (unavailable | 11:45:07 [facility] | | | | + + + +--------+ + + + + | Result panel 35 | + + + + + +------+---------+ + | | 2023-02-11 | [facility] | 40 | mg/dL | (missing) | | (unavailable | 11:45:07 [facility] | | | | + + + +------+---------+ + + + | Result panel 36 | + + + + + +--------+---------+ + | | 2023-02-11 | [facility] | 2.29 | mg/dL | (missing) | | (unavailable | 11:45:07 [facility] | | | | + + + +--------+---------+ + + + | Result panel 37 | + + + + + +------+ + + | | 2023-02-11 | [facility] | 29 | (missing) | (missing) | | (unavailable | :45:07 [facility] | | | | + + + +------+ + + + + | Result panel 38 | + + + + + +---------+ + + | | 2023-02-11 | [facility] | 17.46 | (missing) | (missing) | | (unavailable | 11:45:07 [facility] | | | | + + + +---------+ + + + + | Result panel 39 | + + + + + +-------+ + + | | 2023-02-11 | [facility] | 138 | (missing) | (missing) | | (unavailable | 11:45:07 [facility] | | | | + + + +-------+ + + + + | Result panel 40 | + + + + + +-------+ + + | | 2023-02-11 | [facility] | 4.6 | (missing) | (missing) | | (unavailable | 11:45:07 [facility] | | | | + + + +-------+ + + + + | Result panel 41 | + + + + + +------+ + + | | 2023-02-11 | [facility] | 99 | (missing) | (missing) | | (unavailable | 11:45:07 [facility] | | | | + + + +------+ + + + + | Result panel 42 | + + + + + +------+ + + | | 2023-02-11 | [facility] | 24 | (missing) | (missing) | | (unavailable | 11:45:07 [facility] | | | | + + + +------+ + + + + | Result panel 43 | + + + + + +--------+ + + | | 2023-02-11 | [facility] | 19.6 | (missing) | (missing) | | (unavailable | 11:45:07 [facility] | | | | + + + +--------+ + + + + | Result panel 44 | + + + + + + + + + | | 2023-02-11 | [facility] | SEE COMMENT | (missing) | (missing) | | (unavailable | 11:45:07 [facility] | | | | + + + + + + + + + | Result panel 45 | + + + + + +-------+---------+ + | | 2023-02-11 | [facility] | 9.5 | mg/dL | (missing) | | (unavailable | 11:45:07 [facility] | | | | + + + +-------+---------+ + + + | Result panel 46 | + + + + + +-------+ + + | | 2023-02-11 | [facility] | 7.0 | (missing) | (missing) | | (unavailable | 11:45:07 [facility] | | | | + + + +-------+ + + + + | Result panel 47 | + + + + + +-------+ + + | | 2023-02-11 | [facility] | 3.0 | (missing) | (missing) | | (unavailable | 11:45:07 [facility] | | | | + + + +-------+ + + + + | Result panel 48 | + + + + + +-------+ + + | | 2023-02-11 | [facility] | 4.0 | (missing) | (missing) | | (unavailable | 11:45:07 [facility] | | | | + + + +-------+ + + + + | Result panel 49 | + + + + + +--------+ + + | | 2023-02-11 | [facility] | 0.75 | (missing) | (missing) | | (unavailable | 11:45:07 [facility] | | | | + + + +--------+ + + + + | Result panel 50 | + + + + + +-------+ + + | | 2023-02-11 | [facility] | 0.4 | (missing) | (missing) | | (unavailable | 11:45:07 [facility] | | | | + + + +-------+ + + + + | Result panel 51 | + + + + + +------+ + + | | 2023-02-11 | [facility] | 24 | (missing) | (missing) | | (unavailable | 11:45:07 [facility] | | | | + + + +------+ + + + + | Result panel 52 | + + + + + +------+ + + | | 2023-02-11 | [facility] | 35 | (missing) | (missing) | | (unavailable | 11:45:07 [facility] | | | | + + + +------+ + + + + | Result panel 53 | + + + + + +------+ + + | | 2023-02-11 | [facility] | 69 | (missing) | (missing) | | (unavailable | 11:45:07 [facility] | | | | + + + +------+ + + + + | Result panel 54 | + + + + + +--------+ + + | | 2023-02-11 | [facility] | 4.00 | (missing) | (missing) | | (unavailable | 11:45:07 [facility] | | | | + + + +--------+ + + + + | Result panel 55 | + + + + + +--------+ + + | | 2023-02-11 | [facility] | 10.7 | (missing) | (missing) | | (unavailable | 11:45:07 [facility] | | | | + + + +--------+ + + + + | Result panel 56 | + + + + + +--------+ + + | | 2023-02-11 | [facility] | 34.0 | (missing) | (missing) | | (unavailable | 11:45:07 [facility] | | | | + + + +--------+ + + + + | Result panel 57 | + + + + + +--------+ + + | | 2023-02-11 | [facility] | 85.1 | (missing) | (missing) | | (unavailable | 11:45:07 [facility] | | | | + + + +--------+ + + + + | Result panel 58 | + + + + + +-------+ + + | | 2023-02-11 | [facility] | 237 | (missing) | (missing) | | (unavailable | 11:49:07 [facility] | | | | + + + +-------+ + + + + | Result panel 59 | + + + + + + + + + | | 2023-02-11 | [facility] | YELLOW | (missing) | (missing) | | (unavailable | 12:31:07 [facility] | | | | + + + + + + + + + | Result panel 60 | + + + + + +---------+ + + | | 2023-02-11 | [facility] | CLEAR | (missing) | (missing) | | (unavailable | 12::07 | [facility] | | | | + + + +---------+ + + + + | Result panel 61 | + + + + + + + + + | | 2023-02-11 | [facility] | >=1000 | (missing) | (missing) | | (unavailable | 12:31:07 [facility] | | | | + + + + + + + + + | Result panel 62 | + + + + + + + + + | | 2023-02-11 | [facility] | NEGATIVE | (missing) | (missing) | | (unavailable | 12:31:07 [facility] | | | | + + + + + + + + + | Result panel 63 | + + + + + + + + + | | 2023-02-11 | [facility] | NEGATIVE | (missing) | (missing) | | (unavailable | 12:31:07 [facility] | | | | + + + + + + + + + | Result panel 64 | + + + + + +---------+ + + | | 2023-02-11 | [facility] | 1.020 | (missing) | (missing) | | (unavailable | 12:31:07 [facility] | | | | + + + +---------+ + + + + | Result panel 65 | + + + + + + + + + | | 2023-02-11 | [facility] | NEGATIVE | (missing) | (missing) | | (unavailable | 12:31:07 [facility] | | | | + + + + + + + + + | Result panel 66 | + + + + + +-------+ + + | | 2023-02-11 | [facility] | 6.0 | (missing) | (missing) | | (unavailable | 12:31:07 [facility] | | | | + + + +-------+ + + + + | Result panel 67 | + + + + + + + + + | | 2023-02-11 | [facility] | NEGATIVE | (missing) | (missing) | | (unavailable | 12:31:07 [facility] | | | | + + + + + + + + + | Result panel 68 | + + + + + + + + + | | 2023-02-11 | [facility] | NORMAL | (missing) | (missing) | | (unavailable | 12:31:07 | [facility] | | | | + + + + + + + + + | Result panel 69 | + + + + + + + + + | | 2023-02-11 | [facility] | NEGATIVE | (missing) | (missing) | | (unavailable | 12:31:07 | [facility] | [facility] | | | | + + + + + + + + + | Result panel 70 | + + + + + + + + + | | 2023-02-11 | [facility] | NEGATIVE | (missing) | (missing) | | (unavailable | 12:31:07 | [facility] | | | | + + + + + + + + + | Result panel 71 | + + + + + +-------+ + + | | 2023-02-11 | [facility] | 0-1 | (missing) | (missing) | | (unavailable | :: | [facility] | [facility] | | ) | | Hospital | | | | + + + +-------+ + + + + | Result panel 72 | + + + + + +-------+ + + | | 2023-02-11 | [facility] | 0-1 | (missing) | (missing) | | (unavailable | 12:: | [facility] | | | | ) | | Hospital | | | | + + + +-------+ + + + + | Result panel 73 | + + + + + + + + + | | 2023-02-11 | [facility] | SQUAMOUS 1+ | (missing) | (missing) | | (unavailable | 12:31:07 | [facility] | | [facility] | | | | + + + + + + + + + | Result panel 74 | + + + + + + + + + | | 2023-02-11 | [facility] | NONE SEEN | (missing) | (missing) | | (unavailable | :: | [facility] | [facility] | | ) | | Hospital | | | | + + + + + + + + + | Result panel 75 | + + + + + + + + + | | 2023-02-11 | [facility] | NONE SEEN | (missing) | (missing) | | (unavailable | 12:31:07 | [facility] | [facility] | | | | + + + + + + + + + | Result panel 76 | + + + + + + + + + | | 2023-02-11 | [facility] | HYALINE 1+ | (missing) | (missing) | | (unavailable | 12:31:07 | [facility] | | | | + + + + + + + + + | Result panel 77 | + + + + + +------+ + + | | 2023-02-11 | [facility] | No | (missing) | (missing) | | (unavailable | 12:31:07 | [facility] | [facility] | | | | + + + +------+ + + + + | Result panel 78 | + + + + + + + + + | | 2023-02-11 | [facility] | CLEAN CATCH | (missing) | (missing) | | (unavailable | 12:31:07 | [facility] | | Hospital | | | | + + + + + + + Social History + + + + | date | description | facility | + + + + | 2020-08-25 00:00 | Unknown if ever smoked [facility] | | | | | + + + + | 2021-07-07 00:00 | Unknown if ever smoked | [facility] | + + + + | 2023-02-11 00:00 | Unknown if ever smoked | [facility] | + + + + Vital Signs [...] 220 | lb | + + + +---------+ | 2023-01-30 00:00 | BMI | 32.3 | kg/m2 | + + + +---------+ | 2023-01-30 00:00 | BP_diastolic | 53 | mmHg | + + + +---------+ | 2023-01-30 00:00 | BP_systolic | 123 | mmHg | + + + +---------+ | 2023-01-30 00:00 | heart_rate | 101 | /min | + + + +---------+ | 2023-01-30 00:00 | height_metric | 180.34 | cm | + + + +---------+ | 2023-01-30 00:00 | height_standard | 71 | in | + + + +---------+ | 2023-01-30 00:00 | o2_saturation | 98 | % | + + + +---------+ | 2023-01-30 00:00 | respiration_rate | 15 | /min | + + + +---------+ | 2023-01-30 00:00 | temperature_metric | 36.33 | C | | | | | | + + + +---------+ | 2023-01-30 00:00 | | 97.4 | F | | | temperature_standar | | | | | d | | | + + + +---------+ | 2023-01-30 00:00 | weight_metric | 105 | kg | + + + +---------+ | 2023-01-30 00:00 | weight_standard | 231.49 | lb | + + + +---------+ | 2023-02-11 00:00 | BMI | 32.3 | kg/m2 | + + + +---------+ | 2023-02-11 00:00 | BP_diastolic | 61 | mmHg | + + + +---------+ | 2023-02-11 00:00 | BP_systolic | 139 | mmHg | + + + +---------+ | 2023-02-11 00:00 | heart_rate | 98 | /min | + + + +---------+ | 2023-02-11 00:00 | height_metric | 180.34 | cm | + + + +---------+ | 2023-02-11 00:00 | height_standard | 71 | in | + + + +---------+ | 2023-02-11 00:00 | o2_saturation | 97 | % | + + + +---------+ | 2023-02-11 00:00 | respiration_rate | 16 | /min | + + + +---------+ | 2023-02-11 00:00 | temperature_metric | 37.11 | C | | | | | | + + + +---------+ | 2023-02-11 00:00 | | 98.8 | F | | | temperature_standar | | | | | d | | | + + + +---------+ | 2023-02-11 00:00 | weight_metric | 104.98 | kg | + + + +---------+ | 2023-02-11 00:00 | weight_standard | 231.44 | lb | + + + +---------+"
--- OUTSIDE RECORDS SUMMARY | ~2023-02-20 | XMS | Continuity of Care Document ---
Demographics + + + | Address | [address] | | | [place] [address] | + + + | Preferred Language | Unknown | + + + | Marital Status | | + + + | Anabaptism Affiliation | Unknown | + + + | Race | White | + + + | Ethnic Group | Not or | + + + Author + + + | Author | [facility] | + + + | Organization | [facility] | + + + | Address | [address] | | | [place] [address] | + + + | Phone | | + + + Care Team Providers + + + + | Care Sweatband Perforator Name | Role | Phone | + [...] + | (no date) | MEPERIDINE | [facility] | (no reaction) | (no severity) [...] + | (no date) | ATORVASTATIN | [facility] | (no reaction) | (no severity) | | | | [facility] | | | + + + + + + | (no date) | LISINOPRIL | [facility] | (no reaction) | (no severity) [...] + | (no date) | ROSUVASTATIN | [facility] | (no reaction) | (no severity) [...] | 2015-04-07 00:00 | prevnar 13 | [facility] | + + + + | 2013-03-26 00:00 | Influenza | [facility] | + + + + | 2014-03-08 00:00 | Influenza | [facility] | + + + + | 2015-04-07 00:00 | Influenza | [facility] | + + + + [...] + | 2021-03-21 00:00 | Influenza | [facility] | + + + + | 2016-06-11 00:00 | Pneumococcal | [facility] | + + + + Medications + + + + | date | description | facility | + + + + | 2021-07-07 00:00 | Susan EsparzaPen 100 | [facility] | | | units/mL | | + + + + | 2021-05-08 00:00 | Eliquis 5 mg | [facility] | + + + + | 2021-07-07 00:00 | Flomax 0.4 mg | [facility] | + + + + | 2021-07-07 00:00 | Patti Delgado 300 | [facility] | | | units/mL | | + + + + | 2021-07-07 00:00 | fluticasone nasal 50 | [facility] | | | mcg/inh | | + + + + | 2021-07-07 00:00 | furosemide 20 mg | [facility] | + + + + | 2021-07-07 00:00 | amoxicillin 500 mg | [facility] | + + + + | 2021-07-07 00:00 | DULoxetine 30 mg | [facility] | + + + + | 2015-06-08 00:00 | Valium 5 mg | [facility] | + + + + 2021-07-07 00:00 | trazodone 50 mg | [facility] | + + + + | 2020-12-06 00:00 | Farxiga 10 mg | [facility] | + + + + | 2021-07-07 00:00 | levothyroxine 112 mcg | [facility] | | | (0.112 mg) | | + + + + | 2021-07-07 00:00 | Metoprolol Succinate ER | [facility] | | | 100 mg | | + + + + | 2021-07-07 00:00 | acetaminophen-hydrocodone | [facility] | | | 325 mg-5 mg | | + + + + | 2021-07-07 00:00 | aspirin 81 mg | [facility] | + + + + | 2021-07-07 00:00 | omeprazole 20 mg | [facility] | + + + + | 2015-06-08 00:00 | diazepam 5 MG Oral Tablet | [facility] | | | [Valium] | | + + + + | 2017-01-08 00:00 | Levothyroxine Sodium 50 | [facility] | | | MCG OR TABS | | + + + + | 2017-04-09 00:00 | Levothyroxine Sodium 75 | [facility] | | | MCG OR TABS | | + + + + | 2017-09-03 00:00 | Levothyroxine Sodium 100 | [facility] | | | MCG OR TABS | | + + + + | 2018-02-18 00:00 | Levothyroxine Sodium 100 | [facility] | | | MCG OR TABS | | + + + + | 2023-02-11 00:00 | APIXABAN | [facility] | + + + + | 2021-05-08 00:00 | apixaban 5 MG Oral Tablet | [facility] | | | [Eliquis] | | + + + + | 2016-12-04 00:00 | Kionex 15 GM/60ML OR SUSP | [facility] | | | | | + + + + | 2023-02-11 00:00 | DAPAGLIFLOZIN PROPANEDIOL | [facility] | + + + + | 2020-12-06 00:00 | dapagliflozin 10 MG Oral | [facility] | | | Tablet [Farxiga] | | + + + + | 2019-02-26 00:00 | 1.5 ML insulin glargine | [facility] | | | 300 UNT/ML Pen Injector | | | | [Toujeo] | | + + + + | 2021-07-07 00:00 | 1.5 ML insulin glargine | [facility] | | | 300 UNT/ML Pen Injector | | | | [Toujeo] | | + + + + | 2023-02-11 00:00 | INSULIN | [facility] | | | HUM. SUMEETRECURSULALOG | | + + + + | 2017-01-22 00:00 | 3 ML insulin lispro 100 | [facility] | | | UNT/ML Pen Injector | | | | [Humalog] | | + + + + | 2018-02-04 00:00 | 3 ML insulin lispro 100 | [facility] | | | UNT/ML Pen Injector | | | | [Humalog] | | + + + + | 2018-08-12 00:00 | 3 ML insulin lispro 100 | [facility] | | | UNT/ML Pen Injector | | | | [Humalog] | | + + + + | 2019-02-26 00:00 | 3 ML insulin lispro 100 | [facility] | | | UNT/ML Pen Injector | | | | [Humalog] | | + + + + | 2021-07-07 00:00 | 3 ML insulin lispro 100 | [facility] | | | UNT/ML Pen Injector | | | | [Humalog] | | + + + + | 2023-02-11 00:00 | INSULIN LISPRO | [facility] | + + + + | 2018-02-07 00:00 | 3 ML insulin aspart, human | [facility] | | | 100 UNT/ML Pen Injector | | | | [NovoLog] | | + + + + | 2021-07-07 00:00 | fluticasone propionate | [facility] | | | 0.05 MG/ACTUAT Metered Dose | | | | Nasal [place] | | + + + + | 2017-01-22 00:00 | HumaLOG KwikPen 100 | [facility] | | | UNIT/ML SC SOPN | | + + + + | 2018-02-04 00:00 | HumaLOG KwikPen 100 | [facility] | | | UNIT/ML SC SOPN | | + + + + | 2018-08-12 00:00 | HumaLOG KwikPen 100 | [facility] | | | UNIT/ML SC SOPN | | + + + + | 2019-02-26 00:00 | Susan EsparzaPen 100UNIT/ML | [facility] | | | Subcutaneous Solution | | | | Pen-injector | | + + + + | 2018-02-07 00:00 | NovoLOG FlexPen 100 | [facility] | | | UNIT/ML SC SOPN | | + + + + | 2019-02-26 00:00 | Alley PalaciosoStar 100UNIT/ML | [facility] | | | Subcutaneous Solution | | | | Pen-injector | | + + + + | 2019-02-26 00:00 | Patti PalaciosoStar 300UNIT/ML | [facility] | | | Subcutaneous [...] 00:00 | amlodipine 5 MG Oral | [facility] | | | Tablet | | + + + + | 2019-02-26 00:00 | diazepam 10 MG Oral Tablet | [facility] | | | | | + + + + | 2023-02-11 00:00 | DIAZEPAM | [facility] | + + + + | 2023-02-11 00:00 | OMEPRAZOLE | [facility] | + + + + | 2021-07-07 00:00 | omeprazole 20 MG Delayed | [facility] | | | Release Oral Capsule | | + + + + | 2021-07-07 00:00 | ondansetron 4 MG Oral | [facility] | | | Tablet | | + + + + | 2023-02-11 00:00 | TORSEMIDE | [facility] | + + + + | 2018-02-18 00:00 | FreeStyle Dao Sensor | [facility] | | | System MISC | | + + + + | 2018-07-08 00:00 | FreeStyle Dao Sensor | [facility] | | | System MISC | | + + + + | 2018-02-20 00:00 | FreeStyle Dao Gabbs | [facility] | | | [place] | | + + + + | 2018-07-08 00:00 | Nicolas Dao Gabbs | [facility] | | | [place] [...] 00:00 | amLODIPine Besylate 5 MG | [facility] | | | OR TABS | | + + + + | 2017-04-10 00:00 | amLODIPine Besylate 5 MG | [facility] | | | OR TABS | | + + + + | 2017-09-30 00:00 | amLODIPine Besylate 5 MG | [facility] | | | OR TABS | | + + + + | 2018-10-09 00:00 | amLODIPine Besylate 5 MG | [facility] | | | OR TABS | | + + + + | 2017-05-21 00:00 | Levothyroxine Sodium 88 | [facility] | | | MCG OR TABS | | + + + + | 2019-02-26 00:00 | Pravastatin Sodium 10MG | [facility] | | | Oral Tablet | | + + + + | 2017-11-04 00:00 | Pravastatin Sodium 40 MG | [facility] | | | OR TABS | | + + + + | 2023-02-11 00:00 | AMLODIPINE BESYLATE | [facility] | + + + + | 2019-02-26 00:00 | amlodipine 2.5 MG Oral | [facility] | | | Tablet | | + + + + | 2021-07-07 00:00 | amoxicillin 500 MG Oral | [facility] | | | Capsule | | + + + + | 2021-07-07 00:00 | aspirin 81 MG Delayed | [facility] | | | Release Oral Tablet | | + + + + | 2021-07-07 00:00 | furosemide 20 MG Oral | [facility] | | | Tablet | | + + + + | 2017-09-03 00:00 | glucagon (rDNA) 1 MG | [facility] | | | Injection [...] | BD Pen Needle Short U/F | [facility] | | | 31G X 8 MM Miscellaneous | | + + + + | 2019-02-26 00:00 | Isosorbide Mononitrate ER | [facility] | | | 30MG Oral Tablet Extended | | | | Release 24 Hour | | + + + + | 2021-07-07 00:00 | Jordan SCHAFFER CF free 90 | [facility] | | | mcg/inh | | + + + + | 2023-02-11 00:00 | DULOXETINE HCL | [facility] | + + + + | 2019-02-26 00:00 | duloxetine 30 MG Delayed | [facility] | | | Release Oral Capsule | | + + + + | 2021-07-07 00:00 | duloxetine 30 MG Delayed | [facility] | | | Release Oral Capsule [...] 00:00 | diazePAM 10MG Oral Tablet | [facility] | | | | | + + + + | 2018-01-07 00:00 | metFORMIN HCl ER 500 MG | [facility] | | | TB24 | | + + + + | 2018-02-18 00:00 | metFORMIN HCl ER 500 MG | [facility] | | | TB24 | | + + + + | 2018-05-26 00:00 | metFORMIN HCl ER 500 MG | [facility] | | | TB24 | | + + + + | 2021-07-07 00:00 | losartan 25 mg | [facility] | + + + + | 2021-07-07 00:00 | ondansetron 4 mg | [facility] | + + + + | 2021-07-07 00:00 | pravastatin 40 mg | [facility] | + + + + | 2021-01-09 00:00 | metFORMIN 1000 mg | [facility] | + + + + | 2021-07-07 00:00 | cyclobenzaprine 10 mg | [facility] | + + + + | 2017-09-17 00:00 | Metoprolol Succinate ER | [facility] | | | 100 MG OR TB24 | | + + + + | 2019-02-26 00:00 | Metoprolol Succinate ER | [facility] | | | 100MG Oral Tablet Extended | | | | Release 24 Hour | | + + + + | 2021-07-07 00:00 | [id number] 200 ACTUAT | [facility] | | | albuterol 0.09 MG/ACTUAT | | | | Metered Dose Inhaler | | | | [ProAir] | | + + + + | 2021-03-21 00:00 | amLODIPine 5 mg | [facility] | + + + + | 2016-12-04 00:00 | sodium polystyrene | [facility] | | | sulfonate 250 MG/ML Oral | | | | Suspension [Kionex] | | + + + + | 2023-02-11 00:00 | CYCLOBENZAPRINE HCL | [facility] | + + + + | 2021-10-26 00:00 | TRAMADOL HCL | [facility] | + + + + | 2019-02-26 00:00 | 3 ML insulin glargine 100 | [facility] | | | UNT/ML Pen Injector | | | | [Lantus] | | + + + + | 2019-02-26 00:00 | warfarin sodium 7.5 MG | [facility] | | | Oral Tablet | | + + + + | 2019-02-26 00:00 | trazodone hydrochloride | [facility] | | | 100 MG Oral Tablet | | + + + + | 2023-02-11 00:00 | TRAZODONE HCL | [facility] | + + + + | 2021-07-07 00:00 | acetaminophen 325 MG / | [facility] | | | hydrocodone bitartrate 5 MG | | | | Oral Tablet | | + + + + | 2023-02-11 00:00 | ALBUTEROL SULFATE | [facility] | + + + + | 2018-01-07 00:00 | 24 HR metformin | [facility] | | | hydrochloride 500 MG | | | | Extended Release Oral | | | | Tablet | | + + + + | 2018-02-18 00:00 | 24 HR metformin | [facility] | | | hydrochloride 500 MG | | | | Extended Release Oral | | | | Tablet | | + + + + | 2018-05-26 00:00 | 24 HR metformin | [facility] | | | hydrochloride 500 MG | | | | Extended Release Oral | | | | Tablet | | + + + + | 2021-01-09 00:00 | metformin hydrochloride | [facility] | | | 1000 MG Oral Tablet | | + + + + | 2023-02-11 00:00 | METFORMIN HCL | [facility] | + + + + | 2023-02-11 00:00 | TAMSULOSIN HCL | [facility] | + + + + | 2021-07-07 00:00 | tamsulosin hydrochloride | [facility] | | | 0.4 MG Oral Capsule [...] 00:00 | 24 HR metoprolol succinate | [facility] | | | 100 MG Extended Release | | | | Oral Tablet | | + + + + | 2023-02-11 00:00 | METOPROLOL SUCCINATE | [facility] | + + + + | 2019-02-26 00:00 | DULoxetine HCl 30MG Oral | [facility] | | | Capsule Delayed Release | | | | Particles | | + + + + | 2017-09-03 00:00 | levothyroxine sodium 0.1 | [facility] | | | MG Oral Tablet | | + + + + | 2018-02-18 00:00 | levothyroxine sodium 0.1 | [facility] | | | MG Oral Tablet | | + + + + | 2023-02-11 00:00 | FLUTICASONE PROPIONATE | [facility] | + + + + | 2019-02-26 00:00 | pravastatin sodium 10 MG | [facility] | | | Oral Tablet | | + + + + | 2023-02-11 00:00 | PRAVASTATIN SODIUM | [facility] | + + + + | 2017-11-04 00:00 | pravastatin sodium 40 MG | [facility] | | | Oral Tablet | | + + + + | 2021-07-07 00:00 | pravastatin sodium 40 MG | [facility] | | | Oral Tablet | [...] | 2023-02-11 00:00 | LEVOTHYROXINE SODIUM | [facility] | + + + + | 2021-07-07 00:00 | levothyroxine sodium 0.112 | [facility] | | | MG Oral Tablet [...] | 2017-10-15 00:00 | hydrochlorothiazide 12.5 | [facility] | | | MG / losartan potassium 100 | | | | MG Oral Tablet | | + + + + | 2018-09-16 00:00 | hydrochlorothiazide 12.5 | [facility] | | | MG / losartan potassium 100 | | | | MG Oral Tablet | | + + + + | 2019-02-26 00:00 | losartan potassium 100 MG | [facility] | | | Oral Tablet | | + + + + | 2021-07-07 00:00 | losartan potassium 25 MG | [facility] | | | Oral Tablet | | + + + + | 2023-02-11 00:00 | LOSARTAN POTASSIUM | [facility] | + + + + | 2016-10-16 00:00 | Losartan Potassium-HCTZ | [facility] | | | 100-12.5 MG OR TABS | | + + + + | 2017-10-15 00:00 | Losartan Potassium-HCTZ | [facility] | | | 100-12.5 [...] | (no date) | Acute diastolic | [facility] | | | (congestive) heart failure | [place] | + + + + | 2015-04-07 00:00 | Diabetic renal disease | [facility] | + + + + | 2015-04-07 00:00 | Insomnia | [facility] | + + + + | 2015-04-07 00:00 | Hyperglycemia due to type | [facility] | | | 2 diabetes mellitus | | + + + + | 2015-04-07 00:00 | Chronic kidney disease | [facility] | | | stage 3 | | + + + + | 2015-04-07 00:00 | Essential hypertension | [facility] | + + + + | 2015-04-07 00:00 | 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[facility] | | | 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 | | | | diabetes mellitus | | + + + + | 2015-04-07 00:00 | 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 | | + + + + | 2015-04-07 00:00 | Type 2 diabetes mellitus | [facility] | | | with proliferative diabetic | | | | retinopathy with macular | | | | edema | | + + + + | 2015-04-07 00:00 | Type 2 diabetes mellitus | [facility] | | | with hyperglycemia | | + + + + | 2015-04-07 00:00 | Mixed hyperlipidemia | [facility] | + + + + | 2015-04-07 00:00 | Insomnia, unspecified | [facility] | + + + + | 2015-04-07 00:00 | Essential (primary) | [facility] | | | hypertension | | + + + + | 2015-04-07 00:00 | Chronic kidney disease, | [facility] | | | stage 3 (moderate) | | + + + + | 2015-04-27 00:00 | History of pulmonary | [facility] | | | embolus | | + + + + | 2015-04-27 00:00 | History of | [facility] | | | thrombophlebitis | | + + + + | 2015-04-27 00:00 | Personal history of | [facility] | | | pulmonary embolism | | + + + + | 2015-04-27 00:00 | Personal history of | [facility] | | | thrombophlebitis | | + + + + | 2015-05-17 00:00 | Spasm | [facility] | + + + + | 2015-05-17 00:00 | 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 | | | | | + + + + | 2015-10-04 00:00 | Diabetes mellitus type 2 | [facility] | | | (disorder) | | + + + + | 2015-10-04 00:00 | Atrial fibrillation | [facility] | | | (disorder) | | + + + + | 2015-10-04 00:00 | Right and left (qualifier | [facility] | | value) | | + + + + | 2015-10-04 00:00 | Coronary arteriosclerosis | [facility] | | | (disorder) | | + + + + | 2015-10-04 00:00 | Carpal tunnel syndrome | [facility] | | | (disorder) | | + + + + | 2015-10-04 00:00 | Essential hypertension | [facility] | | | (disorder) | | + + + + | 2015-10-04 00:00 | Diabetes Mellitus Type 2 | [facility] | | | | | + + + + | 2015-10-04 00:00 | Carpal Tunnel Syndrome | [facility] | | | Bilateral | | + + + + | 2015-10-04 00:00 | Essential Hypertension | [facility] | | | | | + [...] 00:00 | Type 2 diabetes mellitus | [facility] | | | with proliferative diabetic | | | | retinopathy with macular | | | | edema, bilateral | | + + + + | 2016-06-11 00:00 | 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 | [facility] | | | 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 | | + + + + | 2016-10-17 00:00 | Pityriasis rosea | [facility] | + + + + | 2016-10-26 00:00 | Eruption of skin | [facility] | + + + + | 2016-10-26 00:00 | Rash and other nonspecific | [facility] | | | skin eruption | | + + + + | 2016-12-04 00:00 | Hyperkalemia | [facility] | + + + + | 2016-12-12 00:00 | Chronic atrial | [facility] | | | fibrillation | | + + + + | 2017-01-08 00:00 | Acquired hypothyroidism | [facility] | | | (disorder) | | + + + + | 2017-01-08 00:00 | HYPOTHYROIDISM | [facility] | | | | | + + + + | 2017-01-08 00:00 | Primary Hypothyroidism | [facility] | | | | | + + + + | 2017-02-06 00:00 | Obstructive sleep apnea | [facility] | | | syndrome | | + + + + | 2017-02-06 00:00 | Obstructive sleep apnea | [facility] | | | (adult) (pediatric) | | + + + + | 2017-09-24 00:00 | Cramp in lower leg | [facility] | | | associated with rest | | + + + + | 2017-09-24 00:00 | Sleep related leg cramps | [facility] | + + + + | 2017-12-18 00:00 | Diabetic renal disease | [facility] | + + + + | 2017-12-18 00:00 | Meralgia paresthetica | [facility] | + + + + | 2017-12-18 00:00 | Type 2 diabetes mellitus | [facility] | | | with other diabetic kidney | | | | complication | | + + + + | 2017-12-18 00:00 | Meralgia paresthetica, | [facility] | | | bilateral lower [...] 00:00 | Diabetes mellitus type 1 | [facility] | | | (disorder) | | + + + + | 2018-10-21 00:00 | Hypothyroidism | [facility] | + + + + | 2018-10-21 00:00 | Other specified | [facility] | | | hypothyroidism | | + + + + | 2019-01-13 00:00 | History of polyp of colon | [facility] | + + + + | 2019-01-13 00:00 | Personal history of | [facility] | | | colonic polyps | | + + + + | 2019-07-16 00:00 | Diabetic renal disease | [facility] | + + + + | 2019-07-16 00:00 | 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[facility] | | | 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 | | | | diabetes mellitus | | + + + + | 2019-07-16 00:00 | Type 2 diabetes mellitus | [facility] | | | with diabetic chronic | | | | kidney disease | | + + + + | 2019-07-16 00:00 | Type 2 diabetes mellitus | [facility] | | | with mild nonproliferative | | | | diabetic retinopathy with | | | | macular edema, bilateral | | + + + + | 2019-07-16 08:44:05 | Other specified | [facility] - | | | hypothyroidism | [facility] | + + + + | 2019-07-16 08:44:05 | Type 2 diabetes mellitus | [facility] - | | | with diabetic chronic | [facility] | | | kidney disease | | + + + + | 2019-07-16 08:44:05 | Type 2 diabetes mellitus | [facility] - | | | with mild nonproliferative | [facility] | | | diabetic retinopathy with | | | | macular edema, bilateral | | + + + + | 2019-07-16 08:44:05 | Type 2 diabetes mellitus | [facility] - | | | with hyperglycemia | [facility] | + + + + | 2019-07-16 08:44:05 | Essential (primary) | [facility] - | | | hypertension | [facility] | + + + + | 2019-07-20 09:05:58 | Radial styloid | [facility] - | | | tenosynovitis (de quervain) | [facility] | | | | | + + + + | 2019-07-27 09:16:16 | Encounter for other | [facility] - | | | specified special | [facility] | | | examinations | | + + + + | 2019-08-10 08:44:42 | Other pulmonary embolism | [facility] - | | | without acute cor pulmonale | [facility] | | | | | + + + + | 2019-08-10 08:44:42 | Unspecified atrial | [facility] - | | | fibrillation | [facility] | + + + + | 2019-08-10 08:44:42 | Acute embolism and | [facility] - | | | thrombosis of unspecified | [facility] | | | vein | | + + + + | 2019-08-10 08:44:42 | Encounter for therapeutic | [facility] - | | | drug level monitoring | [place] | + + + + | 2019-08-10 08:44:42 | 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 | [facility] - | | | 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 | [facility] | + + + + | 2019-08-15 09:06 | Wrist Pain | [facility] - | | | | [facility] | + + + + | 2019-08-15 11:12:57 | Wrist Pain | [facility] - | | | | [facility] | + + + + | 2019-08-15 11:12:57 | Hyperkalemia | [facility] - | | | | [place] | + + + + | 2019-08-15 11:12:57 | Cellulitis of right upper | [facility] - | | | limb | [facility] | + + + + | 2019-08-15 11:12:57 | Acute kidney failure, | [facility] - | | | unspecified | [place] | + + + + | 2019-08-24 08:28:31 | Other pulmonary embolism | [facility] - | | | without acute cor pulmonale | [facility] | | | | | + + + + | 2019-08-24 08:28:31 | Unspecified atrial | [facility] - | | | fibrillation | [place] | + + + + | 2019-08-24 08:28:31 | Acute embolism and | [facility] - | | | thrombosis of unspecified | [place] | | | vein | | + + + + | 2019-08-24 08:28:31 | Encounter for therapeutic | [facility] - | | | drug level monitoring | [place] | + + + + | 2019-08-24 08:28:31 | 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 | [facility] - | | | 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 | [place] | + + + + | 2019-09-21 08:12:15 | Other pulmonary embolism | [facility] - | | | without acute cor pulmonale | [place] | | | | | + + + + | 2019-09-21 08:12:15 | Unspecified atrial | [facility] - | | | fibrillation | [place] | + + + + | 2019-09-21 08:12:15 | Acute embolism and | [facility] - | | | thrombosis of unspecified | [place] | | | vein | | + + + + | 2019-09-21 08:12:15 | Encounter for therapeutic | [facility] - | | | drug level monitoring | [place] | + + + + | 2019-09-21 08:12:15 | nursing home (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 of | [facility] - | | | 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 | [place] | + + + + | 2019-11-09 08:18:40 | Other pulmonary embolism | [facility] - | | | without acute cor pulmonale | [place] | | | | | + + + + | 2019-11-09 08:18:40 | Unspecified atrial | [facility] - | | | fibrillation | [place] | + + + + | 2019-11-09 08:18:40 | Acute embolism and | [facility] - | | | thrombosis of unspecified | [place] | | | vein | | + + + + | 2019-11-09 08:18:40 | Encounter for therapeutic | [facility] - | | | drug level monitoring | [place] | + + + + | 2019-11-09 08:18:40 | 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 | [facility] - | | | 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 | [place] | + + + + | 2019-12-11 00:00 | Diastolic heart failure | [facility] | + + + + | 2019-12-11 00:00 | Unspecified diastolic | [facility] | | | (congestive) heart failure | | + + + + | 2019-12-11 14:25:01 | Type 2 diabetes mellitus | [facility] - | | | with hyperglycemia | [place] | + + + + | 2019-12-11 14:25:01 | Essential (primary) | [facility] - | | | hypertension | [place] | + + + + | 2019-12-11 14:25:01 | Unspecified diastolic | [facility] - | | | (congestive) heart failure | [place] | + + + + | 2019-12-11 14:25:01 | Chronic kidney disease, | [facility] - | | | stage 3 (moderate) | [place] | + + + + | 2019-12-12 00:00 | Acute diastolic heart | [facility] | | | failure | | + + + + | 2019-12-12 00:00 | Acute diastolic | [facility] | | | (congestive) heart failure | | + + + + | 2019-12-21 07:35:52 | Other proteinuria | [facility] - | | | | [place] | + + + + | 2019-12-21 07:41:32 | Other pulmonary embolism | [facility] - | | | without acute cor pulmonale | [place] | | | | | + + + + | 2019-12-21 07:41:32 | Unspecified atrial | [facility] - | | | fibrillation | [place] | + + + + | 2019-12-21 07:41:32 | Acute embolism and | [facility] - | | | thrombosis of unspecified | [place] | | | vein | | + + + + | 2019-12-21 07:41:32 | Encounter for therapeutic | [facility] - | | | drug level monitoring | [place] | + + + + | 2019-12-21 07:41:32 | nursing home (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 of | [facility] - | | | 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 | [place] | + + + + | 2019-12-22 10:05:25 | Acute diastolic | [facility] - | | | (congestive) heart failure | [place] | + + + + | 2020-02-01 10:56:27 | Chronic kidney disease, | [facility] - | | | stage 3 (moderate) | [place] | + + + + | 2020-03-29 08:49:05 | Other pulmonary embolism | [facility] - | | | without acute cor pulmonale | [place] | | | | | + + + + | 2020-03-29 08:49:05 | Paroxysmal atrial | [facility] - | | | fibrillation | [place] | + + + + | 2020-03-29 08:49:05 | Acute embolism and | [facility] - | | | thrombosis of unspecified | [place] | | | deep veins of right lower | | | | extremity | | + + + + | 2020-03-29 08:49:05 | Encounter for therapeutic | [facility] - | | | drug level monitoring | [place] | + + + + | 2020-03-29 08:49:05 | nursing home (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 of | [facility] - | | | 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 | [place] | + + + + | 2020-04-04 00:00 | Long-term current use of | [facility] | | | insulin | | + + + + | 2020-04-04 00:00 | nursing home (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 of | [facility] | | | insulin | | + + + + | 2020-04-04 14:07:44 | 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 | [place] | + + + + | 2020-04-04 14:07:44 | Type 2 diabetes mellitus | [facility] - | | | with diabetic | [place] | | | polyneuropathy | | + + + + | 2020-04-04 14:07:44 | Mixed hyperlipidemia | [facility] - | | | | [place] | + + + + | 2020-04-07 09:22:04 | Isolated proteinuria | [facility] - | | | | [place] | + + + + | 2020-04-07 09:22:04 | Other proteinuria | [facility] - | | | | [place] | + + + + | 2020-04-07 11:05:25 | Other proteinuria | [facility] - | | | | [place] | + + + + | 2020-05-10 09:12:55 | Other pulmonary embolism | [facility] - | | | without acute cor pulmonale | [place] | | | | | + + + + | 2020-05-10 09:12:55 | Paroxysmal atrial | [facility] - | | | fibrillation | [place] | + + + + | 2020-05-10 09:12:55 | Acute embolism and | [facility] - | | | thrombosis of unspecified | [place] | | | deep veins of right lower | | | | extremity | | + + + + | 2020-05-10 09:12:55 | Encounter for therapeutic | [facility] - | | | drug level monitoring | [place] | + + + + | 2020-05-10 09:12:55 | nursing home (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 of | [facility] - | | | 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 | [place] | + + + + | 2020-05-24 09:03:04 | Other pulmonary embolism | [facility] - | | | without acute cor pulmonale | [place] | | | | | + + + + | 2020-05-24 09:03:04 | Paroxysmal atrial | [facility] - | | | fibrillation | [place] | + + + + | 2020-05-24 09:03:04 | Acute embolism and | [facility] - | | | thrombosis of unspecified | [place] | | | deep veins of right lower | | | | extremity | | + + + + | 2020-05-24 09:03:04 | Encounter for therapeutic | [facility] - | | | drug level monitoring | [place] | + + + + | 2020-05-24 09:03:04 | 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 | [facility] - | | | 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 | [place] | + + + + | 2020-06-07 10:22:25 | Other pulmonary embolism | [facility] - | | | without acute cor pulmonale | [place] | | | | | + + + + | 2020-06-07 10:22:25 | Paroxysmal atrial | [facility] - | | | fibrillation | [place] | + + + + | 2020-06-07 10:22:25 | Acute embolism and | [facility] - | | | thrombosis of unspecified | [place] | | | deep veins of right lower | | | | extremity | | + + + + | 2020-06-07 10:22:25 | Encounter for therapeutic | [facility] - | | | drug level monitoring | [place] | + + + + | 2020-06-07 10:22:25 | 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 | [facility] - | | | 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 | [place] | + + + + | 2020-06-28 10:23:54 | Other pulmonary embolism | [facility] - | | | without acute cor pulmonale | [place] | | | | | + + + + | 2020-06-28 10:23:54 | Paroxysmal atrial | [facility] - | | | fibrillation | [place] | + + + + | 2020-06-28 10:23:54 | Acute embolism and | [facility] - | | | thrombosis of unspecified | [place] | | | deep veins of right lower | | | | extremity | | + + + + | 2020-06-28 10:23:54 | Encounter for therapeutic | [facility] - | | | drug level monitoring | [place] | + + + + | 2020-06-28 10:23:54 | 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 | [facility] - | | | 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 | [place] | + + + + | 2020-08-02 09:52:07 | Other pulmonary embolism | [facility] - | | | without acute cor pulmonale | [place] | | | | | + + + + | 2020-08-02 09:52:07 | Paroxysmal atrial | [facility] - | | | fibrillation | [place] | + + + + | 2020-08-02 09:52:07 | Acute embolism and | [facility] - | | | thrombosis of unspecified | [place] | | | deep veins of right lower | | | | extremity | | + + + + | 2020-08-02 09:52:07 | Encounter for therapeutic | [facility] - | | | drug level monitoring | [place] | + + + + | 2020-08-02 09:52:07 | nursing home (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 of | [facility] - | | | 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 | [place] | + + + + | 2020-08-11 11:33:25 | 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 | [place] | + + + + | 2020-08-11 11:33:25 | Type 2 diabetes mellitus | [facility] - | | | with diabetic | [place] | | | polyneuropathy | | + + + + | 2020-08-11 11:33:25 | Type 2 diabetes mellitus | [facility] - | | | with hyperglycemia | [place] | + + + + | 2020-08-15 00:00 | Sciatica | [facility] | + + + + | 2020-08-15 00:00 | Lumbago with sciatica, | [facility] | | | right side | | + + + + | 2020-09-13 09:49:40 | Other pulmonary embolism | [facility] - | | | without acute cor pulmonale | [place] | | | | | + + + + | 2020-09-13 09:49:40 | Paroxysmal atrial | [facility] - | | | fibrillation | [place] | + + + + | 2020-09-13 09:49:40 | Acute embolism and | [facility] - | | | thrombosis of unspecified | [place] | | | deep veins of right lower | | | | extremity | | + + + + | 2020-09-13 09:49:40 | Encounter for therapeutic | [facility] - | | | drug level monitoring | [place] | + + + + | 2020-09-13 09:49:40 | nursing home (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 of | [facility] - | | | 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 | [place] | + + + + | 2020-09-15 13:26:36 | Other specified | [facility] - | | | hypothyroidism | [place] | + + + + | 2020-09-15 13:26:36 | Type 2 diabetes mellitus | [facility] - | | | with other diabetic kidney | [place] | | | complication | | + + + + | 2020-09-30 07:55:06 | Other pulmonary embolism | [facility] - | | | without acute cor pulmonale | [place] | | | | | + + + + | 2020-09-30 07:55:06 | Paroxysmal atrial | [facility] - | | | fibrillation | [place] | + + + + | 2020-09-30 07:55:06 | Acute embolism and | [facility] - | | | thrombosis of unspecified | [place] | | | vein | | + + + + | 2020-10-01 10:11:38 | Encounter for screening | [facility] - | | | for other viral diseases | [place] | + + + + | 2020-10-03 14:16:53 | 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 | [facility] - | | | 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 | [place] | + + + + | 2020-10-11 14:05:31 | Other pulmonary embolism | [facility] - | | | without acute cor pulmonale | [place] | | | | | + + + + | 2020-10-11 14:05:31 | Unspecified atrial | [facility] - | | | fibrillation | [place] | + + + + | 2020-10-11 14:05:31 | Acute embolism and | [facility] - | | | thrombosis of unspecified | [place] | | | deep veins of unspecified | | | | distal lower extremity | | + + + + | 2020-10-11 14:05:31 | Encounter for therapeutic | [facility] - | | | drug level monitoring | [place] | + + + + | 2020-10-11 14:05:31 | 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 | [facility] - | | | 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 | [place] | + + + + | 2020-11-08 08:53:51 | Other pulmonary embolism | [facility] - | | | without acute cor pulmonale | [place] | | | | | + + + + | 2020-11-08 08:53:51 | Unspecified atrial | [facility] - | | | fibrillation | [place] | + + + + | 2020-11-08 08:53:51 | Acute embolism and | [facility] - | | | thrombosis of unspecified | [place] | | | deep veins of unspecified | | | | proximal lower extremity | | + + + + | 2020-11-08 08:53:51 | Encounter for therapeutic | [facility] - | | | drug level monitoring | [place] | + + + + | 2020-11-08 08:53:51 | nursing home (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 of | [facility] - | | | 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 | [place] | + + + + | 2020-11-30 11:40:54 | Type 2 diabetes mellitus | [facility] - | | | with diabetic chronic | [place] | | | kidney disease | | + + + + | 2020-11-30 11:40:54 | Mixed hyperlipidemia | [facility] - | | | | [place] | + + + + | 2020-12-12 08:43:18 | Other pulmonary embolism | [facility] - | | | without acute cor pulmonale | [place] | | | | | + + + + | 2020-12-12 08:43:18 | Paroxysmal atrial | [facility] - | | | fibrillation | [place] | + + + + | 2020-12-12 08:43:18 | Acute embolism and | [facility] - | | | thrombosis of unspecified | [place] | | | deep veins of right lower | | | | extremity | | + + + + | 2020-12-12 08:43:18 | Encounter for therapeutic | [facility] - | | | drug level monitoring | [place] | + + + + | 2020-12-12 08:43:18 | 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 | [facility] - | | | 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 | [place] | + + + + | 2021-01-09 08:49:42 | Other pulmonary embolism | [facility] - | | | without acute cor pulmonale | [place] | | | | | + + + + | 2021-01-09 08:49:42 | Paroxysmal atrial | [facility] - | | | fibrillation | [place] | + + + + | 2021-01-09 08:49:42 | Acute embolism and | [facility] - | | | thrombosis of unspecified | [place] | | | deep veins of right lower | | | | extremity | | + + + + | 2021-01-09 08:49:42 | Encounter for therapeutic | [facility] - | | | drug level monitoring | [place] | + + + + | 2021-01-09 08:49:42 | 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 | [facility] - | | | 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 | [place] | + + + + | 2021-01-26 09:11:42 | FYI | [facility] | | | | Care | + + + + | 2021-02-20 09:15:49 | Other pulmonary embolism | [facility] - | | | without acute cor pulmonale | [place] | | | | | + + + + | 2021-02-20 09:15:49 | Paroxysmal atrial | [facility] - | | | fibrillation | [place] | + + + + | 2021-02-20 09:15:49 | Acute embolism and | [facility] - | | | thrombosis of unspecified | [place] | | | deep veins of right lower | | | | extremity | | + + + + | 2021-02-20 09:15:49 | Encounter for therapeutic | [facility] - | | | drug level monitoring | [place] | + + + + | 2021-02-20 09:15:49 | nursing home (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 of | [facility] - | | | 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 | [place] | + + + + | 2021-03-20 09:01:08 | Other pulmonary embolism | [facility] - | | | without acute cor pulmonale | [place] | | | | | + + + + | 2021-03-20 09:01:08 | Paroxysmal atrial | [facility] - | | | fibrillation | [place] | + + + + | 2021-03-20 09:01:08 | Acute embolism and | [facility] - | | | thrombosis of unspecified | [place] | | | deep veins of right lower | | | | extremity | | + + + + | 2021-03-20 09:01:08 | Encounter for therapeutic | [facility] - | | | drug level monitoring | [place] | + + + + | 2021-03-20 09:01:08 | 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 | [facility] - | | | 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 | [place] | + + + + | 2021-05-01 09:14:56 | Other pulmonary embolism | [facility] - | | | without acute cor pulmonale | [place] | | | | | + + + + | 2021-05-01 09:14:56 | Paroxysmal atrial | [facility] - | | | fibrillation | [place] | + + + + | 2021-05-01 09:14:56 | Acute embolism and | [facility] - | | | thrombosis of unspecified | [place] | | | deep veins of right lower | | | | extremity | | + + + + | 2021-05-01 09:14:56 | Encounter for therapeutic | [facility] - | | | drug level monitoring | [place] | + + + + | 2021-05-01 09:14:56 | nursing home (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 of | [facility] - | | | 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 | [place] | + + + + | 2021-05-02 10:02:34 | Type 2 diabetes mellitus | [facility] | | | with diabetic chronic | Care | | | kidney disease | | + + + + | 2021-05-02 10:02:34 | Hypertensive chronic kidney | [facility] | | | disease with stage 1 | Care | | | through stage 4 chronic | | | | kidney disease, or | | | | unspecified chronic kidney | | | | disease | | + + + + | 2021-05-02 10:02:34 | Chronic kidney disease, | [facility] | | | stage 3 unspecified | Care | + + + + | 2021-05-02 10:02:34 | Chronic kidney disease, | [facility] | | | stage 3b | Care | + + + + | 2021-05-02 10:02:34 | 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 | [facility] | | | insulin | Care | + + + + | 2021-05-02 10:25:30 | Type 2 diabetes mellitus | [facility] | | | with diabetic chronic | Care | | | kidney disease | | + + + + | 2021-05-02 10:25:30 | Hypertensive chronic kidney | [facility] | | | disease with stage 1 | Care | | | through stage 4 chronic | | | | kidney disease, or | | | | unspecified chronic kidney | | | | disease | | + + + + | 2021-05-02 10:25:30 | Chronic kidney disease, | [facility] | | | stage 3 unspecified | Care | + + + + | 2021-05-02 10:25:30 | Chronic kidney disease, | [facility] | | | stage 3b | Care | + + + + | 2021-05-02 10:25:30 | 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 | [facility] | | | insulin | Care | + + + + | 2021-05-02 10:42:35 | Type 2 diabetes mellitus | [facility] | | | with diabetic chronic | Care | | | kidney disease | | + + + + | 2021-05-02 10:42:35 | Hypertensive chronic kidney | [facility] | | | disease with stage 1 | Care | | | through stage 4 chronic | | | | kidney disease, or | | | | unspecified chronic kidney | | | | disease | | + + + + | 2021-05-02 10:42:35 | Chronic kidney disease, | [facility] | | | stage 3 unspecified | Care | + + + + | 2021-05-02 10:42:35 | Chronic kidney disease, | [facility] | | | stage 3b | Care | + + + + | 2021-05-02 10:42:35 | nursing home (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 of | [facility] | | | insulin | Care | + + + + | 2021-05-15 02:02:54 | Chronic kidney disease, | [facility] | | | stage 3b | Care | + + + + | 2021-05-16 18:03:48 | Hypertensive chronic kidney | [facility] | | | disease with stage 1 | Care | | | through stage 4 chronic | | | | kidney disease, or | | | | unspecified chronic kidney | | | | disease | | + + + + | 2021-05-16 18:03:48 | Chronic kidney disease, | [facility] | | | stage 3 unspecified | Care | + + + + | 2021-10-26 00:00 | Injury of head | [facility] | + + + + | 2021-10-26 00:00 | Strain of lumbar region | [facility] | + + + + | 2021-10-26 00:00 | Contusion | [facility] | + + + + | 2021-10-26 [...] 00:00 | Fracture of left femur | [facility] | + + + + | 2023-01-30 [...] + + + | 2023-01-30 08:43 | [facility] (CURRENT) USE OF | [facility] | | | ANTICOAGULANTS | | + + + + | 2023-01-30 08:43 | [facility]ARE [facility] (CURRENT) USE OF | [facility] | | | INSULIN | | + + + + | 2023-01-30 08:43 | [facility] (CURRENT) USE OF | [facility] | | | ORAL HYPOGLYCEMIC DRUGS | | + + + + | 2023-01-30 08:43 | OTHER CARE HOME (CURRENT) | [facility] | | | DRUG THERAPY | | + + + + | 2023-01-30 08:43 | ALLERGY STATUS TO NARCOTIC | [facility] | | | AGENT STATUS | | + + + + | 2023-01-30 08:43 | 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, BILATERAL | | + + + + | 2023-02-11 00:00 | Orthostatic hypotension | [facility] | + + + + | 2023-02-11 [...] + + + | 2023-02-11 11:41 | [facility] (CURRENT) USE OF | [facility] | | | ANTICOAGULANTS | | + + + + | 2023-02-11 11:41 | [facility]ARE HOME (CURRENT) USE OF | [facility] | | | INSULIN | | + + + + | 2023-02-11 11:41 | HORMONE REPLACEMENT | [facility] | | | THERAPY | | + + + + | 2023-02-11 11:41 | OTHER CARE HOME (CURRENT) | [facility] | | | DRUG [...] | | | | | | | 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
--- OUTSIDE RECORDS SUMMARY | ~2023-02-20 | XMS | Continuity of Care Document ---
Demographics + + + | Address | 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 | Role | Phone | + [...] + | (no date) | MEPERIDINE | [facility] | (no reaction) | (no severity) [...] + | (no date) | ATORVASTATIN | [facility] | (no reaction) | (no severity) | | | | [facility] | | | + + + + + + | (no date) | LISINOPRIL | [facility] | (no reaction) | (no severity) [...] + | (no date) | ROSUVASTATIN | [facility] | (no reaction) | (no severity) [...] | 2015-04-07 00:00 | prevnar 13 | [facility] | + + + + | 2013-03-26 00:00 | Influenza | [facility] | + + + + | 2014-03-08 00:00 | Influenza | [facility] | + + + + | 2015-04-07 00:00 | Influenza | [facility] | + + + + [...] + | 2021-03-21 00:00 | Influenza | [facility] | + + + + | 2016-06-11 00:00 | Pneumococcal | [facility] | + + + + Medications + + + + | date | description | facility | + + + + | 2021-07-07 00:00 | Susan EsparzaPen 100 | [facility] | | | units/mL | | + + + + | 2021-05-08 00:00 | Eliquis 5 mg | [facility] | + + + + | 2021-07-07 00:00 | Flomax 0.4 mg | [facility] | + + + + | 2021-07-07 00:00 | Patti Delgado 300 | [facility] | | | units/mL | | + + + + | 2021-07-07 00:00 | fluticasone nasal 50 | [facility] | | | mcg/inh | | + + + + | 2021-07-07 00:00 | furosemide 20 mg | [facility] | + + + + | 2021-07-07 00:00 | amoxicillin 500 mg | [facility] | + + + + | 2021-07-07 00:00 | DULoxetine 30 mg | [facility] | + + + + | 2015-06-08 00:00 | Valium 5 mg | [facility] | + + + + 2021-07-07 00:00 | trazodone 50 mg | [facility] | + + + + | 2020-12-06 00:00 | Farxiga 10 mg | [facility] | + + + + | 2021-07-07 00:00 | levothyroxine 112 mcg | [facility] | | | (0.112 mg) | | + + + + | 2021-07-07 00:00 | Metoprolol Succinate ER | [facility] | | | 100 mg | | + + + + | 2021-07-07 00:00 | acetaminophen-hydrocodone | [facility] | | | 325 mg-5 mg | | + + + + | 2021-07-07 00:00 | aspirin 81 mg | [facility] | + + + + | 2021-07-07 00:00 | omeprazole 20 mg | [facility] | + + + + | 2015-06-08 00:00 | diazepam 5 MG Oral Tablet | [facility] | | | [Valium] | | + + + + | 2017-01-08 00:00 | Levothyroxine Sodium 50 | [facility] | | | MCG OR TABS | | + + + + | 2017-04-09 00:00 | Levothyroxine Sodium 75 | [facility] | | | MCG OR TABS | | + + + + | 2017-09-03 00:00 | Levothyroxine Sodium 100 | [facility] | | | MCG OR TABS | | + + + + | 2018-02-18 00:00 | Levothyroxine Sodium 100 | [facility] | | | MCG OR TABS | | + + + + | 2023-02-11 00:00 | APIXABAN | [facility] | + + + + | 2021-05-08 00:00 | apixaban 5 MG Oral Tablet | [facility] | | | [Eliquis] | | + + + + | 2016-12-04 00:00 | Kionex 15 GM/60ML OR SUSP | [facility] | | | | | + + + + | 2023-02-11 00:00 | DAPAGLIFLOZIN PROPANEDIOL | [facility] | + + + + | 2020-12-06 00:00 | dapagliflozin 10 MG Oral | [facility] | | | Tablet [Farxiga] | | + + + + | 2019-02-26 00:00 | 1.5 ML insulin glargine | [facility] | | | 300 UNT/ML Pen Injector | | | | [Toujeo] | | + + + + | 2021-07-07 00:00 | 1.5 ML insulin glargine | [facility] | | | 300 UNT/ML Pen Injector | | | | [Toujeo] | | + + + + | 2023-02-11 00:00 | INSULIN | [facility] | | | HUM. SUMEETRECURSULALOG | | + + + + | 2017-01-22 00:00 | 3 ML insulin lispro 100 | [facility] | | | UNT/ML Pen Injector | | | | [Humalog] | | + + + + | 2018-02-04 00:00 | 3 ML insulin lispro 100 | [facility] | | | UNT/ML Pen Injector | | | | [Humalog] | | + + + + | 2018-08-12 00:00 | 3 ML insulin lispro 100 | [facility] | | | UNT/ML Pen Injector | | | | [Humalog] | | + + + + | 2019-02-26 00:00 | 3 ML insulin lispro 100 | [facility] | | | UNT/ML Pen Injector | | | | [Humalog] | | + + + + | 2021-07-07 00:00 | 3 ML insulin lispro 100 | [facility] | | | UNT/ML Pen Injector | | | | [Humalog] | | + + + + | 2023-02-11 00:00 | INSULIN LISPRO | [facility] | + + + + | 2018-02-07 00:00 | 3 ML insulin aspart, human | [facility] | | | 100 UNT/ML Pen Injector | | | | [NovoLog] | | + + + + | 2021-07-07 00:00 | fluticasone propionate | [facility] | | | 0.05 MG/ACTUAT Metered Dose | | | | Nasal [place] | | + + + + | 2017-01-22 00:00 | HumaLOG KwikPen 100 | [facility] | | | UNIT/ML SC SOPN | | + + + + | 2018-02-04 00:00 | HumaLOG KwikPen 100 | [facility] | | | UNIT/ML SC SOPN | | + + + + | 2018-08-12 00:00 | HumaLOG KwikPen 100 | [facility] | | | UNIT/ML SC SOPN | | + + + + | 2019-02-26 00:00 | Susan EsparzaPen 100UNIT/ML | [facility] | | | Subcutaneous Solution | | | | Pen-injector | | + + + + | 2018-02-07 00:00 | NovoLOG FlexPen 100 | [facility] | | | UNIT/ML SC SOPN | | + + + + | 2019-02-26 00:00 | Alley PalaciosoStar 100UNIT/ML | [facility] | | | Subcutaneous Solution | | | | Pen-injector | | + + + + | 2019-02-26 00:00 | Patti PalaciosoStar 300UNIT/ML | [facility] | | [...] 00:00 | amlodipine 5 MG Oral | [facility] | | | Tablet | | + + + + | 2019-02-26 00:00 | diazepam 10 MG Oral Tablet | [facility] | | | | | + + + + | 2023-02-11 00:00 | DIAZEPAM | [facility] | + + + + | 2023-02-11 00:00 | OMEPRAZOLE | [facility] | + + + + | 2021-07-07 00:00 | omeprazole 20 MG Delayed | [facility] | | | Release Oral Capsule | | + + + + | 2021-07-07 00:00 | ondansetron 4 MG Oral | [facility] | | | Tablet | | + + + + | 2023-02-11 00:00 | TORSEMIDE | [facility] | + + + + | 2018-02-18 00:00 | FreeStyle Dao Sensor | [facility] | | | System MISC | | + + + + | 2018-07-08 00:00 | FreeStyle Dao Sensor | [facility] | | | System MISC | | + + + + | 2018-02-20 00:00 | FreeStyle Dao Braggadocio | [facility] | | | [place] | | + + + + | 2018-07-08 00:00 | Nicolas Dao Braggadocio | [facility] | | | [place] [...] 00:00 | amLODIPine Besylate 5 MG | [facility] | | | OR TABS | | + + + + | 2017-04-10 00:00 | amLODIPine Besylate 5 MG | [facility] | | | OR TABS | | + + + + | 2017-09-30 00:00 | amLODIPine Besylate 5 MG | [facility] | | | OR TABS | | + + + + | 2018-10-09 00:00 | amLODIPine Besylate 5 MG | [facility] | | | OR TABS | | + + + + | 2017-05-21 00:00 | Levothyroxine Sodium 88 | [facility] | | | MCG OR TABS | | + + + + | 2019-02-26 00:00 | Pravastatin Sodium 10MG | [facility] | | | Oral Tablet | | + + + + | 2017-11-04 00:00 | Pravastatin Sodium 40 MG | [facility] | | | OR TABS | | + + + + | 2023-02-11 00:00 | AMLODIPINE BESYLATE | [facility] | + + + + | 2019-02-26 00:00 | amlodipine 2.5 MG Oral | [facility] | | | Tablet | | + + + + | 2021-07-07 00:00 | amoxicillin 500 MG Oral | [facility] | | | Capsule | | + + + + | 2021-07-07 00:00 | aspirin 81 MG Delayed | [facility] | | | Release Oral Tablet | | + + + + | 2021-07-07 00:00 | furosemide 20 MG Oral | [facility] | | | Tablet | | + + + + | 2017-09-03 00:00 | glucagon (rDNA) 1 MG | [facility] | | | Injection [...] | BD Pen Needle Short U/F | [facility] | | | 31G X 8 MM Miscellaneous | | + + + + | 2019-02-26 00:00 | Isosorbide Mononitrate ER | [facility] | | | 30MG Oral Tablet Extended | | | | Release 24 Hour | | + + + + | 2021-07-07 00:00 | Jordan SCHAFFER CF free 90 | [facility] | | | mcg/inh | | + + + + | 2023-02-11 00:00 | DULOXETINE HCL | [facility] | + + + + | 2019-02-26 00:00 | duloxetine 30 MG Delayed | [facility] | | | Release Oral Capsule | | + + + + | 2021-07-07 00:00 | duloxetine 30 MG Delayed | [facility] | | | Release Oral [...] 00:00 | diazePAM 10MG Oral Tablet | [facility] | | | | | + + + + | 2018-01-07 00:00 | metFORMIN HCl ER 500 MG | [facility] | | | TB24 | | + + + + | 2018-02-18 00:00 | metFORMIN HCl ER 500 MG | [facility] | | | TB24 | | + + + + | 2018-05-26 00:00 | metFORMIN HCl ER 500 MG | [facility] | | | TB24 | | + + + + | 2021-07-07 00:00 | losartan 25 mg | [facility] | + + + + | 2021-07-07 00:00 | ondansetron 4 mg | [facility] | + + + + | 2021-07-07 00:00 | pravastatin 40 mg | [facility] | + + + + | 2021-01-09 00:00 | metFORMIN 1000 mg | [facility] | + + + + | 2021-07-07 00:00 | cyclobenzaprine 10 mg | [facility] | + + + + | 2017-09-17 00:00 | Metoprolol Succinate ER | [facility] | | | 100 MG OR TB24 | | + + + + | 2019-02-26 00:00 | Metoprolol Succinate ER | [facility] | | | 100MG Oral Tablet Extended | | | | Release 24 Hour | | + + + + | 2021-07-07 00:00 | [id number] 200 ACTUAT | [facility] | | | albuterol 0.09 MG/ACTUAT | | | | Metered Dose Inhaler | | | | [ProAir] | | + + + + | 2021-03-21 00:00 | amLODIPine 5 mg | [facility] | + + + + | 2016-12-04 00:00 | sodium polystyrene | [facility] | | | sulfonate 250 MG/ML Oral | | | | Suspension [Kionex] | | + + + + | 2023-02-11 00:00 | CYCLOBENZAPRINE HCL | [facility] | + + + + | 2021-10-26 00:00 | TRAMADOL HCL | [facility] | + + + + | 2019-02-26 00:00 | 3 ML insulin glargine 100 | [facility] | | | UNT/ML Pen Injector | | | | [Lantus] | | + + + + | 2019-02-26 00:00 | warfarin sodium 7.5 MG | [facility] | | | Oral Tablet | | + + + + | 2019-02-26 00:00 | trazodone hydrochloride | [facility] | | | 100 MG Oral Tablet | | + + + + | 2023-02-11 00:00 | TRAZODONE HCL | [facility] | + + + + | 2021-07-07 00:00 | acetaminophen 325 MG / | [facility] | | | hydrocodone bitartrate 5 MG | | | | Oral Tablet | | + + + + | 2023-02-11 00:00 | ALBUTEROL SULFATE | [facility] | + + + + | 2018-01-07 00:00 | 24 HR metformin | [facility] | | | hydrochloride 500 MG | | | | Extended Release Oral | | | | Tablet | | + + + + | 2018-02-18 00:00 | 24 HR metformin | [facility] | | | hydrochloride 500 MG | | | | Extended Release Oral | | | | Tablet | | + + + + | 2018-05-26 00:00 | 24 HR metformin | [facility] | | | hydrochloride 500 MG | | | | Extended Release Oral | | | | Tablet | | + + + + | 2021-01-09 00:00 | metformin hydrochloride | [facility] | | | 1000 MG Oral Tablet | | + + + + | 2023-02-11 00:00 | METFORMIN HCL | [facility] | + + + + | 2023-02-11 00:00 | TAMSULOSIN HCL | [facility] | + + + + | 2021-07-07 00:00 | tamsulosin hydrochloride | [facility] | | | 0.4 MG Oral Capsule [...] 00:00 | 24 HR metoprolol succinate | [facility] | | | 100 MG Extended Release | | | | Oral Tablet | | + + + + | 2023-02-11 00:00 | METOPROLOL SUCCINATE | [facility] | + + + + | [...] 2018-02-18 00:00 | levothyroxine sodium 0.1 | [facility] | | | MG Oral Tablet | | + + + + | 2023-02-11 00:00 | FLUTICASONE PROPIONATE | [facility] | + + + + | 2019-02-26 00:00 | pravastatin sodium 10 MG | [facility] | | | Oral Tablet | | + + + + | 2023-02-11 00:00 | PRAVASTATIN SODIUM | [facility] | + + + + | 2017-11-04 00:00 | pravastatin sodium 40 MG | [facility] | | | Oral Tablet | | + + + + | 2021-07-07 00:00 | pravastatin sodium 40 MG | [facility] | | | Oral Tablet [...] | 2023-02-11 00:00 | LEVOTHYROXINE SODIUM | [facility] | + + + + | 2021-07-07 00:00 | levothyroxine sodium 0.112 | [facility] | | | MG Oral [...] | 2017-10-15 00:00 | hydrochlorothiazide 12.5 | [facility] | | | MG / losartan potassium 100 | | | | MG Oral Tablet | | + + + + | 2018-09-16 00:00 | hydrochlorothiazide 12.5 | [facility] | | | MG / losartan potassium 100 | | | | MG Oral Tablet | | + + + + | 2019-02-26 00:00 | losartan potassium 100 MG | [facility] | | | Oral Tablet | | + + + + | 2021-07-07 00:00 | losartan potassium 25 MG | [facility] | | | Oral Tablet | | + + + + | 2023-02-11 00:00 | LOSARTAN POTASSIUM | [facility] | + + + + | 2016-10-16 00:00 | Losartan Potassium-HCTZ | [facility] | | | 100-12.5 MG OR TABS | | + + + + | 2017-10-15 00:00 | Losartan Potassium-HCTZ | [facility] | | | 100-12.5 [...] | (no date) | Acute diastolic | [facility] - | | | (congestive) heart failure | [place] | + + + + | 2015-04-07 00:00 | Diabetic renal disease | [facility] | + + + + | 2015-04-07 00:00 | Insomnia | [facility] | + + + + | 2015-04-07 00:00 | Hyperglycemia due to type | [facility] | | | 2 diabetes mellitus | | + + + + | 2015-04-07 00:00 | Chronic kidney disease | [facility] | | | stage 3 | | + + + + | 2015-04-07 00:00 | Essential hypertension | [facility] | + + + + | 2015-04-07 00:00 | 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[facility] | | | 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 | | | | diabetes mellitus | | + + + + | 2015-04-07 00:00 | 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 | | + + + + | 2015-04-07 00:00 | 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 | | | | retinopathy with macular | | | | edema | | + + + + | 2015-04-07 00:00 | Type 2 diabetes mellitus | [facility] | | | with hyperglycemia | | + + + + | 2015-04-07 00:00 | Mixed hyperlipidemia | [facility] | + + + + | 2015-04-07 00:00 | Insomnia, unspecified | [facility] | + + + + | 2015-04-07 00:00 | Essential (primary) | [facility] | | | hypertension | | + + + + | 2015-04-07 00:00 | Chronic kidney disease, | [facility] | | | stage 3 (moderate) | | + + + + | 2015-04-27 00:00 | History of pulmonary | [facility] | | | embolus | | + + + + | 2015-04-27 00:00 | History of | [facility] | | | thrombophlebitis | | + + + + | 2015-04-27 00:00 | Personal history of | [facility] | | | pulmonary embolism | | + + + + | 2015-04-27 00:00 | Personal history of | [facility] | | | thrombophlebitis | | + + + + | 2015-05-17 00:00 | Spasm | [facility] | + + + + | 2015-05-17 00:00 | 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 | | | | artery without angina | | | | pectoris | | + + + + | 2015-05-17 00:00 | Cramp and spasm | [facility] | + + + + | 2015-06-01 00:00 | Chest pain | [facility] | + + + + | 2015-06-01 00:00 | Tachycardia | [facility] | + + + + | 2015-06-01 00:00 | Tachycardia, unspecified | [facility] | + + + + | 2015-06-01 00:00 | Other chest pain | [facility] | + + + + | 2015-08-01 00:00 | Polyneuropathy due to type | [facility] | | | 2 diabetes mellitus | | + + + + | 2015-08-01 00:00 | Type 2 diabetes mellitus | [facility] | | | with diabetic | | [...] 00:00 | HTN BENIGN | [facility] | | | | | + + + + | 2015-10-04 00:00 | Diabetes mellitus type 2 | [facility] | | | (disorder) | | + + + + | 2015-10-04 00:00 | Atrial fibrillation | [facility] | | | (disorder) | | + + + + | 2015-10-04 00:00 | Right and left (qualifier | [facility] | | value) | | + + + + | 2015-10-04 00:00 | Coronary arteriosclerosis | [facility] | | | (disorder) | | + + + + | 2015-10-04 00:00 | Carpal tunnel syndrome | [facility] | | | (disorder) | | + + + + | 2015-10-04 00:00 | Essential hypertension | [facility] | | | (disorder) | | + + + + | 2015-10-04 00:00 | Diabetes Mellitus Type 2 | [facility] | | | | | + + + + | 2015-10-04 00:00 | Carpal Tunnel Syndrome | [facility] | | | Bilateral | | + + + + | 2015-10-04 00:00 | Essential Hypertension | [facility] 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 | | + + + + | 2016-10-17 00:00 | Pityriasis rosea | [facility] | + + + + | 2016-10-26 00:00 | Eruption of skin | [facility] | + + + + | 2016-10-26 00:00 | Rash and other nonspecific | [facility] | | | skin eruption | | + + + + | 2016-12-04 00:00 | Hyperkalemia | [facility] | + + + + | 2016-12-12 00:00 | Chronic atrial | [facility] | | | fibrillation | | + + + + | 2017-01-08 00:00 | Acquired hypothyroidism | [facility] | | | (disorder) | | + + + + | 2017-01-08 00:00 | HYPOTHYROIDISM | [facility] | | | | | + + + + | 2017-01-08 00:00 | Primary Hypothyroidism | [facility] | | | | | + + + + | 2017-02-06 00:00 | Obstructive sleep apnea | [facility] | | | syndrome | | + + + + | 2017-02-06 00:00 | Obstructive sleep apnea | [facility] | | | (adult) (pediatric) | | + + + + | 2017-09-24 00:00 | Cramp in lower leg | [facility] | | | associated with rest | | + + + + | 2017-09-24 00:00 | Sleep related leg cramps | [facility] | + + + + | 2017-12-18 00:00 | Diabetic renal disease | [facility] | + + + + | 2017-12-18 00:00 | Meralgia paresthetica | [facility] | + + + + | 2017-12-18 00:00 | Type 2 diabetes mellitus | [facility] | | | with other diabetic kidney | | | | complication | | + + + + | 2017-12-18 00:00 | Meralgia paresthetica, | [facility] | | | bilateral lower [...] 00:00 | Diabetes mellitus type 1 | [facility] | | | (disorder) | | + + + + | 2018-10-21 00:00 | Hypothyroidism | [facility] | + + + + | 2018-10-21 00:00 | Other specified | [facility] | | | hypothyroidism | | + + + + | 2019-01-13 00:00 | History of polyp of colon | [facility] | + + + + | 2019-01-13 00:00 | Personal history of | [facility] | | | colonic polyps | | + + + + | 2019-07-16 00:00 | Diabetic renal disease | [facility] | + + + + | 2019-07-16 00:00 | 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[facility] | | | 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 | | | | diabetes mellitus | | + + + + | 2019-07-16 00:00 | Type 2 diabetes mellitus | [facility] | | | with diabetic chronic | | | | kidney disease | | + + + + | 2019-07-16 00:00 | Type 2 diabetes mellitus | [facility] | | | with mild nonproliferative | | | | diabetic retinopathy with | | | | macular edema, bilateral | | + + + + | 2019-07-16 08:44:05 | Other specified | [facility] - | | | hypothyroidism | [place] | + + + + | 2019-07-16 08:44:05 | Type 2 diabetes mellitus | [facility] - | | | with diabetic chronic | [facility] | | | kidney disease | | + + + + | 2019-07-16 08:44:05 | Type 2 diabetes mellitus | [facility] - | | | with mild nonproliferative | [facility] | | | diabetic retinopathy with | | | | macular edema, bilateral | | + + + + | 2019-07-16 08:44:05 | Type 2 diabetes mellitus | [facility] - | | | with hyperglycemia | [facility] | + + + + | 2019-07-16 08:44:05 | Essential (primary) | [facility] - | | | hypertension | [facility] | + + + + | 2019-07-20 09:05:58 | Radial styloid | [facility] - | | | tenosynovitis (de quervain) | [facility] | | | | | + + + + | 2019-07-27 09:16:16 | Encounter for other | [facility] - | | | specified special | [facility] | | | examinations | | + + + + | 2019-08-10 08:44:42 | Other pulmonary embolism | [facility] - | | | without acute cor pulmonale | [facility] | | | | | + + + + | 2019-08-10 08:44:42 | Unspecified atrial | [facility] - | | | fibrillation | [facility] | + + + + | 2019-08-10 08:44:42 | Acute embolism and | [facility] - | | | thrombosis of unspecified | [place] | | | vein | | + + + + | 2019-08-10 08:44:42 | Encounter for therapeutic | [facility] - | | | drug level monitoring | [place] | + + + + | 2019-08-10 08:44:42 | 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 | [facility] | + + + + | 2019-08-15 09:06 | Wrist Pain | [facility] - | | | | [place] | + + + + | 2019-08-15 11:12:57 | Wrist Pain | [facility] - | | | | [place] | + + + + | 2019-08-15 11:12:57 | Hyperkalemia | [facility] - | | | | [place] | + + + + | 2019-08-15 11:12:57 | Cellulitis of right upper | [facility] - | | | limb | [place] | + + + + | 2019-08-15 11:12:57 | Acute kidney failure, | [facility] - | | | unspecified | [place] | + + + + | 2019-08-24 08:28:31 | Other pulmonary embolism | [facility] - | | | without acute cor pulmonale | [place] | | | | | + + + + | 2019-08-24 08:28:31 | Unspecified atrial | [facility] - | | | fibrillation | [place] | + + + + | 2019-08-24 08:28:31 | Acute embolism and | [facility] - | | | thrombosis of unspecified | [place] | | | vein | | + + + + | 2019-08-24 08:28:31 | Encounter for therapeutic | [facility] - | | | drug level monitoring | [place] | + + + + | 2019-08-24 08:28:31 | 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 - | | | thrombosis of unspecified | [place] | | | vein | | + + + + | 2019-09-21 08:12:15 | Encounter for therapeutic | [facility] - | | | drug level monitoring | [place] | + + + + | 2019-09-21 08:12:15 | assisted (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 of | [facility] - | | | 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 | [place] | + + + + | 2019-11-09 08:18:40 | Other pulmonary embolism | [facility] - | | | without acute cor pulmonale | [place] | | | | | + + + + | 2019-11-09 08:18:40 | Unspecified atrial | [facility] - | | | fibrillation | [place] | + + + + | 2019-11-09 08:18:40 | Acute embolism and | [facility] - | | | thrombosis of unspecified | [place] | | | vein | | + + + + | 2019-11-09 08:18:40 | Encounter for therapeutic | [facility] - | | | drug level monitoring | [place] | + + + + | 2019-11-09 08:18:40 | 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 | [place] | + + + + | 2019-12-11 00:00 | Diastolic heart failure | [facility] | + + + + | 2019-12-11 00:00 | Unspecified diastolic | [facility] | | | (congestive) heart failure | | + + + + | 2019-12-11 14:25:01 | Type 2 diabetes mellitus | [facility] - | | | with hyperglycemia | [place] | + + + + | 2019-12-11 14:25:01 | Essential (primary) | [facility] - | | | hypertension | [place] | + + + + | 2019-12-11 14:25:01 | Unspecified diastolic | [facility] - | | | (congestive) heart failure | [place] | + + + + | 2019-12-11 14:25:01 | Chronic kidney disease, | [facility] - | | | stage 3 (moderate) | [place] | + + + + | 2019-12-12 00:00 | Acute diastolic heart | [place] [facility] | | | failure | | + + + + | 2019-12-12 00:00 | Acute diastolic | [place] [facility] | | | (congestive) heart failure | | + + + + | 2019-12-21 07:35:52 | Other proteinuria | [facility] - | | | | [place] | + + + + | 2019-12-21 07:41:32 | Other pulmonary embolism | [facility] - | | | without acute cor pulmonale | [place] | | | | | + + + + | 2019-12-21 07:41:32 | Unspecified atrial | [facility] - | | | fibrillation | [place] | + + + + | 2019-12-21 07:41:32 | Acute embolism and | [facility] - | | | thrombosis of unspecified | [place] | | | vein | | + + + + | 2019-12-21 07:41:32 | Encounter for therapeutic | [facility] - | | | drug level monitoring | [place] | + + + + | 2019-12-21 07:41:32 | assisted (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 of | [facility] - | | | 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 | [place] | + + + + | 2019-12-22 10:05:25 | Acute diastolic | [facility] - | | | (congestive) heart failure | [place] | + + + + | 2020-02-01 10:56:27 | Chronic kidney disease, | [facility] - | | | stage 3 (moderate) | [place] | + + + + | 2020-03-29 08:49:05 | Other pulmonary embolism | [facility] - | | | without acute cor pulmonale | [place] | | | | | + + + + | 2020-03-29 08:49:05 | Paroxysmal atrial | [facility] - | | | fibrillation | [place] | + + + + | 2020-03-29 08:49:05 | Acute embolism and | [facility] - | | | thrombosis of unspecified | [place] | | | deep veins of right lower | | | | extremity | | + + + + | 2020-03-29 08:49:05 | Encounter for therapeutic | [facility] - | | | drug level monitoring | [place] | + + + + | 2020-03-29 08:49:05 | assisted (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 of | [facility] - | | | 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 | [place] | + + + + | 2020-04-04 00:00 | Long-term current use of | [place] [facility] | | | insulin | | + + + + | 2020-04-04 00:00 | assisted (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 of | [place] [facility] | | | insulin | | + + + + | 2020-04-04 14:07:44 | 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 | [place] | + + + + | 2020-04-04 14:07:44 | Type 2 diabetes mellitus | [facility] - | | | with diabetic | [place] | | | polyneuropathy | | + + + + | 2020-04-04 14:07:44 | Mixed hyperlipidemia | [facility] - | | | | [place] | + + + + | 2020-04-07 09:22:04 | Isolated proteinuria | [facility] - | | | | [place] | + + + + | 2020-04-07 09:22:04 | Other proteinuria | [facility] - | | | | [place] | + + + + | 2020-04-07 11:05:25 | Other proteinuria | [facility] - | | | | [place] | + + + + | 2020-05-10 09:12:55 | Other pulmonary embolism | [facility] - | | | without acute cor pulmonale | [place] | | | | | + + + + | 2020-05-10 09:12:55 | Paroxysmal atrial | [facility] - | | | fibrillation | [place] | + + + + | 2020-05-10 09:12:55 | Acute embolism and | [facility] - | | | thrombosis of unspecified | [place] | | | deep veins of right lower | | | | extremity | | + + + + | 2020-05-10 09:12:55 | Encounter for therapeutic | [facility] - | | | drug level monitoring | [place] | + + + + | 2020-05-10 09:12:55 | assisted (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 of | [facility] - | | | 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 | [place] | + + + + | 2020-05-24 09:03:04 | Other pulmonary embolism | [facility] - | | | without acute cor pulmonale | [place] | | | | | + + + + | 2020-05-24 09:03:04 | Paroxysmal atrial | [facility] - | | | fibrillation | [place] | + + + + | 2020-05-24 09:03:04 | Acute embolism and | [facility] - | | | thrombosis of unspecified | [place] | | | deep veins of right lower | | | | extremity | | + + + + | 2020-05-24 09:03:04 | Encounter for therapeutic | [facility] - | | | drug level monitoring | [place] | + + + + | 2020-05-24 09:03:04 | 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 | [place] | + + + + | 2020-06-07 10:22:25 | Other pulmonary embolism | [facility] - | | | without acute cor pulmonale | [place] | | | | | + + + + | 2020-06-07 10:22:25 | Paroxysmal atrial | [facility] - | | | fibrillation | [place] | + + + + | 2020-06-07 10:22:25 | Acute embolism and | [facility] - | | | thrombosis of unspecified | [place] | | | deep veins of right lower | | | | extremity | | + + + + | 2020-06-07 10:22:25 | Encounter for therapeutic | [facility] - | | | drug level monitoring | [place] | + + + + | 2020-06-07 10:22:25 | 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 | [place] | + + + + | 2020-06-28 10:23:54 | Other pulmonary embolism | [facility] - | | | without acute cor pulmonale | [place] | | | | | + + + + | 2020-06-28 10:23:54 | Paroxysmal atrial | [facility] - | | | fibrillation | [place] | + + + + | 2020-06-28 10:23:54 | Acute embolism and | [facility] - | | | thrombosis of unspecified | [place] | | | deep veins of right lower | | | | extremity | | + + + + | 2020-06-28 10:23:54 | Encounter for therapeutic | [facility] - | | | drug level monitoring | [place] | + + + + | 2020-06-28 10:23:54 | 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 | [place] | + + + + | 2020-08-02 09:52:07 | Other pulmonary embolism | [facility] - | | | without acute cor pulmonale | [place] | | | | | + + + + | 2020-08-02 09:52:07 | Paroxysmal atrial | [facility] - | | | fibrillation | [place] | + + + + | 2020-08-02 09:52:07 | Acute embolism and | [facility] - | | | thrombosis of unspecified | [place] | | | deep veins of right lower | | | | extremity | | + + + + | 2020-08-02 09:52:07 | Encounter for therapeutic | [facility] - | | | drug level monitoring | [place] | + + + + | 2020-08-02 09:52:07 | assisted (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 of | [employer] 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 - | | | with hyperglycemia | [place] | + + + + | 2020-08-15 00:00 | Sciatica | [facility] | + + + + | 2020-08-15 00:00 | Lumbago with sciatica, | [facility] | | | right side | | + + + + | 2020-09-13 09:49:40 | Other pulmonary embolism | [facility] - | | | without acute cor pulmonale | [place] | | | | | + + + + | 2020-09-13 09:49:40 | Paroxysmal atrial | [facility] - | | | fibrillation | [place] | + + + + | 2020-09-13 09:49:40 | Acute embolism and | [facility] - | | | thrombosis of unspecified | [place] | | | deep veins of right lower | | | | extremity | | + + + + | 2020-09-13 09:49:40 | Encounter for therapeutic | [facility] - | | | drug level monitoring | [place] | + + + + | 2020-09-13 09:49:40 | assisted (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 of | [facility] - | | | 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 | [place] | + + + + | 2020-09-15 13:26:36 | Other specified | [facility] - | | | hypothyroidism | [place] | + + + + | 2020-09-15 13:26:36 | Type 2 diabetes mellitus | [facility] - | | | with other diabetic kidney | [place] | | | complication | | + + + + | 2020-09-30 07:55:06 | Other pulmonary embolism | [facility] - | | | without acute cor pulmonale | [place] | | | | | + + + + | 2020-09-30 07:55:06 | Paroxysmal atrial | [facility] - | | | fibrillation | [place] | + + + + | 2020-09-30 07:55:06 | Acute embolism and | [facility] - | | | thrombosis of unspecified | [place] | | | vein | | + + + + | 2020-10-01 10:11:38 | Encounter for screening | [facility] - | | | for other viral diseases | [place] | + + + + | 2020-10-03 14:16:53 | 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 - | | | without acute cor pulmonale | [place] | | | | | + + + + | 2020-10-11 14:05:31 | Unspecified atrial | [employer] [facility] - | | | fibrillation | [place] | + + + + | 2020-10-11 14:05:31 | Acute embolism and | [employer] 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 | [place] | + + + + | 2020-11-08 08:53:51 | Other pulmonary embolism | [facility] - | | | without acute cor pulmonale | [place] | | | | | + + + + | 2020-11-08 08:53:51 | Unspecified atrial | [facility] - | | | fibrillation | [place] | + + + + | 2020-11-08 08:53:51 | Acute embolism and | [facility] - | | | thrombosis of unspecified | [place] | | | deep veins of unspecified | | | | proximal lower extremity | | + + + + | 2020-11-08 08:53:51 | Encounter for therapeutic | [facility] - | | | drug level monitoring | [place] | + + + + | 2020-11-08 08:53:51 | assisted (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 of | [facility] - | | | 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 | [place] | + + + + | 2020-11-30 11:40:54 | Type 2 diabetes mellitus | [facility] - | | | with diabetic chronic | [place] | | | kidney disease | | + + + + | 2020-11-30 11:40:54 | Mixed hyperlipidemia | [facility] - | | | | [place] | + + + + | 2020-12-12 08:43:18 | Other pulmonary embolism | [facility] - | | | without acute cor pulmonale | [place] | | | | | + + + + | 2020-12-12 08:43:18 | Paroxysmal atrial | [facility] - | | | fibrillation | [place] | + + + + | 2020-12-12 08:43:18 | Acute embolism and | [facility] - | | | thrombosis of unspecified | [place] | | | deep veins of right lower | | | | extremity | | + + + + | 2020-12-12 08:43:18 | Encounter for therapeutic | [facility] - | | | drug level monitoring | [place] | + + + + | 2020-12-12 08:43:18 | 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 | [place] | + + + + | 2021-01-09 08:49:42 | Other pulmonary embolism | [facility] - | | | without acute cor pulmonale | [place] | | | | | + + + + | 2021-01-09 08:49:42 | Paroxysmal atrial | [facility] - | | | fibrillation | [place] | + + + + | 2021-01-09 08:49:42 | Acute embolism and | [facility] - | | | thrombosis of unspecified | [place] | | | deep veins of right lower | | | | extremity | | + + + + | 2021-01-09 08:49:42 | Encounter for therapeutic | [facility] - | | | drug level monitoring | [place] | + + + + | 2021-01-09 08:49:42 | 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 | [place] | + + + + | 2021-01-26 09:11:42 | FYI | [facility] | | | | Care | + + + + | 2021-02-20 09:15:49 | Other pulmonary embolism | [facility] - | | | without acute cor pulmonale | [place] | | | | | + + + + | 2021-02-20 09:15:49 | Paroxysmal atrial | [facility] - | | | fibrillation | [place] | + + + + | 2021-02-20 09:15:49 | Acute embolism and | [facility] - | | | thrombosis of unspecified | [place] | | | deep veins of right lower | | | | extremity | | + + + + | 2021-02-20 09:15:49 | Encounter for therapeutic | [facility] - | | | drug level monitoring | [place] | + + + + | 2021-02-20 09:15:49 | assisted (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 of | [facility] - | | | 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 | [place] | + + + + | 2021-03-20 09:01:08 | Other pulmonary embolism | [facility] - | | | without acute cor pulmonale | [place] | | | | | + + + + | 2021-03-20 09:01:08 | Paroxysmal atrial | [facility] - | | | fibrillation | [place] | + + + + | 2021-03-20 09:01:08 | Acute embolism and | [facility] - | | | thrombosis of unspecified | [place] | | | deep veins of right lower | | | | extremity | | + + + + | 2021-03-20 09:01:08 | Encounter for therapeutic | [facility] - | | | drug level monitoring | [place] | + + + + | 2021-03-20 09:01:08 | 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 - | | | thrombosis of unspecified | [place] | | | deep veins of right lower | | | | extremity | | + + + + | 2021-05-01 09:14:56 | Encounter for therapeutic | [facility] - | | | drug level monitoring | [place] | + + + + | 2021-05-01 09:14:56 | assisted (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 of | [facility] - | | | 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 | [place] | + + + + | 2021-05-02 10:02:34 | Type 2 diabetes mellitus | [facility] | | | with diabetic chronic | Care | | | kidney disease | | + + + + | 2021-05-02 10:02:34 | Hypertensive chronic kidney | [facility] | | | disease with stage 1 | Care | | | through stage 4 chronic | | | | kidney disease, or | | | | unspecified chronic kidney | | | | disease | | + + + + | 2021-05-02 10:02:34 | Chronic kidney disease, | [facility] | | | stage 3 unspecified | Care | + + + + | 2021-05-02 10:02:34 | Chronic kidney disease, | [facility] | | | stage 3b | Care | + + + + | 2021-05-02 10:02:34 | 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 | Care | + + + + | 2021-05-02 10:25:30 | Type 2 diabetes mellitus | [facility] | | | with diabetic chronic | Care | | | kidney disease | | + + + + | 2021-05-02 10:25:30 | Hypertensive chronic kidney | [facility] | | | disease with stage 1 | Care | | | through stage 4 chronic | | | | kidney disease, or | | | | unspecified chronic kidney | | | | disease | | + + + + | 2021-05-02 10:25:30 | Chronic kidney disease, | [facility] | | | stage 3 unspecified | Care | + + + + | 2021-05-02 10:25:30 | Chronic kidney disease, | [facility] | | | stage 3b | Care | + + + + | 2021-05-02 10:25:30 | 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 | Care | + + + + | 2021-05-02 10:42:35 | Type 2 diabetes mellitus | [facility] | | | with diabetic chronic | Care | | | kidney disease | | + + + + | 2021-05-02 10:42:35 | Hypertensive chronic kidney | [facility] | | | disease with stage 1 | Care | | | through stage 4 chronic | | | | kidney disease, or | | | | unspecified chronic kidney | | | | disease | | + + + + | 2021-05-02 10:42:35 | Chronic kidney disease, | [facility] | | | stage 3 unspecified | Care | + + + + | 2021-05-02 10:42:35 | Chronic kidney disease, | [facility] | | | stage 3b | Care | + + + + | 2021-05-02 10:42:35 | assisted (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 of | [facility] | | | insulin | Care | + + + + | 2021-05-15 02:02:54 | Chronic kidney disease, | [facility] | | | stage 3b | Care | + + + + | 2021-05-16 18:03:48 | Hypertensive chronic kidney | [facility] | | | disease with stage 1 | Care | | | through stage 4 chronic | | | | kidney disease, or | | | | unspecified chronic kidney | | | | disease | | + + + + | 2021-05-16 18:03:48 | Chronic kidney disease, | [facility] | | | stage 3 unspecified | Care | + + + + | 2021-10-26 00:00 | Injury of head | [facility] | + + + + | 2021-10-26 00:00 | Strain of lumbar region | [facility] | + + + + | 2021-10-26 00:00 | Contusion | [facility] | + + + + | [...] 00:00 | Fracture of left femur | [facility] | + + + + | [...] + + + | 2023-01-30 08:43 | PRODUCTION [facility]PV (CURRENT) USE OF | [facility] | | | ANTICOAGULANTS | | + + + + | 2023-01-30 08:43 | [facility]IVING (CURRENT) USE OF | [facility] | | | INSULIN | | + + + + | 2023-01-30 08:43 | [employer] (CURRENT) USE OF | [facility] | | | ORAL HYPOGLYCEMIC DRUGS | | + + + + | 2023-01-30 08:43 | OTHER SEN[facility] LIVING (CURRENT) | [facility] | | | DRUG THERAPY | | + + + + | 2023-01-30 08:43 | ALLERGY STATUS TO NARCOTIC | [facility] | | | AGENT STATUS | | + + + + | 2023-01-30 08:43 | 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, BILATERAL | | + + + + | 2023-02-11 00:00 | Orthostatic hypotension | [facility] | + + + + | [...] + + + | 2023-02-11 11:41 | [employer] (CURRENT) USE OF | [facility] | | | ANTICOAGULANTS | | + + + + | 2023-02-11 11:41 | SEN[facility] LIVING (CURRENT) USE OF | [facility] | | | INSULIN | | + + + + | 2023-02-11 11:41 | HORMONE REPLACEMENT | [facility] | | | THERAPY | | + + + + | 2023-02-11 11:41 | OTHER SENIOR LIVING (CURRENT) | [facility] | | | DRUG [...] | | | | | | | 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
--- OUTSIDE RECORDS SUMMARY | 2023-02-20 13:21 | XMS ---
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 - [facility] - 2 Visits in 30 Days CARE PROVIDERS There are no care providers on record at this time. [place] has no Care Guidelines for this patient. Jose Antonio VISIT COUNT (12 MO.) 3 [facility] [address] [place] [address] TOTAL 4 NOTE: Visits indicate total known visits. 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 - group home (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 of insulin - Orthostatic hypotension - Other retirement (current) drug therapy - Type 2 diabetes mellitus with diabetic chronic kidney disease 01/30/2023 12:15 [facility] TYPE: Emergency DIAGNOSES: - Displaced spiral fracture of shaft of left femur, initial encounter for closed fracture - Type 2 diabetes mellitus with hypoglycemia without coma - Leg Injury (Major) 01/30/2023 08:43 [facility] TYPE: Emergency COMPLAINT: - FALL DIAGNOSES: - Allergy status to narcotic agent - Chronic kidney disease, stage 3 unspecified - Contact with and (suspected) exposure to COVID-19 - Displaced spiral fracture of shaft of left femur, initial encounter for closed fracture - Hypertensive chronic kidney disease with stage 1 through stage 4 chronic kidney disease, or unspecified chronic kidney disease - termite treater (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 of 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 - termite treater (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 of insulin - group home (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 of oral hypoglycemic drugs - Other fall on same level, initial encounter - Other retirement (current) drug therapy - Presence of artificial knee joint, bilateral - Type 2 diabetes mellitus with diabetic chronic kidney disease - Type 2 diabetes mellitus with diabetic neuropathy, unspecified INPATIENT VISIT TRACKING (12 MO.) 01[facility]30[facility]2023 12[facility] DIAGNOSES: - Chronic kidney disease, stage 3b - Displaced spiral fracture of shaft of left femur, initial encounter for closed fracture - Dizziness and giddiness - Encounter for screening, unspecified - Fall on same level, unspecified, initial encounter - group home (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 of 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 - termite treater (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 of insulin - Other forms [...] diabetes mellitus with other diabetic neurological complication [id number]
[2023-02-20 13:50] LABS: BASOPHILS 0.7 % (0-2); EOSINOPHILS 3.6 % (0-6); HEMOGLOBIN 11.1 g/dL (12.0-18.0); LYMPHOCYTES 14.1 % (24-44); MCH 27.1 (27-36); MCHC 32.7 g/dl (30-36); MCV 83.1 fl (81-99); NEUTROPHILS 72.6 % (39-80); PLATELET COUNT 240 K/uL (140-440); RDW 20.9 (10.5-15.0)
[2023-02-20 14:15] LABS: ALBUMIN 3.2 g/dL (3.4-5.0); ALBUMIN/GLOBULIN RATIO 0.74 (1.1-2.4); ANION GAP 12.1 (7-21); BILIRUBIN, TOTAL 0.4 ng/dL (0.2-1.0); BUN/CREATININE RATIO 28.05 (6.0-28.6); CALCIUM 9.6 mg/dL (8.5-10.1); CREATININE, SERUM 2.21 mg/dL (0.70-1.30); POTASSIUM 5.1 mmol/L (3.5-5.1); PROTEIN, TOTAL 7.5 g/dL (6.4-8.2)
[2023-02-20 14:29] LABS: BILIRUBIN, URINE NEGATIVE (negative); BLOOD/HGB, URINE NEGATIVE (Negative); KETONE, URINE NEGATIVE (Negative); LEUK ESTERASE, URINE NEGATIVE (negative); NITRITE, URINE NEGATIVE (negative); PH, URINE 5.5 (5-7)
[2023-02-20 16:59] VITALS: BP 147/61
--- NOTE | 2023-02-20 18:34 | NUR ---
REPORT RECEIVED FROM KATHRYN PADILLA IN THE ER AT THE BED AT 1622. THIS RN TRANSPORTS PT VIA [facility] TO MED-SURG ROOM 121 AT 1635. PT REPOSITIONS SELF FROM [facility] AND MOVES INTO BED. VSS. PT TOLERATES TRANSFER WELL. TELEMETRY APPLIED, , MILAGRO, IN ROOM. IV FLUSHED, SALINE LOCKED. PT REPORTS 6/10 LEFT KNEE PAIN, DULL. PT S/P LEFT FEMUR FRX WITH REPAIR ON 01/30/23. SCREW IN LEFT KNEE REPLACED 02/15/23. PT ASSISTED TO BATHROOM. PT ABLE TO AMBULATED WITH STEADY GAIT USING FWW AND 1 PERSON STANDBY ASSIST. PT VOIDS CLEAR YELLOW URINE. PT BACK TO BED. ORTHOSTATIC BPs TAKEN. PT SITS UP IN BED. 1726 CBG 163. MEAL ARRIVES, PT EATS, TOLERATES FOOD WELL. DENIES NAUSEA. PHYSCIAL ASSESSMENT COMPLETE. CALL LIGHT IN REACH. NO REQUESTS AT THIS TIME.
--- NOTE | 2023-02-20 19:26 | NUR ---
Rich is awake, no complaints, "just bored", call light in reach. Bedside report recieved.
[2023-02-20 19:47] VITALS: BP 131/53
--- NOTE | 2023-02-20 22:10 | NUR ---
Nakul watched TV for a little while, he is now resting comfortable with eyes closed and lights out. VSS, Blood sugar at bedtime was 180 and 3u lispro given. call light in reach.
--- NOTE | 2023-02-21 02:22 | NUR ---
KAILEE IS NOT SLEEPING WELL TONIGHT, AWKAE NOW, VSS, LEFT LEG ACHING SOME AND PATIENT GIVEN TYLENOL FOR THE DISCOMFORT. KAILEE STATES THIS HAPPENS EVERYTHIME HE IS IN THE HOSPITAL. NO SYNCOPAL EPISODES NOTED.
[2023-02-21 02:34] VITALS: BP 141/53
--- NOTE | 2023-02-21 03:43 | NUR ---
KAILEE IS RESTING WITH LIGHTS OUT, NO DISTRESS NOTED, APPEARS COMFORTABLE, CALL LIGHT IN REACH.
--- NOTE | 2023-02-21 05:08 | NUR ---
Nakul has had no syncopal episodes this shift, VSS, no CP, SOB, nausea or ESQUEDA. Tele intact = SR. Mild left leg discomfort during the night and given tylenol. He has slept on and off but very little which he states is normal for him when in the hospital. lights are out now, he his lying comfortable with call light in reach.
[2023-02-21 05:26] LABS: BASOPHILS 0.5 % (0-2); EOSINOPHILS 5.2 % (0-6); HEMATOCRIT 30.8 % (35.0-50.0); HEMOGLOBIN 9.9 g/dL (12.0-18.0); LYMPHOCYTES 23.1 % (24-44); MCHC 32.2 g/dl (30-36); MCV 83.9 fl (81-99); MONOCYTES 11.3 % (0-12); NEUTROPHILS 59.9 % (39-80); PLATELET COUNT 226 K/uL (140-440); RBC 3.66 M/ul (4.3-5.7)
[2023-02-21 05:40] LABS: ALBUMIN 2.9 g/dL (3.4-5.0); ALBUMIN/GLOBULIN RATIO 0.81 (1.1-2.4); ANION GAP 11.3 (7-21); BILIRUBIN, TOTAL 0.3 ng/dL (0.2-1.0); BUN/CREATININE RATIO 31.11 (6.0-28.6); CALCIUM 9.3 mg/dL (8.5-10.1); CREATININE, SERUM 1.8 mg/dL (0.70-1.30); POTASSIUM 4.3 mmol/L (3.5-5.1); PROTEIN, TOTAL 6.5 g/dL (6.4-8.2)
--- NOTE | 2023-02-21 07:07 | NUR ---
REPORT RECEIVED FROM KATHRYN ALVARADO. PT SITTING UP IN BED USING URINAL. NO NEEDS IDENTIFIED AT THIS TIME. CALL LIGHT IN REACH.
[2023-02-21 08:07] VITALS: BP 142/63
--- NOTE | 2023-02-21 08:19 | NUR ---
IN TO ADMINISTER MEDICAITONS, SEE MAR. PT TAKES PO MEDICATIONS WITH NO ISSUES. ORTHO VITALS COMPLETE. PT DENIES FEELING DIZZY OR LIGHT HEADED. ASSESSMENT COMPLETE. LUNG SOUNDS CLEAR. BOWEL TONES ACTIVE. PT DENIES PAIN AT THIS TIME. DRESSINGS TO LEFT KNEE C/D/I. BRUISING NOTED TO LEFT KNEE. EDEMA NOTED TO LEFT KNEE. OFFERED ICE PACK. PT ACCTEPTS. ICE PACK PROVIDED. PT DENIES ANY NUMBNESS OR TINGLING AT THIS TIME. PT DENIES ANY OTHER NEEDS AT THIS TIME. CALL LIGHT IN REACH.
[2023-02-21] MEDS ORDERED: MECLIZINE HCL25 MG PO (09:58)
--- NOTE | 2023-02-21 10:07 | NUR ---
EXERCISED MINISTRY OF PRESENCE PT AND EXPRESSED HOPE THAT CAUSE OF DISCOMFORT WOULD BE FOUND. PT STATED HE IS "BORED." PROVIDED GUIDEPOST AND ACTIVITY BOOK. PRAYED FOR PATIENCE AND DISCERNMENT OF PATH TO HEALTH.
[2023-02-21] MEDS ORDERED: DOCUSATE SODIU100 MG PO (10:15)
[2023-02-21] MEDS ORDERED: CO Q-10200 MG PO (10:17)
[2023-02-21] MEDS ORDERED: TAMSULOSIN HCL0.4 MG PO (10:19)
[2023-02-21] MEDS ORDERED: HYDROCODON-ACE1 EA10 PO (10:20)
[2023-02-21] MEDS ORDERED: ALLOPURINOL100 MG PO (10:21)
[2023-02-21] MEDS ORDERED: ADULTS 50 PLUS1 EACH PO (10:21)
[2023-02-21] MEDS ORDERED: GERI-KOT8.6 MG PO (10:23)
--- NOTE | 2023-02-21 10:23 | NUR ---
IN TO ROUND ON PT. PT REQUESTING TO GET INTO RECLINER SITTING IN BED IS "MAKING ME SORE." SBA WITH FWW TO RECLINER. PT DENIES DIZZINESS OR LIGHTHEADEDNESS. PT DENIES ANY OTHER NEEDS AT THIS TIME. CALL LIGHT IN REACH. IN ROOM.
[2023-02-21] MEDS ORDERED: ADULT LOW DOSE81 MG PO (10:24)
[2023-02-21] MEDS ORDERED: INDAPAMIDE1.25 MG PO (10:25)
--- NOTE | 2023-02-21 11:20 | NUR ---
TO NURSES STATION. PT REQUESTING TO GET BACK INTO BED. SBA WITH FWW FROM RECLINER TO BED. BLE ELEVATED ON PILLOWS. PT DENIES ANY OTHER NEEDS AT THIS TIME. CALL LIGHT IN REACH. IN ROOM.
[2023-02-21] MEDS ORDERED: ACETAMINOPHEN500 MG PO (11:31)
[2023-02-21] MEDS ORDERED: ACETAMINOPHEN-1 EAC1 PO (11:32)
--- NOTE | 2023-02-21 11:32 | NUR ---
MED REC COMPLETE
--- NOTE | 2023-02-21 11:58 | NUR ---
IN TO ADMINISTER MEDICATION, SEE MAR. PT UP IN BED. LUNCH TRAY ARRIVED. PT DENIES ANY NEEDS AT THIS TIME. TRAY PLACED IN FRONT OF PT. CALL LIGHT IN REACH.
--- NOTE | 2023-02-21 13:43 | NUR ---
IN TO ROUND ON PT. PT UP IN BED REQUESTING TO USE BSC. SBA WITH FWW FROM BED TO BSC. IN ROOM. PT INSTRUCTED TO USE CALL LIGHT WHEN READY TO GET BACK INTO BED. PT VERBALIZES UNDERSTANDING. CALL LIGHT IN REACH.
[2023-02-21 13:52] VITALS: BP 151/58
--- NOTE | 2023-02-21 13:54 | NUR ---
IN TO ADMINISTER PRN PAIN MEDICATION PT REPORTING PAIN 7/10 IN LEFT THIGH AND KNEE, SEE MAR. PT TAKES PO MEDICATION WITH NO ISSUES. RODRI ABDULLAHI IN ROOM ASSISTING PT BACK TO BED FROM [facility]. PT DENIES FEELING DIZZY. PT DOES REPORT FEELING SWEATY THOUGH. VITALS AND I&Os COMPLETE. PT IN BED. AT BED SIDE. PT DENIES ANY OTHER NEEDS AT THIS TIME. CALL LIGHT IN REACH.
--- NOTE | 2023-02-21 13:55 | NUR ---
PT ASSISTED OFF BSC. 1 PA W FWW. PT BACK TO BED. VITALS AND IS AND OS COMPLETE. NO NEEDS AT THIS TIME. CALL LIGHT WITHIN REACH
--- NOTE | 2023-02-21 13:57 | NUR ---
PT REPORTING TAKING STOOL SOFTENER, PT DOES NOT RECALL NAME. WILL ADD NIO FOR STOOL SOFTENER PER PT REQUEST.
--- NOTE | 2023-02-21 15:54 | NUR ---
IN TO ROUND ON PT. KATHRYN URENA IN ROOM WITH PT. PT DENIES ANY NEEDS FROM THIS RN AT THIS TIME. CALL LIGHT IN REACH. KATHRYN LAZO FROM CASE MANAGEMENT IN ROOM WITH PT.
--- NOTE | 2023-02-21 15:56 | NUR ---
PT REQUESTS A SNACK, STRING CHEESE PROVIDED. PT REPORTS PAIN IS IMPROVING, NOW DOWN TO 5/10. PT DENIES NEED FOR ADDITIONAL PAIN MEDICATION. URINAL EMPTIED OF 300 CLEAR YELLOW URINE. PT AND UPDATED ON PLAN OF CARE, BOTH STATE THEIR QUESTIONS HAVE BEEN ANSWERED. PT DENIES ADDITIONAL REQUESTS OR COMPLAINTS. CASE MANAGEMENT TO BEDSIDE TO VISIT WITH PT. CALL LIGHT WITHIN REACH. BED RAILS UP. PTS PRIMARY RN UPDATED.
--- NOTE | 2023-02-21 16:20 | NUR ---
Spoke with pt and his . They cont. to live in [place], no steps into the back of the house. They deny any needs for DME or resources. Pt has returned with syncopal episodes. Per he is not allowed to get out bed at this time. NO episodes today. Pt is recovering from knee surgery and has an appt with his knee surgeon next week. Pt plans on staying until they determine why pt is having syncopal episodes. We did discuss HH PT and they may be a safe option to OP PT. Pt is not currently able to go out without his , so he would be considered homebound.
--- NOTE | 2023-02-21 16:53 | NUR ---
IN TO ADMINISTER MEDICATION, SEE MAR. ASSESSMENT COMPLETE. LUNG SOUNDS CLEAR. BOWEL TONES ACTIVE. PT REPORTING PAIN IN LEFT KNEE 12/31. ICE PACK PROVIDED. PEDAL PULSES PALPABLE AND EQUAL BILATERALLY. PT DENIES NUMBNESS OR TINGLING AT THIS TIME. CMS INTACT. PT DENIES ANY OTHER NEEDS AT THIS TIME. CALL LIGHT IN REACH.
--- NOTE | 2023-02-21 17:41 | NUR ---
IN TO ROUND ON PT. PT REPORTING PAIN IN LEFT KNEE 10/31. PT STATES "IT COMES AND GOES WHEN ASKED ABOUT PAIN." PT DENIES PRN PAIN MEDICATION AT THIS TIME. PT STATES THE PAIN "IS TOLERABLE." PT STATES "I COULD NOT EAT THAT DINNER, I WOULD BE IN TROUBLE. IT WOULD UPSET MY STOMACH." OFFERED TO GET PT A TRUKEY SANDWICH AND PT STATES "YEAH THAT SOUNDS GOOD." PT DENIES ANY OTHER NEEDS AT THIS TIME. CALL LIGHT IN REACH. DIETARY CALLED.
--- NOTE | 2023-02-21 18:01 | NUR ---
SANDWICH BROUGHT TO PT. PT SITTING ON EDGE OF BED TO EAT. PT DENIES ANY OTHER NEEDS AT THIS TIME. CALL LIGHT IN REACH.
[2023-02-21 18:05] VITALS: BP 143/76
[2023-02-21 20:08] VITALS: BP 175/65
[2023-02-21 20:12] VITALS: BP 151/61
--- NOTE | 2023-02-21 20:33 | NUR ---
Nakul is awake and watching TV, Leg remains slightly swollen and is elevated with ice to knee. VSS, No c/o CP, SOB or ESQUEDA. CMS intact. Bedisde report given by seng Simmons in reach.
--- NOTE | 2023-02-21 20:45 | EKG ---
[facility] [address] [facility] [place] [address] Signed Normal sinus rhythm Low voltage QRS Right bundle branch block Abnormal ECG When compared with ECG of 30-JAN-2023 09:02, T wave inversion no longer evident in Anterior leads Confirmed by Jaqui Gilbert MD () on 02/21/2023 8:45:19 PM Electronically Signed By: JAQUI GILBERT MD 02/21/232044 PATIENT NAME: ESTHER PENNY SARIAH Electrocardiogram DATE OF : 47 PHYSICIAN: JAQUI GILBERT MD REPORT #: [id number] REPORT IS CONFIDENTIAL AND NOT TO BE RELEASED WITHOUT AUTHORIZATION
--- NOTE | 2023-02-21 22:29 | NUR ---
Rich is resting and given tylenol prior to bedtime for knee discomfort, ice pack applied, lights out, call light in reach. Appears comfortable.
[2023-02-22] VITALS (7 sets, daily range): BP systolic 142–166; BP diastolic 66–85
--- NOTE | 2023-02-22 00:10 | NUR ---
Nakul appears to be sleeping with eyes closed, appears comfortable, lights out, call light in reach. RR=18.
--- NOTE | 2023-02-22 02:37 | NUR ---
Nakul appears asleep between care, VSS, appears comfortable, lights out, call light in reach, no noted distress.
--- NOTE | 2023-02-22 04:41 | NUR ---
Nakul appears to be sleeping, appears comfortable, call light in reach, no distress noted.
--- NOTE | 2023-02-22 05:40 | NUR ---
Nakul had a much better nights sleep tonight than previous night. Appeared comfortable, VS remained stable, no c/o pain. No noted syncopal episodes, tele intact - sinus rythmn. Blood sugar at bedtime was 222 and given 3 units, CMS intact to lower extremeties with no change at dressing sites or incisional sites from prior surgery. Nakul did state at home he was randomly picking how much insulin to take and had his BS ranging from 38-200's. He was never given guidelines and would appreciate instructions on his SS insulin administration when discharged. Will communicate this to day RN, as well.
[2023-02-22 05:42] LABS: ADRENOCORTICOTROPIC HORMONE 34.4 pg/mL (7.2-63.3)
[2023-02-22 05:53] LABS: HEMATOCRIT 34.7 % (35.0-50.0); HEMOGLOBIN 11.1 g/dL (12.0-18.0); MCH 26.8 (27-36); MCHC 32.1 g/dl (30-36); MCV 83.4 fl (81-99); PLATELET COUNT 231 K/uL (140-440); RBC 4.16 M/ul (4.3-5.7); RDW 21.4 (10.5-15.0)
[2023-02-22 06:18] LABS: ALBUMIN 3.1 g/dL (3.4-5.0); ALBUMIN/GLOBULIN RATIO 0.76 (1.1-2.4); ANION GAP 12.6 (7-21); BILIRUBIN, TOTAL 0.4 ng/dL (0.2-1.0); BUN/CREATININE RATIO 27.87 (6.0-28.6); CALCIUM 9.7 mg/dL (8.5-10.1); CREATININE, SERUM 1.65 mg/dL (0.70-1.30); MAGNESIUM 2.3 mg/dL (1.8-2.4); PHOSPHORUS, INORGANIC 4.8 mg/dL (2.5-4.9); POTASSIUM 4.6 mmol/L (3.5-5.1); PROTEIN, TOTAL 7.2 g/dL (6.4-8.2)
[2023-02-22 06:20] LABS: BANDS, MANUAL DIFF 1; EOSINOPHILS, MANUAL DIFF 6; LYMPHOCYTES, MANUAL DIFF 25; MONOCYTES, MANUAL DIFF 7; NEUTROPHILS, MANUAL DIFF 61
--- NOTE | 2023-02-22 07:28 | NUR ---
Heart rate tachy 126bpm. Patient reports he was moving around in the bed, he denies shorness of breath and chest pain. Vitals take at this time. Patient has no notable distress and denies distress. Call light within reach of pt.
--- NOTE | 2023-02-22 08:54 | NUR ---
DR. GILBERT UPDATED REGARDING PTS TACHYCARDIA. ORDERS GIVEN FOR EKG, ORDERS ENTERED, REPEAT BACK PERFORMED. RYAN RT TO BEDSIDE FOR EKG. PTS PRIMARY RN UPDATED.
--- NOTE | 2023-02-22 09:44 | NUR ---
Patient's heart rate up to 140bpm. Patient found straining to urinate at the bedside. Post urinating heart rate decreased to 114bpm.
--- NOTE | 2023-02-22 11:19 | NUR ---
PT SITTING IN CHAIR. ON COUCH. EPRESSED GRATITUDE FOR MADE UP BED. I EXERCISED MINISTRY OF PRESENCE TALKED OF FAMILY AND LIFE EXPERIENCES. CONSTENTED TO PRAYER. PRAYED FOR PATIENCE AND IDENTIFICATION OF CAUSE OF SYMPTOMS.
--- NOTE | 2023-02-22 11:32 | NUR ---
THIS MORNING GOT PATIENT UP TO THE CHAIR. AND CHANGED PATIENT'S BED LINENS.
--- NOTE | 2023-02-22 11:45 | NUR ---
Spoke with pt and his . They deny needs. Pt had another episode today of feeling lightheaded and clammy. They deny other needs. UPdated I let Dr. Self know they would like Home Health on dc.
--- NOTE | 2023-02-22 12:38 | NUR ---
IN TO ADMINISTER MEDICATION, SEE MAR. PT REPORTING PAIN IN LEFT KNEE 10/31. PRN TYLENOL ADMINISTERED, SEE MAR. PT TAKES PO MEDICAITON WITH NO ISSUES. OT IN ROOM WITH PT. PT REQUESTING "WIDER BSC." PT DENIES ANY OTHER NEEDS AT THIS TIME. CALL LIGHT IN REACH. IN ROOM.
--- NOTE | 2023-02-22 12:47 | NUR ---
Dr. Self notified of bouts of tachycardia. Heart rate currently 135bpm. Dr. Self to review medications per his report.
--- NOTE | 2023-02-22 12:56 | NUR ---
BEFORE I WENT TO LUNCH I GOT PATIENT AN ICE PACK AND NEW ICE WATER. ALSO GOT THE PATIENT'S A CUP OF COFFEE WITH TWO CREAMERS. PATIENT WAS ALSO SITTING UP IN HIS CHAIR FOR BREAKFAST AND LUNCH.
--- NOTE | 2023-02-22 13:11 | NUR ---
IN WITH NEW BSC. PT REQUESTING TO GO BACK TO BED. SBA WITH FWW FROM RECLINER TO BED. LLE ELEVATED WITH PILLOW. TELE BATTERY CHANGED. PT DENIES ANY OTHER NEEDS AT THIS TIME. CALL LIGHT IN REACH.
--- NOTE | 2023-02-22 13:58 | NUR ---
Patient resting in bed, no acute distress. Patient denies chest pain/dizziness at this time. Heart rate continues to be tachycardic, trending 115-135bpm. Charge nurse updated Dr. Self. New orders placed for d-dimer and to examine patient's chest for petechiae. This RN examed patient's chest at this time, no visible petechiae noted. Patient reports his comfortable at this time.
--- NOTE | 2023-02-22 14:08 | NUR ---
PTS HEART RATE NOTED TO BE UP TO 140'S. THIS RN TO ROOM TO CHECK ON PT. PT DENIES CHEST PAIN. PT USING URINAL AND REPORTS HE IS "SHORT OF BREATH BECAUSE I HAVE TO STRAIN." DR GILBERT CALLED AND UPDATED. D-DIMER ORDERED. LAB TO BEDSIDE. PTS PRIMARY RN UPDATED.
--- NOTE | 2023-02-22 20:16 | NUR ---
Rich is awake, Denies discomfort, VSS, watching TV, call light in reach. Bedside report given by day RN.
--- NOTE | 2023-02-22 20:22 | EKG ---
[facility] [address] [facility] [place] [address] Signed Sinus tachycardia Indeterminate axis Low voltage QRS Incomplete right bundle branch block Borderline ECG When compared with ECG of 20-FEB-2023 13:37, No significant change was found Confirmed by Jaqui Gilbert MD () on 02/22/2023 8:21:40 PM Electronically Signed By: JAQUI GILBERT MD 02/22/232021 PATIENT NAME: ESTHER PENNY SARIAH Electrocardiogram DATE OF : 47 PHYSICIAN: JAQUI GILBERT MD REPORT #: [id number] REPORT IS CONFIDENTIAL AND NOT TO BE RELEASED WITHOUT AUTHORIZATION
--- NOTE | 2023-02-22 21:20 | NUR ---
IN TO ASSIST RN WITH ACCU CHECK AND PT PROVIDED FRESH WATER, CALL LIGHT IN REACH
--- NOTE | 2023-02-22 22:03 | NUR ---
CALL MISSED FROM CCU, THIS RN CALLED BACK CCU AND WAS INFORMED BY KATHRYN GARCIA THAT pt's HR UP TO 160, VERY BRIEF AND WAS NOT SUSTAINED. ISOLATED EVENT PER CCU RN, NOT WITNESSED BY THIS RN. AT TIME OF CONVERSATION, HR MAINTAINING WNL. WILL CONTINUE TO MONITOR, PRIMARY RN JENNY ALSO UPDATED.
--- NOTE | 2023-02-22 23:11 | NUR ---
Rich is resting with eyes closed, no distress noted, appears comfortable, lights out, call light in reach.
--- NOTE | 2023-02-23 00:20 | NUR ---
in to assist pt with small spill of urinal, no further needs at this time
--- NOTE | 2023-02-23 01:11 | NUR ---
Rich is sleeping on and off, no distress, no complaints of pain, no syncopal episodes noted, lights are out and call light in reach.
[2023-02-23 02:05] VITALS: BP 135/69
--- NOTE | 2023-02-23 02:59 | NUR ---
Nakul is awake and watching TV, Can't sleep, no pain, no syncpal episodes, Tele intact, continues to have increased HR with activity. While at rest 90-100.
--- NOTE | 2023-02-23 04:53 | NUR ---
Nakul did not have a good night slept, was awake most of night. VSS, no syncopal episodes, Tele intact with HR 90-100. One short bleep of HR @ 160 with no further for remainder of the night. Denies discomfort. lights are out, TV on, call light within reach.
[2023-02-23 05:26] LABS: BASOPHILS 1.6 % (0-2); EOSINOPHILS 7.4 % (0-6); HEMATOCRIT 33.8 % (35.0-50.0); HEMOGLOBIN 10.8 g/dL (12.0-18.0); LYMPHOCYTES 26.2 % (24-44); MCH 26.9 (27-36); MONOCYTES 6.8 % (0-12); PLATELET COUNT 210 K/uL (140-440); RBC 4.02 M/ul (4.3-5.7); RDW 20.7 (10.5-15.0)
[2023-02-23 05:27] LABS: ALBUMIN 3.1 g/dL (3.4-5.0); ALBUMIN/GLOBULIN RATIO 0.82 (1.1-2.4); ANION GAP 16.5 (7-21); BILIRUBIN, TOTAL 0.4 ng/dL (0.2-1.0); BUN/CREATININE RATIO 26.22 (6.0-28.6); CALCIUM 9.4 mg/dL (8.5-10.1); CREATININE, SERUM 1.83 mg/dL (0.70-1.30); POTASSIUM 4.5 mmol/L (3.5-5.1); PROTEIN, TOTAL 6.9 g/dL (6.4-8.2)
[2023-02-23 06:28] VITALS: BP 160/53
--- NOTE | 2023-02-23 07:00 | NUR ---
BEDSIDE REPORT FROM NOC NURSE. PATIENT AWAKE WATCHING TV. APPEARS TO BE RESTING EASY, AND CALM. NO NEEDS AT THIS TIME.
--- NOTE | 2023-02-23 09:00 | NUR ---
FULL BODY ASSSESMENT DONE, AND MORNING MEDICAITONS ADMINISTERED. PATIENT UP TO RECLINCER 1 PERSON ASSIST. NO SYNCOPAL SYMPTOMS, PATIENT REPORTS FEELING STEADY ON FEET. PATIENT DID NOT EAT WELL THIS MORNING, REPORTED ACID REFLUX. NIO ORDERED ENTERED FOR MAALOX.
[2023-02-23 10:27] VITALS: BP 146/65
[2023-02-23] MEDS ORDERED: METOPROLOL SUCC50 MG PO (10:39)
[2023-02-23] MEDS ORDERED: LOSARTAN POTASS25 MG PO (10:40)
[2023-02-23] MEDS ORDERED: HUMALOG100 UNITS/ SUB-Q (10:43)
--- NOTE | 2023-02-23 10:45 | NUR ---
DR. FORD ROUNDED ON PATIENT, PLAN TO DC. PATIENT GOING TO TAKE SHOWER. TELE 10 HR 120S SINUS TACH.
[2023-02-23 12:00] VITALS: BP 142/75
--- NOTE | 2023-02-23 12:00 | NUR ---
PATIENT UP TO SHOWER, TOLERATED ACTIVITY WELL HR INCREASED TO 130S. RT PLACED HALTER MONITOR ON PATIENT AND PROVIDED EDUCATION WITH OUTPATIENT FOLLOW UP. PROVIDED DISCHARGE EDUCATION AND INSTRUCTION, PATIENT AND VERBALIZED UNDERSTANDING.
--- NOTE | 2023-02-23 12:05 | NUR ---
STAFF PROVIDED PATIENT A WHEELCHAIR RIDE TO FRONT. PATIENT THEN TRANSFERED INTO POV, APPEARED STEADY ON FEET.
== END 2023-02-23 12:05 | disposition home or self-care (01) | DRG 312 ==
LOC: ED 13:19 → MS 13:20
PROVIDERS: Emergency Medicine; ADMIT Family Medicine; ATTEND Family Medicine
DX: R55 Syncope and collapse (principal); I12.9 Hypertensive chronic kidney disease with stage 1 through stage 4 chronic kidney disease, or unspecified chronic kidney disease; E11.42 Type 2 diabetes mellitus with diabetic polyneuropathy; E11.22 Type 2 diabetes mellitus with diabetic chronic kidney disease; N18.32 Chronic kidney disease, stage 3b; D63.1 Anemia in chronic kidney disease; E03.9 Hypothyroidism, unspecified; G47.00 Insomnia, unspecified; M10.9 Gout, unspecified; M62.838 Other muscle spasm; R00.0 Tachycardia, unspecified; E78.5 Hyperlipidemia, unspecified; I45.10 Unspecified right bundle-branch block; Z98.890 Other specified postprocedural states; Z96.653 Presence of artificial knee joint, bilateral; Z88.6 Allergy status to analgesic agent; Z79.890 Hormone replacement therapy; Z90.49 Acquired absence of other specified parts of digestive tract; Z79.899 Other long term (current) drug therapy; Z79.4 Long term (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 of insulin; Z79.891 Long term (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 of opiate analgesic; Z79.51 Long term (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 of inhaled steroids; Z79.01 Long term (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 of 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; Z86.718 Personal history of other venous thrombosis and embolism; Z87.81 Personal history of (healed) traumatic fracture
CPT/HCPCS: 36415; 71045; 71260; 80053; 81003; 82024; 82533; 83036; 83735; 83880; 84100; 84443; 84484; 85025; 85060; 85379; 93005; 93010; 97162; 97165; A9270; J1815; J7030; Q9967

== ENCOUNTER 2023-04-03 10:26 | Emergency (ER) | payer MEDICARE ==
[~2023-04-03] VITALS: Ht 180.3 cm; Wt 94.3 kg
[~2023-04-03 10:26] MED LIST changes: +ACETAMINOPHEN-1 EAC1 PO; +ACETAMINOPHEN500 MG PO; +ADULT LOW DOSE81 MG PO; +ADULTS 50 PLUS1 EACH PO; +ALLOPURINOL100 MG PO; +CO Q-10200 MG PO; +DOCUSATE SODIU100 MG PO; +GERI-KOT8.6 MG PO; +HUMALOG100 UNITS/ SUB-Q; +HYDROCODON-ACE1 EA10 PO; +INDAPAMIDE1.25 MG PO; +LOSARTAN POTASS25 MG PO; +MECLIZINE HCL25 MG PO; +METOPROLOL SUCC50 MG PO
[2023-04-03 11:45] VITALS: BP 130/62
== END 2023-04-03 11:45 | disposition home or self-care (01) ==
LOC: ED 10:26
DX: M79.652 Pain in left thigh (principal); S72.92XG Unspecified fracture of left femur, subsequent encounter for closed fracture with delayed healing; W19.XXXD Unspecified fall, subsequent encounter; I12.9 Hypertensive chronic kidney disease with stage 1 through stage 4 chronic kidney disease, or unspecified chronic kidney disease; N18.30 Chronic kidney disease, stage 3 unspecified; E11.22 Type 2 diabetes mellitus with diabetic chronic kidney disease; E11.40 Type 2 diabetes mellitus with diabetic neuropathy, unspecified; Z96.652 Presence of left artificial knee joint; Z88.8 Allergy status to other drugs, medicaments and biological substances; Z79.4 Long term (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 of insulin; Z79.01 Long term (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 of 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; Z79.899 Other long term (current) drug therapy; Z79.82 Long term (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 of aspirin
CPT/HCPCS: 73552; 99283-25; A9270

== ENCOUNTER 2024-04-18 14:21 | Emergency (ER) | payer OTHER, MEDICARE ==
[~2024-04-18] VITALS: Ht 180.3 cm; Wt 97.6 kg
[2024-04-18] MEDS ORDERED: HYDROmorphone HCL 1 MG/ML SYR IV PRN ×2 (14:30→16:45)
[2024-04-18 14:51] LABS: BASOPHILS 1.3 % (0-2); EOSINOPHILS 2.5 % (0-6); HEMATOCRIT 30.5 % (35.0-50.0); HEMOGLOBIN 10.2 g/dL (12.0-18.0); LYMPHOCYTES 21.6 % (24-44); MCHC 33.4 g/dl (30-36); MCV 77.7 fl (81-99); MONOCYTES 9.1 % (0-12); NEUTROPHILS 65.5 % (39-80); PLATELET COUNT 146 K/uL (140-440); RBC 3.93 M/ul (4.3-5.7); RDW 20.7 (10.5-15.0)
[2024-04-18 15:00] LABS: ALBUMIN 3.4 g/dL (3.4-5.0); ALCOHOL, MEDICAL <3 ng/dL (<3); ALKALINE PHOSPHATASE 56 U/L (46-116); ALT (SGPT) 22 U/L (14-59); AST (SGOT) 14 U/L (15-37); BILIRUBIN, TOTAL 0.4 ng/dL (0.2-1.0); CALCIUM 9.4 mg/dL (8.5-10.1); CARBON DIOXIDE 24 mmol/L (21-32); CHLORIDE 102 mmol/L (98-107); CREATINE KINASE 85 U/L (39-308); CREATININE, SERUM 2.38 mg/dL (0.70-1.30); GLOMERULAR FILTRATION RATE,EST 27 mL/min (>60); PROTEIN, TOTAL 6.8 g/dL (6.4-8.2); UREA NITROGEN 45 mg/dL (7-18)
[2024-04-18] MEDS ORDERED: PANTOPRAZOLE SO40 MG PO (15:14)
[2024-04-18] MEDS ORDERED: FEROSUL325 MG PO (15:15)
[2024-04-18] MEDS ORDERED: ROSUVASTATIN CA20 MG PO (15:19)
[2024-04-18] MEDS ORDERED: HYDRALAZINE HCL10 MG PO (15:20)
[2024-04-18] MEDS ORDERED: SUCRALFATE1 GM PO (15:20)
[2024-04-18] MEDS ORDERED: DILTIAZEM ER360 MG PO (15:21)
[2024-04-18] MEDS ORDERED: VITAMIN C500 M4 PO (15:24)
[2024-04-18 15:28] LABS: ABO A; ANTIBODY SCREEN NEGATIVE; RH POSITIVE
[2024-04-18] MEDS ORDERED: CEFAZOLIN SODIUM 2 GM/20 ML SYR IV ONE (16:00)
[2024-04-18] MEDS ORDERED: DIPHTH,PERTUSS(ACELL),TET VAC 0.5 ML SYRINGE IM ONE (16:00)
[2024-04-18 17:09] VITALS: BP 126/57
[2024-04-18 17:20] LABS: AMPHETAMINES, URINE NEGATIVE (NEGATIVE); BARBITURATES, URINE NEGATIVE (NEGATIVE); BENZODIAZEPINE, URINE NEGATIVE (NEGATIVE); BUPRENORPHINE, URINE NEGATIVE (NEGATIVE); CANNABINOID, URINE NEGATIVE (NEGATIVE); COCAINE, URINE NEGATIVE (NEGATIVE); ECSTASY, URINE NEGATIVE (NEGATIVE); FENTANYL, URINE POSITIVE (NEGATIVE); METHADONE, URINE NEGATIVE (NEGATIVE); OPIATES, URINE NEGATIVE (NEGATIVE); OXYCODONE, URINE NEGATIVE (NEGATIVE); PHENCYCLIDINE, URINE NEGATIVE (NEGATIVE)
--- NOTE | 2024-04-19 20:50 | EKG ---
[facility] [address] [facility] [place] [address] Signed Ventricular-paced rhythm with premature atrial complexes with aberrant conduction Abnormal ECG When compared with ECG of 22-FEB-2023 08:53, Electronic ventricular pacemaker has replaced Sinus rhythm Confirmed by Felipe Mendez MD ([id number]) on 04/19/2024 8:50:24 PM Electronically Signed By: FELIPE MENEDZ DO 04/19/242049 PATIENT NAME: ESTHER PENNY SARIAH Electrocardiogram DATE OF : 47 PHYSICIAN: FELIPE MENDEZ DO REPORT #: [id number] REPORT IS CONFIDENTIAL AND NOT TO BE RELEASED WITHOUT AUTHORIZATION
== END 2024-04-18 17:09 | disposition short-term general hospital (02) ==
LOC: ED 14:21
PROVIDERS: Emergency Medicine
DX: S92.322A Displaced fracture of second metatarsal bone, left foot, initial encounter for closed fracture (principal); S92.332A Displaced fracture of third metatarsal bone, left foot, initial encounter for closed fracture; S92.342A Displaced fracture of fourth metatarsal bone, left foot, initial encounter for closed fracture; S92.355A Nondisplaced fracture of fifth metatarsal bone, left foot, initial encounter for closed fracture; V84.5XXA Driver of special agricultural vehicle injured in nontraffic accident, initial encounter; D64.9 Anemia, unspecified; E87.20 Acidosis, unspecified; I12.9 Hypertensive chronic kidney disease with stage 1 through stage 4 chronic kidney disease, or unspecified chronic kidney disease; E11.22 Type 2 diabetes mellitus with diabetic chronic kidney disease; N18.30 Chronic kidney disease, stage 3 unspecified; Z88.8 Allergy status to other drugs, medicaments and biological substances; Z79.4 Long term (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 of insulin; Z79.01 Long term (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 of 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; Z79.82 Long term (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 of aspirin; Z79.899 Other long term (current) drug therapy
CPT/HCPCS: 12002; 36415; 73630; 80053; 80307; 82553; 83605; 85025; 85060; 86850; 86900; 86901; 90471; 90715; 93005; 93010; 99285-25; G0480; J0690; J1171

== ENCOUNTER 2024-05-15 22:45 | Emergency (ER) | payer MEDICARE ==
[~2024-05-15] VITALS: Ht 180.3 cm; Wt 98.5 kg
[~2024-05-15 22:45] MED LIST changes: +DILTIAZEM ER360 MG PO; +FEROSUL325 MG PO; +HYDRALAZINE HCL10 MG PO; +PANTOPRAZOLE SO40 MG PO; +ROSUVASTATIN CA20 MG PO; +SUCRALFATE1 GM PO; +VITAMIN C500 M4 PO
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
[2024-05-15] MEDS ORDERED: PANTOPRAZOLE SODIUM 40 MG/10 ML VIAL IV ONE (23:00)
[2024-05-15 23:12] LABS: EOSINOPHILS 2.2 % (0-6)
[2024-05-15 23:15] LABS: PARTIAL THROMBOPLASTIN TIME 38.3 Sec (22.9-41.3)
[2024-05-15] MEDS ORDERED: CEFTRIAXONE/SODIUM CHLORIDE 2 GM/100 ML PIGGYBACK IV ONE (23:15)
[2024-05-15] MEDS ORDERED: LACTATED RINGER'S 1,000 ML IV ONE (23:15)
[2024-05-15 23:16] LABS: INR 1.8 (0.80-1.30)
[2024-05-15 23:18] LABS: BASOPHILS 1.3 % (0-2); HEMATOCRIT 23.5 % (35.0-50.0); HEMOGLOBIN 7.6 g/dL (12.0-18.0); MCH 24.2 (27-36); MCHC 32.2 g/dl (30-36); MCV 75.3 fl (81-99); MONOCYTES 8.9 % (0-12); NEUTROPHILS 78.6 % (39-80); PLATELET COUNT 321 K/uL (140-440); RBC 3.12 M/ul (4.3-5.7); RDW 21.1 (10.5-15.0)
[2024-05-15 23:26] LABS: ALBUMIN 2.3 g/dL (3.4-5.0); ALBUMIN/GLOBULIN RATIO 0.52 (1.1-2.4); BILIRUBIN, TOTAL 0.4 ng/dL (0.2-1.0); BUN/CREATININE RATIO 19.7 (6.0-28.6); CREATININE, SERUM 4.06 mg/dL (0.70-1.30); MAGNESIUM 1.9 mg/dL (1.8-2.4); PROTEIN, TOTAL 6.7 g/dL (6.4-8.2)
[2024-05-15 23:29] LABS: ANION GAP 15.6 (7-21); POTASSIUM 6.6 mmol/L (3.5-5.1)
[2024-05-15] MEDS ORDERED: CALCIUM GLUCONATE 1,000 MG/10 ML VIAL IV ONE (23:45)
[2024-05-15] MEDS ORDERED: DEXTROSE 50% 50 ML SYR IV ONE (23:45)
[2024-05-15] MEDS ORDERED: ALBUTEROL SULFATE 0.5% 2.5 MG/0.5 ML VIAL INH ONE (23:45)
[2024-05-15] MEDS ORDERED: FUROSEMIDE 40 MG/4 ML VIAL IV ONE (23:45)
[2024-05-15] MEDS ORDERED: SODIUM CHLORIDE 0.9% 1,000 ML IV PRN (23:45)
[2024-05-15] MEDS ORDERED: Insulin Regular, Human 100 UNIT/ML ML IV ONE (23:45)
[2024-05-15 23:53] LABS: ABO A; ANTIBODY SCREEN NEGATIVE; RH POSITIVE
[2024-05-15 23:54] LABS: LACTIC ACID, BLOOD 2.2 mmol/L (0.4-2.0)
[2024-05-16 00:07] LABS: IS CROSSMATCH COMPATIBLE
[2024-05-16 00:36] LABS: INFLUENZA B NAA NEGATIVE (NEGATIVE); RESPIRATORY SYNCYTIAL VIR NAA NEGATIVE (NEGATIVE)
[2024-05-16] MEDS ORDERED: LEVETIRACETAM500 MG PO (00:40)
[2024-05-16] MEDS ORDERED: LIDOCAINE 2% VISCOUS 6 ML SYR TOP ONE (01:15)
[2024-05-16] MEDS ORDERED: LORazepam 2 MG/ML VIAL IV ONE (01:15)
[2024-05-16] MEDS ORDERED: SODIUM POLYSTYRENE SULFONATE 15 GM/60 ML UDC PO ONE (01:30)
[2024-05-16 01:43] LABS: BILIRUBIN, URINE NEGATIVE (negative); BLOOD/HGB, URINE NEGATIVE (Negative); KETONE, URINE TRACE (Negative); LEUK ESTERASE, URINE NEGATIVE (negative); NITRITE, URINE NEGATIVE (negative)
[2024-05-16 03:00] LABS: HEMATOCRIT 26.5 % (35.0-50.0); HEMOGLOBIN 8.5 g/dL (12.0-18.0)
[2024-05-16 03:10] LABS: ANION GAP 17.8 (7-21); BUN/CREATININE RATIO 18.85 (6.0-28.6); CREATININE, SERUM 4.03 mg/dL (0.70-1.30); POTASSIUM 5.8 mmol/L (3.5-5.1)
[2024-05-16] MEDS ORDERED: MORPHINE SULFATE 4 MG/ML VIAL IV ONE (03:15)
[2024-05-16] MEDS ORDERED: FUROSEMIDE 100 MG/10 ML VIAL IV ONE (03:30)
[2024-05-16] MEDS ORDERED: SODIUM CHLORIDE 0.9% 1,000 ML IV PRN (03:30)
[2024-05-16 04:08] VITALS: BP 120/64
--- NOTE | 2024-05-16 15:58 | EKG ---
[facility] [address] [place] [address] Signed Atrial-sensed ventricular-paced rhythm Abnormal ECG When compared with ECG of 18-APR-2024 14:40, aberrant conduction is no longer present Vent. rate has increased BY 7 BPM Confirmed by Checo Fowler MD ([id number]) on 05/16/2024 3:57:58 PM Electronically Signed By: CHECO FOWLER MD 05/16/24 1558 PATIENT NAME: ESTHER PENNY SARIAH Electrocardiogram DATE OF : 47 PHYSICIAN: CHECO FOWLER MD REPORT #: [id number] REPORT IS CONFIDENTIAL AND NOT TO BE RELEASED WITHOUT AUTHORIZATION
== END 2024-05-16 04:22 | disposition short-term general hospital (02) ==
LOC: ED 22:45
PROVIDERS: Internal Medicine
DX: R10.9 Unspecified abdominal pain (principal); N17.9 Acute kidney failure, unspecified; D64.9 Anemia, unspecified; E87.5 Hyperkalemia; I25.10 Atherosclerotic heart disease of native coronary artery without angina pectoris; J44.9 Chronic obstructive pulmonary disease, unspecified; E11.22 Type 2 diabetes mellitus with diabetic chronic kidney disease; I12.9 Hypertensive chronic kidney disease with stage 1 through stage 4 chronic kidney disease, or unspecified chronic kidney disease; N18.30 Chronic kidney disease, stage 3 unspecified; E11.42 Type 2 diabetes mellitus with diabetic polyneuropathy; Z95.0 Presence of cardiac pacemaker; Z88.5 Allergy status to narcotic agent; Z79.01 Long term (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 of 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; Z79.4 Long term (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 of insulin; Z79.890 Hormone replacement therapy; Z79.84 Long term (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 of oral hypoglycemic drugs; Z79.82 Long term (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 of aspirin; Z79.899 Other long term (current) drug therapy
CPT/HCPCS: 36415; 36430; 51702; 51798; 70450; 71045; 74176; 80048; 80053; 81003; 83605; 83690; 83735; 83880; 84484; 85014; 85018; 85025; 85060; 85610; 85730; 86850; 86900; 86901; 86922; 87040; 87502; 93005; 93010; 94644; 99285-25; J0612; J0696; J1815; J1940; J2060; J2270; J2470; J7030; J7121; P9016; U0002

== ENCOUNTER 2024-06-16 13:43 | Emergency (ER) | payer MEDICARE ==
[~2024-06-16] VITALS: Ht 180.3 cm; Wt 80.0 kg
[~2024-06-16 13:43] MED LIST changes: +LEVETIRACETAM500 MG PO
[2024-06-16] MEDS ORDERED: ATORVASTATIN CA80 MG PO (13:54)
[2024-06-16] MEDS ORDERED: AMIODARONE HCL200 MG PO (13:54)
[2024-06-16] MEDS ORDERED: CLOPIDOGREL75 MG PO (13:56)
[2024-06-16] MEDS ORDERED: METOPROLOL SUCC50 MG PO (13:58)
[2024-06-16] MEDS ORDERED: NITROGLYCERIN0.4 MG SL (13:59)
[2024-06-16] MEDS ORDERED: ONDANSETRON ODT8 MG PO (13:59)
[2024-06-16] MEDS ORDERED: METOCLOPRAMIDE H5 MG PO (13:59)
[2024-06-16 14:19] LABS: ALBUMIN 2.8 g/dL (3.4-5.0); ALBUMIN/GLOBULIN RATIO 0.67 (1.1-2.4); ANION GAP 14.3 (7-21); BILIRUBIN, TOTAL 0.4 ng/dL (0.2-1.0); BUN/CREATININE RATIO 20.9 (6.0-28.6); CALCIUM 9.5 mg/dL (8.5-10.1); CREATININE, SERUM 2.87 mg/dL (0.70-1.30); MAGNESIUM 1.8 mg/dL (1.8-2.4); POTASSIUM 5.3 mmol/L (3.5-5.1)
[2024-06-16 14:28] LABS: HEMOGLOBIN 9.2 g/dL (12.0-18.0); RDW 21.4 (10.5-15.0)
[2024-06-16 14:31] LABS: BASOPHILS 1.2 % (0-2); EOSINOPHILS 2.6 % (0-6); HEMATOCRIT 28.6 % (35.0-50.0); MCH 23.8 (27-36); MCV 74.3 fl (81-99); MONOCYTES 10.8 % (0-12); NEUTROPHILS 73.4 % (39-80); PLATELET COUNT 216 K/uL (140-440); RBC 3.85 M/ul (4.3-5.7)
[2024-06-16 14:59] LABS: BILIRUBIN, URINE NEGATIVE (negative); BLOOD/HGB, URINE NEGATIVE (Negative); KETONE, URINE NEGATIVE (Negative); LEUK ESTERASE, URINE NEGATIVE (negative); NITRITE, URINE NEGATIVE (negative)
[2024-06-16 15:58] LABS: MAGNESIUM 1.8 mg/dL (1.8-2.4)
[2024-06-16] MEDS ORDERED: FUROSEMIDE 40 MG/4 ML VIAL IV ONE (17:15)
[2024-06-16] MEDS ORDERED: ondansetron HCL 4 MG/2 ML VIAL IV ONE (17:15)
[2024-06-16] MEDS ORDERED: FUROSEMIDE 100 MG/10 ML VIAL IV ONE (19:30)
[2024-06-16] MEDS ORDERED: LORazepam 1 MG TAB PO ONE (19:30)
[2024-06-16 20:15] VITALS: BP 135/91
--- NOTE | 2024-06-19 12:04 | EKG ---
[facility] [address] [facility] [place], [place] [address] Signed Ventricular-paced rhythm Abnormal ECG When compared with ECG of 15-MAY-2024 22:56, No significant change was found Confirmed by Joel Braun MD ([id number]) on 06/19/2024 12:04:09 PM Electronically Signed By: JOEL BRAUN 06/19/24 1204 PATIENT NAME: ESTHER PENNY Electrocardiogram DATE OF : 47 PHYSICIAN: JOEL BRAUN REPORT #: [id number] REPORT IS CONFIDENTIAL AND NOT TO BE RELEASED WITHOUT AUTHORIZATION
== END 2024-06-16 20:15 | disposition short-term general hospital (02) ==
LOC: ED 13:43
PROVIDERS: Emergency Medicine
DX: N17.9 Acute kidney failure, unspecified (principal); I13.0 Hypertensive heart and chronic kidney disease with heart failure and stage 1 through stage 4 chronic kidney disease, or unspecified chronic kidney disease; I50.9 Heart failure, unspecified; E11.22 Type 2 diabetes mellitus with diabetic chronic kidney disease; N18.30 Chronic kidney disease, stage 3 unspecified; E11.42 Type 2 diabetes mellitus with diabetic polyneuropathy; I48.91 Unspecified atrial fibrillation; Z86.74 Personal history of sudden cardiac arrest; Z88.5 Allergy status to narcotic agent; Z79.4 Long term (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 of insulin; Z79.01 Long term (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 of 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; Z79.890 Hormone replacement therapy; Z79.84 Long term (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 of oral hypoglycemic drugs; Z79.899 Other long term (current) drug therapy
CPT/HCPCS: 36415; 71045; 80053; 81003; 83690; 83735; 83880; 84484; 85025; 85060; 93005; 93010; 96374; 96375; 96376; 99285-25; A9270-GY; J1940; J2405

== ENCOUNTER 2024-08-23 14:11 | Inpatient (IN) | payer MEDICARE ==
[~2024-08-23] VITALS: Ht 180.3 cm; Wt 88.4 kg
[~2024-08-23 14:11] MED LIST changes: +AMIODARONE HCL200 MG PO; +ATORVASTATIN CA80 MG PO; +CLOPIDOGREL75 MG PO; +METOCLOPRAMIDE H5 MG PO; +NITROGLYCERIN0.4 MG SL; +ONDANSETRON ODT8 MG PO
[2024-08-23 15:55] LABS: BASOPHILS 1.2 % (0-2); EOSINOPHILS 3.5 % (0-6); HEMATOCRIT 27.7 % (35.0-50.0); LYMPHOCYTES 12.1 % (24-44); MCH 23.6 (27-36); MCHC 32.6 g/dl (30-36); MCV 72.4 fl (81-99); MONOCYTES 9.3 % (0-12); NEUTROPHILS 73.9 % (39-80); PLATELET COUNT 211 K/uL (140-440); RBC 3.83 M/ul (4.3-5.7); RDW 21.3 (10.5-15.0)
[2024-08-23 16:19] LABS: ALBUMIN 2.8 g/dL (3.4-5.0); ALBUMIN/GLOBULIN RATIO 0.68 (1.1-2.4); ANION GAP 12.2 (7-21); BILIRUBIN, TOTAL 0.4 mg/dL (0.2-1.0); BUN/CREATININE RATIO 22.01 (6.0-28.6); CALCIUM 9.8 mg/dL (8.5-10.1); CREATININE, SERUM 2.18 mg/dL (0.70-1.30); MAGNESIUM 1.8 mg/dL (1.8-2.4); POTASSIUM 4.2 mmol/L (3.5-5.1); PROTEIN, TOTAL 6.9 g/dL (6.4-8.2)
[2024-08-23] MEDS ORDERED: FUROSEMIDE 40 MG/4 ML VIAL IV ONE (17:45)
[2024-08-23] MEDS ORDERED: bisacodyL 10 MG SUPP PR PRN (18:45)
[2024-08-23] MEDS ORDERED: ondansetron HCL 4 MG/2 ML VIAL IV PRN (18:45)
[2024-08-23] MEDS ORDERED: GLUCAGON,HUMAN RECOMBINANT 1 MG/ML VIAL SUB-Q PRN (18:45)
[2024-08-23] MEDS ORDERED: DEXTROSE 50% 50 ML SYR IV PRN ×2 (18:45)
[2024-08-23] MEDS ORDERED: DEXTROSE 5% 1,000 ML IV PRN (18:45)
[2024-08-23] MEDS ORDERED: ACETAMINOPHEN 325 MG TAB PO PRN (18:45)
[2024-08-23] MEDS ORDERED: IBLOOD GLUCOSE TEST STRIP 1 EA TEST XX PRN (18:45)
[2024-08-23 20:09] VITALS: BP 105/56
--- NOTE | 2024-08-23 20:48 | NUR ---
Patient to the medical floor. Patient awake, alert and oriented x3. Patient has a boot from home to E. Gauze dressing noted to left foot. Patient's reports patient had a crush injury resulting in surgery at [facility]. Patient reports he had pins placed to left foot at [facility]. Boot removed by patient's -she reports he needs boot to be on if patient is ambulating but can be removed if he is in bed resting. Patient able to stand with FWW, a bit unsteady on feet. Pt is on 4L oxygen per nc, respirations shallow, RR 24. SP02 100% at this time. Oriented patient to room and call light system.
[2024-08-23] MEDS ORDERED: MELATONIN 3 MG TAB PO PRN (21:00)
[2024-08-23] MEDS ORDERED: INSULIN LISPRO 100 UNIT/ML ML SUB-Q SCH (21:00)
[2024-08-23] MEDS ORDERED: IBLOOD GLUCOSE TEST STRIP 1 EA TEST VI SCH (21:00)
[2024-08-23] MEDS ORDERED: DULOXETINE HCL 30 MG CAP PO SCH (21:15)
[2024-08-23] MEDS ORDERED: LIDOCAINE & ANTACID 35 ML BTL PO ONE (21:15)
[2024-08-23] MEDS ORDERED: APIXABAN 5 MG TAB PO SCH (21:15)
[2024-08-23] MEDS ORDERED: LORazepam 0.5 MG TAB PO PRN (21:15)
[2024-08-23 22:50] VITALS: BP 105/56
[2024-08-23] MEDS ORDERED: ENTRESTO 24 MG1 EACH PO (22:56)
[2024-08-23] MEDS ORDERED: CYMBALTA30 MG PO (22:57)
[2024-08-23] MEDS ORDERED: OXYCODONE HCL5 MG PO (23:01)
[2024-08-24] VITALS (11 sets, daily range): BP systolic 103–140; BP diastolic 47–97
--- NOTE | 2024-08-24 02:15 | NUR ---
INTO CHECK ON PATIENT, PATIENT WAKES UP WHEN WALKING IN. PATIENT DENIES ANY CARES AT THIS TIME. HE IS GOING TO BACK TO SLEEP.
--- NOTE | 2024-08-24 05:00 | NUR ---
REPORT RECEIVED FROM AHLINA PERALTA. CARE OF PT ASSUMED.
[2024-08-24 05:21] LABS: EOSINOPHILS 5.1 % (0-6); HEMOGLOBIN 8.1 g/dL (12.0-18.0); LYMPHOCYTES 20.4 % (24-44); MCH 23.5 (27-36); MCHC 32.6 g/dl (30-36); MCV 71.9 fl (81-99); MONOCYTES 12.5 % (0-12); PLATELET COUNT 200 K/uL (140-440); RBC 3.47 M/ul (4.3-5.7); RDW 21.1 (10.5-15.0)
[2024-08-24 05:27] LABS: ANION GAP 11.1 (7-21); BUN/CREATININE RATIO 23.07 (6.0-28.6); CALCIUM 9.2 mg/dL (8.5-10.1); CREATININE, SERUM 2.08 mg/dL (0.70-1.30); MAGNESIUM 1.8 mg/dL (1.8-2.4); POTASSIUM 4.1 mmol/L (3.5-5.1)
--- NOTE | 2024-08-24 06:50 | NUR ---
IN TO CHECK ON PT, AWAKE IN BED, REPORTS BREATHING IS MUCH IMPROVED SINCE ARRIVAL. DENIES NEEDS AT THIS TIME. LUNGS CLEAR/VERY DIMINSHED.
--- NOTE | 2024-08-24 06:50 | NUR ---
pt SLEEPING, AWAKENS TO VOICE. SCHEDULED MEDICATION ADMINISTERED. pt DENIES ADDITIONAL NEEDS. CALL LIGHT IN REACH.
[2024-08-24] MEDS ORDERED: LEVOTHYROXINE SODIUM 112 MCG TAB PO SCH (07:00)
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
--- NOTE | 2024-08-24 07:43 | NUR ---
PT REPORTS NO PAIN RELIEF AFTER NITRO GIVEN ALTHOUGH HE DOES HAVE LESS MOANING AND RESTLESSNESS. HE IS NOW SLEEPING AND HAS TO BE WOKEN UP TO ASK IF HE IS IN PAIN. WHEN ASKED IF HE IS STILL IN PAIN HE STATES "YES" AND GOES BACK TO SLEEP, WHEN ASKED IF IT IS ANY BETTER HE STATES NO.
[2024-08-24] MEDS ORDERED: PANTOPRAZOLE SODIUM 40 MG TABEC PO SCH (09:00)
[2024-08-24] MEDS ORDERED: FUROSEMIDE 100 MG/10 ML VIAL IV SCH (09:00)
[2024-08-24] MEDS ORDERED: dilTIAZem HCL 180 MG CAPCR PO SCH (09:00)
[2024-08-24] MEDS ORDERED: TAMSULOSIN HCL 0.4 MG CAP PO SCH (09:00)
[2024-08-24] MEDS ORDERED: AMIODARONE HCL 200 MG TAB PO SCH (09:00)
[2024-08-24] MEDS ORDERED: METOPROLOL SUCCINATE 25 MG TABCR PO SCH (09:00)
--- NOTE | 2024-08-24 09:28 | NUR ---
CALLED PT TRACK ANNOUNCER PER MD REQUEST TO GATHER WHY PT IS ON ELIQUIS AND PLAVIX. SPOKE WITH ELVIA AND SHE SAID ELIQUIS WAS FOR AFIB AND THE PLAVIX WAS PRESCRIBED SHORT TERM FOR A CRTD DEVICE UPGRADE, POST OP. ELVIA WILL CALL BACK FOR ADDITIONAL INFORMATION. ANDREA NOTIFIED.
--- NOTE | 2024-08-24 10:35 | NUR ---
THIS RN IN ROOM WITH ANDREA DISCUSSING PLAN OF CARE. PT STATES HAS DIFFICULTY URINATING, BLADDER SCANNER DONE PER ANDREA SHOWED 195 IN BLADDER. PT BOOSTED TO HELP WITH BREATHING. SPO2 98% ON 3L, TITRATED DOWN TO 2L, BASELINE FOR PT. DRESSING REMOVED ON LEFT FOOT. PICTURES TAKEN (CONSENT IN CHART). PT STATED FOOT DOCTOR IN [place] STATED DRY GANGRENE ON THE SECOND TOE AND TOP OF LEFT FOOT. JAGOO STATED TO LEAVE DRESSING OFF. POOR NUTRITION INTAKE, ANDREA VERBAL ORDER TO PUT NUTRITIONAL CONSULT IN. DENIES NEEDS AT THIS TIME. CALL LIGHT IN REACH.
--- NOTE | 2024-08-24 10:38 | NUR ---
PT NOT AVAILABLE FOR VISIT. PROVIDED PRAYER.
--- NOTE | 2024-08-24 10:39 | NUR ---
IN TO ASSIST RN IN REPOSITIONING PATIENT. I&O'S CHARTED. BLADDER SCAN DONE UPON RN REQUEST, RN NOTIFIED OF 195 mL SCANNED. CALL LIGHT IN REACH. NO FURTHER NEEDS AT THIS TIME.
--- NOTE | 2024-08-24 11:33 | NUR ---
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
--- NOTE | 2024-08-24 11:43 | NUR ---
ALERT AND ORIENTED IN BED, , [place], IN ROOM. PATIENT LIVES IN HOUSE WITHOUT STAIRS. ASSISTS WITH CARES/TRANSPORTATION. PATIENT HAS WALKER, CANE, WHEELCHAIR, SHOWER CHAIR AND OXYGEN THRU [employer]. PATIENT DOES NOT DRIVE, ASSISTS WITH TRANSPORT. RECENTLY HAS HAD MORE DIFFICULTY LEAVING HOUSE DUE TO SHORTNESS OF BREATH AND PORTABLE OXYGEN ONLY LASTING 2 HOURS AT A TIME. STATES THEY ARE ATTEMPTING TO GET DIFFERENT PORTABLE OXYGEN. PATIENT HAS A WHEELCHAIR, HOWEVER, STATES SHE IS HAVING TO PAY MONTHLY ON WHEELCHAIR WELL HAS COPAY WHEN DELIVERED. STATES SHE IS LOOKING INTO ORDERING A WHEELCHAIR FROM [employer] AND RETURNING THE WHEELCHAIR PATIENT CURRENTLY HAS, IT WOULD BE LESS EXPENSIVE FOR PATIENT THAT WAY, PER [place]. DISCUSSED CLEARVIEW TO OBTAIN A LOANER WHEELCHAIR IF THEY NEED ONE WHILE THEY AWAIT NEW CHAIR BEING DELIVERED. VERBALIZE UNDERSTANDING. CURRENTLY PLANNING TO DC HOME WITH WHEN MEDICALLY STABLE. WILL CONTINUE TO CHECK IN TO VERIFY NO OTHER NEEDS WHILE PATIENT IS IN FACILITY.
--- NOTE | 2024-08-24 11:57 | NUR ---
PT AMBULATED TO BATHROOM, SBA, FWW WITH WALKING BOOT APPLIED TO LEFT LEG. ONCE IN BED, PT REQUESTED TO SIT ON THE SIDE OF THE BED. PT WAS SOB, SPO2 89% ON 2L, NC, BUT AT REST SPO2 INCREASED TO 93%. AT BEDSIDE. CALL LIGHT IN REACH.
[2024-08-24] MEDS ORDERED: PHARMACY RENAL DOSE ADJUSTMENT 1 DOSE MISC PO SCH (12:00)
[2024-08-24] MEDS ORDERED: TORSEMIDE20 MG PO (13:04)
[2024-08-24] MEDS ORDERED: ROSUVASTATIN CA20 MG PO (13:15)
--- NOTE | 2024-08-24 13:20 | NUR ---
REMOVED PT LUNCH TRAY. PT ATE 50% AND STATES HE CAN'T EAT ANYMORE. DENIES CONCERNS ATT.
[2024-08-24] MEDS ORDERED: AMLODIPINE BESYL5 MG PO (13:24)
--- NOTE | 2024-08-24 14:23 | NUR ---
PATIENT SITTING UP ON EDGE OF BED AT THIS TIME. VITALS AND I&O'S DONE AND CHARTED. CALL LIGHT IN REACH. NO FURTHER NEEDS AT THIS TIME.
[2024-08-24] MEDS ORDERED: ARNUITY ELLIPT50 MCG NAS (16:16)
--- NOTE | 2024-08-24 17:34 | NUR ---
medications reconiciled pharmacy records, patient/ interview
--- NOTE | 2024-08-24 17:46 | NUR ---
PT COMPLAINING OF SOB, AND EPIGASTRIC PAIN. THIS RN IN ROOM TO ASSESS. PT IS SITTING UP ON THE SIDE OF THE BED. STATES "I CANT TAKE A DEEP BREATH". LUNG SOUNDS CLEAR BILAT UPPER, DIM BILAT LOWER. PT HAS BEEN HAVING A STUFFY NOSE, PLACED HUMIDIFICATION TO OXYGEN. KATHRYN MAK WILL CALL JOSEF FOR EPIGASTRIC ORDERS. SPO2 86% ON 2L, TITRATED UP TO 3L, NC. CALL LIGHT IN REACH. CALL LIGHT IN REACH.
[2024-08-24] MEDS ORDERED: LIDOCAINE & ANTACID 35 ML BTL PO ONE (18:00)
--- NOTE | 2024-08-24 18:06 | NUR ---
CAME TO NURSES STATION THAT PT NOSE WAS BLEEDING. THIS RN IN ROOM NOSE IS NOT ACTIVELY BLEEDING AT THIS TIME, BUT SCANT BLOOD IS NOTED NEAR NOSE. WET WASHCLOTH PROVIDED. EDUCATED PT NOT TO RUB, BLOW, OR PICK AT NOSE. PT REMOVED OXYGEN SPO2 DECREASES TO 86% ON 3L. ENCOURAGED TO PUT NC BACK ON SPO2 92%. PT CONTIUING TO EAT, WILL CALL IF BLEEDING REOCCURS. STATED "THIS IS HOW IT STARTED THE LAST TIME HE GOT A BLOODY NOSE".
--- NOTE | 2024-08-24 19:44 | NUR ---
REPORT RECEIVED FROM DAY SHIFT RN. PT LYING IN BED ALERT AND ORIENTED. DENIES NEEDS. WHITE BOARD UPDATED. CALL LIGHT IN REACH.
[2024-08-24] MEDS ORDERED: ATORVASTATIN 40 MG TAB PO SCH (21:00)
--- NOTE | 2024-08-24 21:15 | NUR ---
IN pt ROOM. pt TRIPOD POSITION AT SIDE OF BED WITH 3L OXYGEN BY NC IN PLACE. TITRATED TO 4L OXYGEN BY NC. pt SWITCHED TO OXYMASK, MOUTH BREATHING. RT AND PRIMARY RN NOTIFIED AND IN ROOM.
--- NOTE | 2024-08-24 21:49 | NUR ---
pt EMOTIONAL, CRYING, SITTING UP AT SIDE OF BED. PHONE CALL TO pt'S [place] PER pt REQUEST, WILL COME IN TO SEE pt. NOW TO FLOOR. VERBAL ORDER FOR ABDOMINAL XRAY STAT. XRAY IN ROOM.
[2024-08-24] MEDS ORDERED: LORazepam 2 MG/ML VIAL IV PRN (22:15)
[2024-08-24] MEDS ORDERED: POLYETHYLENE GLYCOL 3350 1 PACKET PO ONE (22:15)
[2024-08-24] MEDS ORDERED: OXYCODONE HCL 5 MG TAB PO PRN (22:15)
--- NOTE | 2024-08-24 22:56 | NUR ---
APPROX 2130 LEAD MACHINIST REPORTS PT C/O SOB. PT SITTING AT SIDE OF BED WITH 4L/OM IN PLACE. SpO2 LOW 90'S. HR 90'S. RR 40, SHALLOW. PT REPORTS PAIN WITH "EVERY BREATH" BELOW HIS RIBS. LUNGS CLEAR/DIM IN THE BASES. NO CRACKLES OR WHEEZE HEARD. RT IN TO ASSESS. PT REPORTS HX OF HERNIA, STATES "FEELS LIKE SOMETHING IS PUSHING UP AND KEEPING ME FROM BREATHING." BOWEL TONES ACTIVE. ABD FIRM. MD ON FLOOR AND UPDATED. ABD XRAY ORDERED. NEW VERBAL ORDERS RECEIVED VERIFIED WITH READBACK METHOD. PT IN ROOM. PT BREATHING IMPROVED. EVENING ASSESSMENT COMPLETE. SCHEDULED MEDS ADMIN PER EMAR. PT REPORTS HEADACHE PAIN 12/01. PRN FOR PAIN ADMIN PER EMAR. OXYGEN BACK TO 4L/OM. PT UP TO BR WITH FWW AND SBA TO VOID AND HAVE LARGE FORMED BM. STAFF ASSIST WITH [facility]. BACK TO BED, RANJAN FAIR. SpO2 92% WITH 4L UPON RETURN TO BED. PT LEFT TO RECOVER BEFORE ENEMA. CALL LIGHT IN REACH. IN ROOM.
--- NOTE | 2024-08-24 23:06 | NUR ---
Administered 1000mL tap water enema. Pre-oxygenated to 5LNC. While laying flat, pt desatted to 78% O2. Elevated head of bed and increased O2 to 6LNC. Upon completion of enema, elevated head of bed to sitting position and titrated back down to 4LNC. Pt 95%SpO2, call light in reach
[2024-08-25] VITALS (7 sets, daily range): BP systolic 102–119; BP diastolic 51–59
--- NOTE | 2024-08-25 00:22 | NUR ---
PT AWAKE IN BED. REPORTS HEADACHE PAIN 5/10. PRN FOR PAIN ADMIN PER EMAR. HOB ELEVATED. PT REPORTS BREATHING IMPROVED. SpO2 HIGH 90'S ON 4L/NC. HR 90'S. RESTING ON COUCH. NO FURTHER NEEDS. CALL LIGHT IN REACH.
--- NOTE | 2024-08-25 02:16 | NUR ---
PT RESTING IN BED WITH EYES CLOSED. HOB ELEVATED. RESPIRATIONS EVEN AND NON LABORES. SpO2 97% ON 4L/NC. TELE #[address] HR 80'S. RESTING ON COUCH. CALL LIGHT IN REACH.
--- NOTE | 2024-08-25 04:03 | NUR ---
PT RESTING IN BED WITH EYES CLOSED. RESPIRATIONS EVEN. SpO2 97% WITH 4L/NC IN PLACE. HR 90'S. CALL LIGHT IN REACH.
--- NOTE | 2024-08-25 04:39 | NUR ---
PT AWAKE IN BED. DAILY WEIGHT OBTAINED. VS AND I&O OBTAINED. PT DENIES PAIN. NO C/O SOB. PT REPORTS BREATHING IMPROVED THIS MORNING. ASSESSMENT UNCHANGED. PT DENIES FURTHER NEEDS. CALL LIGHT IN REACH.
[2024-08-25 05:37] LABS: HEMATOCRIT 25.3 % (35.0-50.0); HEMOGLOBIN 8.2 g/dL (12.0-18.0); MCH 23.5 (27-36); MCHC 32.5 g/dl (30-36); MCV 72.2 fl (81-99); RBC 3.51 M/ul (4.3-5.7); RDW 20.8 (10.5-15.0)
[2024-08-25 05:51] LABS: ALBUMIN 2.7 g/dL (3.4-5.0); ALBUMIN/GLOBULIN RATIO 0.69 (1.1-2.4); ANION GAP 7.5 (7-21); BILIRUBIN, TOTAL 0.4 mg/dL (0.2-1.0); BUN/CREATININE RATIO 23.52 (6.0-28.6); CALCIUM 9.6 mg/dL (8.5-10.1); CREATININE, SERUM 2.21 mg/dL (0.70-1.30); POTASSIUM 4.5 mmol/L (3.5-5.1); PROTEIN, TOTAL 6.6 g/dL (6.4-8.2)
[2024-08-25 05:55] LABS: BASOPHILS, MANUAL DIFF 2; EOSINOPHILS, MANUAL DIFF 2; LYMPHOCYTES, MANUAL DIFF 32; NEUTROPHILS, MANUAL DIFF 64
[2024-08-25 05:56] LABS: PLATELET COUNT 201 K/uL (140-440)
[2024-08-25] MEDS ORDERED: CEFTRIAXONE SODIUM 1 GM VIAL IV ONE (08:36)
[2024-08-25] MEDS ORDERED: AZITHROMYCIN 250 MG TAB PO SCH (09:00)
[2024-08-25] MEDS ORDERED: CEFTRIAXONE SODIUM 1 GM in SODIUM CHLORIDE 0.9% 100 ML IV SCH (09:00)
[2024-08-25] MEDS ORDERED: POLYETHYLENE GLYCOL 3350 1 PACKET PO SCH (09:45)
--- NOTE | 2024-08-25 10:22 | NUR ---
PATIENT ALERT AND ORIENTED. STATES THEY ARE PLANNING TO DO THORACENTESIS TODAY ON ONE SIDE AND POTENTIALLY ANOTHER TOMORROW. CONTINUES WITHOUT ANY KNOWN CM NEEDS AT THIS TIME.
[2024-08-25] MEDS ORDERED: LORazepam 2 MG/ML VIAL IV PRN (11:00)
--- NOTE | 2024-08-25 11:00 | NUR ---
Patient sitting on edge of bed, oxygen sat level of 88% noted. Patient reports increased anxiety. Oxygen increased to 4L per nc, respirations 30/min, encouraged effective breathing and reassured patient regarding his safety. SPO2 increased to 93%. Updated Dr. Fowler regarding patient having increased anxiety. New order placed by Dr. Fowler for ativan. Ativan 0.5mg IV admin at this time. next to pt comforting him. No needs at this time, personal supplies and call light within reach.
--- NOTE | 2024-08-25 12:05 | NUR ---
Patient in bed resting, he is now calm, no acute distress. Oxygen decreased to 2L oxygen, sp02 93% at this time. Patient updated on plan for thoracentesis at 2-2:30pm today. at bedside.
--- NOTE | 2024-08-25 13:57 | NUR ---
PATIENT IS SITTING SIDE OF BED FOR THORACENTESIS. 0.5MG OF IV ATIVAN GIVEN FOR ANXIETY.
--- NOTE | 2024-08-25 14:59 | NUR ---
Patient sitting up in bed, alert/oriented x3, no distress. Patient reports bedside thoracentesis went very well, he denies shortness of breath at this time, sp02 94% on 2L oxyen per nc. Family at bedside visiting. No needs at this time.
[2024-08-25 15:40] LABS: MONONUCLEAR CELLS, BODY FLUID 96; PMNS, BODY FLUID 4; RBC, BODY FLUID 53; SOURCE, BODY FLUID Pleural fluid; WBC, BODY FLUID 117
--- NOTE | 2024-08-25 17:00 | NUR ---
PATIENT SITTING UP IN BED EATING, CALL LIGHT IN REACH, PT DENIES NEEDS.
--- NOTE | 2024-08-25 17:19 | NUR ---
Patient in bed visiting with family at bedside. Patient denies distress, respirations non labored, sp02 93% on 2L oxygen per nc. Patient denies needs and or distress. Call light within reach.
--- NOTE | 2024-08-25 19:04 | NUR ---
Recieved report. Patient awake in bed, no needs at this time. Plan to re-wrap foot with gauze when come with meds. Call light in reach
--- NOTE | 2024-08-25 21:45 | NUR ---
Performed pt assessment, given nighttime meds. Examined L foot wound received from crush injury prior to admission. removed bandage and pt requested to re-wrap. Pt states he is f/u with doctor in [place] to address. Wound appeared with black eschar of 2nd toe and top of foot. Cleaned with sterile saline and dried with gauze, then wrapped in clean gauze.
--- NOTE | 2024-08-25 22:31 | NUR ---
Pt SpO2 at 84% on 3LNC with humidification when entered room, accompanied by high pitched whistling sound. Whistle found to be coming from oxygen attachment. Increased O2 to 4, then 5LNC with no improvement. Then placed NC directly on O2 attachment without humidification and re-positioned pt. SpO2 increased to 91-92%. When replaced humidifyer, SpO2 dropped again to 83%. Pt now on 4LNC attached without humidification and satting 94%.
[2024-08-26] VITALS (11 sets, daily range): BP systolic 96–118; BP diastolic 55–74
--- NOTE | 2024-08-26 00:40 | NUR ---
PT RESTING, SPO2 95%. CALL LIGHT IN REACH, BED ALARM ON
--- NOTE | 2024-08-26 02:39 | NUR ---
PT SLEEPING WITH RISE AND FALL OF CHEST OBSERVED. SPO2 94%. CALL LIGHT IN REACH
--- NOTE | 2024-08-26 03:55 | NUR ---
Pt observed resting with even rise and fall of chest. SpO2 96% on 4LNC. Call light in reach, bed alarm on
[2024-08-26 05:45] LABS: BASOPHILS 1.2 % (0-2); EOSINOPHILS 1.9 % (0-6); HEMATOCRIT 26.1 % (35.0-50.0); HEMOGLOBIN 8.4 g/dL (12.0-18.0); LYMPHOCYTES 9.5 % (24-44); MCH 23.4 (27-36); MCHC 32.3 g/dl (30-36); MCV 72.4 fl (81-99); MONOCYTES 10.1 % (0-12); NEUTROPHILS 77.3 % (39-80); PLATELET COUNT 196 K/uL (140-440); RDW 21.1 (10.5-15.0)
[2024-08-26 05:58] LABS: ANION GAP 8.8 (7-21); BUN/CREATININE RATIO 25.32 (6.0-28.6); CALCIUM 9.4 mg/dL (8.5-10.1); CREATININE, SERUM 2.29 mg/dL (0.70-1.30); MAGNESIUM 1.9 mg/dL (1.8-2.4); POTASSIUM 4.8 mmol/L (3.5-5.1)
--- NOTE | 2024-08-26 06:35 | NUR ---
a&oX4, pleasant. Paced. Voiding to urinal. Pt desatted to 84% on 3LNC, humidifier with loud whistling sound. When placed directly on O2 output without humidifier, SpO2 increased to 94%. At end of shift, SpO2 92% back on 3LNC without humidifier. L thoracentesis site c/d/i with no pain. Pt reports sleeping fitfully overnight, reports bed not comfortable. Call light in reach
[2024-08-26] MEDS ORDERED: CEFTRIAXONE SODIUM 1 GM VIAL IV ONE ×2 (08:57→09:01)
--- NOTE | 2024-08-26 09:05 | NUR ---
Board has been updated, patient declined eating in the chair. Left boot has been placed on for chest x-ray.
--- NOTE | 2024-08-26 10:19 | NUR ---
, MILAGRO, CONCERNED ABOUT PATIENTS PORTABLE OXYGEN NEEDS. STATES HE HAS A LARGE PORTABLE CONCENTRATOR THAT LASTS ONLY 2 HOURS AND IT IS GETTING IN THE WAY OF PATIENT'S DAILY LIFE. HE IS UNABLE TO ATTEND EVENTS BECAUSE HIS OXYGEN DOES NOT LAST LONG ENOUGH. STATES SHE HAS BEEN IN CONTACT WITH [facility] AND JUST WANTS TO KNOW IF CM CAN HELP. [facility] WORKS WITH REGARDING PORTABLE OXYGEN OPTIONS CM INITIATES DME NEEDS BUT THE DME COMPANY IS WHO WILL SET UP THE ACTUAL DME. VERBALIZES UNDERSTANDING. ESTHER STATES HE IS FEELING MUCH BETTER AND THINKS HE WOULD BE HAPPY TO GO HOME TOMORROW. DISCUSSED DC WILL BE WHEN PHYSICIAN THINKS HE IS MEDICALLY STABLE AND WILL DEPEND ON HIS IMPROVEMENTS TODAY AND THROUGH NIGHT. VERABLIZES UNDERSTANDING. NO OTHER CM NEEDS AT THIS TIME.
--- NOTE | 2024-08-26 11:28 | NUR ---
Patient in bed resting, easily wakes to verbal stimuli. Patient denies pain, he continues to have shortness of breath. Patient states his shortness of breath is "not as bad as yesterday". Patient reports he was "dizzy" and had increased sob with physical therapy. Blood pressure improved at this time. Patient encouraged to rest. CPOX in place, sp02 93% on 3L oxygen per nc. Bed alarm intact. at bedside.
--- NOTE | 2024-08-26 12:49 | NUR ---
Patient in bed resting, he reports he is anxious and very tired. Patient states he did not sleep at all last night. Ativan 0.5mg iv admin at this time for anxiety. SP02 94% on 3L oxygen per nc, respirations 24/min. at bedisde. Encouraged patient to eat lunch and take a nap. Call light within reach.
--- NOTE | 2024-08-26 14:31 | NUR ---
Patient in bed resting. Patient restless in bed, reports patient in and out of sleep. states patient has been jerking in his sleep and having verbal hallucinations. Patient wakes to verbal stimuli and answers questions appropriately. Patient denies increased sob at this time. Lung sounds are more clear in upper lobes, dim in bases. sp02 90-91% on 4L oxygen per nc. Zofran 4mg IV admin at this time for reported nausea. Dr. Fowler notified of patient status-New verbal order obtained for trazodone 100mg po at hs.
--- NOTE | 2024-08-26 14:58 | NUR ---
VISITED DURING SPIRITUAL CARE ROUNDS. PT SLEEPING; VISITED WITH . EXPRESSED CONCERN THAT PT WAS "GIVING UP. WOODEN BARREL MECHANIC PROVIDED SUPPORTIVE PRESENCE, GAVE ANTICAPTORY GUIDANCE, EXPLORED RESIENCE OF SPIRIT AND FARGILITY OF FLESH, PROVIDED PRAYER. EXPRESSED GRATITUDE, HOPE.
--- NOTE | 2024-08-26 15:46 | NUR ---
Patient resting in bed, eyes closed, respirations even and non labored. SP02 92% ON 4L oxygen per nc, cpox intact. Patient has no notable distress. Bed alarm intact. Personal supplies and call light within reach.
--- NOTE | 2024-08-26 18:24 | NUR ---
Updated Dr. Fowler regarding soft bp-96/59, p86. No new orders obtained.
--- NOTE | 2024-08-26 19:36 | EKG ---
[facility] [address] [place] [address] Signed Ventricular-paced rhythm Abnormal ECG No previous ECGs available Confirmed by Checo Fowler MD ([id number]) on 08/26/2024 7:36:15 PM Electronically Signed By: CHECO FOWLER MD 08/26/241935 PATIENT NAME: ESTHER PENNY SARIAH Electrocardiogram DATE OF : 47 PHYSICIAN: CHECO FOWLER MD REPORT #: [id number] REPORT IS CONFIDENTIAL AND NOT TO BE RELEASED WITHOUT AUTHORIZATION
--- NOTE | 2024-08-26 20:33 | NUR ---
Received bedside report, pt resting in bed. at home, requests update when available, received number for callback. Call light in reach
[2024-08-26] MEDS ORDERED: TRAZODONE HCL 100 MG TAB PO SCH (21:00)
--- NOTE | 2024-08-26 21:06 | NUR ---
ASSESSMENT, VITALS. GIVEN NIGHTTIME MEDS, INCLUDING TRAZADONE AND MELATONIN. WAFFLE MATTRESS APPLIED TO BED FOR COMFORT. PT REPORTS HE HAS NOT SLEPT WELL THE PAST FEW NIGHTS AND WOULD LIKE TO SLEEP TONIGHT. CALL LIGHT IN REACH, BED ALARM ACTIVE. RETURNED CALL TO , UPDATED ON PLAN OF CARE. PLANS TO VISIT IN AM.
--- NOTE | 2024-08-26 23:01 | NUR ---
PT SLEEPING SOUNDLY WITH SPO2 OF 94%. RISE AND FALL OF CHEST OBSERVED. CALL LIGHT IN REACH, BED ALARM ACTIVE
[2024-08-27] VITALS (8 sets, daily range): BP systolic 96–115; BP diastolic 46–56
--- NOTE | 2024-08-27 00:58 | NUR ---
PT OBSERVED SLEEPING WITH RISE AND FALL OF CHEST, SPO2 95%. CALL LIGHT IN REACH, BED ALARM ACTIVE
--- NOTE | 2024-08-27 02:54 | NUR ---
PT SLEEPING SOUNDLY, VISIBLE RISE AND FALL OF CHEST WITH 95% SP02. CALL LIGHT IN REACH, BED ALARM ACTIVE
--- NOTE | 2024-08-27 04:21 | NUR ---
Pt sleeping with rise and fall of chest observed. SpO2 95%. Call light in reach, bed alarm on
--- NOTE | 2024-08-27 04:22 | NUR ---
Pt A&Ox4, though tired and withdrawn. Expresses he has not slept adequately while in the hospital. Placed waffle mattress on bed for comfort and gave scheduled trazadone and PRN melatonin to good effect. Pt slept soundly for much of shift. Lung sound diminished at bases, pt reports shortness of breath is improved from yesterday. Boot on L foot while up, ok for off while in bed. Updated on phone about pt status and updated plan of care. Plan for possible 2nd thoracentesis today 08/27.
[2024-08-27 05:53] LABS: BASOPHILS 0.8 % (0-2); LYMPHOCYTES 14.8 % (24-44); MCH 23.3 (27-36); MCHC 32.2 g/dl (30-36); MCV 72.4 fl (81-99); MONOCYTES 11.2 % (0-12); NEUTROPHILS 69.2 % (39-80); PLATELET COUNT 174 K/uL (140-440); RBC 3.45 M/ul (4.3-5.7); RDW 20.7 (10.5-15.0)
[2024-08-27 06:09] LABS: ANION GAP 8.6 (7-21); BUN/CREATININE RATIO 26.78 (6.0-28.6); CALCIUM 9.3 mg/dL (8.5-10.1); CREATININE, SERUM 2.8 mg/dL (0.70-1.30); POTASSIUM 4.6 mmol/L (3.5-5.1)
--- NOTE | 2024-08-27 06:56 | NUR ---
Given morning meds, vitals taken. Performed bladder scan d/t due to void overnight: volume 265mL. Encouraged to use urinal. Call light in reach
--- NOTE | 2024-08-27 07:30 | NUR ---
PT RESTING IN BED WITH EYES CLOSED, RESPIRATIONS EVEN AND UNLABORED. CALL LIGHT WITHIN REACH. REPORT RECEIVED FROM SHAREE PERALTA
[2024-08-27] MEDS ORDERED: SODIUM CHLORIDE 0.9% 500 ML IV PRN (08:15)
--- NOTE | 2024-08-27 09:11 | NUR ---
PER MD, CANCELLING THORACENTESIS TODAY, US NOTIFIED AND PRIMARY RN NOTIFIED.
[2024-08-27] MEDS ORDERED: CEFTRIAXONE SODIUM 1 GM VIAL IV ONE (09:27)
[2024-08-27 09:33] LABS: GLUCOSE FLUID SOURCE Pleural fluid (()); GLUCOSE,BODY FLUID 196 mg/dL (()); LACTATE DEHYDROGENASE TOTAL,BF 61 U/L (()); LDH FLUID SOURCE Pleural fluid (()); TOTAL PROTEIN FLUID SOURCE Pleural fluid (()); TOTAL PROTEIN, BODY FLUID 2.9 g/dL (())
--- NOTE | 2024-08-27 10:00 | NUR ---
INTO SEE PATIENT SITTING AT THE EDGE OF BED EATING BREAKFAST. AT BEDSIDE. PATIENT WAITING TO SEE DOCTOR THIS MORNING. LET PATIENT KNOW TO FOLLOW UP WITH [facility] ON GETTING SMALLER PROTABLE OXYGEN TANK. PATIENT TO TAKE HIM HOME AT DISCHARGE. STATES THEY HAVE THE EQUIPMENT NEEDED. NO OTHER CM NEEDS AT THIS TIME.
--- NOTE | 2024-08-27 11:39 | NUR ---
VISITED DURING SPIRITUAL CARE ROUNDS. PT APPEARED TO BE SLEEPING, VISITED PRIMARILY WITH IN ROOM, NO IMMEDIATE NEEDS. WIRING INSPECTOR PROVIDED SUPPORTIVE PRESENCE, HOSPITALITY, PRAYER. EXPRESSED GRATITUDE.
--- NOTE | 2024-08-27 12:40 | NUR ---
PT JUST URINATED WITH ENCOURAGEMENT AFTER AWAKING. ENCOURAGING PT TO DRINK FLUIDS. PT'S IN ROOM VISITING WITH PT. CALL LIGHT WITHIN REACH.
--- NOTE | 2024-08-27 12:40 | NUR ---
DR MENDEZ NOTIFIED OF LOW URINE OUTPUT.
--- NOTE | 2024-08-27 13:47 | NUR ---
PT RESTING IN BED WITH EYES CLOSED AND RESPIRATIONS EVEN AND UNLABORED AFTER LUNCH. AT BEDSIDE. CALL LIGHT WITHIN REACH. NO REQUESTS AT THIS TIME.
--- NOTE | 2024-08-27 16:50 | NUR ---
PT SALINE LOCKED AT THIS TIME. REQUESTING ICE WATER - ALERTED RODRI ALLAN.
--- NOTE | 2024-08-27 17:36 | NUR ---
PT SITTING IN BED, JUST REPOSITIONED PER REQUEST. PT WATCHING TV. REQUESTED MAX PROTEIN ENSURE. ENCOURAGING PT TO DRINK FLUIDS. CALL LIGHT WITHIN REACH.
--- NOTE | 2024-08-27 19:42 | NUR ---
REPORT RECEIVED FROM DAY SHIFT RN. PT LYING IN BED RESTING WITH EYES CLOSED. RESPIRATIONS EVEN. CALL LIGHT IN REACH. WHITE BOARD UPDATED.
--- NOTE | 2024-08-27 20:41 | NUR ---
ESTHER IS ASLEEP IN BED WITH HOB ELEVATED ON A 3L NC.
--- NOTE | 2024-08-27 22:10 | NUR ---
EVENING ASSESSMENT COMPLETE. SCHEDULED MEDS ADMIN PER EMAR. PT DENIES PAIN OR NAUSEA. REPORTS SLIGHT SOB. SpO2 92% ON 3L/NC. LUNGS CLEAR/DIM THROUGHOUT. ASSISTED TO REPOSITION TO LEFT SIDE FOR COMFORT. PT DENIES QUESTIONS OR CONCERNS. CALL LIGHT IN REACH.
--- NOTE | 2024-08-27 23:26 | NUR ---
PT RESTING IN BED WITH EYES CLOSED. RESPIRATIONS EVEN. SpO2 93% ON 3L/NC. HR 80'S.
[2024-08-28] VITALS (8 sets, daily range): BP systolic 105–132; BP diastolic 52–73
--- NOTE | 2024-08-28 00:54 | NUR ---
PT IN BED RESTING WITH EYES CLOSED. RESPIRATIONS EVEN. CALL LIGHT IN REACH.
--- NOTE | 2024-08-28 02:18 | NUR ---
PT LYING ON LEFT SIDE RESTING WITH EYES CLOSED. RESPIRATIONS EVEN. SpO2 MID 90'S ON 3L/NC. HR 90'S.
[2024-08-28] MEDS ORDERED: ALBUTEROL SULFATE 0.083% 3 ML VIAL INH PRN (02:45)
--- NOTE | 2024-08-28 04:19 | NUR ---
PT RESTING IN BED WITH EYES CLOSED. RESPIRATIONS EVEN. CALL LIGHT IN REACH.
[2024-08-28 05:38] LABS: BASOPHILS 0.9 % (0-2); HEMATOCRIT 24.7 % (35.0-50.0); HEMOGLOBIN 8.1 g/dL (12.0-18.0); LYMPHOCYTES 8.2 % (24-44); MCH 23.6 (27-36); MCHC 32.8 g/dl (30-36); MCV 72.1 fl (81-99); MONOCYTES 9.1 % (0-12); NEUTROPHILS 77.8 % (39-80); PLATELET COUNT 182 K/uL (140-440); RBC 3.43 M/ul (4.3-5.7); RDW 20.4 (10.5-15.0)
[2024-08-28 05:49] LABS: ANION GAP 9.9 (7-21); BUN/CREATININE RATIO 32.65 (6.0-28.6); CALCIUM 9.1 mg/dL (8.5-10.1); CREATININE, SERUM 2.45 mg/dL (0.70-1.30); POTASSIUM 4.9 mmol/L (3.5-5.1)
--- NOTE | 2024-08-28 06:23 | NUR ---
SEMICONDUCTOR MANUFACTURING TECHNICIAN OBTIANED VITALS AND I&O. URINAL EMPTIED. SEMICONDUCTOR MANUFACTURING TECHNICIAN AND PRIMARY RN THEN OBTIANED STANDING WEIGHT. PT STATES NO FURTHER NEEDS AT THIS TIME. CALL LIGHT WITHIN REACH AND RN IN ROOM.
--- NOTE | 2024-08-28 06:26 | NUR ---
SCHEDULED MEDS ADMIN PER EMAR. ASSESSMENT COMPLETE. LUNGS CLEAR/DIM THROUGHOUT. 3L/NC IN PLACE. SpO2 90% AFTER OOB FOR WEIGHT. PT REPORTS SLIGHT SOB WITH ACTIVITY. NO FURTHER NEEDS AT THIS TIME. CALL LIGHT IN REACH.
--- NOTE | 2024-08-28 06:41 | NUR ---
CPOX ALARMING. PT SITTING ON THE SIDE OF THE BED. SpO2 89-90% ON 3L/NC. OXYGEN TITRATED TO 4L/NC.
[2024-08-28] MEDS ORDERED: CEFTRIAXONE SODIUM 1 GM VIAL IV ONE (08:00)
--- NOTE | 2024-08-28 08:20 | NUR ---
Patient awake, alert and oriented x3. Patient reports shorness of breath, sp02 91% on 4L oxygen per nc. Patient requesting medication for anxiety. Ativan admin with morning medication pass. RT notified and will come see patient. Call light within patient reach.
--- NOTE | 2024-08-28 08:36 | NUR ---
Morning meds given, vitals signs has been done, patient has had his breakfast. patient oxygen levels dropped to 88%, he became anxious. PRN Ativan administered, RT has been notified in regard to oxygen levels dropping. patient is sitted with feet hanging on the side of the bed, bed alarms on and call light within reach.
[2024-08-28] MEDS ORDERED: METOPROLOL SUCCINATE 50 MG TABCR PO SCH (09:00)
--- NOTE | 2024-08-28 10:50 | NUR ---
Patient in bed watching tv, no acute distress. Patient reports he is less anxious, sp02 94% on 4L. Patient reports he still is a bit sob. Hob elevated, lung sounds are clear/dim in upper lobes, crackles/dim in lower lobes. Patient recently received a breathing treatment. at bedside, updated her with plan of care. Encouraged patient to call if he has needs.
--- NOTE | 2024-08-28 11:08 | NUR ---
Patient vital signs done, patient said he still having sob, he is lieng on bed with HOB, patient O2 is at 96% on 4L NC, on auscultation,there is clear to dim sounds on the upper lobes of the lungs and wheezing at the lower lobes. The patient's is seated at the bed side, they are both watching TV, patient said he needed nothing at the moment, caller light at reach.
[2024-08-28] MEDS ORDERED: APIXABAN 5 MG TAB PO SCH (12:30)
[2024-08-28] MEDS ORDERED: FUROSEMIDE 100 MG/10 ML VIAL IV ONE (12:30)
--- NOTE | 2024-08-28 13:10 | NUR ---
INTO SEE PATIENT. IMM LETTER COMPLETED. PATIENT RESTING IN BED. AT BEDSIDE. TO TAKE PATIENT HOME AT TIME OF DISCHARGE. NO OTHER CM NEEDS AT THIS TIME.
[2024-08-28] MEDS ORDERED: ALBUTEROL/IPRATROPIUM 3 ML NEB INH SCH (14:00)
--- NOTE | 2024-08-28 15:26 | NUR ---
PT NOT AVAILABLE FOR VISIT. PROVIDED PRAYER.
--- NOTE | 2024-08-28 16:28 | NUR ---
VISITED DURING SPIRITUAL CARE ROUNDS. PT AND EXPRESSED SADNESS, DISMAY AT NEWS RECEIVED REGARDING HEALTH CONDITION. NEGATIVE CHECKER PROVIDED SUPPORTIVE PRESENCE, FACILITATED LIFE REVIEW, PROVIDED ASSURANCE OF DIVINE FAVOR, PROVIDED PRAYER. PT AND EXPRESSED GRATITUDE, HOPE, APPEARED LESS ANXIOUS.
--- NOTE | 2024-08-28 17:30 | NUR ---
Admin ativan 0.5mg iv at this time per patient request for anxiety. Patient sitting up eating dinner, respirations non labored, sp02 96% on 3L oxygen per nc. Patient tolerating dinner well, no further needs at this time.
--- NOTE | 2024-08-28 19:35 | NUR ---
Resting, eyes closed, awakens easily, no c/o pain.
--- NOTE | 2024-08-28 20:02 | NUR ---
KAILEE (ESTHER) IS ASLEEP IN BED W/HOB ELEVATED ON A 2L NC.
--- NOTE | 2024-08-28 20:36 | NUR ---
LACE STRIPPER OBTAINED VITALS AND I&O. PT STATES NO FURTHER NEEDS AT THIS TIME. CALL LIGHT WITHIN REACH.
--- NOTE | 2024-08-28 22:24 | NUR ---
PT SITTING EDGE OF BED, O2 2LNC, LUNGS CLEAR UPPER, DIM R SIDE, RUB LIKE SOUNDS LEFT. DENIES SOB WITH EXERTION. NO C/O CP OR DISCOMFORT. SL LHAND. TRACE EDEMA TO R FOOT. PLEASANT AND COOPERATIVE. CBG 308, RECEIVED 7 UNITS SSI
[2024-08-29] VITALS (10 sets, daily range): BP systolic 106–115; BP diastolic 59–69
--- NOTE | 2024-08-29 00:27 | NUR ---
resting, eyes closed, O2 in place, no s/sx distress cpox at bedside
--- NOTE | 2024-08-29 01:25 | NUR ---
awake, sitting edge of bed again on Right side, legs dependent. O2 in place, CPOx at bedside. no c/o pain or sob. cooperative with second assessment. upper lobes clear bilat. R dim and crackles on L side
--- NOTE | 2024-08-29 02:49 | NUR ---
pt sitting edge of bed, neb given c/o sob and insomnia and anxiety. Back to bed, warm blanket given. Pt medicated with Ativan 0.25mg IV
[2024-08-29 05:30] LABS: BASOPHILS 0.5 % (0-2); EOSINOPHILS 3.6 % (0-6); HEMATOCRIT 25.2 % (35.0-50.0); HEMOGLOBIN 8.3 g/dL (12.0-18.0); LYMPHOCYTES 7.3 % (24-44); MCH 23.5 (27-36); MCHC 32.8 g/dl (30-36); MCV 71.7 fl (81-99); MONOCYTES 10.1 % (0-12); NEUTROPHILS 78.5 % (39-80); PLATELET COUNT 191 K/uL (140-440); RBC 3.52 M/ul (4.3-5.7); RDW 20.6 (10.5-15.0)
--- NOTE | 2024-08-29 05:33 | NUR ---
Awakens easily, no c/o adverse reactin to abx. decreaed rednass back of upper and slightly below knee area. redness and edema no changes mid calf front and back, elevated. Pleasant and cooperative, on room air, cpox on at bedside.
[2024-08-29 05:38] LABS: ANION GAP 10.2 (7-21); BUN/CREATININE RATIO 37.55 (6.0-28.6); CALCIUM 9.4 mg/dL (8.5-10.1); CREATININE, SERUM 2.21 mg/dL (0.70-1.30); POTASSIUM 5.2 mmol/L (3.5-5.1)
--- NOTE | 2024-08-29 07:20 | NUR ---
GOT REPORT FROM COUNSELOR AIDE NURSE.
[2024-08-29] MEDS ORDERED: FUROSEMIDE 100 MG/10 ML VIAL IV ONE (07:45)
--- NOTE | 2024-08-29 08:11 | NUR ---
PATIENT TAKEN DOWN FOR CHEST XRAY.
[2024-08-29] MEDS ORDERED: CEFTRIAXONE SODIUM 1 GM VIAL IV ONE (08:28)
--- NOTE | 2024-08-29 09:00 | NUR ---
PATIENT BACK FROM HIS CHEST XRAY. PATIENT IS VERY TIRED. MEDICATIONS GIVEN, IV ANTIBIOTIC RUNNING. RT IS DOING NEB TREATMENT NOW. PATIENT HAS CALL LIGHT WITHIN REACH. HE DID NOT EACH MUCH OF HIS BREAKFAST. INSULIN GIVEN. PATIENT ON 2L NC WITH CPOX ON AND RUNNING AROUND 96%.
--- NOTE | 2024-08-29 09:02 | NUR ---
RA TRIAL 87%.
--- NOTE | 2024-08-29 09:32 | NUR ---
ANTIBIOTIC COMPLETE. IV FLUSHED WITH 10 ML NORMAL SALINE AND IS SALINE LOCKED. IV DRESSING IS CLEAN, DRY, AND INTACT. PATIENT IS LYING IN BED WITH EYES CLOSED AND RESPIRATIONS ARE EVEN AND UNLABORED. PATIENT WITH A VISITOR SITTING IN THE RECLINER AT BEDSIDE. PATIENT AND VISITOR STATED NO NEEDS AT THIS TIME. CALL LIGHT AND PERSONAL BELONGINGS ARE WITHIN REACH.
--- NOTE | 2024-08-29 11:05 | NUR ---
DOCTOR IN TALKING TO PATIENT. WE WILL NOW START PATIENT ON 1500 FLUID RESTRICTIONS AND MONITOR BLOOD PRESSURE CLOSE.
--- NOTE | 2024-08-29 11:56 | NUR ---
PER DOCTOR WE WILL HOLD ON PT PATIENTS BLOOD PRESSURE DROPS.
--- NOTE | 2024-08-29 12:15 | NUR ---
PATIENT GIVEN INSULIN. PATIENT AT SIDE OF BED WITH AT BEDSIDE. PATIENT IS READY FOR LUNCH. HE WOULD LIKE TO GO FOR A RIDE OUTSIDE IN THE WHEELCHAIR ONCE LUNCH IS OVER.
--- NOTE | 2024-08-29 13:56 | NUR ---
PATIENT SEEMED A LITTLE DOWN THIS MORNING AFTER TALKING TO THE PROVIDER. THIS NURSE TOOK HIM FOR A WHEELCHAIR RIDE OUTSIDE TO GET SOME SUNSHINE. PATIENT THEN WAS UP TO GET A SHOWER, DID THE SHOWER INDEPENDENTLY ON THE SHOWER CHAIR. PATIENT THEN BACK TO A CLEAN BED, BARRIER CREAM APPLIED TO BUTTOCKS. PATIENT TIRED BUT VERY THANKFUL. PATIENTS ADVISED THATS THE MOST HE HAS DONE IN A WEEK.
--- NOTE | 2024-08-29 14:47 | NUR ---
REPORT RECEIVED FROM KATHRYN MEADE. PT RESTING IN BED WITH EYES CLOSED, RR EVEN AND UNLABORED. CPOX AT BEDSIDE, PRESENT IN RECLINER. TELLS THIS RN THAT ELDA, FROM RESPIRATORY THERAPY ASKED THAT HE BE CALLED WHEN PT WAKES. NO REQUESTS AT THIS TIME, CALL LIGHT IN REACH, REMAINS IN ROOM.
--- NOTE | 2024-08-29 17:16 | NUR ---
MEDICATION ADMINISTERED, SEE MAR. PT IS RESTING IN BED WATCHING TELEVISION. HE IS ALERT AND ORIENTED, PLEASANTLY COMMUNICATING WITH THIS RN. 200ML AND ANOTHER UNMEASURED OUTPUT NOTED ON I&O BOARD. PT REPORTS NO SOB OR DISCOMFORT. NO REQUESTS, CALL LIGHT IN REACH.
--- NOTE | 2024-08-29 17:38 | NUR ---
PT SITTING ON EDGE OF BED TO EAT DINNER. SPO2 SUSTAINS 86% ON 2LNC. OXYGEN TITRATED TO 4LNC WHILE PT IS SITTING ON EDGE OF BED. SPO2 SUSTAINS 90% ON CPOX. PT STEADY ON SIDE OF BED, NO REQUESTS AT THIS TIME, CALL LIGHT IN REACH.
--- NOTE | 2024-08-29 18:47 | NUR ---
PT RESTING IN BED WATCHING TELEVISION. 2LNC IN PLACE, CPOX AT BEDSIDE. NO REQUESTS AT THIS TIME, CALL LIGHT IN REACH.
--- NOTE | 2024-08-29 19:49 | NUR ---
KAILEE IS IN BED ON A 2L NC W/HOB ELEVATED IN AND OUT OF SLEEP.
--- NOTE | 2024-08-29 21:19 | NUR ---
pt in bed, hob elevated to comfort, on 2LNC chronic, CPOX on at bedside, sats WNL. lungs clear uppers and insp crackles bilat lower/bases. c/o sob with exertion. abd distended, juan c, soft, SL LH patent, edema to LE 1+ dressing L mid foot patent, elevated. waffle mattress in place. Medicated with Tylenol per abd and generalized pain. aware of 1500 fluid restriction, tolerating well. at bedside
--- NOTE | 2024-08-29 23:29 | NUR ---
RESTING, EYES CLOSED, NO S/SX DISTRESS, ON 2lnc, CPOX ON AT BEDSIDE. IN BED HOB ELEVATED. ROOMING IN
--- NOTE | 2024-08-30 00:49 | NUR ---
Pt standing edge of bed, O2 2L, cpox at bedside, sats 90% P103 resp 24 shallow and fast. lungs dim at bases and faint crackles. SOb with exertion noted, using urinal. voided small amounts QS. RT notified, got a neb tx. Increased anxious behavior present, medicated with Ativan 0.5mg IV. Repositioned back in bed with assist. sats 94% P113, resp 22. Edema to LE no hcanges. elevated. As per who is rooming in "He has been very anxious since the young doctor told him he was dying and may not live long". RT and this nurse Reassured both pt and and instructed on 08/29 XR results and meaning. Pts declining health and pt started getting more anxious. Pt is a full code. Will continues to explain all cares prior to, reassure and praise efforts. A few minutes after receiving Ativan he calmed down. rooming in
--- NOTE | 2024-08-30 04:00 | NUR ---
RESTING, EYES CLOSED, O2 2LNC IN PLACE, CPOX IN PLACE, NO S/SX DISTRESS
[2024-08-30 05:35] LABS: BASOPHILS 0.8 % (0-2); EOSINOPHILS 4.6 % (0-6); HEMATOCRIT 25.2 % (35.0-50.0); HEMOGLOBIN 8.2 g/dL (12.0-18.0); LYMPHOCYTES 7.5 % (24-44); MCH 23.2 (27-36); MCHC 32.5 g/dl (30-36); MCV 71.4 fl (81-99); MONOCYTES 9.3 % (0-12); NEUTROPHILS 77.8 % (39-80); PLATELET COUNT 195 K/uL (140-440); RBC 3.52 M/ul (4.3-5.7)
[2024-08-30 05:38] LABS: ANION GAP 10.2 (7-21); BUN/CREATININE RATIO 40.88 (6.0-28.6); CALCIUM 9.5 mg/dL (8.5-10.1); CREATININE, SERUM 2.03 mg/dL (0.70-1.30); POTASSIUM 5.2 mmol/L (3.5-5.1)
[2024-08-30 05:49] VITALS: BP 114/60
--- NOTE | 2024-08-30 07:20 | NUR ---
GOT REPORT FROM HIGHWAY ENGINEER NURSE.
--- NOTE | 2024-08-30 07:26 | NUR ---
PATIENT CURRENTLY SLEEPING, AT BEDSIDE. REGULAR RESPIRATIONS NOTED. BED IN LOW POSITION, CALL LIGHT WITHIN REACH. PT ON 2L NC, CPOX ON.
[2024-08-30] MEDS ORDERED: BUDESONIDE 0.5 MG/2 ML VIAL INH SCH (08:00)
[2024-08-30 08:02] VITALS: BP 111/57
[2024-08-30] MEDS ORDERED: CEFTRIAXONE SODIUM 1 GM VIAL IV ONE (08:10)
--- NOTE | 2024-08-30 08:34 | NUR ---
IN ROOM, PATIENT UP AT BEDSIDE FOR BREAKFAST. PATIENT OXYGEN MOVED UP TO 4L HE WAS DOWN AT 83 ON 2L. PATIENT NOW AT 93%. PATIENT COMPLAINS OF FEELING SOB BUT NO PAIN. MEDICATIONS GIVEN,IV ANTIBIOTICS RUNNING.
--- NOTE | 2024-08-30 09:44 | NUR ---
REPORT GIVEN TO CCU AND PATIENT TRANSFERED OVER.
--- NOTE | 2024-08-30 09:45 | NUR ---
PT BROUGHT OVER FROM MED SURG, TRANSFERED FOR WORSENING SOB THIS AM. PT ARRIVES AWAKE AND ALERT WITH AT BEDSIDE, ON 4L/NC WITH LABORED RESPIRATIONS. FUEL VERIFICATION TECHNICIAN IS WORKING ON TRANSFERRING PT TO A [facility] LEVEL OF CARE, PLAN DISCUSSED WITH PT AND HIS AND THEY ARE FINE WITH THE PLAN. IV LASIX GIVEN PER EMAR.
[2024-08-30] MEDS ORDERED: FUROSEMIDE 40 MG/4 ML VIAL IV ONE (11:00)
[2024-08-30] MEDS ORDERED: Dobutamine HCl/D5w 250 ML IV SCH (11:15)
[2024-08-30 11:39] VITALS: BP 117/69
--- NOTE | 2024-08-30 11:55 | NUR ---
DOBUTAMINE DRIP HAS BEEN STARTED, PT RESTING BACK IN BED, RR NOW 30, SPO2 96%. FAMILY AT BEDSIDE. AWAITING ACCEPTANCE FOR TRANSFER.
[2024-08-30] MEDS ORDERED: LIDOCAINE 2% VISCOUS 6 ML SYR TOP ONE (13:15)
--- NOTE | 2024-08-30 14:13 | NUR ---
PT LEFT BUILDING WITH [employer]. REPORT CALLED TO JOEY PERALTA.
== END 2024-08-30 14:13 | disposition short-term general hospital (02) | DRG 291 ==
LOC: ED 14:11 → MS 18:46 → CCU 08-30 09:30
PROVIDERS: Emergency Medicine; Student in an Organized Health Care Education/Training Program; ADMIT Student in an Organized Health Care Education/Training Program; ATTEND Student in an Organized Health Care Education/Training Program
PROC: 0W9B3ZZ Drainage of Left Pleural Cavity, Percutaneous Approach (ICD-10-PCS; principal; 2024-08-25)
DX: I13.0 Hypertensive heart and chronic kidney disease with heart failure and stage 1 through stage 4 chronic kidney disease, or unspecified chronic kidney disease (principal); I50.23 Acute on chronic systolic (congestive) heart failure; J96.01 Acute respiratory failure with hypoxia; N17.9 Acute kidney failure, unspecified; E11.52 Type 2 diabetes mellitus with diabetic peripheral angiopathy with gangrene; J90 Pleural effusion, not elsewhere classified; I48.20 Chronic atrial fibrillation, unspecified; E11.22 Type 2 diabetes mellitus with diabetic chronic kidney disease; K59.00 Constipation, unspecified; M10.9 Gout, unspecified; N40.0 Benign prostatic hyperplasia without lower urinary tract symptoms; E03.9 Hypothyroidism, unspecified; F32.9 Major depressive disorder, single episode, unspecified; F41.1 Generalized anxiety disorder; F51.04 Psychophysiologic insomnia; F40.240 Claustrophobia; I25.10 Atherosclerotic heart disease of native coronary artery without angina pectoris; N18.30 Chronic kidney disease, stage 3 unspecified; E78.5 Hyperlipidemia, unspecified; Z87.81 Personal history of (healed) traumatic fracture; E11.40 Type 2 diabetes mellitus with diabetic neuropathy, unspecified; Z86.74 Personal history of sudden cardiac arrest; Z96.653 Presence of artificial knee joint, bilateral; Z95.0 Presence of cardiac pacemaker; Z98.890 Other specified postprocedural states; Z88.8 Allergy status to other drugs, medicaments and biological substances; Z79.4 Long term (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 of insulin; Z79.02 Long term (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 of antithrombotics/antiplatelets; Z79.899 Other long term (current) drug therapy; Z79.890 Hormone replacement therapy; Z79.01 Long term (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 of 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; Z79.84 Long term (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 of oral hypoglycemic drugs
CPT/HCPCS: 32554; 32555; 36415; 51798; 71045; 71046; 74018; 80048; 80053; 82945; 83615; 83735; 83880; 83986; 84157; 84484; 85025; 85060; 87070; 87075; 87205; 89051; 93005; 93010; 93306; 93971; 94010; 94640; 94667; 94668; 94762; 96374; 97162; 97166; 97530; 99285-25; A9270; J1250; J1815; J1940; J2060; J2405; J7040